=== PATIENT | female | born 1945 | race Caucasian/White ===

== ENCOUNTER → 2016-08-17 | Outpatient (CLI) | payer MEDICARE ==
[2014-05-23 11:30] VITALS: BP 159/70
[~2016-08-17] MED LIST: ASPI-630 PO; ATORVASTATIN CA80 MG PO; GLIP5TAB10 PO; LORA10CA PO; METO100T2 PO; MULT-18 PO; OMEG1CAP38 PO; OMEP40CA5 PO; PIOG30TA3 PO; PLAN450T PO
--- NOTE | 2016-08-17 14:38 | KCIC ---
PROCEDURE Bilateral carotid duplex Doppler ultrasound. HISTORY CAD, history of CABG. TECHNIQUE Duplex sonography of the cervical portion of both carotid arteries was performed including color flow imaging and spectral waveform analysis with flow velocity measurement and burch scale evaluation. COMPARISON Bilateral carotid Doppler ultrasound, July 04, 2013. CTA neck, May 23, 2014. FINDINGS Right side: Peak systolic flow velocity of the distal CCA is 63 cm/sec. Peak systolic flow velocity of the ICA is 132 cm/sec. Thus, the ICA/CCA ratio is 2.1. Peak end diastolic flow velocity of the ICA is 42 cm/sec. The peak systolic velocity of the ECA is 186 cm/sec. Left side: Peak systolic flow velocity of the distal CCA is 56 cm/sec. Peak systolic flow velocity of the ICA is 146 cm/sec. Thus, the ICA/CCA ratio is 2.6. Peak end diastolic flow velocity of the ICA is 38 cm/sec. Peak systolic flow velocity of the ECA is 1 cm/sec. There is echogenic plaque in the left CCA. Left ICA is tortuous. Antegrade vertebral flow is seen bilaterally. The prior ultrasound and CTA demonstrated more severe disease bilaterally. Correlate to any interval interventions such as CEA. IMPRESSION Elevated peak systolic velocities and increased ICA to CCA ratios suggest 50-69 percent stenoses bilaterally. Electronically signed by: Edilberto Barbosa MD (August 17, 2016 14:37:37)
== END | disposition home or self-care (01) ==
LOC: KCIC US 12:07
PROVIDERS: ATTEND Internal Medicine Cardiovascular Disease
DX: I25.10 Atherosclerotic heart disease of native coronary artery without angina pectoris (principal); Z95.1 Presence of aortocoronary bypass graft; I65.22 Occlusion and stenosis of left carotid artery
CPT/HCPCS: 93880

== ENCOUNTER → 2016-09-08 | Outpatient (CLI) | payer MEDICARE ==
[2014-05-23 11:30] VITALS: BP 159/70
[~2016-09-08] MED LIST changes: +IOHEXOL 300 MG/ML 100ML VIAL. IV ONE
== END | disposition home or self-care (01) ==
LOC: KCIC CT 08:59
PROVIDERS: ATTEND Internal Medicine Cardiovascular Disease
DX: I25.10 Atherosclerotic heart disease of native coronary artery without angina pectoris (principal)
CPT/HCPCS: 82565

== ENCOUNTER → 2016-09-11 | Outpatient (CLI) | payer MEDICARE ==
[2014-05-23 11:30] VITALS: BP 159/70
[~2016-09-11] MED LIST changes: -IOHEXOL 300 MG/ML 100ML VIAL. IV ONE
--- NOTE | 2016-09-11 13:20 | KCIC ---
Neck MRA without contrast History: Carotid artery disease Technique: [id number] MR angiography was performed of the neck. No contrast was given due to the patient's renal function. Comparison: Carotid Doppler exam August 17, 2016 and also CTA neck exam 05/23/2014 Findings: Determination of any degree of stenosis is based on NASCET criteria. There is motion degradation. Exam is also limited due to the lack of contrast. Antegrade flow is demonstrated in the bilateral vertebral arteries as well as the bilateral common and internal carotid arteries. As seen on previous CTA, there is more focal significant stenosis at the left proximal internal carotid artery near its origin with estimated luminal diameter reduction on the order of 80%. There is narrowing of the origin of the left external carotid artery estimated at approximately 65%. There is also a long segment of irregularity of the proximal right internal carotid artery corresponding with plaque as seen on previous CTA with estimated luminal diameter reduction on the order of 70%. Origins are not accurately evaluated due to signal loss in this region. Impression: 1. Exam limited as stated. There is significant stenosis of the proximal left internal carotid artery on the order of 80%, also stenosis of the proximal right internal carotid origin with estimated luminal diameter reduction of 70%. Electronically signed by: Sav Valdes MD (09/11/2016 1:16 PM)
== END | disposition home or self-care (01) ==
LOC: KCIC MRI 11:29
PROVIDERS: ATTEND Internal Medicine Cardiovascular Disease
DX: I65.23 Occlusion and stenosis of bilateral carotid arteries (principal)
CPT/HCPCS: 70547

== ENCOUNTER 2018-08-05 12:23 | Inpatient (IN) | payer MEDICARE ==
[~2018-08-05] VITALS: Ht 177.8 cm; Wt 139.8 kg
[~2018-08-05 12:23] MED LIST changes: -METO100T2 PO; +METO100T7 PO; -PIOG30TA3 PO; +PIOG30TA62 PO
[2018-08-05 13:12] LABS: BILIRUBIN,URINE MODERATE (NEG); CLARITY,URINE CLOUDY; COLOR,URINE ORANGE; NITRITE,URINE POSITIVE (NEG); PROTEIN,URINE 100 mg/dL (NEG-TRACE)
[2018-08-05 13:23] LABS: HYALINE CASTS, URINE MODERATE /HPF; SQUAMOUS EPITHELIAL CELL,UR FEW /LPF
[2018-08-05 13:24] LABS: AMORPHOUS SEDIMENT,UR PRESENT /HPF; BACTERIA,URINE MANY /HPF (0-FEW); RBC,URINE OCC /HPF (0-2)
--- NOTE | 2018-08-05 13:36 | EKG ---
[facility] [address] [place] [address] Test Date: 2018-08-05 Test Time: 13:24:33 Pat Name: THO LINARES Department: Room: Gender: F Checkout Operator: : [id number] Requested By: KYLEE MARY Order Number: [id number] Reading MD: Timothy Pierre MD Measurements Intervals [place] Rate: 80 P: -121 WA: 138 QRS: 26 QRSD: 94 T: 36 QT: 392 QTc: 456 Interpretive Statements SINUS RHYTHM NORMAL ECG Electronically Signed On 08-06-2018 14:38:11 CDT by Timothy Pierre MD
[2018-08-05] MEDS ORDERED: SITA50TA PO (13:52)
[2018-08-05] MEDS ORDERED: LISI-338 PO (13:52)
--- NOTE | 2018-08-05 13:53 | RAD ---
CHEST AP ONLY Clinical indications: Generalized weakness. COMPARISON: August 01, 2013. Findings: Bilateral interstitial lung infiltrates or peribronchial thickening is seen. No lung consolidation or pleural effusion or pneumothorax is seen. A sternotomy is evident. The heart size, pulmonary vasculature, mediastinum and both josias are stable. Impression: Increase in bilateral lung infiltrates or peribronchial thickening. This may be secondary to acute interstitial pulmonary edema or acute bronchitis. Electronically signed by: Pascual Bedolla MD (08/05/2018 1:49 PM) [place] [id number]
[2018-08-05 14:23] LABS: BASO % 1 % (0-3); EOS % 1 % (0-3); HEMATOCRIT 34.6 % (36.0-47.0); HEMOGLOBIN 11.5 g/dL (12.0-15.5); LYMPH # 0.4 x10^3/uL (1.0-4.8); LYMPH % 28 % (24-48); MEAN CORPUSCULAR HEMOGLOBIN 32 pg (25-35); MEAN CORPUSCULAR HGB CONC 33 g/dL (31-37); MEAN CORPUSCULAR VOLUME 96 fL (79-100); MONO # 0.2 x10^3/uL (0.0-1.1); MONO % 13 % (0-9); NEUT # 0.8 x10^3uL (1.8-7.7); NEUT % 57 % (31-73); PLATELET COUNT 159 x10^3/uL (140-400); RED BLOOD COUNT 3.62 x10^6/uL (3.50-5.40); RED CELL DISTRIBUTION WIDTH 15.7 % (11.5-14.5)
[2018-08-05 14:27] LABS: WHITE BLOOD COUNT 1.3 x10^3/uL (4.0-11.0)
--- NOTE | 2018-08-05 14:43 | RAD ---
CT HEAD WO CONTRAST Clinical indications: Generalized weakness. COMPARISON: None available. Technique: Noncontrast axial cross sectional scanning of the head was performed. PQRS compliance Statement One or more of the following individualized dose reduction techniques were utilized for this study: 1. Automated exposure control 2. Adjustment of the mA and/or kV according to patient size 3. Use of iterative reconstruction technique Findings: No acute intracranial hemorrhage or midline shift or mass-effect or hydrocephalus or extra-axial fluid collection is seen. There is a moderate-sized hypodensity involving the left centrum semiovale anteriorly in the region of the anterior limb of the internal capsule. Smaller hypodensity is seen involving the perez radiata of the right parietal lobe. There is a small hypodensity involving the periventricular white matter of the anterior right parietal lobe. This is consistent with chronic ischemic disease. No asymmetric sulci effacement is seen. No skull fracture or pneumocephalus is seen. No opacification of the mastoid sinuses or the paranasal sinuses is seen. The maxillary sinuses are not completely seen in this study. Impression: No acute intracranial hemorrhage is seen. Chronic ischemic disease. Electronically signed by: Pascual Bedolla MD (08/05/2018 2:40 PM) [id number]
[2018-08-05 14:53] LABS: ALBUMIN 2.2 g/dL (3.4-5.0); CALCIUM 8.2 mg/dL (8.5-10.1); CREATININE 2.1 mg/dL (0.6-1.0); DIRECT BILIRUBIN 1.1 mg/dL (0.0-0.2); GFR 23.2; POTASSIUM 3.4 mmol/L (3.5-5.1); TOTAL BILIRUBIN 1.5 mg/dL (0.2-1.0)
[2018-08-05] MEDS ORDERED: PIP/TAZO PER PHARMACY MC PRN (15:00)
[2018-08-05] MEDS ORDERED: PIPERACILLIN/TAZOBACTAM 4.5 GM in IV NORMAL SALINE 100ML 100 ML IV ONE (15:00)
[2018-08-05 15:17] LABS: % BANDS 3 % (0-9); % LYMPHS 30 % (24-48); % MONOS 7 % (0-10); % SEGS 60 % (35-66); PLATELET CLUMP PRESENT; PLT ESTIMATE ADEQUATE (ADEQUATE)
[2018-08-05] MEDS ORDERED: VANCOMYCIN 2 GM in IV NORMAL SALINE 500ML BAG 500 ML IV ONE (16:15)
[2018-08-05] MEDS ORDERED: IV NORMAL SALINE 1000ML BAG 1,000 ML IV SCH (16:43)
[2018-08-05] MEDS ORDERED: MORPHINE SULFATE 2 MG/ML VIAL. IV PRN (16:45)
[2018-08-05] MEDS ORDERED: ONDANSETRON PF 4 MG/2 ML VIAL. IV PRN (16:45)
[2018-08-05] MEDS: VANCOMYCIN PER PHARMACY MC PRN (17:09)
--- NOTE | 2018-08-05 17:11 | NUR ---
Pharmacy Vancomycin Dosing Note S:Consulted to monitor and dose vancomycin started 08/05/18. O:THO LINARES is a 72 year old F with Sepsis, pneumonia . Height: 5 feet, 10 inches Weight: 136 kg [place] Body Weight: 68.50 Adjusted Body Weight: 95.50 Dosing Weight: Actual Other Antibiotics: zosyn LABS: Last BUN: 37 Last Creatinine: 2.1 Creatinine Clearance: 37 mL/min Last WBC: 1.3 Last Procalcitonin: Tmax (past 24 hours): 97.4 Microbiology: - Last dose given 08/05/18 at 1617 Vancomycin Dosing: Loading Dose: 2000 mg x1 Dosing Weight: Actual Target Trough: 15-20 A: Based on: weight and renal function P: 1. Begin vancomycin 1500 mg IV q24h 2. Follow up Trough level on 08/07/18 at 1530 3. Pharmacy will continue to monitor, follow and adjust therapy as needed. Gracia Louie RPH, 08/05/18 [id number]
--- NOTE | 2018-08-05 17:26 | PHYS DOC ---
Past Medical History Past Medical History: GERD, High Cholesterol, Hypertension Past Surgical History: Coronary Bypass Surgery Additional Past Surgical Histo: "Band-aid surgery-I had 17 fractures to my pelvic bone." Alcohol Use: None Drug Use: None Adult General Chief Complaint Chief Complaint: gen weakness and cough HPI HPI 72-year-old female presenting the emergency department today with generalized weakness for the past 2-3 days. It is associated with shortness of breath. She denies any pain. She reports having cough and upon arrival was found be in the mid 80s on room air. Location lungs. Duration intermittent. Worse with walking. Review of systems was negative for abdominal pain nausea vomiting headache neck pain neck stiffness. All other review of systems is negative unless otherwise noted in history of present illness. ED course: 72-year-old female presenting the emergency today with generalized weakness to be hypoxic on arrival placed on 4 L nasal cannula. Blood pressure within normal limits. Heart rate within normal limits. Patient has a new leukopenia with neutropenia. Chemistry panel shows mildly low sodium potassium and chloride. BUN and creatinine are elevated. Glucose mildly low. Patient is alert and oriented. LFTs are mildly elevated as well. Patient does not have right upper quadrant abdominal pain. Troponin within normal limits. We will give broad-spectrum antibiotics I spoke with Dr. Duran who is admitting for Dr. Long today. Basic bridge orders placed after IV antibiotics and IV fluids ordered. The patient was then admitted for further treatment and care. Basic bridge orders placed. Review of Systems Review of Systems SEE ABOVE. Current Medications Current Medications Current Medications Medications (Trade) Dose Ordered Sig/[facility] Start Time Stop Time Status Last Admin Dose Admin Piperacillin Sod/ Tazobactam Sod (Zosyn Per Pharmacy) 1 each PRN DAILY PRN 08/05/18 15:00 Piperacillin Sod/ Tazobactam Sod 4.5 gm/Sodium Chloride 100 ml @ 200 mls/hr ONCE ONCE 08/05/18 15:00 08/05/18 15:29 DC 08/05/18 15:00 200 MLS/HR Vancomycin HCl (Vanco Per Pharmacy) 1 each PRN DAILY PRN 08/05/18 16:15 08/05/18 17:09 1 EACH Vancomycin HCl 2 gm/Sodium Chloride 500 ml @ 250 mls/hr 1X ONCE 08/05/18 16:15 08/05/18 18:14 08/05/18 16:17 250 MLS/HR Allergies Allergies Allergies Coded Allergies Type Severity Reaction Last Updated Verified No Known Drug Allergies 07/05/13 No Physical Exam Physical Exam SEE ABOVE Constitutional: Well developed, well nourished, no acute distress, non-toxic appearance. [] HENT: Normocephalic, atraumatic, bilateral external ears normal, oropharynx moist, no oral exudates, nose normal. [] Eyes: PERRLA, EOMI, conjunctiva normal, no discharge. [] Neck: Normal range of motion, no tenderness, supple, no stridor. [] Cardiovascular:Heart rate regular rhythm, no murmur [] Lungs & Thorax: Patient has mild wheezing on left more than the right. Abdomen: Bowel sounds normal, soft, no tenderness, no masses, no pulsatile masses. [] Skin: Warm, dry, no erythema, no rash. [] Back: No tenderness, no CVA tenderness. [] Extremities: No tenderness, no cyanosis, no clubbing, ROM intact, 1+ edema in the legs bilaterally Neurologic: Alert and oriented X 3, normal motor function, normal sensory function, no focal deficits noted. [] Psychologic: Affect normal, judgement normal, mood normal. [] Current Patient Data Vital Signs Vital Signs Date Time Temp Pulse Resp B/P (MAP) Pulse Ox O2 Delivery O2 Flow Rate FiO2 08/05/18 16:36 87 36 104/46 (65) 98 Nasal Cannula 4.0 08/05/18 13:11 97.4 97.4 Lab Values Laboratory Tests Test 08/05/18 13:05 08/05/18 14:07 Urine Collection Type U cath Urine Color [place] Urine Clarity Cloudy Urine pH 5.0 Urine Specific [place] 1.025 Urine Protein 100 mg/dL (NEG-TRACE) Urine Glucose (UA) Negative mg/dL (NEG) Urine Ketones (Stick) Trace mg/dL (NEG) Urine Blood Negative (NEG) Urine Nitrite Positive (NEG) Urine Bilirubin Moderate (NEG) Urine Urobilinogen Dipstick 4.0 mg/dL (0.2 mg/dL) Urine Leukocyte Esterase Small (NEG) Urine RBC Occ /HPF (0-2) Urine WBC 5-10 /HPF (0-4) Urine Squamous Epithelial Cells Few /LPF Urine Renal Epithelial Cells Occ /LPF Urine Amorphous Sediment Present /HPF Urine Bacteria Many /HPF (0-FEW) Urine Hyaline Casts Moderate /HPF Urine Mucus Mod /LPF White Blood Count 1.3 x10^3/uL (4.0-11.0) *L Red Blood Count 3.62 x10^6/uL (3.50-5.40) Hemoglobin 11.5 g/dL (12.0-15.5) L Hematocrit 34.6 % (36.0-47.0) L Mean Corpuscular Volume 96 fL (79-100) Mean Corpuscular Hemoglobin 32 pg (25-35) Mean Corpuscular Hemoglobin Concent 33 g/dL (31-37) Red Cell Distribution Width 15.7 % (11.5-14.5) H Platelet Count 159 x10^3/uL (140-400) Neutrophils (%) (Auto) 57 % (31-73) Lymphocytes (%) (Auto) 28 % (24-48) Monocytes (%) (Auto) 13 % (0-9) H Eosinophils (%) (Auto) 1 % (0-3) Basophils (%) (Auto) 1 % (0-3) Neutrophils # (Auto) 0.8 x10^3uL (1.8-7.7) L Lymphocytes # (Auto) 0.4 x10^3/uL (1.0-4.8) L Monocytes # (Auto) 0.2 x10^3/uL (0.0-1.1) Eosinophils # (Auto) 0.0 x10^3/uL (0.0-0.7) Basophils # (Auto) 0.0 x10^3/uL (0.0-0.2) Segmented Neutrophils % 60 % (35-66) Band Neutrophils % 3 % (0-9) Lymphocytes % 30 % (24-48) Monocytes % 7 % (0-10) Platelet Estimate Adequate (ADEQUATE) Platelet Clumps, EDTA Present Large Platelets Few Sodium Level 134 mmol/L (136-145) L Potassium Level 3.4 mmol/L (3.5-5.1) L Chloride Level 94 mmol/L (98-107) L Carbon Dioxide Level 26 mmol/L (21-32) Anion Gap 14 (6-14) Blood Urea Nitrogen 37 mg/dL (7-20) H Creatinine 2.1 mg/dL (0.6-1.0) H Estimated GFR (Cockcroft-Gault) 23.2 Glucose Level 64 mg/dL (70-99) L Calcium Level 8.2 mg/dL (8.5-10.1) L Total Bilirubin 1.5 mg/dL (0.2-1.0) H Direct Bilirubin 1.1 mg/dL (0.0-0.2) H Aspartate Amino Transferase (AST) 247 U/L (15-37) H Alanine Aminotransferase (ALT) 143 U/L (14-59) H Alkaline Phosphatase 132 U/L (46-116) H Troponin I Quantitative 0.052 ng/mL (0.000-0.055) Total Protein 7.0 g/dL (6.4-8.2) Albumin 2.2 g/dL (3.4-5.0) L Lipase 206 U/L (73-393) Laboratory Tests 08/05/18 14:07 Laboratory Tests 08/05/18 14:07 EKG EKG EKG reviewed by myself shows sinus rhythm with a regular rate. ST segments congruent. Not suggestive of ACS.[] Radiology/Procedures Radiology/Procedures [] Course & Med Decision Making Course & Med Decision Making Pertinent Labs and Imaging studies reviewed. (See chart for details) [] Dragon Disclaimer Dragon Disclaimer This electronic medical record was generated, in whole or in part, using a voice recognition dictation system. Departure Departure Impression: Primary Impression: Pneumonia Additional Impressions: Urinary tract infection Severe sepsis Disposition: ADMITTED INPATIENT Condition: STABLE Referrals: KEVON LONG MD (PCP) Problem Qualifiers KYLEE MARY MD August 05, 2018 17:26
[2018-08-05] MEDS: IV NORMAL SALINE 1000ML BAG 1,000 ML IV SCH ×2 (17:37→19:00)
[2018-08-05 18:06] VITALS: BP 150/61
[2018-08-05] MEDS ORDERED: METO100T7 PO (18:57)
[2018-08-05] MEDS ORDERED: OMEG1CAP38 PO (18:57)
[2018-08-05] MEDS ORDERED: GLIP5TAB10 PO (18:57)
[2018-08-05] MEDS ORDERED: CALC500T31 PO (18:57)
--- NOTE | 2018-08-05 19:25 | NUR ---
Patient arrived to room 248 via bed from ER around 1800. Patient was A&OX4 when she got up to unit but now seems somewhat confused. Bed alarm turned on. Consults to Dr. Chan & Dr. Rodgers called. Dr. Duran called also. Will continue to monitor. Night RN to finish admission.
--- NOTE | 2018-08-05 19:29 | PDOC ---
PULMONARY PROGRESS NOTES Vitals Vital Signs Date Time Temp Pulse Resp B/P (MAP) Pulse Ox O2 Delivery O2 Flow Rate FiO2 08/05/18 18:06 98.6 87 150/61 (90) 93 Nasal Cannula 4.0 98.6 08/05/18 16:36 36 Labs Laboratory Tests Test 08/05/18 13:05 08/05/18 14:07 Urine Collection Type U cath Urine Color [place] Urine Clarity Cloudy Urine pH 5.0 Urine Specific [place] 1.025 Urine Protein 100 mg/dL (NEG-TRACE) Urine Glucose (UA) Negative mg/dL (NEG) Urine Ketones (Stick) Trace mg/dL (NEG) Urine Blood Negative (NEG) Urine Nitrite Positive (NEG) Urine Bilirubin Moderate (NEG) Urine Urobilinogen Dipstick 4.0 mg/dL (0.2 mg/dL) Urine Leukocyte Esterase Small (NEG) Urine RBC Occ /HPF (0-2) Urine WBC 5-10 /HPF (0-4) Urine Squamous Epithelial Cells Few /LPF Urine Renal Epithelial Cells Occ /LPF Urine Amorphous Sediment Present /HPF Urine Bacteria Many /HPF (0-FEW) Urine Hyaline Casts Moderate /HPF Urine Mucus Mod /LPF White Blood Count 1.3 x10^3/uL (4.0-11.0) Red Blood Count 3.62 x10^6/uL (3.50-5.40) Hemoglobin 11.5 g/dL (12.0-15.5) Hematocrit 34.6 % (36.0-47.0) Mean Corpuscular Volume 96 fL (79-100) Mean Corpuscular Hemoglobin 32 pg (25-35) Mean Corpuscular Hemoglobin Concent 33 g/dL (31-37) Red Cell Distribution Width 15.7 % (11.5-14.5) Platelet Count 159 x10^3/uL (140-400) Neutrophils (%) (Auto) 57 % (31-73) Lymphocytes (%) (Auto) 28 % (24-48) Monocytes (%) (Auto) 13 % (0-9) Eosinophils (%) (Auto) 1 % (0-3) Basophils (%) (Auto) 1 % (0-3) Neutrophils # (Auto) 0.8 x10^3uL (1.8-7.7) Lymphocytes # (Auto) 0.4 x10^3/uL (1.0-4.8) Monocytes # (Auto) 0.2 x10^3/uL (0.0-1.1) Eosinophils # (Auto) 0.0 x10^3/uL (0.0-0.7) Basophils # (Auto) 0.0 x10^3/uL (0.0-0.2) Segmented Neutrophils % 60 % (35-66) Band Neutrophils % 3 % (0-9) Lymphocytes % 30 % (24-48) Monocytes % 7 % (0-10) Platelet Estimate Adequate (ADEQUATE) Platelet Clumps, EDTA Present Large Platelets Few Sodium Level 134 mmol/L (136-145) Potassium Level 3.4 mmol/L (3.5-5.1) Chloride Level 94 mmol/L (98-107) Carbon Dioxide Level 26 mmol/L (21-32) Anion Gap 14 (6-14) Blood Urea Nitrogen 37 mg/dL (7-20) Creatinine 2.1 mg/dL (0.6-1.0) Estimated GFR (Cockcroft-Gault) 23.2 Glucose Level 64 mg/dL (70-99) Calcium Level 8.2 mg/dL (8.5-10.1) Total Bilirubin 1.5 mg/dL (0.2-1.0) Direct Bilirubin 1.1 mg/dL (0.0-0.2) Aspartate Amino Transf (AST/SGOT) 247 U/L (15-37) Alanine Aminotransferase (ALT/SGPT) 143 U/L (14-59) Alkaline Phosphatase 132 U/L (46-116) Troponin I Quantitative 0.052 ng/mL (0.000-0.055) Total Protein 7.0 g/dL (6.4-8.2) Albumin 2.2 g/dL (3.4-5.0) Lipase 206 U/L (73-393) Laboratory Tests Test 08/05/18 13:05 08/05/18 14:07 Urine Collection Type U cath Urine Color [place] Urine Clarity Cloudy Urine pH 5.0 Urine Specific [place] 1.025 Urine Protein 100 mg/dL (NEG-TRACE) Urine Glucose (UA) Negative mg/dL (NEG) Urine Ketones (Stick) Trace mg/dL (NEG) Urine Blood Negative (NEG) Urine Nitrite Positive (NEG) Urine Bilirubin Moderate (NEG) Urine Urobilinogen Dipstick 4.0 mg/dL (0.2 mg/dL) Urine Leukocyte Esterase Small (NEG) Urine RBC Occ /HPF (0-2) Urine WBC 5-10 /HPF (0-4) Urine Squamous Epithelial Cells Few /LPF Urine Renal Epithelial Cells Occ /LPF Urine Amorphous Sediment Present /HPF Urine Bacteria Many /HPF (0-FEW) Urine Hyaline Casts Moderate /HPF Urine Mucus Mod /LPF White Blood Count 1.3 x10^3/uL (4.0-11.0) Red Blood Count 3.62 x10^6/uL (3.50-5.40) Hemoglobin 11.5 g/dL (12.0-15.5) Hematocrit 34.6 % (36.0-47.0) Mean Corpuscular Volume 96 fL (79-100) Mean Corpuscular Hemoglobin 32 pg (25-35) Mean Corpuscular Hemoglobin Concent 33 g/dL (31-37) Red Cell Distribution Width 15.7 % (11.5-14.5) Platelet Count 159 x10^3/uL (140-400) Neutrophils (%) (Auto) 57 % (31-73) Lymphocytes (%) (Auto) 28 % (24-48) Monocytes (%) (Auto) 13 % (0-9) Eosinophils (%) (Auto) 1 % (0-3) Basophils (%) (Auto) 1 % (0-3) Neutrophils # (Auto) 0.8 x10^3uL (1.8-7.7) Lymphocytes # (Auto) 0.4 x10^3/uL (1.0-4.8) Monocytes # (Auto) 0.2 x10^3/uL (0.0-1.1) Eosinophils # (Auto) 0.0 x10^3/uL (0.0-0.7) Basophils # (Auto) 0.0 x10^3/uL (0.0-0.2) Segmented Neutrophils % 60 % (35-66) Band Neutrophils % 3 % (0-9) Lymphocytes % 30 % (24-48) Monocytes % 7 % (0-10) Platelet Estimate Adequate (ADEQUATE) Platelet Clumps, EDTA Present Large Platelets Few Sodium Level 134 mmol/L (136-145) Potassium Level 3.4 mmol/L (3.5-5.1) Chloride Level 94 mmol/L (98-107) Carbon Dioxide Level 26 mmol/L (21-32) Anion Gap 14 (6-14) Blood Urea Nitrogen 37 mg/dL (7-20) Creatinine 2.1 mg/dL (0.6-1.0) Estimated GFR (Cockcroft-Gault) 23.2 Glucose Level 64 mg/dL (70-99) Calcium Level 8.2 mg/dL (8.5-10.1) Total Bilirubin 1.5 mg/dL (0.2-1.0) Direct Bilirubin 1.1 mg/dL (0.0-0.2) Aspartate Amino Transf (AST/SGOT) 247 U/L (15-37) Alanine Aminotransferase (ALT/SGPT) 143 U/L (14-59) Alkaline Phosphatase 132 U/L (46-116) Troponin I Quantitative 0.052 ng/mL (0.000-0.055) Total Protein 7.0 g/dL (6.4-8.2) Albumin 2.2 g/dL (3.4-5.0) Lipase 206 U/L (73-393) Medications Active Scripts Medications Dose Route/Sig Max Daily Dose Days Date Category Metoprolol Tartrate 100 Mg Tablet 2 Tab PO DAILY 08/05/18 Reported Glipizide 5 Mg Tablet 2 Tab PO DAILY 08/05/18 Reported [place] 3 Fish Oil Softgel ([place]-3 Fatty Acids/Fish Oil) 1 Each Capsule.dr 2 Each PO DAILY 08/05/18 Reported Calcium Carbonate 500 Mg Tablet 1,000 Mg PO DAILY 08/05/18 Reported Januvia (Sitagliptin Phosphate) 50 Mg Tablet 1 Tab PO DAILY 08/05/18 Reported Lisinopril 5 Mg Tablet 1 Tab PO DAILY 08/05/18 Reported Omeprazole 40 Mg Capsule.dr 40 Mg PO DAILY 07/03/13 Rx Aspirin 81 Mg Tab.chew 81 Mg PO DAILY 07/03/13 Rx Pioglitazone Hcl 30 Mg Tablet 30 Mg PO DAILY 07/03/13 Rx Atorvastatin Calcium 80 Mg Tablet 80 Mg PO HS 07/03/13 Rx Impression . DICTATED PNEUMONIA CHF ?DEMENTIA ENCE SEE ORDERS ADRIANA SALINAS MD August 05, 2018 19:29
[2018-08-05] MEDS ORDERED: HALOPERIDOL LACTATE 5 MG/ML VIAL. IVP PRN (19:30)
[2018-08-05] MEDS ORDERED: ATORVASTATIN CALCIUM 40 MG TABLET. PO SCH (21:00)
[2018-08-05] MEDS: DEXTROSE 50% 25 GM / 50ML DISP.SYRIN. IV PRN ×2 (21:08→21:43)
[2018-08-05 23:15] VITALS: BP 94/54
[2018-08-06] MEDS: PIPERACILLIN/TAZOBACTAM 3.375 GM in IV NORMAL SALINE 50ML 50 ML IV SCH ×5 (00:15→23:58)
[2018-08-06 01:49] LABS: BASO % 1 % (0-3); EOS % 2 % (0-3); HEMATOCRIT 30.2 % (36.0-47.0); HEMOGLOBIN 10.3 g/dL (12.0-15.5); LYMPH # 0.3 x10^3/uL (1.0-4.8); LYMPH % 30 % (24-48); MEAN CORPUSCULAR HEMOGLOBIN 32 pg (25-35); MEAN CORPUSCULAR HGB CONC 34 g/dL (31-37); MEAN CORPUSCULAR VOLUME 95 fL (79-100); MONO # 0.2 x10^3/uL (0.0-1.1); MONO % 17 % (0-9); NEUT # 0.6 x10^3uL (1.8-7.7); NEUT % 51 % (31-73); PLATELET COUNT 140 x10^3/uL (140-400); RED BLOOD COUNT 3.19 x10^6/uL (3.50-5.40); RED CELL DISTRIBUTION WIDTH 15.8 % (11.5-14.5)
[2018-08-06 01:54] LABS: CALCIUM 7.7 mg/dL (8.5-10.1); CREATININE 1.9 mg/dL (0.6-1.0); GFR 26.1; POTASSIUM 3.4 mmol/L (3.5-5.1)
[2018-08-06 03:50] VITALS: BP 134/69
[2018-08-06 04:08] LABS: WHITE BLOOD COUNT 1.2 x10^3/uL (4.0-11.0)
[2018-08-06] MEDS: ACETAMINOPHEN 325 MG TABLET. PO PRN ×3 (05:04→21:18)
[2018-08-06] MEDS: IV NORMAL SALINE 1000ML BAG 1,000 ML IV SCH ×2 (05:42→19:10)
[2018-08-06 07:04] VITALS: BP 84/53
[2018-08-06] MEDS: CALCIUM CARBONATE 500 MG TABLET PO SCH (08:55)
[2018-08-06] MEDS: OMEGA-3 FATTY ACIDS/FISH OIL 1,000 MG CAPSULE. PO SCH (08:55)
[2018-08-06] MEDS: ASPIRIN CHEWABLE 81 MG TABLET. PO SCH (08:56)
[2018-08-06] MEDS: PANTOPRAZOLE 40 MG TABLET.DR. PO SCH (08:56)
--- NOTE | 2018-08-06 08:56 | PDOC2 ---
CONSULT Date of Consult Date of Consult DATE: 08/06/18 TIME: 08:29 Reason for Consult Reason for Consult: neutropenia, anemia Identification/Chief Complaint Chief Complaint weakness Source Source: Patient History of Present Illness Reason for Visit: 72 yo F who was brought into Prov ER by her sisters on Wed08/05/18, after feeling acutely weak on night while using the restroom. No documented fevers at home, just progressively weak to the point of not being able to get herself off the toilet by herself on . She lives at [facility], and up until , had been doing everything independently, although mentions that for the last month or so, she has had a little more difficulty walking. 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 She does live alone. Has never been told she was anemic or had low blood counts. Her mother and grandmother were anemic though. Found to have urosepsis and pneumonia in ER and has been started on IV antibiotics and oxygen. Past Medical History Cardiovascular: HTN, Hyperlipidemia Pulmonary: Bronchitis Renal/: Chronic renal failure Endocrine: Diabetes Past Surgical History Past Surgical History: CABG, Tubal Ligation Family History Family History: Coronary Artery Disease, Diabetes, Hypertension Social History ALCOHOL: none Current Problem List Problem List Problems Medical Problems: (1) Pneumonia Status: Acute (2) Severe sepsis Status: Acute (3) Urinary tract infection Status: Acute Current Medications Current Medications Current Medications Piperacillin Sod/ Tazobactam Sod (Zosyn Per Pharmacy) 1 each PRN DAILY PRN MC SEE COMMENTS; Start 08/05/18 at 15:00 Piperacillin Sod/ Tazobactam Sod 4.5 gm/Sodium Chloride 100 ml @ 200 mls/hr ONCE ONCE IV Last administered on 08/05/18at 15:00; Start 08/05/18 at 15:00; Stop 08/05/18 at 15:29; Status DC Vancomycin HCl (Vanco Per Pharmacy) 1 each PRN DAILY PRN MC SEE COMMENTS Last administered on 08/05/18at 17:09; Start 08/05/18 at 16:15 Vancomycin HCl 2 gm/Sodium Chloride 500 ml @ 250 mls/hr 1X ONCE IV Last administered on 08/05/18at 16:17; Start 08/05/18 at 16:15; Stop 08/05/18 at 18:14; Status DC Ondansetron HCl (Zofran) 4 mg PRN Q8HRS PRN IV NAUSEA/VOMITING; Start 08/05/18 at 16:45; Stop 08/06/18 at 16:44 Morphine Sulfate (Morphine Sulfate) 2 mg PRN Q2HR PRN IV PAIN; Start 08/05/18 at 16:45; Stop 08/06/18 at 16:44 Sodium Chloride 1,000 ml @ 100 mls/hr Q10H IV Last administered on 08/06/18at 00:12; Start 08/05/18 at 16:43; Stop 08/05/18 at 20:42; Status DC Piperacillin Sod/ Tazobactam Sod 3.375 gm/Sodium Chloride 50 ml @ 100 mls/hr Q6HRS IV Last administered on 08/06/18at 05:06; Start 08/06/18 at 00:00 Vancomycin HCl 1.5 gm/Sodium Chloride 500 ml @ 250 mls/hr Q24H IV ; Start 08/06/18 at 16:00 Vancomycin HCl (Vancomycin Trough Level) 1 each 1X ONCE MC ; Start 08/07/18 at 15:30; Stop 08/07/18 at 15:31 Sodium Chloride 1,000 ml @ 166.667 mls/hr Q6H IV Last administered on 08/06/18at 05:42; Start 08/05/18 at 17:24; Stop 08/06/18 at 05:48; Status DC Aspirin (Children'S Aspirin) 81 mg DAILY PO ; Start 08/06/18 at 09:00 Calcium Carbonate/ Glycine (Oscal) 1,000 mg DAILY PO ; Start 08/06/18 at 09:00 Glipizide (Glucotrol) 10 mg DAILY PO ; Start 08/06/18 at 09:00 Atorvastatin Calcium (Lipitor) 80 mg QHS PO Last administered on 08/06/18at 00 :15; Start 08/05/18 at 21:00 Lisinopril (Prinivil) 5 mg DAILY PO ; Start 08/06/18 at 09:00 Metoprolol Succinate (Toprol Xl) 200 mg DAILY PO ; Start 08/06/18 at 09:00 Fish Oil (Fish Oil) 2,000 mg DAILY PO ; Start 08/06/18 at 09:00 Pantoprazole Sodium (Protonix) 40 mg DAILYAC PO ; Start 08/06/18 at 07:30 Pioglitazone HCl (Actos) 30 mg DAILY PO ; Start 08/06/18 at 09:00 Linagliptin (Tradjenta) 5 mg DAILY PO ; Start 08/06/18 at 09:00 Haloperidol Lactate (Haldol Inj) 5 mg PRN Q6HRS PRN IVP AGITATION; Start 07/27 at 19:30 Dextrose (Dextrose 50%-Water Syringe) 12.5 gm PRN Q15MIN PRN IV SEE COMMENTS Last administered on 08/05/18at 21:43; Start 08/05/18 at 19:45 Acetaminophen (Tylenol) 650 mg PRN Q6HRS PRN PO FEVER Last administered on 08/06/18at 05:04; Start 08/06/18 at 04:15 Active Scripts Active Omeprazole 40 Mg Capsule.dr 40 Mg PO DAILY Aspirin 81 Mg Tab.chew 81 Mg PO DAILY Pioglitazone Hcl 30 Mg Tablet 30 Mg PO DAILY Atorvastatin Calcium 80 Mg Tablet 80 Mg PO HS Reported Metoprolol Tartrate 100 Mg Tablet 2 Tab PO DAILY Glipizide 5 Mg Tablet 2 Tab PO DAILY Shandon 3 Fish Oil Softgel (Shandon-3 Fatty Acids/Fish Oil) 1 Each Capsule.dr 2 Each PO DAILY Calcium Carbonate 500 Mg Tablet 1,000 Mg PO DAILY Januvia (Sitagliptin Phosphate) 50 Mg Tablet 1 Tab PO DAILY Lisinopril 5 Mg Tablet 1 Tab PO DAILY Allergies Allergies: Coded Allergies: No Known Drug Allergies (Unverified , 07/05/13) ROS General: YES: Fatigue, Other (weakness) PSYCHOLOGICAL ROS: No: Anxiety, Behavioral Disorder, Concentration difficultie, Decreased libido, Depression, Disorientation, Hallucinations, Hostility, Irrit ablity, Memory difficulties, Mood Swings, Obsessive thoughts, Physical abuse, Sexual abuse, Sleep disturbances, Suicidal ideation, Other Eyes: No Blurry vision, No Decreased vision, No Double vision, No Dry eyes, No Excessive tearing, No Eye Pain, No Itchy Eyes, No Loss of vision, No Photophobia, No Scotomata, No Uses contacts, No Uses glasses, No Other HEENT: No: Heacaches, Visual Changes, Hearing change, Nasal congestion, Nasal discharge, Oral lesions, Sinus pain, Sore Throat, Epistaxis, Sneezing, Snoring, Tinnitus, Vertigo, Vocal changes, Other ALLERGY AND IMMUNOLOGY: No: Hives, Insect Bite Sensitivity, Itchy/Watery Eyes, Nasal Congestion, Post Nasal Drip, Seasonal Allergies, Other Hematological and Lymphatic: No: Bleeding Problems, Blood Clots, Blood Transfusions, Brusing, Night Sweats, Pallor, Swollen Lymph Nodes, Other Respiratory: YES: Shortness of breath Musculoskeletal: Yes Gait Disturbance, Yes Muscle Pain, Yes Muscular Weakness (BLE) Neurological: No Behavorial Changes, No Bowel/Bladder ControlChng, No Confusion, No Dizziness, No Gait Disturbance, No Headaches, No Impaired Coord/balance, No Memory Loss, No Numbness/Tingling, No Seizures, No Speech Problems, No Tremors, No Visual Changes, No Weakness, No Other Skin: No Dry Skin, No Eczema, No Hair Changes, No Lumps, No Mole Changes, No Mottling, No Nail Changes, No Pruritus, No Rash, No Skin Lesion Changes, No Other, No Acne Physical Exam General: Alert, Oriented X3, Cooperative, No acute distress HEENT: Atraumatic, EOMI Lungs: Other (decreased breath sounds, poor air mvmt) Heart: Regular rate, No murmurs Abdomen: Normal bowel sounds, Other (TTP rather diffusely throughout morbidly obese abdomen) Extremities: No clubbing, No cyanosis, Other (tenderness to palpation B calves) Skin: No rashes, No breakdown Neuro: Normal speech, Cranial nerves 3-12 NL Psych/Mental Status: Mental status NL, Mood NL MUSCULOSKELETAL: No deformity Vitals VITALS Vital Signs Date Time Temp Pulse Resp B/P (MAP) Pulse Ox O2 Delivery O2 Flow Rate FiO2 08/06/18 07:04 101.2 97 32 84/53 (63) 91 Nasal Cannula 4.0 101.2 Labs Labs Laboratory Tests Test 08/05/18 13:05 08/05/18 14:07 08/05/18 20:00 08/05/18 20:40 Urine Collection Type U cath Urine Color [place] Urine Clarity Cloudy Urine pH 5.0 Urine Specific [place] 1.025 Urine Protein 100 mg/dL (NEG-TRACE) Urine Glucose (UA) Negative mg/dL (NEG) Urine Ketones (Stick) Trace mg/dL (NEG) Urine Blood Negative (NEG) Urine Nitrite Positive (NEG) Urine Bilirubin Moderate (NEG) Urine Urobilinogen Dipstick 4.0 mg/dL (0.2 mg/dL) Urine Leukocyte Esterase Small (NEG) Urine RBC Occ /HPF (0-2) Urine WBC 5-10 /HPF (0-4) Urine Squamous Epithelial Cells Few /LPF Urine Renal Epithelial Cells Occ /LPF Urine Amorphous Sediment Present /HPF Urine Bacteria Many /HPF (0-FEW) Urine Hyaline Casts Moderate /HPF Urine Mucus Mod /LPF White Blood Count 1.3 x10^3/uL (4.0-11.0) Red Blood Count 3.62 x10^6/uL (3.50-5.40) Hemoglobin 11.5 g/dL (12.0-15.5) Hematocrit 34.6 % (36.0-47.0) Mean Corpuscular Volume 96 fL (79-100) Mean Corpuscular Hemoglobin 32 pg (25-35) Mean Corpuscular Hemoglobin Concent 33 g/dL (31-37) Red Cell Distribution Width 15.7 % (11.5-14.5) Platelet Count 159 x10^3/uL (140-400) Neutrophils (%) (Auto) 57 % (31-73) Lymphocytes (%) (Auto) 28 % (24-48) Monocytes (%) (Auto) 13 % (0-9) Eosinophils (%) (Auto) 1 % (0-3) Basophils (%) (Auto) 1 % (0-3) Neutrophils # (Auto) 0.8 x10^3uL (1.8-7.7) Lymphocytes # (Auto) 0.4 x10^3/uL (1.0-4.8) Monocytes # (Auto) 0.2 x10^3/uL (0.0-1.1) Eosinophils # (Auto) 0.0 x10^3/uL (0.0-0.7) Basophils # (Auto) 0.0 x10^3/uL (0.0-0.2) Segmented Neutrophils % 60 % (35-66) Band Neutrophils % 3 % (0-9) Lymphocytes % 30 % (24-48) Monocytes % 7 % (0-10) Platelet Estimate Adequate (ADEQUATE) Platelet Clumps, EDTA Present Large Platelets Few Sodium Level 134 mmol/L (136-145) Potassium Level 3.4 mmol/L (3.5-5.1) Chloride Level 94 mmol/L (98-107) Carbon Dioxide Level 26 mmol/L (21-32) Anion Gap 14 (6-14) Blood Urea Nitrogen 37 mg/dL (7-20) Creatinine 2.1 mg/dL (0.6-1.0) Estimated GFR (Cockcroft-Gault) 23.2 Glucose Level 64 mg/dL (70-99) Calcium Level 8.2 mg/dL (8.5-10.1) Total Bilirubin 1.5 mg/dL (0.2-1.0) Direct Bilirubin 1.1 mg/dL (0.0-0.2) Aspartate Amino Transf (AST/SGOT) 247 U/L (15-37) Alanine Aminotransferase (ALT/SGPT) 143 U/L (14-59) Alkaline Phosphatase 132 U/L (46-116) Troponin I Quantitative 0.052 ng/mL (0.000-0.055) Total Protein 7.0 g/dL (6.4-8.2) Albumin 2.2 g/dL (3.4-5.0) Lipase 206 U/L (73-393) Lactic Acid Level 0.6 mmol/L (0.4-2.0) Procalcitonin 0.28 ng/mL (0.00-0.10) Glucose (Fingerstick) 30 mg/dL (70-99) Test 08/05/18 21:04 08/05/18 21:33 08/05/18 22:10 08/06/18 01:30 Glucose (Fingerstick) 34 mg/dL (70-99) 59 mg/dL (70-99) 131 mg/dL (70-99) White Blood Count 1.2 x10^3/uL (4.0-11.0) Red Blood Count 3.19 x10^6/uL (3.50-5.40) Hemoglobin 10.3 g/dL (12.0-15.5) Hematocrit 30.2 % (36.0-47.0) Mean Corpuscular Volume 95 fL (79-100) Mean Corpuscular Hemoglobin 32 pg (25-35) Mean Corpuscular Hemoglobin Concent 34 g/dL (31-37) Red Cell Distribution Width 15.8 % (11.5-14.5) Platelet Count 140 x10^3/uL (140-400) Neutrophils (%) (Auto) 51 % (31-73) Lymphocytes (%) (Auto) 30 % (24-48) Monocytes (%) (Auto) 17 % (0-9) Eosinophils (%) (Auto) 2 % (0-3) Basophils (%) (Auto) 1 % (0-3) Neutrophils # (Auto) 0.6 x10^3uL (1.8-7.7) Lymphocytes # (Auto) 0.3 x10^3/uL (1.0-4.8) Monocytes # (Auto) 0.2 x10^3/uL (0.0-1.1) Eosinophils # (Auto) 0.0 x10^3/uL (0.0-0.7) Basophils # (Auto) 0.0 x10^3/uL (0.0-0.2) Sodium Level 135 mmol/L (136-145) Potassium Level 3.4 mmol/L (3.5-5.1) Chloride Level 100 mmol/L (98-107) Carbon Dioxide Level 23 mmol/L (21-32) Anion Gap 12 (6-14) Blood Urea Nitrogen 37 mg/dL (7-20) Creatinine 1.9 mg/dL (0.6-1.0) Estimated GFR (Cockcroft-Gault) 26.1 Glucose Level 160 mg/dL (70-99) Lactic Acid Level 1.4 mmol/L (0.4-2.0) Calcium Level 7.7 mg/dL (8.5-10.1) Procalcitonin 0.27 ng/mL (0.00-0.10) Test 08/06/18 07:14 Glucose (Fingerstick) 102 mg/dL (70-99) Images Images CXR yesterday showed increase in bilateral lung infiltrates or peribronchial thickening, compared to CXR doen in 2013 CT head showed chronic ischemic changes. Assessment/Plan Assessment/Plan 72 yo F admitted 08/05/18 with urosepsis picture, found to have neutropenia, ane ziyad, elevated LFTs in the face of hypoalbuminemia, with chronic med issues including morbid obesity, DM, HTN, CAD. Started on vanc/zosyn. Differential for such is large, but I would like to check the following: -for liver causes, check KAMILLE, AMA, acute hep panel, INR, aPTT, and an US abdomen to eval for liver/spleen size/appearance -for bone marrow work-up, check LDH, hapto, fibrinogen, uric acid, SPEP. Hold on neupogen and/or bone marrow bx/asp until labs delineate further -infectious causes: HIV, hep panel, parvo B19, influenza a/b -inflammatory causes: CK, kamille/ama as above Appreciate the consult. Call with more questions. Gal, cell [phone] CATRINA JURADO MD August 06, 2018 08:56
[2018-08-06] MEDS: LISINOPRIL 5 MG TABLET. PO SCH ×2 (09:00→19:45)
[2018-08-06] MEDS: METOPROLOL SUCC 24HR ER 100 MG TAB.ER.24H. PO SCH ×2 (09:00→19:46)
[2018-08-06] MEDS ORDERED: LINAGLIPTIN 5 MG TABLET PO SCH (09:00)
[2018-08-06] MEDS ORDERED: glipiZIDE 5 MG TABLET PO SCH (09:00)
[2018-08-06] MEDS ORDERED: PIOGLITAZONE 15 MG TABLET. PO SCH (09:00)
[2018-08-06 10:03] LABS: PROTHROMBIN TIME PATIENT 15.7 SEC (11.7-14.0)
[2018-08-06 10:08] LABS: URIC ACID 3.6 mg/dL (2.6-6.0)
--- NOTE | 2018-08-06 10:19 | PDOC1 ---
History and Physical Date of Admission Date of Admission 08/05/18 Identification/Chief Complaint Chief Complaint not feeling well Source Source: Chart review, Patient History of Present Illness History of Present Illness This is a Dr. Long patient who has several chronic medical issues and was in her usual state of health until the past few days when she started having generalized weakness and malaise, she came to the ER and found to be hypoxic/septic and admitted. She lives alone and denies any sick contacts. She has a cough, she denies fever, chills, night sweats, GI symptoms, headache, rash, dysuria. Labs in Feb 2018 remarkable for stage 3 CKD (Cr 1.4) and A1c of 6.0 with normal lipids. She denies chest pain, leg swelling Past Medical History Cardiovascular: CAD, HTN, Hyperlipidemia Pulmonary: Bronchitis GI: No pertinent hx Heme/Onc: Anemia NOS Hepatobiliary: No pertinent hx Psych: No pertinent hx Rheumatologic: No pertinent hx Infectious disease: No pertinent hx ENT: Sincusitis, Allergic Rhinitis Renal/: Chronic renal insuff Endocrine: Diabetes Past Surgical History Past Surgical History: CABG (BELCHER to LAD, SVG to PDA 07/10), Cataract Removal, Tubal Ligation, Other (pelvic fracture) Family History Family History: Coronary Artery Disease, Diabetes, Hypertension Social History Smoke: Quit ALCOHOL: none Drugs: None Current Problem List Problem List Problems Medical Problems: (1) Pneumonia Status: Acute (2) Severe sepsis Status: Acute (3) Urinary tract infection Status: Acute Current Medications Current Medications Current Medications Medications (Trade) Dose Ordered Sig/Brennan Start Time Stop Time Status Last Admin Dose Admin Acetaminophen (Tylenol) 650 mg PRN Q6HRS PRN 08/06/18 04:15 08/06/18 05:04 650 MG Aspirin (Children'S Aspirin) 81 mg DAILY 08/06/18 09:00 08/06/18 08:56 81 MG Atorvastatin Calcium (Lipitor) 80 mg QHS 08/05/18 21:00 08/06/18 00:15 80 MG Calcium Carbonate/ Glycine (Oscal) 1,000 mg DAILY 08/06/18 09:00 08/06/18 08:55 1,000 MG Dextrose (Dextrose 50%-Water Syringe) 12.5 gm PRN Q15MIN PRN 08/05/18 19:45 08/05/18 21:43 12.5 GM Fish Oil (Fish Oil) 2,000 mg DAILY 08/06/18 09:00 08/06/18 08:55 2,000 MG Glipizide (Glucotrol) 10 mg DAILY 08/06/18 09:00 Haloperidol Lactate (Haldol Inj) 5 mg PRN Q6HRS PRN 08/05/18 19:30 Linagliptin (Tradjenta) 5 mg DAILY 08/06/18 09:00 Lisinopril (Prinivil) 5 mg DAILY 08/06/18 09:00 Metoprolol Succinate (Toprol Xl) 200 mg DAILY 08/06/18 09:00 Morphine Sulfate (Morphine Sulfate) 2 mg PRN Q2HR PRN 08/05/18 16:45 08/06/18 16:44 Ondansetron HCl (Zofran) 4 mg PRN Q8HRS PRN 08/05/18 16:45 08/06/18 16:44 Pantoprazole Sodium (Protonix) 40 mg DAILYAC 08/06/18 07:30 08/06/18 08:56 40 MG Pioglitazone HCl (Actos) 30 mg DAILY 08/06/18 09:00 Piperacillin Sod/ Tazobactam Sod (Zosyn Per Pharmacy) 1 each PRN DAILY PRN 08/05/18 15:00 Piperacillin Sod/ Tazobactam Sod 3.375 gm/Sodium Chloride 50 ml @ 100 mls/hr Q6HRS 08/06/18 00:00 08/06/18 05:06 100 MLS/HR Piperacillin Sod/ Tazobactam Sod 4.5 gm/Sodium Chloride 100 ml @ 200 mls/hr ONCE ONCE 08/05/18 15:00 08/05/18 15:29 DC 08/05/18 15:00 200 MLS/HR Sodium Chloride 1,000 ml @ 166.667 mls/hr Q6H 08/05/18 17:24 08/06/18 05:48 DC 08/06/18 05:42 166.667 MLS/HR Vancomycin HCl (Vanco Per Pharmacy) 1 each PRN DAILY PRN 08/05/18 16:15 08/05/18 17:09 1 EACH Vancomycin HCl (Vancomycin Trough Level) 1 each 1X ONCE 08/07/18 15:30 08/07/18 15:31 Vancomycin HCl 1.5 gm/Sodium Chloride 500 ml @ 250 mls/hr Q24H 08/06/18 16:00 Vancomycin HCl 2 gm/Sodium Chloride 500 ml @ 250 mls/hr 1X ONCE 08/05/18 16:15 08/05/18 18:14 DC 08/05/18 16:17 250 MLS/HR Allergies Allergies Allergies Coded Allergies Type Severity Reaction Last Updated Verified No Known Drug Allergies 07/05/13 No ROS Review of System CONSTITUTIONAL: No fever or chills EYES: No recent changes SKIN: No rash or itching CARDIOVASCULAR: No chest pain, syncope, palpitations, or edema RESPIRATORY: + SOB + cough GASTROINTESTINAL: No nausea, vomiting or abdominal pain NEUROLOGICAL: No headaches or weakness ENDOCRINE: No cold or heat intolerance GENITOURINARY: No urgency or frequency of urination MUSCULOSKELETAL: No back pain or joint pain LYMPHATICS: No enlarged lymph nodes PSYCHIATRIC: No anxiety or depression Physical Exam Physical Exam GEN.: No apparent distress. Alert and oriented, talkative. HEENT: Head is normocephalic, atraumatic, conjunctive not particularly jaundiced NECK: Supple. LUNGS: Clear to auscultation, but coughs frequently, wearing NC O2. HEART: RRR, S1, S2 present. Peripheral pulses intact ABDOMEN: Soft, nontender. Obese, no definitive HSM, Positive bowel sounds. EXTREMITIES: Without any cyanosis. NEUROLOGIC: Normal speech, normal tone PSYCHIATRIC: Normal affect, normal mood. SKIN: slight orange tint Vitals Vitals Vital Signs Date Time Temp Pulse Resp B/P (MAP) Pulse Ox O2 Delivery O2 Flow Rate FiO2 08/06/18 07:04 101.2 97 32 84/53 (63) 91 Nasal Cannula 4.0 101.2 Labs Labs Laboratory Tests Test 08/05/18 13:05 08/05/18 14:07 08/05/18 20:00 08/05/18 20:40 Urine Collection Type U cath Urine Color [place] Urine Clarity Cloudy Urine pH 5.0 Urine Specific [place] 1.025 Urine Protein 100 mg/dL (NEG-TRACE) Urine Glucose (UA) Negative mg/dL (NEG) Urine Ketones (Stick) Trace mg/dL (NEG) Urine Blood Negative (NEG) Urine Nitrite Positive (NEG) Urine Bilirubin Moderate (NEG) Urine Urobilinogen Dipstick 4.0 mg/dL (0.2 mg/dL) Urine Leukocyte Esterase Small (NEG) Urine RBC Occ /HPF (0-2) Urine WBC 5-10 /HPF (0-4) Urine Squamous Epithelial Cells Few /LPF Urine Renal Epithelial Cells Occ /LPF Urine Amorphous Sediment Present /HPF Urine Bacteria Many /HPF (0-FEW) Urine Hyaline Casts Moderate /HPF Urine Mucus Mod /LPF White Blood Count 1.3 x10^3/uL (4.0-11.0) Red Blood Count 3.62 x10^6/uL (3.50-5.40) Hemoglobin 11.5 g/dL (12.0-15.5) Hematocrit 34.6 % (36.0-47.0) Mean Corpuscular Volume 96 fL (79-100) Mean Corpuscular Hemoglobin 32 pg (25-35) Mean Corpuscular Hemoglobin Concent 33 g/dL (31-37) Red Cell Distribution Width 15.7 % (11.5-14.5) Platelet Count 159 x10^3/uL (140-400) Neutrophils (%) (Auto) 57 % (31-73) Lymphocytes (%) (Auto) 28 % (24-48) Monocytes (%) (Auto) 13 % (0-9) Eosinophils (%) (Auto) 1 % (0-3) Basophils (%) (Auto) 1 % (0-3) Neutrophils # (Auto) 0.8 x10^3uL (1.8-7.7) Lymphocytes # (Auto) 0.4 x10^3/uL (1.0-4.8) Monocytes # (Auto) 0.2 x10^3/uL (0.0-1.1) Eosinophils # (Auto) 0.0 x10^3/uL (0.0-0.7) Basophils # (Auto) 0.0 x10^3/uL (0.0-0.2) Segmented Neutrophils % 60 % (35-66) Band Neutrophils % 3 % (0-9) Lymphocytes % 30 % (24-48) Monocytes % 7 % (0-10) Platelet Estimate Adequate (ADEQUATE) Platelet Clumps, EDTA Present Large Platelets Few Sodium Level 134 mmol/L (136-145) Potassium Level 3.4 mmol/L (3.5-5.1) Chloride Level 94 mmol/L (98-107) Carbon Dioxide Level 26 mmol/L (21-32) Anion Gap 14 (6-14) Blood Urea Nitrogen 37 mg/dL (7-20) Creatinine 2.1 mg/dL (0.6-1.0) Estimated GFR (Cockcroft-Gault) 23.2 Glucose Level 64 mg/dL (70-99) Calcium Level 8.2 mg/dL (8.5-10.1) Total Bilirubin 1.5 mg/dL (0.2-1.0) Direct Bilirubin 1.1 mg/dL (0.0-0.2) Aspartate Amino Transf (AST/SGOT) 247 U/L (15-37) Alanine Aminotransferase (ALT/SGPT) 143 U/L (14-59) Alkaline Phosphatase 132 U/L (46-116) Troponin I Quantitative 0.052 ng/mL (0.000-0.055) Total Protein 7.0 g/dL (6.4-8.2) Albumin 2.2 g/dL (3.4-5.0) Lipase 206 U/L (73-393) Lactic Acid Level 0.6 mmol/L (0.4-2.0) Procalcitonin 0.28 ng/mL (0.00-0.10) Glucose (Fingerstick) 30 mg/dL (70-99) Test 08/05/18 21:04 08/05/18 21:33 08/05/18 22:10 08/06/18 01:30 Glucose (Fingerstick) 34 mg/dL (70-99) 59 mg/dL (70-99) 131 mg/dL (70-99) White Blood Count 1.2 x10^3/uL (4.0-11.0) Red Blood Count 3.19 x10^6/uL (3.50-5.40) Hemoglobin 10.3 g/dL (12.0-15.5) Hematocrit 30.2 % (36.0-47.0) Mean Corpuscular Volume 95 fL (79-100) Mean Corpuscular Hemoglobin 32 pg (25-35) Mean Corpuscular Hemoglobin Concent 34 g/dL (31-37) Red Cell Distribution Width 15.8 % (11.5-14.5) Platelet Count 140 x10^3/uL (140-400) Neutrophils (%) (Auto) 51 % (31-73) Lymphocytes (%) (Auto) 30 % (24-48) Monocytes (%) (Auto) 17 % (0-9) Eosinophils (%) (Auto) 2 % (0-3) Basophils (%) (Auto) 1 % (0-3) Neutrophils # (Auto) 0.6 x10^3uL (1.8-7.7) Lymphocytes # (Auto) 0.3 x10^3/uL (1.0-4.8) Monocytes # (Auto) 0.2 x10^3/uL (0.0-1.1) Eosinophils # (Auto) 0.0 x10^3/uL (0.0-0.7) Basophils # (Auto) 0.0 x10^3/uL (0.0-0.2) Sodium Level 135 mmol/L (136-145) Potassium Level 3.4 mmol/L (3.5-5.1) Chloride Level 100 mmol/L (98-107) Carbon Dioxide Level 23 mmol/L (21-32) Anion Gap 12 (6-14) Blood Urea Nitrogen 37 mg/dL (7-20) Creatinine 1.9 mg/dL (0.6-1.0) Estimated GFR (Cockcroft-Gault) 26.1 Glucose Level 160 mg/dL (70-99) Lactic Acid Level 1.4 mmol/L (0.4-2.0) Calcium Level 7.7 mg/dL (8.5-10.1) Procalcitonin 0.27 ng/mL (0.00-0.10) Test 08/06/18 07:14 Glucose (Fingerstick) 102 mg/dL (70-99) Laboratory Tests Test 08/05/18 13:05 08/05/18 14:07 08/05/18 20:00 08/05/18 20:40 Urine Collection Type U cath Urine Color [place] Urine Clarity Cloudy Urine pH 5.0 Urine Specific [place] 1.025 Urine Protein 100 mg/dL (NEG-TRACE) Urine Glucose (UA) Negative mg/dL (NEG) Urine Ketones (Stick) Trace mg/dL (NEG) Urine Blood Negative (NEG) Urine Nitrite Positive (NEG) Urine Bilirubin Moderate (NEG) Urine Urobilinogen Dipstick 4.0 mg/dL (0.2 mg/dL) Urine Leukocyte Esterase Small (NEG) Urine RBC Occ /HPF (0-2) Urine WBC 5-10 /HPF (0-4) Urine Squamous Epithelial Cells Few /LPF Urine Renal Epithelial Cells Occ /LPF Urine Amorphous Sediment Present /HPF Urine Bacteria Many /HPF (0-FEW) Urine Hyaline Casts Moderate /HPF Urine Mucus Mod /LPF White Blood Count 1.3 x10^3/uL (4.0-11.0) Red Blood Count 3.62 x10^6/uL (3.50-5.40) Hemoglobin 11.5 g/dL (12.0-15.5) Hematocrit 34.6 % (36.0-47.0) Mean Corpuscular Volume 96 fL (79-100) Mean Corpuscular Hemoglobin 32 pg (25-35) Mean Corpuscular Hemoglobin Concent 33 g/dL (31-37) Red Cell Distribution Width 15.7 % (11.5-14.5) Platelet Count 159 x10^3/uL (140-400) Neutrophils (%) (Auto) 57 % (31-73) Lymphocytes (%) (Auto) 28 % (24-48) Monocytes (%) (Auto) 13 % (0-9) Eosinophils (%) (Auto) 1 % (0-3) Basophils (%) (Auto) 1 % (0-3) Neutrophils # (Auto) 0.8 x10^3uL (1.8-7.7) Lymphocytes # (Auto) 0.4 x10^3/uL (1.0-4.8) Monocytes # (Auto) 0.2 x10^3/uL (0.0-1.1) Eosinophils # (Auto) 0.0 x10^3/uL (0.0-0.7) Basophils # (Auto) 0.0 x10^3/uL (0.0-0.2) Segmented Neutrophils % 60 % (35-66) Band Neutrophils % 3 % (0-9) Lymphocytes % 30 % (24-48) Monocytes % 7 % (0-10) Platelet Estimate Adequate (ADEQUATE) Platelet Clumps, EDTA Present Large Platelets Few Sodium Level 134 mmol/L (136-145) Potassium Level 3.4 mmol/L (3.5-5.1) Chloride Level 94 mmol/L (98-107) Carbon Dioxide Level 26 mmol/L (21-32) Anion Gap 14 (6-14) Blood Urea Nitrogen 37 mg/dL (7-20) Creatinine 2.1 mg/dL (0.6-1.0) Estimated GFR (Cockcroft-Gault) 23.2 Glucose Level 64 mg/dL (70-99) Calcium Level 8.2 mg/dL (8.5-10.1) Total Bilirubin 1.5 mg/dL (0.2-1.0) Direct Bilirubin 1.1 mg/dL (0.0-0.2) Aspartate Amino Transf (AST/SGOT) 247 U/L (15-37) Alanine Aminotransferase (ALT/SGPT) 143 U/L (14-59) Alkaline Phosphatase 132 U/L (46-116) Troponin I Quantitative 0.052 ng/mL (0.000-0.055) Total Protein 7.0 g/dL (6.4-8.2) Albumin 2.2 g/dL (3.4-5.0) Lipase 206 U/L (73-393) Lactic Acid Level 0.6 mmol/L (0.4-2.0) Procalcitonin 0.28 ng/mL (0.00-0.10) Glucose (Fingerstick) 30 mg/dL (70-99) Test 08/05/18 21:04 08/05/18 21:33 08/05/18 22:10 08/06/18 01:30 Glucose (Fingerstick) 34 mg/dL (70-99) 59 mg/dL (70-99) 131 mg/dL (70-99) White Blood Count 1.2 x10^3/uL (4.0-11.0) Red Blood Count 3.19 x10^6/uL (3.50-5.40) Hemoglobin 10.3 g/dL (12.0-15.5) Hematocrit 30.2 % (36.0-47.0) Mean Corpuscular Volume 95 fL (79-100) Mean Corpuscular Hemoglobin 32 pg (25-35) Mean Corpuscular Hemoglobin Concent 34 g/dL (31-37) Red Cell Distribution Width 15.8 % (11.5-14.5) Platelet Count 140 x10^3/uL (140-400) Neutrophils (%) (Auto) 51 % (31-73) Lymphocytes (%) (Auto) 30 % (24-48) Monocytes (%) (Auto) 17 % (0-9) Eosinophils (%) (Auto) 2 % (0-3) Basophils (%) (Auto) 1 % (0-3) Neutrophils # (Auto) 0.6 x10^3uL (1.8-7.7) Lymphocytes # (Auto) 0.3 x10^3/uL (1.0-4.8) Monocytes # (Auto) 0.2 x10^3/uL (0.0-1.1) Eosinophils # (Auto) 0.0 x10^3/uL (0.0-0.7) Basophils # (Auto) 0.0 x10^3/uL (0.0-0.2) Sodium Level 135 mmol/L (136-145) Potassium Level 3.4 mmol/L (3.5-5.1) Chloride Level 100 mmol/L (98-107) Carbon Dioxide Level 23 mmol/L (21-32) Anion Gap 12 (6-14) Blood Urea Nitrogen 37 mg/dL (7-20) Creatinine 1.9 mg/dL (0.6-1.0) Estimated GFR (Cockcroft-Gault) 26.1 Glucose Level 160 mg/dL (70-99) Lactic Acid Level 1.4 mmol/L (0.4-2.0) Calcium Level 7.7 mg/dL (8.5-10.1) Procalcitonin 0.27 ng/mL (0.00-0.10) Test 08/06/18 07:14 Glucose (Fingerstick) 102 mg/dL (70-99) Images Images CHEST AP ONLY Clinical indications: Generalized weakness. COMPARISON: August 01, 2013. Findings: Bilateral interstitial lung infiltrates or peribronchial thickening is seen. No lung consolidation or pleural effusion or pneumothorax is seen. A sternotomy is evident. The heart size, pulmonary vasculature, mediastinum and both josias are stable. Impression: Increase in bilateral lung infiltrates or peribronchial thickening. This may be secondary to acute interstitial pulmonary edema or acute bronchitis. CT HEAD WO CONTRAST Clinical indications: Generalized weakness. COMPARISON: None available. Technique: Noncontrast axial cross sectional scanning of the head was performed. PQRS compliance Statement One or more of the following individualized dose reduction techniques were utilized for this study: 1. Automated exposure control 2. Adjustment of the mA and/or kV according to patient size 3. Use of iterative reconstruction technique Findings: No acute intracranial hemorrhage or midline shift or mass-effect or hydrocephalus or extra-axial fluid collection is seen. There is a moderate-sized hypodensity involving the left centrum semiovale anteriorly in the region of the anterior limb of the internal capsule. Smaller hypodensity is seen involving the perez radiata of the right parietal lobe. There is a small hypodensity involving the periventricular white matter of the anterior right parietal lobe. This is consistent with chronic ischemic disease. No asymmetric sulci effacement is seen. No skull fracture or pneumocephalus is seen. No opacification of the mastoid sinuses or the paranasal sinuses is seen. The maxillary sinuses are not completely seen in this study. Impression: No acute intracranial hemorrhage is seen. Chronic ischemic disease. VTE Prophylaxis Ordered VTE Prophylaxis Devices: Yes VTE Pharmacological Prophylaxi: No Assessment/Plan Assessment/Plan sepsis - source yet to be determined - broad spectrum abx, ID consult acute respiratory failure with hypoxemia - appears to be due to interstitial fluid vs atypical pneumonia, needing O2, pulm following, prn neb tx pancytopenia - likely from overwhelming infection - Hematology consulted, isolation Acute hepatitis - check for auto-immune vs infectious with labs, sono CKD stage 3 - CAD with hx of 2 vessel CABG 5 yrs ago - mild rise in troponin - consult cardiology DM 2 - well controlled as OP, start SSI, continue home meds if eating JAVIER - she was taking OTC meds at home HLP - hold statin til liver improves hx of anemia hx of GERD morbid obesity Kendra GUTIERREZ MD August 06, 2018 10:19
[2018-08-06] MEDS ORDERED: DEXTROSE 50% 25 GM / 50ML DISP.SYRIN. IV PRN (10:30)
[2018-08-06 10:49] LABS: INFLUENZA A PATIENT NEGATIVE (NEGATIVE); INFLUENZA B PATIENT NEGATIVE (NEGATIVE)
[2018-08-06 11:11] VITALS: BP 115/56
[2018-08-06] MEDS: INSULIN LISPRO 300 UNITS/3 ML INSULN.PEN. SQ SCH ×2 (12:00→17:00)
[2018-08-06] MEDS: VANCOMYCIN PER PHARMACY MC PRN (12:28)
[2018-08-06] MEDS: POTASSIUM CHLORIDE 10 MEQ TABLET.ER. PO SCH (13:02)
--- NOTE | 2018-08-06 13:10 | PDOC2 ---
CARDIOLOGY CONSULT NOTE CHEIF COMPLAINT: Mildly elevated troponin but within normal lab range. HPI: 72 y.o woman admitted with weakness, neutropenia, labile Blood sugars with prior CAD presented with possible UTI and sepsis. Cardiology asked to comment on troponin. She denies aHF symptoms but does have dyspnea at baseline and fatigue. No syncope, palpitations. No orthopnea, chest pain. PMHX: CAD s/p CABG HTN Dyslipidemia Obesity Neutropenia SOCHX: No alcohol, tob or illicits. Lives by herself. FAMHX: NC CURRENT MEDS: Current Medications Medications (Trade) Dose Ordered Sig/Brennan Start Time Stop Time Status Last Admin Dose Admin Acetaminophen (Tylenol) 650 mg PRN Q6HRS PRN 08/06/18 04:15 08/06/18 13:02 650 MG Aspirin (Children'S Aspirin) 81 mg DAILY 08/06/18 09:00 08/06/18 08:56 81 MG Atorvastatin Calcium (Lipitor) 80 mg QHS 08/05/18 21:00 08/06/18 10:27 DC 08/06/18 00:15 80 MG Calcium Carbonate/ Glycine (Oscal) 1,000 mg DAILY 08/06/18 09:00 08/06/18 08:55 1,000 MG Dextrose (Dextrose 50%-Water Syringe) 12.5 gm PRN Q15MIN PRN 08/06/18 10:30 UNV Fish Oil (Fish Oil) 2,000 mg DAILY 08/06/18 09:00 08/06/18 08:55 2,000 MG Glipizide (Glucotrol) 10 mg DAILY 08/06/18 09:00 08/06/18 10:27 DC Haloperidol Lactate (Haldol Inj) 5 mg PRN Q6HRS PRN 08/05/18 19:30 Insulin Human Lispro (HumaLOG) 0-5 UNITS TIDWMEALS 08/06/18 12:00 Lactobacillus Rhamnosus (Culturelle) 1 cap BID 08/06/18 21:00 Linagliptin (Tradjenta) 5 mg DAILY 08/06/18 09:00 Lisinopril (Prinivil) 5 mg DAILY 08/06/18 09:00 Metoprolol Succinate (Toprol Xl) 200 mg DAILY 08/06/18 09:00 Morphine Sulfate (Morphine Sulfate) 2 mg PRN Q2HR PRN 08/05/18 16:45 08/06/18 16:44 Ondansetron HCl (Zofran) 4 mg PRN Q8HRS PRN 08/05/18 16:45 08/06/18 16:44 Pantoprazole Sodium (Protonix) 40 mg DAILYAC 08/06/18 07:30 08/06/18 08:56 40 MG Pioglitazone HCl (Actos) 30 mg DAILY 08/06/18 09:00 Piperacillin Sod/ Tazobactam Sod (Zosyn Per Pharmacy) 1 each PRN DAILY PRN 08/05/18 15:00 Piperacillin Sod/ Tazobactam Sod 3.375 gm/Sodium Chloride 50 ml @ 100 mls/hr Q6HRS 08/06/18 00:00 08/06/18 13:03 100 MLS/HR Piperacillin Sod/ Tazobactam Sod 4.5 gm/Sodium Chloride 100 ml @ 200 mls/hr ONCE ONCE 08/05/18 15:00 08/05/18 15:29 DC 08/05/18 15:00 200 MLS/HR Potassium Chloride (Klor-Con) 10 meq [id number] 08/06/18 10:30 08/06/18 13:02 10 MEQ Sodium Chloride 1,000 ml @ 166.667 mls/hr Q6H 08/05/18 17:24 08/06/18 05:48 DC 08/06/18 05:42 166.667 MLS/HR Vancomycin HCl (Vanco Per Pharmacy) 1 each PRN DAILY PRN 08/05/18 16:15 08/06/18 12:28 1 EACH Vancomycin HCl (Vancomycin Trough Level) 1 each 1X ONCE 08/07/18 15:30 08/07/18 15:31 Vancomycin HCl 1.5 gm/Sodium Chloride 500 ml @ 250 mls/hr Q24H 08/06/18 16:00 Vancomycin HCl 2 gm/Sodium Chloride 500 ml @ 250 mls/hr 1X ONCE 08/05/18 16:15 08/05/18 18:14 DC 08/05/18 16:17 250 MLS/HR ALLERGIES: Allergies Coded Allergies Type Severity Reaction Last Updated Verified No Known Drug Allergies 07/05/13 No ROS: negative unless otherwise noted above in HPI PHYSICAL EXAM: Vital Signs: Vital Signs Date Time Temp Pulse Resp B/P (MAP) Pulse Ox O2 Delivery O2 Flow Rate FiO2 08/06/18 11:11 97.3 84 30 115/56 (75) 95 Nasal Cannula 4.0 97.3 I & O Intake and Output 08/06/18 06:59 Intake Total 700 ml Output Total 210 ml Balance 490 ml Intake Oral 700 ml Output Urine Total 210 ml # Voids 4 Physical Exam: GEN.: No apparent distress. Alert and oriented. HEENT: Head is normocephalic, atraumatic NECK: Supple. LUNGS: Clear to auscultation. HEART: RRR, S1, S2 present. Peripheral pulses intact ABDOMEN: Soft, nontender. Positive bowel sounds. EXTREMITIES: Without any cyanosis. NEUROLOGIC: Normal speech, normal tone PSYCHIATRIC: Normal affect, normal mood. SKIN: No ulcerations DIAGNOSTIC TESTING: EKG, echo wnl. Trop negative. No clear cardiac symptoms. Lab Laboratory Tests Test 08/05/18 14:07 08/05/18 20:00 08/05/18 20:40 08/05/18 21:04 White Blood Count 1.3 x10^3/uL (4.0-11.0) *L Red Blood Count 3.62 x10^6/uL (3.50-5.40) Hemoglobin 11.5 g/dL (12.0-15.5) L Hematocrit 34.6 % (36.0-47.0) L Mean Corpuscular Volume 96 fL (79-100) Mean Corpuscular Hemoglobin 32 pg (25-35) Mean Corpuscular Hemoglobin Concent 33 g/dL (31-37) Red Cell Distribution Width 15.7 % (11.5-14.5) H Platelet Count 159 x10^3/uL (140-400) Neutrophils (%) (Auto) 57 % (31-73) Lymphocytes (%) (Auto) 28 % (24-48) Monocytes (%) (Auto) 13 % (0-9) H Eosinophils (%) (Auto) 1 % (0-3) Basophils (%) (Auto) 1 % (0-3) Neutrophils # (Auto) 0.8 x10^3uL (1.8-7.7) L Lymphocytes # (Auto) 0.4 x10^3/uL (1.0-4.8) L Monocytes # (Auto) 0.2 x10^3/uL (0.0-1.1) Eosinophils # (Auto) 0.0 x10^3/uL (0.0-0.7) Basophils # (Auto) 0.0 x10^3/uL (0.0-0.2) Segmented Neutrophils % 60 % (35-66) Band Neutrophils % 3 % (0-9) Lymphocytes % 30 % (24-48) Monocytes % 7 % (0-10) Platelet Estimate Adequate (ADEQUATE) Platelet Clumps, EDTA Present Large Platelets Few Sodium Level 134 mmol/L (136-145) L Potassium Level 3.4 mmol/L (3.5-5.1) L Chloride Level 94 mmol/L (98-107) L Carbon Dioxide Level 26 mmol/L (21-32) Anion Gap 14 (6-14) Blood Urea Nitrogen 37 mg/dL (7-20) H Creatinine 2.1 mg/dL (0.6-1.0) H Estimated GFR (Cockcroft-Gault) 23.2 Glucose Level 64 mg/dL (70-99) L Calcium Level 8.2 mg/dL (8.5-10.1) L Total Bilirubin 1.5 mg/dL (0.2-1.0) H Direct Bilirubin 1.1 mg/dL (0.0-0.2) H Aspartate Amino Transf (AST/SGOT) 247 U/L (15-37) H Alkaline Phosphatase 132 U/L (46-116) H Total Protein 7.0 g/dL (6.4-8.2) Albumin 2.2 g/dL (3.4-5.0) L Lipase 206 U/L (73-393) Lactic Acid Level 0.6 mmol/L (0.4-2.0) Procalcitonin 0.28 ng/mL (0.00-0.10) H Glucose (Fingerstick) 30 mg/dL (70-99) *L 34 mg/dL (70-99) *L Test 08/05/18 21:33 08/05/18 22:10 08/06/18 01:30 08/06/18 07:14 Glucose (Fingerstick) 59 mg/dL (70-99) L 131 mg/dL (70-99) H 102 mg/dL (70-99) H White Blood Count 1.2 x10^3/uL (4.0-11.0) *L Red Blood Count 3.19 x10^6/uL (3.50-5.40) L Hemoglobin 10.3 g/dL (12.0-15.5) L Hematocrit 30.2 % (36.0-47.0) L Mean Corpuscular Volume 95 fL (79-100) Mean Corpuscular Hemoglobin 32 pg (25-35) Mean Corpuscular Hemoglobin Concent 34 g/dL (31-37) Red Cell Distribution Width 15.8 % (11.5-14.5) H Platelet Count 140 x10^3/uL (140-400) Neutrophils (%) (Auto) 51 % (31-73) Lymphocytes (%) (Auto) 30 % (24-48) Monocytes (%) (Auto) 17 % (0-9) H Eosinophils (%) (Auto) 2 % (0-3) Basophils (%) (Auto) 1 % (0-3) Neutrophils # (Auto) 0.6 x10^3uL (1.8-7.7) L Lymphocytes # (Auto) 0.3 x10^3/uL (1.0-4.8) L Monocytes # (Auto) 0.2 x10^3/uL (0.0-1.1) Eosinophils # (Auto) 0.0 x10^3/uL (0.0-0.7) Basophils # (Auto) 0.0 x10^3/uL (0.0-0.2) Sodium Level 135 mmol/L (136-145) L Potassium Level 3.4 mmol/L (3.5-5.1) L Chloride Level 100 mmol/L (98-107) Carbon Dioxide Level 23 mmol/L (21-32) Anion Gap 12 (6-14) Blood Urea Nitrogen 37 mg/dL (7-20) H Creatinine 1.9 mg/dL (0.6-1.0) H Estimated GFR (Cockcroft-Gault) 26.1 Glucose Level 160 mg/dL (70-99) H Lactic Acid Level 1.4 mmol/L (0.4-2.0) Calcium Level 7.7 mg/dL (8.5-10.1) L Procalcitonin 0.27 ng/mL (0.00-0.10) H Test 08/06/18 09:35 08/06/18 09:40 08/06/18 11:07 Influenza Type A Antigen Negative (NEGATIVE) Influenza Type B Antigen Negative (NEGATIVE) Prothrombin Time 15.7 SEC (11.7-14.0) H Prothromb Time International Ratio 1.3 (0.8-1.1) H Activated Partial Thromboplast Time 35 SEC (24-38) Fibrinogen 680 mg/dL (200-440) H Uric Acid 3.6 mg/dL (2.6-6.0) Lactate Dehydrogenase 387 U/L (81-234) H Creatine Kinase 472 U/L (26-192) H Glucose (Fingerstick) 97 mg/dL (70-99) ASSESSMENT: 1. CAD - stable 2. UTI/sepsis 3. Hypoxia - stable. 4. morbid obesity PLAN: 1. No further CV testing needed. Supportive care. 2. Suspect dyspnea related to non-cardiac issues. Can consider outpt stres testing. 3. Continue w/u for neutropenia, fever. Pls call with questions. Thanks MARGARITA HOLBROOK MD August 06, 2018 13:09
--- NOTE | 2018-08-06 13:52 | RAD ---
Ultrasound of the abdomen 08/06/2018 CLINICAL HISTORY: Neutropenia, anemia and elevated liver function tests. TECHNIQUE: A real-time ultrasound examination of the abdomen was performed. Multiple images were obtained. FINDINGS: The gallbladder is well-distended. Echogenic gallstones are seen within the gallbladder. The gallbladder wall is thickened measuring 5 mm in thickness. No pericholecystic fluid is seen. The liver is mildly enlarged measuring 20.2 cm in length. No focal abnormality of the liver is seen. The spleen and pancreas are poorly visualized. The kidneys are within normal limits. The inferior vena cava and abdominal aorta are poorly visualized due to overlying bowel gas. No free fluid is seen. IMPRESSION: 1. Mild hepatomegaly. 2. Cholelithiasis. The gallbladder wall is thickened. This finding can be seen with cholecystitis. Clinical correlation is recommended. Electronically signed by: Christian Aj MD (08/06/2018 1:49 PM) [facility]
--- NOTE | 2018-08-06 14:15 | PDOC ---
PULMONARY PROGRESS NOTES Subjective PT MORE AWAKE LESS CONFUSED SOME SOA Vitals Vital Signs Date Time Temp Pulse Resp B/P (MAP) Pulse Ox O2 Delivery O2 Flow Rate FiO2 08/06/18 11:11 97.3 84 30 115/56 (75) 95 Nasal Cannula 4.0 97.3 ROS: No Nausea, No Chest Pain, No Abdominal Pain, No Increase Cough General: Alert Lungs: Crackles Cardiovascular: S1, S2 Abdomen: Soft Neuro Exam: Alert Extremities: Other (EDEMA) Labs Laboratory Tests Test 08/05/18 13:05 08/05/18 14:07 08/05/18 20:00 08/05/18 20:40 Urine Collection Type U cath Urine Color [place] Urine Clarity Cloudy Urine pH 5.0 Urine Specific [place] 1.025 Urine Protein 100 mg/dL (NEG-TRACE) Urine Glucose (UA) Negative mg/dL (NEG) Urine Ketones (Stick) Trace mg/dL (NEG) Urine Blood Negative (NEG) Urine Nitrite Positive (NEG) Urine Bilirubin Moderate (NEG) Urine Urobilinogen Dipstick 4.0 mg/dL (0.2 mg/dL) Urine Leukocyte Esterase Small (NEG) Urine RBC Occ /HPF (0-2) Urine WBC 5-10 /HPF (0-4) Urine Squamous Epithelial Cells Few /LPF Urine Renal Epithelial Cells Occ /LPF Urine Amorphous Sediment Present /HPF Urine Bacteria Many /HPF (0-FEW) Urine Hyaline Casts Moderate /HPF Urine Mucus Mod /LPF White Blood Count 1.3 x10^3/uL (4.0-11.0) Red Blood Count 3.62 x10^6/uL (3.50-5.40) Hemoglobin 11.5 g/dL (12.0-15.5) Hematocrit 34.6 % (36.0-47.0) Mean Corpuscular Volume 96 fL (79-100) Mean Corpuscular Hemoglobin 32 pg (25-35) Mean Corpuscular Hemoglobin Concent 33 g/dL (31-37) Red Cell Distribution Width 15.7 % (11.5-14.5) Platelet Count 159 x10^3/uL (140-400) Neutrophils (%) (Auto) 57 % (31-73) Lymphocytes (%) (Auto) 28 % (24-48) Monocytes (%) (Auto) 13 % (0-9) Eosinophils (%) (Auto) 1 % (0-3) Basophils (%) (Auto) 1 % (0-3) Neutrophils # (Auto) 0.8 x10^3uL (1.8-7.7) Lymphocytes # (Auto) 0.4 x10^3/uL (1.0-4.8) Monocytes # (Auto) 0.2 x10^3/uL (0.0-1.1) Eosinophils # (Auto) 0.0 x10^3/uL (0.0-0.7) Basophils # (Auto) 0.0 x10^3/uL (0.0-0.2) Segmented Neutrophils % 60 % (35-66) Band Neutrophils % 3 % (0-9) Lymphocytes % 30 % (24-48) Monocytes % 7 % (0-10) Platelet Estimate Adequate (ADEQUATE) Platelet Clumps, EDTA Present Large Platelets Few Sodium Level 134 mmol/L (136-145) Potassium Level 3.4 mmol/L (3.5-5.1) Chloride Level 94 mmol/L (98-107) Carbon Dioxide Level 26 mmol/L (21-32) Anion Gap 14 (6-14) Blood Urea Nitrogen 37 mg/dL (7-20) Creatinine 2.1 mg/dL (0.6-1.0) Estimated GFR (Cockcroft-Gault) 23.2 Glucose Level 64 mg/dL (70-99) Calcium Level 8.2 mg/dL (8.5-10.1) Total Bilirubin 1.5 mg/dL (0.2-1.0) Direct Bilirubin 1.1 mg/dL (0.0-0.2) Aspartate Amino Transf (AST/SGOT) 247 U/L (15-37) Alanine Aminotransferase (ALT/SGPT) 143 U/L (14-59) Alkaline Phosphatase 132 U/L (46-116) Troponin I Quantitative 0.052 ng/mL (0.000-0.055) Total Protein 7.0 g/dL (6.4-8.2) Albumin 2.2 g/dL (3.4-5.0) Lipase 206 U/L (73-393) Lactic Acid Level 0.6 mmol/L (0.4-2.0) Procalcitonin 0.28 ng/mL (0.00-0.10) Glucose (Fingerstick) 30 mg/dL (70-99) Test 08/05/18 21:04 08/05/18 21:33 08/05/18 22:10 08/06/18 01:30 Glucose (Fingerstick) 34 mg/dL (70-99) 59 mg/dL (70-99) 131 mg/dL (70-99) White Blood Count 1.2 x10^3/uL (4.0-11.0) Red Blood Count 3.19 x10^6/uL (3.50-5.40) Hemoglobin 10.3 g/dL (12.0-15.5) Hematocrit 30.2 % (36.0-47.0) Mean Corpuscular Volume 95 fL (79-100) Mean Corpuscular Hemoglobin 32 pg (25-35) Mean Corpuscular Hemoglobin Concent 34 g/dL (31-37) Red Cell Distribution Width 15.8 % (11.5-14.5) Platelet Count 140 x10^3/uL (140-400) Neutrophils (%) (Auto) 51 % (31-73) Lymphocytes (%) (Auto) 30 % (24-48) Monocytes (%) (Auto) 17 % (0-9) Eosinophils (%) (Auto) 2 % (0-3) Basophils (%) (Auto) 1 % (0-3) Neutrophils # (Auto) 0.6 x10^3uL (1.8-7.7) Lymphocytes # (Auto) 0.3 x10^3/uL (1.0-4.8) Monocytes # (Auto) 0.2 x10^3/uL (0.0-1.1) Eosinophils # (Auto) 0.0 x10^3/uL (0.0-0.7) Basophils # (Auto) 0.0 x10^3/uL (0.0-0.2) Sodium Level 135 mmol/L (136-145) Potassium Level 3.4 mmol/L (3.5-5.1) Chloride Level 100 mmol/L (98-107) Carbon Dioxide Level 23 mmol/L (21-32) Anion Gap 12 (6-14) Blood Urea Nitrogen 37 mg/dL (7-20) Creatinine 1.9 mg/dL (0.6-1.0) Estimated GFR (Cockcroft-Gault) 26.1 Glucose Level 160 mg/dL (70-99) Lactic Acid Level 1.4 mmol/L (0.4-2.0) Calcium Level 7.7 mg/dL (8.5-10.1) Procalcitonin 0.27 ng/mL (0.00-0.10) Test 08/06/18 07:14 08/06/18 09:35 08/06/18 09:40 08/06/18 11:07 Glucose (Fingerstick) 102 mg/dL (70-99) 97 mg/dL (70-99) Influenza Type A Antigen Negative (NEGATIVE) Influenza Type B Antigen Negative (NEGATIVE) Prothrombin Time 15.7 SEC (11.7-14.0) Prothromb Time International Ratio 1.3 (0.8-1.1) Activated Partial Thromboplast Time 35 SEC (24-38) Fibrinogen 680 mg/dL (200-440) Uric Acid 3.6 mg/dL (2.6-6.0) Lactate Dehydrogenase 387 U/L (81-234) Creatine Kinase 472 U/L (26-192) Laboratory Tests Test 08/05/18 20:00 08/05/18 20:40 08/05/18 21:04 08/05/18 21:33 Lactic Acid Level 0.6 mmol/L (0.4-2.0) Procalcitonin 0.28 ng/mL (0.00-0.10) Glucose (Fingerstick) 30 mg/dL (70-99) 34 mg/dL (70-99) 59 mg/dL (70-99) Test 08/05/18 22:10 08/06/18 01:30 08/06/18 07:14 08/06/18 09:35 Glucose (Fingerstick) 131 mg/dL (70-99) 102 mg/dL (70-99) White Blood Count 1.2 x10^3/uL (4.0-11.0) Red Blood Count 3.19 x10^6/uL (3.50-5.40) Hemoglobin 10.3 g/dL (12.0-15.5) Hematocrit 30.2 % (36.0-47.0) Mean Corpuscular Volume 95 fL (79-100) Mean Corpuscular Hemoglobin 32 pg (25-35) Mean Corpuscular Hemoglobin Concent 34 g/dL (31-37) Red Cell Distribution Width 15.8 % (11.5-14.5) Platelet Count 140 x10^3/uL (140-400) Neutrophils (%) (Auto) 51 % (31-73) Lymphocytes (%) (Auto) 30 % (24-48) Monocytes (%) (Auto) 17 % (0-9) Eosinophils (%) (Auto) 2 % (0-3) Basophils (%) (Auto) 1 % (0-3) Neutrophils # (Auto) 0.6 x10^3uL (1.8-7.7) Lymphocytes # (Auto) 0.3 x10^3/uL (1.0-4.8) Monocytes # (Auto) 0.2 x10^3/uL (0.0-1.1) Eosinophils # (Auto) 0.0 x10^3/uL (0.0-0.7) Basophils # (Auto) 0.0 x10^3/uL (0.0-0.2) Sodium Level 135 mmol/L (136-145) Potassium Level 3.4 mmol/L (3.5-5.1) Chloride Level 100 mmol/L (98-107) Carbon Dioxide Level 23 mmol/L (21-32) Anion Gap 12 (6-14) Blood Urea Nitrogen 37 mg/dL (7-20) Creatinine 1.9 mg/dL (0.6-1.0) Estimated GFR (Cockcroft-Gault) 26.1 Glucose Level 160 mg/dL (70-99) Lactic Acid Level 1.4 mmol/L (0.4-2.0) Calcium Level 7.7 mg/dL (8.5-10.1) Procalcitonin 0.27 ng/mL (0.00-0.10) Influenza Type A Antigen Negative (NEGATIVE) Influenza Type B Antigen Negative (NEGATIVE) Test 08/06/18 09:40 08/06/18 11:07 Prothrombin Time 15.7 SEC (11.7-14.0) Prothromb Time International Ratio 1.3 (0.8-1.1) Activated Partial Thromboplast Time 35 SEC (24-38) Fibrinogen 680 mg/dL (200-440) Uric Acid 3.6 mg/dL (2.6-6.0) Lactate Dehydrogenase 387 U/L (81-234) Creatine Kinase 472 U/L (26-192) Glucose (Fingerstick) 97 mg/dL (70-99) Medications Active Scripts Medications Dose Route/Sig Max Daily Dose Days Date Category Metoprolol Tartrate 100 Mg Tablet 2 Tab PO DAILY 08/05/18 Reported Glipizide 5 Mg Tablet 2 Tab PO DAILY 08/05/18 Reported [place] 3 Fish Oil Softgel ([place]-3 Fatty Acids/Fish Oil) 1 Each Capsule.dr 2 Each PO DAILY 08/05/18 Reported Calcium Carbonate 500 Mg Tablet 1,000 Mg PO DAILY 08/05/18 Reported Januvia (Sitagliptin Phosphate) 50 Mg Tablet 1 Tab PO DAILY 08/05/18 Reported Lisinopril 5 Mg Tablet 1 Tab PO DAILY 08/05/18 Reported Omeprazole 40 Mg Capsule.dr 40 Mg PO DAILY 07/03/13 Rx Aspirin 81 Mg Tab.chew 81 Mg PO DAILY 07/03/13 Rx Pioglitazone Hcl 30 Mg Tablet 30 Mg PO DAILY 07/03/13 Rx Atorvastatin Calcium 80 Mg Tablet 80 Mg PO HS 07/03/13 Rx Impression . MY NOTE IS PENDING DICTATED YESTERDAY PNEUMONIA CHF ?DEMENTIA ENCE ID NOTE Objective Assessment HCAP Fever ? UTI, POA Neutropenia TYLER on CKD Elevated LFTs Diabetes with hypoglycemia Morbid obesity, BMI 43 CAD Plan Plan of Care vanc and Zosyn Monitor renal function closely Abdominal US pending additional labs pending including Influenza, hep panel f/u cultures Reverse isolation Supportive care DNR Plan . BETTER TODAY ANTI BX PER ID [id number] NEBS UP TO CHAIR ADRIANA SALINAS MD August 06, 2018 14:15
[2018-08-06 15:30] VITALS: BP 145/64
[2018-08-06] MEDS ORDERED: VANCOMYCIN 1.5 GM in IV NORMAL SALINE 500ML BAG 500 ML IV SCH (16:00)
--- NOTE | 2018-08-06 16:23 | CONS ---
DATE OF CONSULTATION: 08/05/2018 ATTENDING PHYSICIAN: Dr. Graeme Duran. CONSULTING PHYSICIAN: Adriana Salinas MD. REASON FOR CONSULTATION: The patient was seen in pulmonary consultation at the request of Dr. Duran for abnormal chest x-ray, hypoxemia. HISTORY OF PRESENT ILLNESS: The patient is a 72-year-old female who is a very poor historian, presented to the Emergency Room with generalized weakness for the past 2-3 days, shortness of air. She denied any pain. She reports a cough, mostly nonproductive. She had O2 saturations on room air of 80%. She underwent evaluation. Chest x-ray revealed bilateral pulmonary infiltrates compatible with CHF. She was admitted. I was asked to see her in consultation. The patient is currently on telemetry unit. She appears to be confused. She states that she does not wear oxygen at home. She has never smoked. PAST MEDICAL HISTORY: Obtained by reviewing the current documentation, gastroesophageal reflux, hyperlipidemia, hypertension, coronary artery disease with previous coronary artery bypass grafting. She also had some previous pelvic bone fractures. PAST SURGICAL HISTORY: As above. ALLERGIES: No known drug allergies. MEDICATIONS: List from home was reviewed. From a pulmonary standpoint of view, the patient was not receiving any bronchodilators. REVIEW OF SYSTEMS: Unable to obtain. The patient was moaning and just making noise and not following direction. FAMILY HISTORY: Unknown. SOCIAL HISTORY: The patient denies any alcohol or tobacco use. PHYSICAL EXAMINATION: VITAL SIGNS: Stable. O2 saturation was greater than 92%,, currently on 2 liters. HEENT: Eyes, the sclerae were nonicteric. NECK: Jugular venous distention was not elevated. Could not be assessed secondary to body habitus. CHEST: Bilateral rhonchi. No wheezes. CARDIOVASCULAR: Regular rate and rhythm with S1, S2, no S3. ABDOMEN: Obese. EXTREMITIES: 1+ edema. NEUROLOGIC: The patient was awake. A detailed neuro exam was not performed. LABORATORY DATA: Reviewed. White count was 1.3, hemoglobin was 11, hematocrit of 35, platelet count was 159. Electrolytes were deranged. BUN was elevated, creatinine was elevated. Total bilirubin was elevated. AST and ALT were elevated. Alkaline phosphatase was elevated. Albumin was low. Chest x-ray was reviewed. Increased vascular markings compatible with pulmonary edema. IMPRESSION: 1. Acute hypoxemic respiratory failure. 2. Abnormal x-ray compatible with pulmonary edema, possible pneumonia. 3. Metabolic toxic encephalopathy, present upon admission. 4. Morbid obesity. 5. Coronary artery disease with previous coronary artery bypass grafting. 6. Hypertension. PLAN: 1. Concur with empiric use of antibiotics. 2. Diurese. 3. Follow clinical course. 4. P.r.n. BiPAP. 5. Continue home meds. Dr. Duran, I do appreciate the privilege in sharing in the patient's care. ADRIANA SALINAS MD DR: HUMBERTO/pauline JOB#: [id number] / [id number]
[2018-08-06 19:07] VITALS: BP 175/96
[2018-08-06] MEDS: LACTOBACILLUS RHAMNOSUS GG 1 CAPSULE. PO SCH (19:46)
[2018-08-06] MEDS: NYSTATIN TOPICAL POWDER 15GM BOTTLE. TP SCH (21:18)
--- NOTE | 2018-08-06 22:12 | NUR ---
Pure Wick urinary suction applied at 10pm after 3 trips to the [facility] since 7pm has left this patient exhausted.
[2018-08-06 23:09] VITALS: BP 144/77
[2018-08-07 03:03] VITALS: BP 137/70
[2018-08-07] MEDS: IV NORMAL SALINE 1000ML BAG 1,000 ML IV SCH ×2 (05:04→11:46)
[2018-08-07] MEDS: PIPERACILLIN/TAZOBACTAM 3.375 GM in IV NORMAL SALINE 50ML 50 ML IV SCH ×3 (05:04→21:25)
[2018-08-07 05:36] LABS: BASO % 1 % (0-3); EOS % 1 % (0-3); HEMATOCRIT 29.8 % (36.0-47.0); HEMOGLOBIN 10.2 g/dL (12.0-15.5); LYMPH # 0.4 x10^3/uL (1.0-4.8); LYMPH % 40 % (24-48); MEAN CORPUSCULAR HEMOGLOBIN 33 pg (25-35); MEAN CORPUSCULAR HGB CONC 34 g/dL (31-37); MEAN CORPUSCULAR VOLUME 96 fL (79-100); MONO # 0.1 x10^3/uL (0.0-1.1); MONO % 12 % (0-9); NEUT # 0.4 x10^3uL (1.8-7.7); NEUT % 46 % (31-73); PLATELET COUNT 80 x10^3/uL (140-400); RED BLOOD COUNT 3.12 x10^6/uL (3.50-5.40); RED CELL DISTRIBUTION WIDTH 15.9 % (11.5-14.5)
[2018-08-07 05:40] LABS: ALBUMIN 1.6 g/dL (3.4-5.0); ALBUMIN/GLOBULIN RATIO 0.3 (1.0-1.7); CALCIUM 7.8 mg/dL (8.5-10.1); CREATININE 1.5 mg/dL (0.6-1.0); GFR 34.2; POTASSIUM 3.5 mmol/L (3.5-5.1); TOTAL BILIRUBIN 0.7 mg/dL (0.2-1.0); TOTAL PROTEIN 6.2 g/dL (6.4-8.2)
[2018-08-07 06:08] LABS: WHITE BLOOD COUNT 0.9 x10^3/uL (4.0-11.0)
[2018-08-07 07:49] VITALS: BP 177/86
[2018-08-07] MEDS: POTASSIUM CHLORIDE 10 MEQ TABLET.ER. PO SCH (07:51)
[2018-08-07] MEDS: LACTOBACILLUS RHAMNOSUS GG 1 CAPSULE. PO SCH ×2 (07:52→21:26)
[2018-08-07] MEDS: CALCIUM CARBONATE 500 MG TABLET PO SCH (07:52)
[2018-08-07] MEDS: OMEGA-3 FATTY ACIDS/FISH OIL 1,000 MG CAPSULE. PO SCH (07:52)
[2018-08-07] MEDS: ASPIRIN CHEWABLE 81 MG TABLET. PO SCH (07:52)
[2018-08-07] MEDS: PANTOPRAZOLE 40 MG TABLET.DR. PO SCH (07:52)
[2018-08-07] MEDS: METOPROLOL SUCC 24HR ER 100 MG TAB.ER.24H. PO SCH (07:53)
[2018-08-07] MEDS: LISINOPRIL 5 MG TABLET. PO SCH (07:53)
[2018-08-07] MEDS: INSULIN LISPRO 300 UNITS/3 ML INSULN.PEN. SQ SCH ×3 (07:53→17:07)
[2018-08-07] MEDS: NYSTATIN TOPICAL POWDER 15GM BOTTLE. TP SCH ×2 (07:54→21:26)
--- NOTE | 2018-08-07 08:41 | PDOC2 ---
CONSULT Date of Consult Date of Consult DATE: 08/07/18 TIME: 08:39 History of Present Illness Reason for Visit: Still running fevers. Now plts are down to 80K, and WBC is even less. US abdomen shows gall stones and thickened GB wall Past Medical History Cardiovascular: CAD, HTN, Hyperlipidemia Pulmonary: Bronchitis GI: No pertinent hx Heme/Onc: Anemia NOS Hepatobiliary: No pertinent hx Psych: No pertinent hx Rheumatologic: No pertinent hx Infectious disease: No pertinent hx ENT: Sincusitis, Allergic Rhinitis Renal/: Chronic renal insuff Endocrine: Diabetes Past Surgical History Past Surgical History: CABG (BELCHER to LAD, SVG to PDA 07/10), Cataract Removal, Tubal Ligation, Other (pelvic fracture) Family History Family History: Coronary Artery Disease, Diabetes, Hypertension Social History Quit ALCOHOL: none Drugs: None Current Problem List Problem List Problems Medical Problems: (1) Pneumonia Status: Acute (2) Severe sepsis Status: Acute (3) Urinary tract infection Status: Acute Current Medications Current Medications Current Medications Piperacillin Sod/ Tazobactam Sod (Zosyn Per Pharmacy) 1 each PRN DAILY PRN MC SEE COMMENTS; Start 08/05/18 at 15:00 Piperacillin Sod/ Tazobactam Sod 4.5 gm/Sodium Chloride 100 ml @ 200 mls/hr ONCE ONCE IV Last administered on 08/05/18at 15:00; Start 08/05/18 at 15:00; Stop 08/05/18 at 15:29; Status DC Vancomycin HCl (Vanco Per Pharmacy) 1 each PRN DAILY PRN MC SEE COMMENTS Last administered on 08/06/18at 12:28; Start 08/05/18 at 16:15 Vancomycin HCl 2 gm/Sodium Chloride 500 ml @ 250 mls/hr 1X ONCE IV Last administered on 08/05/18at 16:17; Start 08/05/18 at 16:15; Stop 08/05/18 at 18:14; Status DC Ondansetron HCl (Zofran) 4 mg PRN Q8HRS PRN IV NAUSEA/VOMITING; Start 08/05/18 at 16:45; Stop 08/06/18 at 16:44; Status DC Morphine Sulfate (Morphine Sulfate) 2 mg PRN Q2HR PRN IV PAIN; Start 08/05/18 at 16:45; Stop 08/06/18 at 16:44; Status DC Sodium Chloride 1,000 ml @ 100 mls/hr Q10H IV Last administered on 08/06/18at 00:12; Start 08/05/18 at 16:43; Stop 08/05/18 at 20:42; Status DC Piperacillin Sod/ Tazobactam Sod 3.375 gm/Sodium Chloride 50 ml @ 100 mls/hr Q6HRS IV Last administered on 08/07/18at 05:04; Start 08/06/18 at 00:00 Vancomycin HCl 1.5 gm/Sodium Chloride 500 ml @ 250 mls/hr Q24H IV Last administered on 08/06/18at 16:41; Start 08/06/18 at 16:00 Vancomycin HCl (Vancomycin Trough Level) 1 each 1X ONCE MC ; Start 08/07/18 at 15:30; Stop 08/07/18 at 15:31 Sodium Chloride 1,000 ml @ 166.667 mls/hr Q6H IV Last administered on 08/06/18at 05:42; Start 08/05/18 at 17:24; Stop 08/06/18 at 05:48; Status DC Aspirin (Children'S Aspirin) 81 mg DAILY PO Last administered on 08/07/18at 07:52; Start 08/06/18 at 09:00 Calcium Carbonate/ Glycine (Oscal) 1,000 mg DAILY PO Last administered on 08/07/18at 07:52; Start 08/06/18 at 09:00 Glipizide (Glucotrol) 10 mg DAILY PO ; Start 08/06/18 at 09:00; Stop 08/06/18 at 10:27; Status DC Atorvastatin Calcium (Lipitor) 80 mg QHS PO Last administered on 08/06/18at 0 0:15; Start 08/05/18 at 21:00; Stop 08/06/18 at 10:27; Status DC Lisinopril (Prinivil) 5 mg DAILY PO Last administered on 08/07/18at 07:53; Start 08/06/18 at 09:00 Metoprolol Succinate (Toprol Xl) 200 mg DAILY PO Last administered on 08/07/18at 07:53; Start 08/06/18 at 09:00 Fish Oil (Fish Oil) 2,000 mg DAILY PO Last administered on 08/07/18at 07:52; Start 08/06/18 at 09:00 Pantoprazole Sodium (Protonix) 40 mg DAILYAC PO Last administered on 08/07/18 07:52; Start 08/06/18 at 07:30 Pioglitazone HCl (Actos) 30 mg DAILY PO ; Start 08/06/18 at 09:00; Stop 08/06/18 at 18:11; Status DC Linagliptin (Tradjenta) 5 mg DAILY PO ; Start 08/06/18 at 09:00; Stop 08/06/18 at 18:11; Status DC Haloperidol Lactate (Haldol Inj) 5 mg PRN Q6HRS PRN IVP AGITATION; Start 01/14 at 19:30 Dextrose (Dextrose 50%-Water Syringe) 12.5 gm PRN Q15MIN PRN IV SEE COMMENTS Last administered on 08/05/18at 21:43; Start 08/05/18 at 19:45 Acetaminophen (Tylenol) 650 mg PRN Q6HRS PRN PO FEVER Last administered on 08/06/18at 21:18; Start 08/06/18 at 04:15 Potassium Chloride (Klor-Con) 10 meq DAILYWBKFT PO Last administered on 08/07/18 07:51; Start 08/06/18 at 10:30 Insulin Human Lispro (HumaLOG) 0-5 UNITS TIDWMEALS SQ ; Start 08/06/18 at 12:00 Dextrose (Dextrose 50%-Water Syringe) 12.5 gm PRN Q15MIN PRN IV SEE COMMENTS; Start 08/06/18 at 10:30; Status UNV Lactobacillus Rhamnosus (Culturelle) 1 cap BID PO Last administered on 08/07/18at 07:52; Start 08/06/18 at 21:00 Sodium Chloride 1,000 ml @ 100 mls/hr Q10H IV Last administered on 08/07/18at 05:04; Start 08/06/18 at 18:15 Nystatin (Nystop) 1 dayne BID TP Last administered on 08/07/18 07:54; Start 08/06/18 at 21:00 Allergies Allergies: Coded Allergies: No Known Drug Allergies (Unverified , 07/05/13) Physical Exam General: Alert, Oriented X3, Cooperative, Other (using 4L via NC) HEENT: Atraumatic Lungs: Other (poor air mvmt) Abdomen: Other (morbidly obese) Extremities: No clubbing, No cyanosis, No edema Skin: No rashes, No breakdown Neuro: Sensation intact Psych/Mental Status: Mental status NL Vitals VITALS Vital Signs Date Time Temp Pulse Resp B/P (MAP) Pulse Ox O2 Delivery O2 Flow Rate FiO2 08/07/18 07:54 Nasal Cannula 4.0 08/07/18 07:53 83 177/86 08/07/18 07:49 100.7 20 95 100.7 Labs Labs Urine and blood cultures neg from admit Laboratory Tests Test 08/06/18 09:35 08/06/18 09:40 08/06/18 11:07 08/06/18 17:03 Influenza Type A Antigen Negative (NEGATIVE) Influenza Type B Antigen Negative (NEGATIVE) Haptoglobin 511 mg/dL (34-200) Prothrombin Time 15.7 SEC (11.7-14.0) Prothromb Time International Ratio 1.3 (0.8-1.1) Activated Partial Thromboplast Time 35 SEC (24-38) Fibrinogen 680 mg/dL (200-440) Uric Acid 3.6 mg/dL (2.6-6.0) Lactate Dehydrogenase 387 U/L (81-234) Creatine Kinase 472 U/L (26-192) Glucose (Fingerstick) 97 mg/dL (70-99) 143 mg/dL (70-99) Test 08/06/18 22:32 08/07/18 04:40 08/07/18 07:49 08/07/18 07:50 Glucose (Fingerstick) 172 mg/dL (70-99) 152 mg/dL (70-99) 148 mg/dL (70-99) White Blood Count 0.9 x10^3/uL (4.0-11.0) Red Blood Count 3.12 x10^6/uL (3.50-5.40) Hemoglobin 10.2 g/dL (12.0-15.5) Hematocrit 29.8 % (36.0-47.0) Mean Corpuscular Volume 96 fL (79-100) Mean Corpuscular Hemoglobin 33 pg (25-35) Mean Corpuscular Hemoglobin Concent 34 g/dL (31-37) Red Cell Distribution Width 15.9 % (11.5-14.5) Platelet Count 80 x10^3/uL (140-400) Neutrophils (%) (Auto) 46 % (31-73) Lymphocytes (%) (Auto) 40 % (24-48) Monocytes (%) (Auto) 12 % (0-9) Eosinophils (%) (Auto) 1 % (0-3) Basophils (%) (Auto) 1 % (0-3) Neutrophils # (Auto) 0.4 x10^3uL (1.8-7.7) Lymphocytes # (Auto) 0.4 x10^3/uL (1.0-4.8) Monocytes # (Auto) 0.1 x10^3/uL (0.0-1.1) Eosinophils # (Auto) 0.0 x10^3/uL (0.0-0.7) Basophils # (Auto) 0.0 x10^3/uL (0.0-0.2) Sodium Level 138 mmol/L (136-145) Potassium Level 3.5 mmol/L (3.5-5.1) Chloride Level 103 mmol/L (98-107) Carbon Dioxide Level 26 mmol/L (21-32) Anion Gap 9 (6-14) Blood Urea Nitrogen 23 mg/dL (7-20) Creatinine 1.5 mg/dL (0.6-1.0) Estimated GFR (Cockcroft-Gault) 34.2 BUN/Creatinine Ratio 15 (6-20) Glucose Level 152 mg/dL (70-99) Calcium Level 7.8 mg/dL (8.5-10.1) Total Bilirubin 0.7 mg/dL (0.2-1.0) Aspartate Amino Transf (AST/SGOT) 137 U/L (15-37) Alanine Aminotransferase (ALT/SGPT) 90 U/L (14-59) Alkaline Phosphatase 94 U/L (46-116) Total Protein 6.2 g/dL (6.4-8.2) Albumin 1.6 g/dL (3.4-5.0) Albumin/Globulin Ratio 0.3 (1.0-1.7) Images Images US abdomen: 1. Mild hepatomegaly. 2. Cholelithiasis. The gallbladder wall is thickened. Assessment/Plan Assessment/Plan 72 yo F admitted 08/05/18 with acute weakness, found to have neutropenia/anemia (now pancytopenic), elevated LFTs in the face of significant hypoalbuminemia, with chronic med issues including morbid obesity, DM, HTN, CAD. Started on vanc/zosyn, but blood and urine cultures neg from admit. US abdomen 08/06/18 showed gall stones with wall thickening, but LFTs/bili have improved with fluids and antibiotics. Uric acid normal. Influenza A/B negative. LDH, CK, fibrinogen and hapto elevated - not c/w DIC Differential for such is large, waiting on the following: -for liver causes, SRINIVASAN, AMA, acute hep panel -for bone marrow, SPEP and will order bone marrow bx/asp tomorrow. Again, hold on neupogen until we know results of bone marrow results. -infectious causes: HIV, hep panel, parvo B19 Appreciate the consult. Call with more questions. Gal, cell [phone] CATRINA JURADO MD August 07, 2018 08:41
--- NOTE | 2018-08-07 10:20 | PDOC ---
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 Objective tmax 100.9 General: coughing Heart: RRR Lungs: non productive cough, no wheezes or consolidation Abd: obese, soft Ext: no C/C/E, bruising of right upper arm WBC: 0.9 Hgb: 10.2 Albumin: 1.6 urine cx - blood cx - Influenza A & B - Vital Signs Vital Signs Date Time Temp Pulse Resp B/P (MAP) Pulse Ox O2 Delivery O2 Flow Rate FiO2 08/07/18 07:54 Nasal Cannula 4.0 08/07/18 07:53 83 177/86 08/07/18 07:49 100.7 20 95 100.7 I & O Intake and Output 08/07/18 07:00 Intake Total 2410 ml Output Total 1125 ml Balance 1285 ml Intake Oral 860 ml IV Total 1550 ml Output Urine Total 625 ml Urine/Stool Mix 500 ml # Voids 3 # Bowel Movements 2 Assessment and Plan sepsis - source yet to be determined but more likely its from leukemia - broad spectrum abx, ID consult acute respiratory failure with hypoxemia - appears to be due to interstitial fluid vs atypical pneumonia, needing O2, pulm following, prn neb tx 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
--- NOTE | 2018-08-07 10:28 | CONS ---
DATE OF CONSULTATION: 08/06/2018 DICTATED BY: This is Christian Choudhury, nurse practitioner, dictated for Dr. Porfirio Osuna, Infectious Disease. REFERRING PHYSICIAN: Dr. Tolentino. REASON FOR CONSULTATION: Pneumonia. HISTORY OF PRESENT ILLNESS: This patient is a 72-year-old female with a past medical history of diabetes, chronic kidney disease, obesity and coronary artery disease. She lives independently in a senior assisted living community. She says about a week ago, she developed a cough for which she attributed to allergies. She took some loratadine [id number] without improvement. She says she felt fine otherwise until last night when she went to the bathroom, she felt suddenly weak that she had to call for help. On arrival to the ER, she was hypoxic, requiring 4 liters of supplemental oxygen. She was found to have a WBC count of 1300, segs 60%, bands 3%. Her LFTs were elevated and she had a glucose level of 64. Urinalysis showed wbc's 5-10, nitrite positive and small leukocyte esterase with occasional squamous epithelial cells and many bacteria. Urine and blood cultures have been ordered. A chest x-ray showed increased bilateral lung infiltrates or peribronchial thickening. She has since been admitted and is currently on vancomycin and Zosyn. The patient says that she is not feeling too bad. She continues to have a persistent dry cough. Denies shortness of air, chest discomfort or palpitations. Denies headaches, nasal/sinus congestion or sore throat. Denies difficulty swallowing. Denies nausea, vomiting or diarrhea. Denies abdominal pain or cramps. Denies dysuria, frequency or urgency. She was ambulating without problem prior to becoming suddenly weak. She denies fevers, chills, sweats or body aches. PAST MEDICAL HISTORY: Diabetes, chronic kidney disease stage 3, obesity, hypertension, hyperlipidemia, coronary artery disease, bronchitis, iron deficiency anemia, GERD and seasonal allergic rhinitis due to pollen. PAST SURGICAL HISTORY: Tubal ligation, CABG x 2. FAMILY HISTORY: Heart disease. SOCIAL HISTORY: The patient is a x 13 years. She lives independently in a senior assisted living community. She is a former smoker. ALLERGIES: No known drug allergies. MEDICATIONS: Vancomycin and Zosyn. Other medications are available and have been reviewed on the MAY. REVIEW OF SYSTEMS: Per HPI, otherwise all other review of systems are negative. PHYSICAL EXAMINATION: VITAL SIGNS: Temperature 101.2, blood pressure 84/53, heart rate 97, respiratory rate 32, pulse oximetry 91% on 4 liters oxygen. GENERAL: The patient is propped up in bed, alert and smiling, in no apparent distress. HEENT: Pupils equally round, reactive. Normal conjunctivae. Oropharynx pink and moist, in dentures. NECK: Supple. LUNGS: Diminished aeration. HEART: S1 and S2. ABDOMEN: Obese, soft, nontender with bowel sounds present. No rebound or guarding. EXTREMITIES: No gross edema or cyanosis. SKIN: Warm without generalized rash. NEUROLOGIC: Alert and oriented x 3. LABORATORY DATA: Today's WBC 1.2 from 1.3 on admission, hemoglobin 10.3, platelets 140,000. Creatinine 1.9 from 2.1 on admission. BUN 37, sodium 135, potassium 3.4. Glucose 160. Lactic acid 1.4 from 0.6. Procalcitonin 0.28. Total bilirubin 1.5, AST 247, ALT 143. Troponin 0.052. Urinalysis per HPI. Urine and blood cultures pending. Chest x-ray per HPI. Head CT shows no acute intracranial hemorrhage; and chronic ischemic disease. Acute hepatitis profile, SRINIVASAN, creatinine kinase, HIV antibody screen, influenza screen, LDH, Parvovirus B19 antibodies, serum protein electrophoresis, uric acid and mitochondrial antibody pending. ASSESSMENT: 1. Healthcare-acquired pneumonia. 2. Questionable urinary tract infection present on admission. 3. Neutropenia. 4. Acute kidney injury on chronic kidney disease. 5. Elevated liver function tests. 6. Diabetes with hypoglycemia. 7. Morbid obesity. 8. Coronary artery disease. PLAN: Continue the vancomycin and Zosyn. Monitor renal function closely. Abdominal ultrasound is pending as well as additional labs including influenza and hepatitis panel. We will follow up on culture results. She is in reverse isolation. Hematology is following. Thank you, Dr. Tolentino, for asking us to participate in this patient's care. Should you have further questions or concerns, please call. PORFIRIO OSUNA MD DR: JUAN/pauline JOB#: [id number] / [id number]
--- NOTE | 2018-08-07 10:35 | CARD ---
MR#: [id number] Date of Study: 08/06/2018 Ordering Physician: Killian GUTIERREZ, Referring Physician: Killian GUTIERREZ Tech: Michelle Nina RDCS APPROVED REPORT EXAM: Two-dimensional and M-mode echocardiogram with Doppler and color Doppler. Other Information Quality : Good Technically limited study due to body habitus. INDICATION Cardiac Disease: CAD Sepsis Surgery/Intervention CABD DIMENSIONS RVDd3.2 (2.9-3.5cm)Left Atrium(2D)3.4 (1.6-4.0cm) IVSd0.9 (0.7-1.1cm)Aortic Root(2D)3.3 (2.0-3.7cm) LVDd4.9 (3.9-5.9cm)LVOT Diameter2.0 (1.8-2.4cm) PWd0.9 (0.7-1.1cm)LVDs3.4 (2.5-4.0cm) FS (%) 31.7 %SV67.7 ml LVEF(%)59.6 (>50%) Aortic Valve AoV Peak Stanley.147.3cm/sAoV VTI23.7cm AO Peak GR.8.7mmHgLVOT VTI 22.21cm AO Mean GR.4mmHgAVA (VTI)3.09cm2 Mitral Valve MV E Nkwakimw951.0cm/sMV DECEL [id number] MV A Ziwfkgnb36.1cm/sE/A Ratio1.9 TDI Lateral E' P. V4.89cm/sMedial E' P. V5.73cm/s E/Lateral E'28.2E/Medial E'24.1 Tricuspid Valve TR P. Nhoydtud057wd/sRAP PARFISYQ2nqVm TR Peak Gr.77nbAoDFMY86kdIe Pulmonary Vein S1 Hvprctpr40.9cm/sS2 Qaphuumu69.10cm/s D2 Kirmmnsl25.1cm/s LEFT VENTRICLE The left ventricle is normal size. There is normal left ventricular wall thickness. The left ventricu lar systolic function is normal and the ejection fraction is within normal range. The Ejection Fracti on is 55-60%. Septal motion suggestive of prior CABG. Otherwise, there is normal LV segmental wall mo tion. Transmitral Doppler flow pattern is Grade II-pseudonormal filling dynamics. RIGHT VENTRICLE The right ventricle is mildly dilated. The right ventricular systolic function is normal. ATRIA The left atrium size is normal. The right atrium size is normal. The interatrial septum is intact wit h no evidence for an atrial septal defect or patent foramen ovale as noted on 2-D or Doppler imaging. AORTIC VALVE The aortic valve is mildly thickened but opens well. Doppler and Color Flow revealed no significant a ortic regurgitation. There is no significant aortic valvular stenosis. MITRAL VALVE The mitral valve is thickened but opens well. Posterior mitral annular calcification is mild to moder ate. There is no evidence of mitral valve prolapse. There is no mitral valve stenosis. Doppler and Co shay-flow revealed trace mitral regurgitation. TRICUSPID VALVE The tricuspid valve is normal in structure and function. Doppler and Color Flow revealed trace tricus pid regurgitation. The PA pressure was estimated at 32 mmHg. There is no tricuspid valve stenosis. PULMONIC VALVE The pulmonic valve is not well visualized. Doppler and Color Flow revealed trace to mild pulmonic jackie vular regurgitation. There is no pulmonic valvular stenosis. GREAT VESSELS The aortic root is normal in size. The ascending aorta is normal in size. The IVC is normal in size a nd collapses >50% with inspiration. PERICARDIAL EFFUSION There is no evidence of significant pericardial effusion. Critical Notification Critical Value: No <Conclusion> The left ventricular systolic function is normal and the ejection fraction is within normal range. Th e Ejection Fraction is 55-60%. Septal motion suggestive of prior CABG. Otherwise, there is normal LV segmental wall motion. The right ventricle is mildly dilated. Doppler and Color Flow revealed trace tricuspid regurgitation. The PA pressure was estimated at 32 mm Hg. Signed by : Timothy Pierre, Electronically Approved : 08/07/2018 10:34:35
--- NOTE | 2018-08-07 11:10 | PDOC ---
Infectious Disease Note Subjective Subjective Feeling a little bit better this morning O2 2 LNC + cough Running fevers Tmax 101.2 Denies chills/aches/sweats ROS ROS per HPI Vital Sign Vital Signs Vital Signs Date Time Temp Pulse Resp B/P (MAP) Pulse Ox O2 Delivery O2 Flow Rate FiO2 08/07/18 07:54 Nasal Cannula 4.0 08/07/18 07:53 83 177/86 08/07/18 07:49 100.7 20 95 100.7 Physical Exam PHYSICAL EXAM GENERAL: Sitting i the chair, alert, NAD HEENT: Pupils equally round, reactive. Normal conjunctivae. Oropharynx pink and moist, in dentures. NECK: Supple. LUNGS: Diminished aeration. HEART: S1 and S2. ABDOMEN: Obese, soft, nontender with bowel sounds present. No rebound or guar ding. EXTREMITIES: No gross edema or cyanosis. SKIN: Warm without generalized rash. NEUROLOGIC: Alert and oriented x 3. Labs Lab Laboratory Tests Test 08/06/18 11:07 08/06/18 17:03 08/06/18 22:32 08/07/18 04:40 Glucose (Fingerstick) 97 mg/dL (70-99) 143 mg/dL (70-99) 172 mg/dL (70-99) White Blood Count 0.9 x10^3/uL (4.0-11.0) Red Blood Count 3.12 x10^6/uL (3.50-5.40) Hemoglobin 10.2 g/dL (12.0-15.5) Hematocrit 29.8 % (36.0-47.0) Mean Corpuscular Volume 96 fL (79-100) Mean Corpuscular Hemoglobin 33 pg (25-35) Mean Corpuscular Hemoglobin Concent 34 g/dL (31-37) Red Cell Distribution Width 15.9 % (11.5-14.5) Platelet Count 80 x10^3/uL (140-400) Neutrophils (%) (Auto) 46 % (31-73) Lymphocytes (%) (Auto) 40 % (24-48) Monocytes (%) (Auto) 12 % (0-9) Eosinophils (%) (Auto) 1 % (0-3) Basophils (%) (Auto) 1 % (0-3) Neutrophils # (Auto) 0.4 x10^3uL (1.8-7.7) Lymphocytes # (Auto) 0.4 x10^3/uL (1.0-4.8) Monocytes # (Auto) 0.1 x10^3/uL (0.0-1.1) Eosinophils # (Auto) 0.0 x10^3/uL (0.0-0.7) Basophils # (Auto) 0.0 x10^3/uL (0.0-0.2) Sodium Level 138 mmol/L (136-145) Potassium Level 3.5 mmol/L (3.5-5.1) Chloride Level 103 mmol/L (98-107) Carbon Dioxide Level 26 mmol/L (21-32) Anion Gap 9 (6-14) Blood Urea Nitrogen 23 mg/dL (7-20) Creatinine 1.5 mg/dL (0.6-1.0) Estimated GFR (Cockcroft-Gault) 34.2 BUN/Creatinine Ratio 15 (6-20) Glucose Level 152 mg/dL (70-99) Calcium Level 7.8 mg/dL (8.5-10.1) Total Bilirubin 0.7 mg/dL (0.2-1.0) Aspartate Amino Transf (AST/SGOT) 137 U/L (15-37) Alanine Aminotransferase (ALT/SGPT) 90 U/L (14-59) Alkaline Phosphatase 94 U/L (46-116) Total Protein 6.2 g/dL (6.4-8.2) Albumin 1.6 g/dL (3.4-5.0) Albumin/Globulin Ratio 0.3 (1.0-1.7) Test 08/07/18 07:49 08/07/18 07:50 Glucose (Fingerstick) 152 mg/dL (70-99) 148 mg/dL (70-99) IMPRESSION: 1. Mild hepatomegaly. 2. Cholelithiasis. The gallbladder wall is thickened. This finding can be seen with cholecystitis. Clinical correlation is recommended. Micro 08/05/18 Blood Culture - Preliminary, Resulted NO GROWTH AFTER 1 DAY 08/05/18 URINE CULTURE RES 1 Final No growth Objective Assessment HCAP Fever Neutropenia/pancytopenia ? UTI, POA UC neg TYLER on CKD, improving Elevated LFTs/cholecystitis on US Diabetes with hypoglycemia Morbid obesity, BMI 43 CAD Plan Plan of Care Continue vanc and Zosyn add micafungin empirically Probiotics Monitor renal function closely additional labs pending Cultures NGTD Reverse isolation Awaiting bone marrow bx Supportive care DNR Patient seen and examined. Chart reviewed in detail. Case discussed with [employer]. Agree with above plan. KAREN AKERS APRN August 07, 2018 11:10 PORFIRIO OSUNA MD August 07, 2018 18:48
[2018-08-07 11:14] VITALS: BP 156/70
[2018-08-07] MEDS: BENZONATATE 100 MG CAPSULE. PO SCH ×2 (11:45→21:26)
[2018-08-07] MEDS: MICAFUNGIN 100 MG in IV DEXTROSE 5% 100ML 100 ML IV SCH (13:12)
[2018-08-07 14:26] VITALS: BP 164/86
--- NOTE | 2018-08-07 16:02 | PDOC ---
PULMONARY PROGRESS NOTES Subjective PT ALERT NO COMPLAINTS Vitals Vital Signs Date Time Temp Pulse Resp B/P (MAP) Pulse Ox O2 Delivery O2 Flow Rate FiO2 08/07/18 14:26 100.3 90 20 164/86 (112) 93 Nasal Cannula 3.0 100.3 ROS: No Nausea, No Chest Pain, No Abdominal Pain, No Increase Cough General: Alert Lungs: Crackles Cardiovascular: S1, S2 Abdomen: Soft Neuro Exam: Alert Extremities: Other (EDEMA) Labs Laboratory Tests Test 08/05/18 20:00 08/05/18 20:40 08/05/18 21:04 08/05/18 21:33 Lactic Acid Level 0.6 mmol/L (0.4-2.0) Procalcitonin 0.28 ng/mL (0.00-0.10) Glucose (Fingerstick) 30 mg/dL (70-99) 34 mg/dL (70-99) 59 mg/dL (70-99) Test 08/05/18 22:10 08/06/18 01:30 08/06/18 07:14 08/06/18 09:35 Glucose (Fingerstick) 131 mg/dL (70-99) 102 mg/dL (70-99) White Blood Count 1.2 x10^3/uL (4.0-11.0) Red Blood Count 3.19 x10^6/uL (3.50-5.40) Hemoglobin 10.3 g/dL (12.0-15.5) Hematocrit 30.2 % (36.0-47.0) Mean Corpuscular Volume 95 fL (79-100) Mean Corpuscular Hemoglobin 32 pg (25-35) Mean Corpuscular Hemoglobin Concent 34 g/dL (31-37) Red Cell Distribution Width 15.8 % (11.5-14.5) Platelet Count 140 x10^3/uL (140-400) Neutrophils (%) (Auto) 51 % (31-73) Lymphocytes (%) (Auto) 30 % (24-48) Monocytes (%) (Auto) 17 % (0-9) Eosinophils (%) (Auto) 2 % (0-3) Basophils (%) (Auto) 1 % (0-3) Neutrophils # (Auto) 0.6 x10^3uL (1.8-7.7) Lymphocytes # (Auto) 0.3 x10^3/uL (1.0-4.8) Monocytes # (Auto) 0.2 x10^3/uL (0.0-1.1) Eosinophils # (Auto) 0.0 x10^3/uL (0.0-0.7) Basophils # (Auto) 0.0 x10^3/uL (0.0-0.2) Sodium Level 135 mmol/L (136-145) Potassium Level 3.4 mmol/L (3.5-5.1) Chloride Level 100 mmol/L (98-107) Carbon Dioxide Level 23 mmol/L (21-32) Anion Gap 12 (6-14) Blood Urea Nitrogen 37 mg/dL (7-20) Creatinine 1.9 mg/dL (0.6-1.0) Estimated GFR (Cockcroft-Gault) 26.1 Glucose Level 160 mg/dL (70-99) Lactic Acid Level 1.4 mmol/L (0.4-2.0) Calcium Level 7.7 mg/dL (8.5-10.1) Procalcitonin 0.27 ng/mL (0.00-0.10) Influenza Type A Antigen Negative (NEGATIVE) Influenza Type B Antigen Negative (NEGATIVE) Test 08/06/18 09:40 08/06/18 11:07 08/06/18 17:03 08/06/18 22:32 Haptoglobin 511 mg/dL (34-200) Prothrombin Time 15.7 SEC (11.7-14.0) Prothromb Time International Ratio 1.3 (0.8-1.1) Activated Partial Thromboplast Time 35 SEC (24-38) Fibrinogen 680 mg/dL (200-440) Uric Acid 3.6 mg/dL (2.6-6.0) Lactate Dehydrogenase 387 U/L (81-234) Creatine Kinase 472 U/L (26-192) Glucose (Fingerstick) 97 mg/dL (70-99) 143 mg/dL (70-99) 172 mg/dL (70-99) Test 08/07/18 04:40 08/07/18 07:49 08/07/18 07:50 White Blood Count 0.9 x10^3/uL (4.0-11.0) Red Blood Count 3.12 x10^6/uL (3.50-5.40) Hemoglobin 10.2 g/dL (12.0-15.5) Hematocrit 29.8 % (36.0-47.0) Mean Corpuscular Volume 96 fL (79-100) Mean Corpuscular Hemoglobin 33 pg (25-35) Mean Corpuscular Hemoglobin Concent 34 g/dL (31-37) Red Cell Distribution Width 15.9 % (11.5-14.5) Platelet Count 80 x10^3/uL (140-400) Neutrophils (%) (Auto) 46 % (31-73) Lymphocytes (%) (Auto) 40 % (24-48) Monocytes (%) (Auto) 12 % (0-9) Eosinophils (%) (Auto) 1 % (0-3) Basophils (%) (Auto) 1 % (0-3) Neutrophils # (Auto) 0.4 x10^3uL (1.8-7.7) Lymphocytes # (Auto) 0.4 x10^3/uL (1.0-4.8) Monocytes # (Auto) 0.1 x10^3/uL (0.0-1.1) Eosinophils # (Auto) 0.0 x10^3/uL (0.0-0.7) Basophils # (Auto) 0.0 x10^3/uL (0.0-0.2) Sodium Level 138 mmol/L (136-145) Potassium Level 3.5 mmol/L (3.5-5.1) Chloride Level 103 mmol/L (98-107) Carbon Dioxide Level 26 mmol/L (21-32) Anion Gap 9 (6-14) Blood Urea Nitrogen 23 mg/dL (7-20) Creatinine 1.5 mg/dL (0.6-1.0) Estimated GFR (Cockcroft-Gault) 34.2 BUN/Creatinine Ratio 15 (6-20) Glucose Level 152 mg/dL (70-99) Calcium Level 7.8 mg/dL (8.5-10.1) Total Bilirubin 0.7 mg/dL (0.2-1.0) Aspartate Amino Transf (AST/SGOT) 137 U/L (15-37) Alanine Aminotransferase (ALT/SGPT) 90 U/L (14-59) Alkaline Phosphatase 94 U/L (46-116) Total Protein 6.2 g/dL (6.4-8.2) Albumin 1.6 g/dL (3.4-5.0) Albumin/Globulin Ratio 0.3 (1.0-1.7) Glucose (Fingerstick) 152 mg/dL (70-99) 148 mg/dL (70-99) Laboratory Tests Test 08/06/18 17:03 08/06/18 22:32 08/07/18 04:40 08/07/18 07:49 Glucose (Fingerstick) 143 mg/dL (70-99) 172 mg/dL (70-99) 152 mg/dL (70-99) White Blood Count 0.9 x10^3/uL (4.0-11.0) Red Blood Count 3.12 x10^6/uL (3.50-5.40) Hemoglobin 10.2 g/dL (12.0-15.5) Hematocrit 29.8 % (36.0-47.0) Mean Corpuscular Volume 96 fL (79-100) Mean Corpuscular Hemoglobin 33 pg (25-35) Mean Corpuscular Hemoglobin Concent 34 g/dL (31-37) Red Cell Distribution Width 15.9 % (11.5-14.5) Platelet Count 80 x10^3/uL (140-400) Neutrophils (%) (Auto) 46 % (31-73) Lymphocytes (%) (Auto) 40 % (24-48) Monocytes (%) (Auto) 12 % (0-9) Eosinophils (%) (Auto) 1 % (0-3) Basophils (%) (Auto) 1 % (0-3) Neutrophils # (Auto) 0.4 x10^3uL (1.8-7.7) Lymphocytes # (Auto) 0.4 x10^3/uL (1.0-4.8) Monocytes # (Auto) 0.1 x10^3/uL (0.0-1.1) Eosinophils # (Auto) 0.0 x10^3/uL (0.0-0.7) Basophils # (Auto) 0.0 x10^3/uL (0.0-0.2) Sodium Level 138 mmol/L (136-145) Potassium Level 3.5 mmol/L (3.5-5.1) Chloride Level 103 mmol/L (98-107) Carbon Dioxide Level 26 mmol/L (21-32) Anion Gap 9 (6-14) Blood Urea Nitrogen 23 mg/dL (7-20) Creatinine 1.5 mg/dL (0.6-1.0) Estimated GFR (Cockcroft-Gault) 34.2 BUN/Creatinine Ratio 15 (6-20) Glucose Level 152 mg/dL (70-99) Calcium Level 7.8 mg/dL (8.5-10.1) Total Bilirubin 0.7 mg/dL (0.2-1.0) Aspartate Amino Transf (AST/SGOT) 137 U/L (15-37) Alanine Aminotransferase (ALT/SGPT) 90 U/L (14-59) Alkaline Phosphatase 94 U/L (46-116) Total Protein 6.2 g/dL (6.4-8.2) Albumin 1.6 g/dL (3.4-5.0) Albumin/Globulin Ratio 0.3 (1.0-1.7) Test 08/07/18 07:50 Glucose (Fingerstick) 148 mg/dL (70-99) Medications Active Scripts Medications Dose Route/Sig Max Daily Dose Days Date Category Metoprolol Tartrate 100 Mg Tablet 2 Tab PO DAILY 08/05/18 Reported Glipizide 5 Mg Tablet 2 Tab PO DAILY 08/05/18 Reported Pequea 3 Fish Oil Softgel (Pequea-3 Fatty Acids/Fish Oil) 1 Each Capsule.dr 2 Each PO DAILY 08/05/18 Reported Calcium Carbonate 500 Mg Tablet 1,000 Mg PO DAILY 08/05/18 Reported Januvia (Sitagliptin Phosphate) 50 Mg Tablet 1 Tab PO DAILY 08/05/18 Reported Lisinopril 5 Mg Tablet 1 Tab PO DAILY 08/05/18 Reported Omeprazole 40 Mg Capsule.dr 40 Mg PO DAILY 07/03/13 Rx Aspirin 81 Mg Tab.chew 81 Mg PO DAILY 07/03/13 Rx Pioglitazone Hcl 30 Mg Tablet 30 Mg PO DAILY 07/03/13 Rx Atorvastatin Calcium 80 Mg Tablet 80 Mg PO HS 07/03/13 Rx Impression . 1. Acute hypoxemic respiratory failure. 2. Abnormal x-ray compatible with pulmonary edema, possible pneumonia. 3. Metabolic toxic encephalopathy, present upon admission. 4. Morbid obesity. 5. Coronary artery disease with previous coronary artery bypass grafting. 6. Hypertension. 7. Acute Leukopenia 8. Sepsis Plan . ID CONSULTED PRN BIPAP BONE MARROW PENDING D/W DR GUTIERREZ AND SON AT BEDSIDE ADRIANA SALINAS MD August 07, 2018 16:02
[2018-08-07 16:05] LABS: VANC TR 13.1 mcg/mL (10.0-20.0)
[2018-08-07] MEDS: VANCOMYCIN PER PHARMACY MC PRN (16:33)
--- NOTE | 2018-08-07 16:34 | NUR ---
Pharmacy Vancomycin Dosing Note S:Consulted to monitor and dose vancomycin started 08/05/18. O:THO LINARES is a 72 year old F with Sepsis Pneumonia . Height: 5 feet, 10 inches Weight: 135.408972 kg [place] Body Weight: 68.50 Adjusted Body Weight: 95.50 Dosing Weight: Actual Other Antibiotics: zosyn LABS: Last BUN: 37 Last Creatinine: 1.5 Creatinine Clearance: 51 mL/min Last WBC: 0.9 Last Procalcitonin: 0.27 Tmax (past 24 hours): 101.2 Microbiology: - I/O: Drug Levels:13.1 Last Trough level: on 08/07/18 at 1600 Last dose given 08/05/18 at 1617 Vancomycin Dosing: Loading Dose: 2000 mg x1 Dosing Weight: Actual Target Trough: 15-20 A: Based on: LEVEL P: 1. Change Vancomycin 2000 mg IV q24h 2. Follow up Trough level on 08/09/18 at 1600 3. Pharmacy will continue to monitor, follow and adjust therapy as needed. JIM SANDOVAL [facility], 08/07/18 [id number]
[2018-08-07] MEDS: VANCOMYCIN 2 GM in IV NORMAL SALINE 500ML BAG 500 ML IV SCH (16:57)
[2018-08-07 19:00] VITALS: BP 167/79
[2018-08-07] MEDS: ACETAMINOPHEN 325 MG TABLET. PO PRN (21:26)
--- NOTE | 2018-08-07 22:30 | NUR ---
PT RESPIRATIONS ARE 44. SATS ON 3 LITERS WAS 84%. WHEEZES THROUGH OUT. PT STATES SHE FEELS OK BUT SHE DOESNT LOOK WELL. CALLED DR HOLBROOK SERVICE, AND DR SALINAS PAGER. DR HOLBROOK CALLED AND ORDERS GIVEN. LCRN
[2018-08-07 22:47] VITALS: BP 147/70
[2018-08-07] MEDS ORDERED: FUROSEMIDE 40 MG/4 ML VIAL. IVP ONE (23:00)
[2018-08-07 23:09] LABS: BASE EXCESS ABG -5 mmol/L (-3-3); FIO2 ABG 32; HCO3 ABG 21 mmol/L (21-28); PCO2 ABG 43 mmHg (35-46); PO2 ABG 85 mmHg (65-108); SAT O2 ABG 95 % (92-99)
--- NOTE | 2018-08-07 23:10 | RAD ---
CHEST AP ONLY Clinical Indication: Oxygen desaturating. Increased respirations. Comparison: AP chest, 2 days ago. Findings: Patient is rotated. Stable median sternotomy wires. Atherosclerotic thoracic aorta. Cardiac size is stable. There are diffuse bilateral interstitial and alveolar opacities. No pleural effusion or pneumothorax. No acute bone abnormality. IMPRESSION: Diffuse bilateral interstitial and alveolar opacities. No significant change from prior study. Electronically signed by: Edilberto Barbosa MD (08/07/2018 11:07 PM) [facility]
--- NOTE | 2018-08-07 23:20 | NUR ---
CLEANSED ZO AREA EXTREMLY WELL, TO PREPARE FOR MATHEW INSERTION, DUE TO IV LASIX, BUTTUCK WOUND PT INCONTINENT. EXPLAINED TO PT PROCEDURE. UPON INSERTION FIRST URINE WAS THICK, CLOUDY AND YELLOWISH BROWN. PT TOLERATED WITH MODERATE DISCOMFORT. LCRN AT 0500 OUTPUT WAS ONLY 450 CC. LCRN
[2018-08-08] MEDS: PIPERACILLIN/TAZOBACTAM 3.375 GM in IV NORMAL SALINE 50ML 50 ML IV SCH ×5 (01:26→23:43)
[2018-08-08 02:54] VITALS: BP 158/67
[2018-08-08 04:56] LABS: HEMATOCRIT 30.8 % (36.0-47.0); HEMOGLOBIN 10.2 g/dL (12.0-15.5); RED BLOOD COUNT 3.2 x10^6/uL (3.50-5.40); RED CELL DISTRIBUTION WIDTH 16.6 % (11.5-14.5)
[2018-08-08 05:31] LABS: CREATININE 1.4 mg/dL (0.6-1.0); GFR 37.1
--- NOTE | 2018-08-08 06:00 | NUR ---
DR SALINAS CALLED AND WENT OVER EVENT FROM LAST NIGHT. SEE ORDERS. LCRN
[2018-08-08 07:24] VITALS: BP 175/79
[2018-08-08] MEDS: ALBUTEROL SULFATE 2.5 MG/3 ML NEBU. IH SCH ×3 (07:34→20:27)
[2018-08-08] MEDS: INSULIN LISPRO 300 UNITS/3 ML INSULN.PEN. SQ SCH ×3 (08:00→16:46)
--- NOTE | 2018-08-08 08:38 | PDOC ---
PULMONARY PROGRESS NOTES Subjective PT ALERT CONFUSED TODAY Vitals Vital Signs Date Time Temp Pulse Resp B/P (MAP) Pulse Ox O2 Delivery O2 Flow Rate FiO2 08/08/18 07:37 96 Nasal Cannula 3.0 08/08/18 07:24 97.9 71 28 175/79 (111) 97.9 ROS: No Nausea, No Chest Pain, No Abdominal Pain, No Increase Cough General: Alert Lungs: Crackles Cardiovascular: S1, S2 Abdomen: Soft Neuro Exam: Alert Extremities: Other (EDEMA) Labs Laboratory Tests Test 08/06/18 09:35 08/06/18 09:40 08/06/18 11:07 08/06/18 17:03 Influenza Type A Antigen Negative (NEGATIVE) Influenza Type B Antigen Negative (NEGATIVE) Haptoglobin 511 mg/dL (34-200) Prothrombin Time 15.7 SEC (11.7-14.0) Prothromb Time International Ratio 1.3 (0.8-1.1) Activated Partial Thromboplast Time 35 SEC (24-38) Fibrinogen 680 mg/dL (200-440) Uric Acid 3.6 mg/dL (2.6-6.0) Lactate Dehydrogenase 387 U/L (81-234) Creatine Kinase 472 U/L (26-192) Glucose (Fingerstick) 97 mg/dL (70-99) 143 mg/dL (70-99) Test 08/06/18 22:32 08/07/18 04:40 08/07/18 07:49 08/07/18 07:50 Glucose (Fingerstick) 172 mg/dL (70-99) 152 mg/dL (70-99) 148 mg/dL (70-99) White Blood Count 0.9 x10^3/uL (4.0-11.0) Red Blood Count 3.12 x10^6/uL (3.50-5.40) Hemoglobin 10.2 g/dL (12.0-15.5) Hematocrit 29.8 % (36.0-47.0) Mean Corpuscular Volume 96 fL (79-100) Mean Corpuscular Hemoglobin 33 pg (25-35) Mean Corpuscular Hemoglobin Concent 34 g/dL (31-37) Red Cell Distribution Width 15.9 % (11.5-14.5) Platelet Count 80 x10^3/uL (140-400) Neutrophils (%) (Auto) 46 % (31-73) Lymphocytes (%) (Auto) 40 % (24-48) Monocytes (%) (Auto) 12 % (0-9) Eosinophils (%) (Auto) 1 % (0-3) Basophils (%) (Auto) 1 % (0-3) Neutrophils # (Auto) 0.4 x10^3uL (1.8-7.7) Lymphocytes # (Auto) 0.4 x10^3/uL (1.0-4.8) Monocytes # (Auto) 0.1 x10^3/uL (0.0-1.1) Eosinophils # (Auto) 0.0 x10^3/uL (0.0-0.7) Basophils # (Auto) 0.0 x10^3/uL (0.0-0.2) Sodium Level 138 mmol/L (136-145) Potassium Level 3.5 mmol/L (3.5-5.1) Chloride Level 103 mmol/L (98-107) Carbon Dioxide Level 26 mmol/L (21-32) Anion Gap 9 (6-14) Blood Urea Nitrogen 23 mg/dL (7-20) Creatinine 1.5 mg/dL (0.6-1.0) Estimated GFR (Cockcroft-Gault) 34.2 BUN/Creatinine Ratio 15 (6-20) Glucose Level 152 mg/dL (70-99) Calcium Level 7.8 mg/dL (8.5-10.1) Total Bilirubin 0.7 mg/dL (0.2-1.0) Aspartate Amino Transf (AST/SGOT) 137 U/L (15-37) Alanine Aminotransferase (ALT/SGPT) 90 U/L (14-59) Alkaline Phosphatase 94 U/L (46-116) Total Protein 6.2 g/dL (6.4-8.2) Albumin 1.6 g/dL (3.4-5.0) Albumin/Globulin Ratio 0.3 (1.0-1.7) Test 08/07/18 11:53 08/07/18 15:40 08/07/18 17:04 08/07/18 22:38 Glucose (Fingerstick) 287 mg/dL (70-99) 206 mg/dL (70-99) Vancomycin Level Trough 13.1 mcg/mL (10.0-20.0) Vancomycin Last Dose Date 08/06/18 Vancomycin Last Dose Time 1600 O2 Saturation 95 % (92-99) Arterial Blood pH 7.31 (7.35-7.45) Arterial Blood pCO2 at Patient Temp 43 mmHg (35-46) Arterial Blood pO2 at Patient Temp 85 mmHg (65-108) Arterial Blood HCO3 21 mmol/L (21-28) Arterial Blood Base Excess -5 mmol/L (-3-3) FiO2 32 Test 08/07/18 22:40 08/08/18 03:30 08/08/18 06:59 Glucose (Fingerstick) 214 mg/dL (70-99) 226 mg/dL (70-99) White Blood Count 1.0 x10^3/uL (4.0-11.0) Red Blood Count 3.20 x10^6/uL (3.50-5.40) Hemoglobin 10.2 g/dL (12.0-15.5) Hematocrit 30.8 % (36.0-47.0) Mean Corpuscular Volume 96 fL (79-100) Mean Corpuscular Hemoglobin 32 pg (25-35) Mean Corpuscular Hemoglobin Concent 33 g/dL (31-37) Red Cell Distribution Width 16.6 % (11.5-14.5) Platelet Count 62 x10^3/uL (140-400) Creatinine 1.4 mg/dL (0.6-1.0) Estimated GFR (Cockcroft-Gault) 37.1 UG-Adx-U-Type Natriuretic Peptide 23442 pg/mL (0-124) Laboratory Tests Test 08/07/18 11:53 08/07/18 15:40 08/07/18 17:04 08/07/18 22:38 Glucose (Fingerstick) 287 mg/dL (70-99) 206 mg/dL (70-99) Vancomycin Level Trough 13.1 mcg/mL (10.0-20.0) Vancomycin Last Dose Date 08/06/18 Vancomycin Last Dose Time 1600 O2 Saturation 95 % (92-99) Arterial Blood pH 7.31 (7.35-7.45) Arterial Blood pCO2 at Patient Temp 43 mmHg (35-46) Arterial Blood pO2 at Patient Temp 85 mmHg (65-108) Arterial Blood HCO3 21 mmol/L (21-28) Arterial Blood Base Excess -5 mmol/L (-3-3) FiO2 32 Test 08/07/18 22:40 08/08/18 03:30 08/08/18 06:59 Glucose (Fingerstick) 214 mg/dL (70-99) 226 mg/dL (70-99) White Blood Count 1.0 x10^3/uL (4.0-11.0) Red Blood Count 3.20 x10^6/uL (3.50-5.40) Hemoglobin 10.2 g/dL (12.0-15.5) Hematocrit 30.8 % (36.0-47.0) Mean Corpuscular Volume 96 fL (79-100) Mean Corpuscular Hemoglobin 32 pg (25-35) Mean Corpuscular Hemoglobin Concent 33 g/dL (31-37) Red Cell Distribution Width 16.6 % (11.5-14.5) Platelet Count 62 x10^3/uL (140-400) Creatinine 1.4 mg/dL (0.6-1.0) Estimated GFR (Cockcroft-Gault) 37.1 UT-Blt-X-Type Natriuretic Peptide 34695 pg/mL (0-124) Medications Active Scripts Medications Dose Route/Sig Max Daily Dose Days Date Category Metoprolol Tartrate 100 Mg Tablet 2 Tab PO DAILY 08/05/18 Reported Glipizide 5 Mg Tablet 2 Tab PO DAILY 08/05/18 Reported [place] 3 Fish Oil Softgel ([place]-3 Fatty Acids/Fish Oil) 1 Each Capsule.dr 2 Each PO DAILY 08/05/18 Reported Calcium Carbonate 500 Mg Tablet 1,000 Mg PO DAILY 08/05/18 Reported Januvia (Sitagliptin Phosphate) 50 Mg Tablet 1 Tab PO DAILY 08/05/18 Reported Lisinopril 5 Mg Tablet 1 Tab PO DAILY 08/05/18 Reported Omeprazole 40 Mg Capsule.dr 40 Mg PO DAILY 07/03/13 Rx Aspirin 81 Mg Tab.chew 81 Mg PO DAILY 07/03/13 Rx Pioglitazone Hcl 30 Mg Tablet 30 Mg PO DAILY 07/03/13 Rx Atorvastatin Calcium 80 Mg Tablet 80 Mg PO HS 07/03/13 Rx Impression . 1. Acute hypoxemic respiratory failure. 2. Abnormal x-ray compatible with pulmonary edema, possible pneumonia. 3. Metabolic toxic encephalopathy, present upon admission. 4. Morbid obesity. 5. Coronary artery disease with previous coronary artery bypass grafting. 6. Hypertension. 7. Acute Leukopenia 8. Sepsis Plan . LAST NIGHT REQUIRED BIPAP AGAN CXR NO CHANGE GIVEN IV LASIX D/W ID COULD NOT LAY DOWN FOR BONE MARROW POSSIBLE TOMORROW WITH ASSISTANCE FROM ADRIANA PUCKETT MD August 08, 2018 08:37
[2018-08-08] MEDS ORDERED: LIDOCAINE WITH 8.4% SOD BICARB 3 ML DISP.SYRIN. ONE ×3 (08:42→08:47)
[2018-08-08] MEDS ORDERED: fentaNYL PF VIAL 100 MCG/2 ML VIAL ONE (08:49)
[2018-08-08] MEDS ORDERED: MIDAZOLAM HCL/PF 2 MG/2 ML VIAL. ONE (08:49)
--- NOTE | 2018-08-08 09:03 | PDOC ---
SUBJECTIVE Subjective S: "i feel fine" but seemingly winded at rest O: Gen: elderly obese female in NAD, resting in bed Resp: on O2, slight inc WOB Ext: sl edema BLE Abd: sl TTP over RUQ, no guarding or rebound Labs: wbc 1.0, Hb 10.2, plt 62 ANC 400 blood and UA cx neg T bili 0.7, AST 137, ALT 90 Cr 1.4 SRINIVASAN, ASMA, SPEP all pending procalc 0.27 lipase 206 Rad: poss pneumonia, Gallstones, GB wall thickening A/P: 72 yo F admitted 08/05/18 with weakness, pancytopenia, mild transaminits, hypoalbuminemia, with chronic med issues including morbid obesity, DM, HTN, CAD. On Abx for HCAP and poss cholecystitis, initial UA concerning though cx neg. US abdomen 08/06/18 showed gall stones with wall thickening. infection: Abx, ID involved other comorbidities: per primary, others pancytopenia: BMBx pending as well as SPEP, SRINIVASAN, ASMA, avoiding neupogen until we know results of bone marrow results, suspect this may all be related to infection and comorbid conditions... Thank you kindly and please don't hesitate to call with more questions. OBJECTIVE Vital Signs Vital Signs Date Time Temp Pulse Resp B/P (MAP) Pulse Ox O2 Delivery O2 Flow Rate FiO2 08/08/18 07:37 96 Nasal Cannula 3.0 08/08/18 07:24 97.9 71 28 175/79 (111) 97 Nasal Cannula 3.0 97.9 08/08/18 02:54 98.8 71 28 158/67 (97) 97 Nasal Cannula 3.0 98.8 08/07/18 22:47 98.9 76 36 147/70 (95) 92 Nasal Cannula 3.0 98.9 08/07/18 20:00 Nasal Cannula 3.0 08/07/18 19:00 99.3 84 20 167/79 (108) 98 Nasal Cannula 3.0 99.3 08/07/18 14:26 100.3 90 20 164/86 (112) 93 Nasal Cannula 3.0 100.3 08/07/18 11:14 98.3 82 20 156/70 (98) 94 Nasal Cannula 3.0 98.3 I & O Intake and Output 08/08/18 07:00 Intake Total 2120 ml Output Total 450 ml Balance 1670 ml Intake Oral 2120 ml Output Urine Total 0 ml Stool Total 450 ml # Voids 2 # Bowel Movements 6 COMMENT Lab Laboratory Tests Test 08/07/18 11:53 08/07/18 15:40 08/07/18 17:04 08/07/18 22:38 Glucose (Fingerstick) 287 mg/dL (70-99) 206 mg/dL (70-99) Vancomycin Level Trough 13.1 mcg/mL (10.0-20.0) Vancomycin Last Dose Date 08/06/18 Vancomycin Last Dose Time 1600 O2 Saturation 95 % (92-99) Arterial Blood pH 7.31 (7.35-7.45) Arterial Blood pCO2 at Patient Temp 43 mmHg (35-46) Arterial Blood pO2 at Patient Temp 85 mmHg (65-108) Arterial Blood HCO3 21 mmol/L (21-28) Arterial Blood Base Excess -5 mmol/L (-3-3) FiO2 32 Test 08/07/18 22:40 08/08/18 03:30 08/08/18 06:59 Glucose (Fingerstick) 214 mg/dL (70-99) 226 mg/dL (70-99) White Blood Count 1.0 x10^3/uL (4.0-11.0) Red Blood Count 3.20 x10^6/uL (3.50-5.40) Hemoglobin 10.2 g/dL (12.0-15.5) Hematocrit 30.8 % (36.0-47.0) Mean Corpuscular Volume 96 fL (79-100) Mean Corpuscular Hemoglobin 32 pg (25-35) Mean Corpuscular Hemoglobin Concent 33 g/dL (31-37) Red Cell Distribution Width 16.6 % (11.5-14.5) Platelet Count 62 x10^3/uL (140-400) Creatinine 1.4 mg/dL (0.6-1.0) Estimated GFR (Cockcroft-Gault) 37.1 XU-Mro-T-Type Natriuretic Peptide 69185 pg/mL (0-124) CINTHYA ALBRECHT MD August 08, 2018 09:03
--- NOTE | 2018-08-08 09:06 | PDOC ---
PROGRESS NOTES Subjective Subjective Patient reports some cough, some R UQ pain at times. Objective Objective Vital Signs Date Time Temp Pulse Resp B/P (MAP) Pulse Ox O2 Delivery O2 Flow Rate FiO2 08/08/18 07:37 96 Nasal Cannula 3.0 08/08/18 07:24 97.9 71 28 175/79 (111) 97.9 Intake and Output 08/08/18 07:00 Intake Total 2120 ml Output Total 450 ml Balance 1670 ml Intake Oral 2120 ml Output Urine Total 0 ml Stool Total 450 ml # Voids 2 # Bowel Movements 6 Physical Exam Abdomen: Normal bowel sounds, Soft, Other (mild R UQ TTP without guarding or rebound) Heart: Regular rate Extremities: No edema General: Alert, Oriented X3, No acute distress Lungs: Other (BS mildly decreased throughout, scant expiratory wheezes) Assessment Assessment Problems Medical Problems: (1) Pneumonia Status: Acute (2) Severe sepsis Status: Acute (3) Urinary tract infection Status: Acute Plan Plan of Care 1. Sepsis - Tm 100.7. Cultures negative to date, continue broad-spectrum tx per ID. 2. acute hypoxic respiratory failure - diffuse infiltrates on CXR. Continue present tx. 3. Pancytopenia - WBC's low but stable, platelets decreasing. To have bone marrow bx today if able to tolerate. Hematology following. 4. cholelithiasis with possible cholecystitis - patient appears only mildly symptomatic at the worst. LFT's quite elevated at admission but improving. Continue to follow. 5. DM2 - po meds on hold, continue SS insulin. 6. HTN - stable, continue home medications. 7. CKD III - stable on lab. Comment Review of Relevant I have reviewed the following items ld (where applicable) has been applied. Labs Laboratory Tests Test 08/06/18 09:35 08/06/18 09:40 08/06/18 11:07 08/06/18 17:03 Influenza Type A Antigen Negative (NEGATIVE) Influenza Type B Antigen Negative (NEGATIVE) Haptoglobin 511 mg/dL (34-200) Prothrombin Time 15.7 SEC (11.7-14.0) Prothromb Time International Ratio 1.3 (0.8-1.1) Activated Partial Thromboplast Time 35 SEC (24-38) Fibrinogen 680 mg/dL (200-440) Uric Acid 3.6 mg/dL (2.6-6.0) Lactate Dehydrogenase 387 U/L (81-234) Creatine Kinase 472 U/L (26-192) Glucose (Fingerstick) 97 mg/dL (70-99) 143 mg/dL (70-99) Test 08/06/18 22:32 08/07/18 04:40 08/07/18 07:49 08/07/18 07:50 Glucose (Fingerstick) 172 mg/dL (70-99) 152 mg/dL (70-99) 148 mg/dL (70-99) White Blood Count 0.9 x10^3/uL (4.0-11.0) Red Blood Count 3.12 x10^6/uL (3.50-5.40) Hemoglobin 10.2 g/dL (12.0-15.5) Hematocrit 29.8 % (36.0-47.0) Mean Corpuscular Volume 96 fL (79-100) Mean Corpuscular Hemoglobin 33 pg (25-35) Mean Corpuscular Hemoglobin Concent 34 g/dL (31-37) Red Cell Distribution Width 15.9 % (11.5-14.5) Platelet Count 80 x10^3/uL (140-400) Neutrophils (%) (Auto) 46 % (31-73) Lymphocytes (%) (Auto) 40 % (24-48) Monocytes (%) (Auto) 12 % (0-9) Eosinophils (%) (Auto) 1 % (0-3) Basophils (%) (Auto) 1 % (0-3) Neutrophils # (Auto) 0.4 x10^3uL (1.8-7.7) Lymphocytes # (Auto) 0.4 x10^3/uL (1.0-4.8) Monocytes # (Auto) 0.1 x10^3/uL (0.0-1.1) Eosinophils # (Auto) 0.0 x10^3/uL (0.0-0.7) Basophils # (Auto) 0.0 x10^3/uL (0.0-0.2) Sodium Level 138 mmol/L (136-145) Potassium Level 3.5 mmol/L (3.5-5.1) Chloride Level 103 mmol/L (98-107) Carbon Dioxide Level 26 mmol/L (21-32) Anion Gap 9 (6-14) Blood Urea Nitrogen 23 mg/dL (7-20) Creatinine 1.5 mg/dL (0.6-1.0) Estimated GFR (Cockcroft-Gault) 34.2 BUN/Creatinine Ratio 15 (6-20) Glucose Level 152 mg/dL (70-99) Calcium Level 7.8 mg/dL (8.5-10.1) Total Bilirubin 0.7 mg/dL (0.2-1.0) Aspartate Amino Transf (AST/SGOT) 137 U/L (15-37) Alanine Aminotransferase (ALT/SGPT) 90 U/L (14-59) Alkaline Phosphatase 94 U/L (46-116) Total Protein 6.2 g/dL (6.4-8.2) Albumin 1.6 g/dL (3.4-5.0) Albumin/Globulin Ratio 0.3 (1.0-1.7) Test 08/07/18 11:53 08/07/18 15:40 08/07/18 17:04 08/07/18 22:38 Glucose (Fingerstick) 287 mg/dL (70-99) 206 mg/dL (70-99) Vancomycin Level Trough 13.1 mcg/mL (10.0-20.0) Vancomycin Last Dose Date 08/06/18 Vancomycin Last Dose Time 1600 O2 Saturation 95 % (92-99) Arterial Blood pH 7.31 (7.35-7.45) Arterial Blood pCO2 at Patient Temp 43 mmHg (35-46) Arterial Blood pO2 at Patient Temp 85 mmHg (65-108) Arterial Blood HCO3 21 mmol/L (21-28) Arterial Blood Base Excess -5 mmol/L (-3-3) FiO2 32 Test 08/07/18 22:40 08/08/18 03:30 08/08/18 06:59 Glucose (Fingerstick) 214 mg/dL (70-99) 226 mg/dL (70-99) White Blood Count 1.0 x10^3/uL (4.0-11.0) Red Blood Count 3.20 x10^6/uL (3.50-5.40) Hemoglobin 10.2 g/dL (12.0-15.5) Hematocrit 30.8 % (36.0-47.0) Mean Corpuscular Volume 96 fL (79-100) Mean Corpuscular Hemoglobin 32 pg (25-35) Mean Corpuscular Hemoglobin Concent 33 g/dL (31-37) Red Cell Distribution Width 16.6 % (11.5-14.5) Platelet Count 62 x10^3/uL (140-400) Creatinine 1.4 mg/dL (0.6-1.0) Estimated GFR (Cockcroft-Gault) 37.1 ZN-Urj-F-Type Natriuretic Peptide 12597 pg/mL (0-124) Laboratory Tests Test 08/07/18 11:53 08/07/18 15:40 08/07/18 17:04 08/07/18 22:38 Glucose (Fingerstick) 287 mg/dL (70-99) 206 mg/dL (70-99) Vancomycin Level Trough 13.1 mcg/mL (10.0-20.0) Vancomycin Last Dose Date 08/06/18 Vancomycin Last Dose Time 1600 O2 Saturation 95 % (92-99) Arterial Blood pH 7.31 (7.35-7.45) Arterial Blood pCO2 at Patient Temp 43 mmHg (35-46) Arterial Blood pO2 at Patient Temp 85 mmHg (65-108) Arterial Blood HCO3 21 mmol/L (21-28) Arterial Blood Base Excess -5 mmol/L (-3-3) FiO2 32 Test 08/07/18 22:40 08/08/18 03:30 08/08/18 06:59 Glucose (Fingerstick) 214 mg/dL (70-99) 226 mg/dL (70-99) White Blood Count 1.0 x10^3/uL (4.0-11.0) Red Blood Count 3.20 x10^6/uL (3.50-5.40) Hemoglobin 10.2 g/dL (12.0-15.5) Hematocrit 30.8 % (36.0-47.0) Mean Corpuscular Volume 96 fL (79-100) Mean Corpuscular Hemoglobin 32 pg (25-35) Mean Corpuscular Hemoglobin Concent 33 g/dL (31-37) Red Cell Distribution Width 16.6 % (11.5-14.5) Platelet Count 62 x10^3/uL (140-400) Creatinine 1.4 mg/dL (0.6-1.0) Estimated GFR (Cockcroft-Gault) 37.1 VV-Dyd-X-Type Natriuretic Peptide 09963 pg/mL (0-124) Microbiology 08/05/18 Blood Culture - Preliminary, Resulted NO GROWTH AFTER 2 DAYS 08/05/18 Urine Culture - Final, Complete 08/05/18 Urine Culture Result 1 (TINO) - Final, Complete Medications Current Medications Piperacillin Sod/ Tazobactam Sod (Zosyn Per Pharmacy) 1 each PRN DAILY PRN MC SEE COMMENTS; Start 08/05/18 at 15:00 Piperacillin Sod/ Tazobactam Sod 4.5 gm/Sodium Chloride 100 ml @ 200 mls/hr ONCE ONCE IV Last administered on 08/05/18at 15:00; Start 08/05/18 at 15:00; Stop 08/05/18 at 15:29; Status DC Vancomycin HCl (Vanco Per Pharmacy) 1 each PRN DAILY PRN MC SEE COMMENTS Last administered on 08/07/18at 16:33; Start 08/05/18 at 16:15 Vancomycin HCl 2 gm/Sodium Chloride 500 ml @ 250 mls/hr 1X ONCE IV Last administered on 08/05/18at 16:17; Start 08/05/18 at 16:15; Stop 08/05/18 at 18:14; Status DC Ondansetron HCl (Zofran) 4 mg PRN Q8HRS PRN IV NAUSEA/VOMITING; Start 08/05/18 at 16:45; Stop 08/06/18 at 16:44; Status DC Morphine Sulfate (Morphine Sulfate) 2 mg PRN Q2HR PRN IV PAIN; Start 08/05/18 at 16:45; Stop 08/06/18 at 16:44; Status DC Sodium Chloride 1,000 ml @ 100 mls/hr Q10H IV Last administered on 08/06/18at 00:12; Start 08/05/18 at 16:43; Stop 08/05/18 at 20:42; Status DC Piperacillin Sod/ Tazobactam Sod 3.375 gm/Sodium Chloride 50 ml @ 100 mls/hr Q6HRS IV Last administered on 08/08/18at 06:41; Start 08/06/18 at 00:00 Vancomycin HCl 1.5 gm/Sodium Chloride 500 ml @ 250 mls/hr Q24H IV Last administered on 08/06/18at 16:41; Start 08/06/18 at 16:00; Stop 08/07/18 at 16:18; Status DC Vancomycin HCl (Vancomycin Trough Level) 1 each 1X ONCE MC Last administered on 08/07/18at 15:30; Start 08/07/18 at 15:30; Stop 08/07/18 at 15:31; Status DC Sodium Chloride 1,000 ml @ 166.667 mls/hr Q6H IV Last administered on 08/06/18at 05:42; Start 08/05/18 at 17:24; Stop 08/06/18 at 05:48; Status DC Aspirin (Children'S Aspirin) 81 mg DAILY PO Last administered on 08/07/18at 07:52; Start 08/06/18 at 09:00 Calcium Carbonate/ Glycine (Oscal) 1,000 mg DAILY PO Last administered on 08/07/18at 07:52; Start 08/06/18 at 09:00 Glipizide (Glucotrol) 10 mg DAILY PO ; Start 08/06/18 at 09:00; Stop 08/06/18 at 10:27; Status DC Atorvastatin Calcium (Lipitor) 80 mg QHS PO Last administered on 08/06/18at 00:15; Start 08/05/18 at 21:00; Stop 08/06/18 at 10:27; Status DC Lisinopril (Prinivil) 5 mg DAILY PO Last administered on 08/07/18at 07:53; Start 08/06/18 at 09:00 Metoprolol Succinate (Toprol Xl) 200 mg DAILY PO Last administered on 08/07/18at 07:53; Start 08/06/18 at 09:00 Fish Oil (Fish Oil) 2,000 mg DAILY PO Last administered on 08/07/18at 07:52; Start 08/06/18 at 09:00 Pantoprazole Sodium (Protonix) 40 mg DAILYAC PO Last administered on 08/07/18at 07:52; Start 08/06/18 at 07:30 Pioglitazone HCl (Actos) 30 mg DAILY PO ; Start 08/06/18 at 09:00; Stop 08/06/18 at 18:11; Status DC Linagliptin (Tradjenta) 5 mg DAILY PO ; Start 08/06/18 at 09:00; Stop 08/06/18 at 18:11; Status DC Haloperidol Lactate (Haldol Inj) 5 mg PRN Q6HRS PRN IVP AGITATION; Start 08/05/18 at 19:30 Dextrose (Dextrose 50%-Water Syringe) 12.5 gm PRN Q15MIN PRN IV SEE COMMENTS Last administered on 08/05/18at 21:43; Start 08/05/18 at 19:45 Acetaminophen (Tylenol) 650 mg PRN Q6HRS PRN PO FEVER Last administered on 08/07/18 21:26; Start 08/06/18 at 04:15 Potassium Chloride (Klor-Con) 10 meq [id number] PO Last administered on 08/07/18 07:51; Start 08/06/18 at 10:30 Insulin Human Lispro (HumaLOG) 0-5 UNITS TIDWMEALS SQ Last administered on 08/07 17:07; Start 08/06/18 at 12:00 Dextrose (Dextrose 50%-Water Syringe) 12.5 gm PRN Q15MIN PRN IV SEE COMMENTS; Start 08/06/18 at 10:30; Status UNV Lactobacillus Rhamnosus (Culturelle) 1 cap BID PO Last administered on 08/07/18 21:26; Start 08/06/18 at 21:00 Sodium Chloride 1,000 ml @ 100 mls/hr Q10H IV Last administered on 08/07/18 11:46; Start 08/06/18 at 18:15; Stop 08/07/18 at 22:35; Status DC Nystatin (Nystop) 1 dayne BID TP Last administered on 08/07/18 21:26; Start 08/06/18 at 21:00 Benzonatate (Tessalon Perle) 100 mg [id number] PO Last administered on 08/07/18 21:26; Start 08/07/18 at 12:00 Guaifenesin (Robitussin Dm) 10 ml PRN Q6HRS PRN PO COUGH; Start 08/07/18 at 10:30 Micafungin Sodium 100 mg/Dextrose 100 ml @ 100 mls/hr Q24H IV Last a dministered on 08/07/18at 13:12; Start 08/07/18 at 12:00 Vancomycin HCl 2 gm/Sodium Chloride 500 ml @ 250 mls/hr Q24H IV Last a dministered on 08/07/18at 16:57; Start 08/07/18 at 16:30 Vancomycin HCl (Vancomycin Trough Level) 1 each 1X ONCE MC ; Start 08/09/18 at 16:00; Stop 08/09/18 at 16:01 Furosemide (Lasix) 40 mg 1X ONCE IVP Last administered on 08/07/18at 23:00; Start 08/07/18 at 23:00; Stop 08/07/18 at 23:01; Status DC Hydralazine HCl (Apresoline Inj) 10 mg PRN Q4HRS PRN IVP ELEVATED BP, SEE COMMENTS; Start 08/07/18 at 22:45 Albuterol Sulfate (Ventolin Neb Soln) 2.5 mg TID IH Last administered on 08/08/18at 07:34; Start 08/08/18 at 09:00 Albuterol Sulfate (Ventolin Neb Soln) 2.5 mg PRN Q3HRS PRN IH WHEEZING; Start 08/08/18 at 05:15 Lidocaine/Sodium Bicarbonate (Buffered Lidocaine 1%) 3 ml STK-MED ONCE .ROUTE ; Start 08/08/18 at 08:42; Stop 08/08/18 at 08:43; Status DC Active Scripts Active Omeprazole 40 Mg Capsule.dr 40 Mg PO DAILY Aspirin 81 Mg Tab.chew 81 Mg PO DAILY Pioglitazone Hcl 30 Mg Tablet 30 Mg PO DAILY Atorvastatin Calcium 80 Mg Tablet 80 Mg PO HS Reported Metoprolol Tartrate 100 Mg Tablet 2 Tab PO DAILY Glipizide 5 Mg Tablet 2 Tab PO DAILY [place] 3 Fish Oil Softgel ([place]-3 Fatty Acids/Fish Oil) 1 Each Capsule.dr 2 Each PO DAILY Calcium Carbonate 500 Mg Tablet 1,000 Mg PO DAILY Januvia (Sitagliptin Phosphate) 50 Mg Tablet 1 Tab PO DAILY Lisinopril 5 Mg Tablet 1 Tab PO DAILY Vitals/I & O Vital Sign - Last 24 Hours 08/07/18 08/07/18 08/07/18 08/07/18 11:14 14:26 19:00 20:00 Temp 98.3 100.3 99.3 98.3 100.3 99.3 Pulse 82 90 84 Resp 20 20 20 B/P (MAP) 156/70 (98) 164/86 (112) 167/79 (108) Pulse Ox 94 93 98 O2 Delivery Nasal Cannula Nasal Cannula Nasal Cannula Nasal Cannula O2 Flow Rate 3.0 3.0 3.0 3.0 08/07/18 08/08/18 08/08/18 08/08/18 22:47 02:54 07:24 07:37 Temp 98.9 98.8 97.9 98.9 98.8 97.9 Pulse 76 71 71 Resp 36 28 28 B/P (MAP) 147/70 (95) 158/67 (97) 175/79 (111) Pulse Ox 92 97 97 96 O2 Delivery Nasal Cannula Nasal Cannula Nasal Cannula Nasal Cannula O2 Flow Rate 3.0 3.0 3.0 3.0 Intake and Output 08/07/18 08/07/18 08/08/18 15:00 23:00 07:00 Intake Total 2120 ml Output Total 0 ml 450 ml Balance 2120 ml 0 ml -450 ml KEVON FUENTES MD August 08, 2018 09:06
--- NOTE | 2018-08-08 10:14 | PDOC ---
Infectious Disease Note Subjective Subjective Some SOA and cough still O2 up to 3L now O2 2 LNC Less fevers over last 24 overs, T max 100.3 + diarrhea Eating Denies N/V/cramps/bloating Denies chills/aches/sweats ROS ROS per HPI otherwise neg Vital Sign Vital Signs Vital Signs Date Time Temp Pulse Resp B/P (MAP) Pulse Ox O2 Delivery O2 Flow Rate FiO2 08/08/18 07:37 96 Nasal Cannula 3.0 08/08/18 07:24 97.9 71 28 175/79 (111) 97.9 Physical Exam PHYSICAL EXAM GENERAL: Propped up in bed, alert, visiting with her sister, laughing HEENT: Pupils equally round, reactive. Normal conjunctivae. Oropharynx pink and moist, edentulous NECK: Supple. LUNGS: Diminished aeration. HEART: S1 and S2. ABDOMEN: Obese, soft, nontender with bowel sounds present. No rebound or guarding. : Lam EXTREMITIES: No gross edema or cyanosis. SKIN: Warm without generalized rash. NEUROLOGIC: Alert and oriented x 3. PIV Labs Lab Laboratory Tests Test 08/07/18 11:53 08/07/18 15:40 08/07/18 17:04 08/07/18 22:38 Glucose (Fingerstick) 287 mg/dL (70-99) 206 mg/dL (70-99) Vancomycin Level Trough 13.1 mcg/mL (10.0-20.0) Vancomycin Last Dose Date 08/06/18 Vancomycin Last Dose Time 1600 O2 Saturation 95 % (92-99) Arterial Blood pH 7.31 (7.35-7.45) Arterial Blood pCO2 at Patient Temp 43 mmHg (35-46) Arterial Blood pO2 at Patient Temp 85 mmHg (65-108) Arterial Blood HCO3 21 mmol/L (21-28) Arterial Blood Base Excess -5 mmol/L (-3-3) FiO2 32 Test 08/07/18 22:40 08/08/18 03:30 08/08/18 06:59 Glucose (Fingerstick) 214 mg/dL (70-99) 226 mg/dL (70-99) White Blood Count 1.0 x10^3/uL (4.0-11.0) Red Blood Count 3.20 x10^6/uL (3.50-5.40) Hemoglobin 10.2 g/dL (12.0-15.5) Hematocrit 30.8 % (36.0-47.0) Mean Corpuscular Volume 96 fL (79-100) Mean Corpuscular Hemoglobin 32 pg (25-35) Mean Corpuscular Hemoglobin Concent 33 g/dL (31-37) Red Cell Distribution Width 16.6 % (11.5-14.5) Platelet Count 62 x10^3/uL (140-400) Creatinine 1.4 mg/dL (0.6-1.0) Estimated GFR (Cockcroft-Gault) 37.1 Iron Level 27 ug/dL (50-170) Total Iron Binding Capacity 94 ug/dL (250-450) Iron Saturation 29 % (15-34) HD-Avh-K-Type Natriuretic Peptide 02638 pg/mL (0-124) Micro 08/05/18 Blood Culture - Preliminary, Resulted NO GROWTH AFTER 2 DAY 08/05/18 URINE CULTURE RES 1 Final No growth Objective Assessment HCAP Fever Neutropenia/pancytopenia ? UTI, POA UC neg TYLER on CKD, improving Elevated LFTs/cholecystitis on US Diabetes with hypoglycemia Morbid obesity, BMI 43 CAD Diarrhea Plan Plan of Care Continue empiric vanc, (08/06) Zosyn (08/06) and micafungin (08/07) Trough 13.1 Probiotics Monitor renal function closely additional labs pending Cultures NGTD Reverse isolation Awaiting bone marrow bx Supportive care DNR D/w sister D/w Dr. Long D/w Dr. Rodgers - await Bone marrow and may taper abx soon Attending Co-Sign Attending Co-Sign The patient was seen and interviewed as well as examined at the bedside. The chart was reviewed. The case was discussed. Agree with the plan of care. KAREN AKERS APRN August 08, 2018 10:14 YING CHURCH MD August 08, 2018 15:44
[2018-08-08 10:43] VITALS: BP 136/85
[2018-08-08] MEDS: VANCOMYCIN PER PHARMACY MC PRN (10:48)
[2018-08-08] MEDS: MICAFUNGIN 100 MG in IV DEXTROSE 5% 100ML 100 ML IV SCH (12:40)
[2018-08-08] MEDS: CALCIUM CARBONATE 500 MG TABLET PO SCH (12:49)
[2018-08-08] MEDS: PANTOPRAZOLE 40 MG TABLET.DR. PO SCH (12:49)
[2018-08-08] MEDS: POTASSIUM CHLORIDE 10 MEQ TABLET.ER. PO SCH (12:49)
[2018-08-08] MEDS: LISINOPRIL 5 MG TABLET. PO SCH (12:50)
[2018-08-08] MEDS: BENZONATATE 100 MG CAPSULE. PO SCH ×3 (12:50→21:07)
[2018-08-08] MEDS: METOPROLOL SUCC 24HR ER 100 MG TAB.ER.24H. PO SCH (12:50)
[2018-08-08] MEDS: ASPIRIN CHEWABLE 81 MG TABLET. PO SCH (12:50)
[2018-08-08] MEDS: OMEGA-3 FATTY ACIDS/FISH OIL 1,000 MG CAPSULE. PO SCH (12:50)
--- NOTE | 2018-08-08 13:01 | NUR ---
SS following for discharge planning. SS reviewed pt chart. Pt is from home and is currently requiring oxygen. No discharge needs noted at this time. SS will continue to follow for discharge planning.
[2018-08-08] MEDS: NYSTATIN TOPICAL POWDER 15GM BOTTLE. TP SCH ×2 (13:57→21:12)
[2018-08-08 14:41] VITALS: BP 108/72
--- NOTE | 2018-08-08 16:03 | NUR ---
Wound Care: Consult to eval and treat for wounds to bilateral buttocks present on admission. Buttocks red and unblanchable in some areas, although intact. Pt has difficulty with breathing while in bed and prefers to sleep sitting in recliner, and is wearing a BiPap. Requested to be put on NC, and on 3L. Able to stand briefly for assessment. No other open areas noted on head to toe assessment. Yumi Morales RN ordered WC cushion from [facility] for added skin protection. A&D applied to bilateral buttocks, orange sheet left in room. Plan to follow up 08/15
[2018-08-08] MEDS: ALBUTEROL SULFATE 2.5 MG/3 ML NEBU. IH PRN (16:17)
[2018-08-08] MEDS ORDERED: FUROSEMIDE 40 MG/4 ML VIAL. IVP ONE (16:30)
[2018-08-08] MEDS: ASCORBIC ACID 500 MG TABLET PO SCH (16:34)
[2018-08-08] MEDS: MULTIVITAMIN I-VITE TABLET. PO SCH (16:34)
[2018-08-08] MEDS: VANCOMYCIN 2 GM in IV NORMAL SALINE 500ML BAG 500 ML IV SCH (16:35)
[2018-08-08 17:14] LABS: ALBUM 1.9 g/dL (2.9-4.4); ALPHA 1 0.4 g/dL (0.0-0.4); ALPHA 2 1.3 g/dL (0.4-1.0); BETA 0.7 g/dL (0.7-1.3); PROTEIN TOTAL 5.4 g/dL (6.0-8.5); SPEP AG RATIO 0.5 (0.7-1.7)
[2018-08-08 19:33] VITALS: BP 168/57
[2018-08-08 22:33] VITALS: BP 129/63
[2018-08-09] VITALS (19 sets, daily range): BP systolic 130–228; BP diastolic 66–107
[2018-08-09 04:37] LABS: HEMATOCRIT 28.6 % (36.0-47.0); HEMOGLOBIN 9.8 g/dL (12.0-15.5); RED BLOOD COUNT 3.06 x10^6/uL (3.50-5.40); RED CELL DISTRIBUTION WIDTH 15.9 % (11.5-14.5)
[2018-08-09 04:44] LABS: WHITE BLOOD COUNT 0.8 x10^3/uL (4.0-11.0)
[2018-08-09] MEDS: PIPERACILLIN/TAZOBACTAM 3.375 GM in IV NORMAL SALINE 50ML 50 ML IV SCH ×4 (05:01→23:12)
[2018-08-09 05:10] LABS: ALBUMIN 1.4 g/dL (3.4-5.0); ALBUMIN/GLOBULIN RATIO 0.3 (1.0-1.7); CALCIUM 8.6 mg/dL (8.5-10.1); CREATININE 1.6 mg/dL (0.6-1.0); GFR 31.8; POTASSIUM 3.4 mmol/L (3.5-5.1); TOTAL BILIRUBIN 0.8 mg/dL (0.2-1.0)
[2018-08-09] MEDS ORDERED: fentaNYL PF VIAL 100 MCG/2 ML VIAL IV PRN ×2 (07:00)
[2018-08-09] MEDS ORDERED: HYDROmorphone 2 MG/ML VIAL IV PRN (07:00)
[2018-08-09] MEDS ORDERED: IV RINGERS,LACTATED 1000ML 1,000 ML IV SCH (07:00)
[2018-08-09] MEDS ORDERED: PROCHLORPERAZINE 10 MG/2 ML VIAL. IV PRN (07:00)
[2018-08-09] MEDS ORDERED: LIDOCAINE 1% PF 2 ML VIAL. ID PRN (07:00)
[2018-08-09] MEDS ORDERED: MORPHINE SULFATE 2 MG/ML VIAL. IV PRN (07:00)
[2018-08-09] MEDS: ALBUTEROL SULFATE 2.5 MG/3 ML NEBU. IH SCH ×3 (07:26→20:42)
[2018-08-09] MEDS: PANTOPRAZOLE 40 MG TABLET.DR. PO SCH (07:30)
[2018-08-09] MEDS: INSULIN LISPRO 300 UNITS/3 ML INSULN.PEN. SQ SCH ×3 (08:00→17:22)
--- NOTE | 2018-08-09 08:03 | PDOC ---
Infectious Disease Note Subjective Subjective Some SOA and cough still at times Denies N/V/cramps/bloating Denies chills/aches/sweats ROS ROS o/w neg Vital Sign Vital Signs Vital Signs Date Time Temp Pulse Resp B/P (MAP) Pulse Ox O2 Delivery O2 Flow Rate FiO2 08/09/18 07:27 97 Nasal Cannula 3.0 08/09/18 03:07 99.4 80 27 130/66 (87) 99.4 Physical Exam PHYSICAL EXAM GENERAL: Propped up in bed, alert, get RT HEENT: Pupils equally round, reactive. Normal conjunctivae. Oropharynx pink and moist, edentulous NECK: Supple. LUNGS: Diminished aeration. HEART: S1 and S2. ABDOMEN: Obese, soft, nontender with bowel sounds present. No rebound or guarding. : Lam EXTREMITIES: No gross edema or cyanosis. SKIN: Warm without generalized rash. NEUROLOGIC: Alert and oriented x 3. PIV Labs Lab Laboratory Tests Test 08/08/18 11:29 08/08/18 13:40 08/08/18 16:21 08/08/18 21:06 Glucose (Fingerstick) 223 mg/dL (70-99) 241 mg/dL (70-99) 275 mg/dL (70-99) Clostridium difficile Toxin B Gene Negative (Negative) Test 08/09/18 03:20 08/09/18 07:38 White Blood Count 0.8 x10^3/uL (4.0-11.0) Red Blood Count 3.06 x10^6/uL (3.50-5.40) Hemoglobin 9.8 g/dL (12.0-15.5) Hematocrit 28.6 % (36.0-47.0) Mean Corpuscular Volume 94 fL (79-100) Mean Corpuscular Hemoglobin 32 pg (25-35) Mean Corpuscular Hemoglobin Concent 34 g/dL (31-37) Red Cell Distribution Width 15.9 % (11.5-14.5) Platelet Count 89 x10^3/uL (140-400) Sodium Level 136 mmol/L (136-145) Potassium Level 3.4 mmol/L (3.5-5.1) Chloride Level 100 mmol/L (98-107) Carbon Dioxide Level 24 mmol/L (21-32) Anion Gap 12 (6-14) Blood Urea Nitrogen 23 mg/dL (7-20) Creatinine 1.6 mg/dL (0.6-1.0) Estimated GFR (Cockcroft-Gault) 31.8 BUN/Creatinine Ratio 14 (6-20) Glucose Level 249 mg/dL (70-99) Calcium Level 8.6 mg/dL (8.5-10.1) Total Bilirubin 0.8 mg/dL (0.2-1.0) Aspartate Amino Transf (AST/SGOT) 78 U/L (15-37) Alanine Aminotransferase (ALT/SGPT) 76 U/L (14-59) Alkaline Phosphatase 90 U/L (46-116) Total Protein 6.0 g/dL (6.4-8.2) Albumin 1.4 g/dL (3.4-5.0) Albumin/Globulin Ratio 0.3 (1.0-1.7) Glucose (Fingerstick) 242 mg/dL (70-99) Micro Microbiology 08/05/18 Blood Culture - Preliminary, Resulted NO GROWTH AFTER 3 DAYS 08/05/18 Urine Culture - Final, Complete 08/05/18 Urine Culture Result 1 (TINO) - Final, Complete Objective Assessment HCAP - Influenza neg Fever - Neutropenia/pancytopenia -denies tick exposure/outdoor or pet exposure. Hep/HIV - neg. Parvo pending ? UTI, POA UC neg TYLER on CKD, improving Elevated LFTs/ possible cholecystitis on US -asymptomatic. Lfts better today Diabetes with hypoglycemia Morbid obesity, BMI 43 CAD Diarrhea Plan Plan of Care Discontinue empiric vanc as Cr increasing cults neg. add doxy Cont Zosyn (08/06) and micafungin (08/07) D/c Probiotics with immunosuppression Monitor renal function closely - labs in am additional labs pending Cultures NGTD Reverse isolation Awaiting bone marrow bx Supportive care DNR YING CHURCH MD August 09, 2018 08:03
--- NOTE | 2018-08-09 08:27 | PDOC ---
PROGRESS NOTES Subjective Subjective Patient denies SOA or abdominal pain. Objective Objective Vital Signs Date Time Temp Pulse Resp B/P (MAP) Pulse Ox O2 Delivery O2 Flow Rate FiO2 08/09/18 07:27 97 Nasal Cannula 3.0 08/09/18 07:00 97.7 89 20 145/74 (97) 97.7 Intake and Output 08/09/18 06:59 Intake Total 0 ml Output Total 1800 ml Balance -1800 ml Intake Oral 0 ml Output Urine Total 1500 ml Stool Total 300 ml # Bowel Movements 5 Physical Exam Abdomen: Normal bowel sounds, Soft, No tenderness Heart: Other (irregularly irregular) Extremities: No edema General: Alert, Oriented X3, No acute distress Lungs: Other (BS mildly decreased throughout, no wheezes heard) Assessment Assessment Problems Medical Problems: (1) Pneumonia Status: Acute (2) Severe sepsis Status: Acute (3) Urinary tract infection Status: Acute Plan Plan of Care 1. Sepsis - Tm decreased to 99.6. Cultures negative to date, continue broad- spectrum tx per ID. 2. acute hypoxic respiratory failure with pneumonia - sats stable but still re quiring O2 per NC and Bipap intermittently at night. Continue tx per Pulmonary. 3. pancytopenia - stable. Did not get bone marrow bx yesterday, apparently due to concerns about her respiratory status. On schedule for today. Hematology following. 4. afib - appears to be new arrhythmia on tele today. Rate controlled. RN will notify Cardiology of this change in her condition, they did see her earlier in this hospitalization and did an Echo, which was basically WNL. 5. DM2 - glucose elevated without home meds, will resume Januvia today (when no longer NPO) and continue SS insulin. 6. hypokalemia - mild, increase her po replacement. 7. CKD III - stable on lab. 8. cholelithiasis with possible cholecystitis - LFT's improved on lab and patient now denies abdominal pain. Comment Review of Relevant I have reviewed the following items ld (where applicable) has been applied. Labs Laboratory Tests Test 08/07/18 11:53 08/07/18 15:40 08/07/18 17:04 08/07/18 22:38 Glucose (Fingerstick) 287 mg/dL (70-99) 206 mg/dL (70-99) Vancomycin Level Trough 13.1 mcg/mL (10.0-20.0) Vancomycin Last Dose Date 08/06/18 Vancomycin Last Dose Time 1600 O2 Saturation 95 % (92-99) Arterial Blood pH 7.31 (7.35-7.45) Arterial Blood pCO2 at Patient Temp 43 mmHg (35-46) Arterial Blood pO2 at Patient Temp 85 mmHg (65-108) Arterial Blood HCO3 21 mmol/L (21-28) Arterial Blood Base Excess -5 mmol/L (-3-3) FiO2 32 Test 08/07/18 22:40 08/08/18 03:30 08/08/18 06:59 08/08/18 11:29 Glucose (Fingerstick) 214 mg/dL (70-99) 226 mg/dL (70-99) 223 mg/dL (70-99) White Blood Count 1.0 x10^3/uL (4.0-11.0) Red Blood Count 3.20 x10^6/uL (3.50-5.40) Hemoglobin 10.2 g/dL (12.0-15.5) Hematocrit 30.8 % (36.0-47.0) Mean Corpuscular Volume 96 fL (79-100) Mean Corpuscular Hemoglobin 32 pg (25-35) Mean Corpuscular Hemoglobin Concent 33 g/dL (31-37) Red Cell Distribution Width 16.6 % (11.5-14.5) Platelet Count 62 x10^3/uL (140-400) Creatinine 1.4 mg/dL (0.6-1.0) Estimated GFR (Cockcroft-Gault) 37.1 Iron Level 27 ug/dL (50-170) Total Iron Binding Capacity 94 ug/dL (250-450) Iron Saturation 29 % (15-34) Ferritin 2287 ng/mL (8-252) PD-Fhq-I-Type Natriuretic Peptide 27357 pg/mL (0-124) Test 08/08/18 13:40 08/08/18 16:21 08/08/18 21:06 08/09/18 03:20 Clostridium difficile Toxin B Gene Negative (Negative) Glucose (Fingerstick) 241 mg/dL (70-99) 275 mg/dL (70-99) White Blood Count 0.8 x10^3/uL (4.0-11.0) Red Blood Count 3.06 x10^6/uL (3.50-5.40) Hemoglobin 9.8 g/dL (12.0-15.5) Hematocrit 28.6 % (36.0-47.0) Mean Corpuscular Volume 94 fL (79-100) Mean Corpuscular Hemoglobin 32 pg (25-35) Mean Corpuscular Hemoglobin Concent 34 g/dL (31-37) Red Cell Distribution Width 15.9 % (11.5-14.5) Platelet Count 89 x10^3/uL (140-400) Sodium Level 136 mmol/L (136-145) Potassium Level 3.4 mmol/L (3.5-5.1) Chloride Level 100 mmol/L (98-107) Carbon Dioxide Level 24 mmol/L (21-32) Anion Gap 12 (6-14) Blood Urea Nitrogen 23 mg/dL (7-20) Creatinine 1.6 mg/dL (0.6-1.0) Estimated GFR (Cockcroft-Gault) 31.8 BUN/Creatinine Ratio 14 (6-20) Glucose Level 249 mg/dL (70-99) Calcium Level 8.6 mg/dL (8.5-10.1) Total Bilirubin 0.8 mg/dL (0.2-1.0) Aspartate Amino Transf (AST/SGOT) 78 U/L (15-37) Alanine Aminotransferase (ALT/SGPT) 76 U/L (14-59) Alkaline Phosphatase 90 U/L (46-116) Total Protein 6.0 g/dL (6.4-8.2) Albumin 1.4 g/dL (3.4-5.0) Albumin/Globulin Ratio 0.3 (1.0-1.7) Test 08/09/18 07:38 Glucose (Fingerstick) 242 mg/dL (70-99) Laboratory Tests Test 08/08/18 11:29 08/08/18 13:40 08/08/18 16:21 08/08/18 21:06 Glucose (Fingerstick) 223 mg/dL (70-99) 241 mg/dL (70-99) 275 mg/dL (70-99) Clostridium difficile Toxin B Gene Negative (Negative) Test 08/09/18 03:20 08/09/18 07:38 White Blood Count 0.8 x10^3/uL (4.0-11.0) Red Blood Count 3.06 x10^6/uL (3.50-5.40) Hemoglobin 9.8 g/dL (12.0-15.5) Hematocrit 28.6 % (36.0-47.0) Mean Corpuscular Volume 94 fL (79-100) Mean Corpuscular Hemoglobin 32 pg (25-35) Mean Corpuscular Hemoglobin Concent 34 g/dL (31-37) Red Cell Distribution Width 15.9 % (11.5-14.5) Platelet Count 89 x10^3/uL (140-400) Sodium Level 136 mmol/L (136-145) Potassium Level 3.4 mmol/L (3.5-5.1) Chloride Level 100 mmol/L (98-107) Carbon Dioxide Level 24 mmol/L (21-32) Anion Gap 12 (6-14) Blood Urea Nitrogen 23 mg/dL (7-20) Creatinine 1.6 mg/dL (0.6-1.0) Estimated GFR (Cockcroft-Gault) 31.8 BUN/Creatinine Ratio 14 (6-20) Glucose Level 249 mg/dL (70-99) Calcium Level 8.6 mg/dL (8.5-10.1) Total Bilirubin 0.8 mg/dL (0.2-1.0) Aspartate Amino Transf (AST/SGOT) 78 U/L (15-37) Alanine Aminotransferase (ALT/SGPT) 76 U/L (14-59) Alkaline Phosphatase 90 U/L (46-116) Total Protein 6.0 g/dL (6.4-8.2) Albumin 1.4 g/dL (3.4-5.0) Albumin/Globulin Ratio 0.3 (1.0-1.7) Glucose (Fingerstick) 242 mg/dL (70-99) Microbiology 08/05/18 Blood Culture - Preliminary, Resulted NO GROWTH AFTER 3 DAYS 08/05/18 Urine Culture - Final, Complete 08/05/18 Urine Culture Result 1 (TINO) - Final, Complete Medications Current Medications Piperacillin Sod/ Tazobactam Sod (Zosyn Per Pharmacy) 1 each PRN DAILY PRN MC SEE COMMENTS; Start 08/05/18 at 15:00 Piperacillin Sod/ Tazobactam Sod 4.5 gm/Sodium Chloride 100 ml @ 200 mls/hr ONCE ONCE IV Last administered on 08/05/18at 15:00; Start 08/05/18 at 15:00; Stop 08/05/18 at 15:29; Status DC Vancomycin HCl (Vanco Per Pharmacy) 1 each PRN DAILY PRN MC SEE COMMENTS Last administered on 08/08/18at 10:48; Start 08/05/18 at 16:15; Stop 08/09/18 at 07:57; Status DC Vancomycin HCl 2 gm/Sodium Chloride 500 ml @ 250 mls/hr 1X ONCE IV Last administered on 08/05/18at 16:17; Start 08/05/18 at 16:15; Stop 08/05/18 at 18:14; Status DC Ondansetron HCl (Zofran) 4 mg PRN Q8HRS PRN IV NAUSEA/VOMITING; Start 08/05/18 at 16:45; Stop 08/06/18 at 16:44; Status DC Morphine Sulfate (Morphine Sulfate) 2 mg PRN Q2HR PRN IV PAIN; Start 08/05/18 at 16:45; Stop 08/06/18 at 16:44; Status DC Sodium Chloride 1,000 ml @ 100 mls/hr Q10H IV Last administered on 08/06/18at 00:12; Start 08/05/18 at 16:43; Stop 08/05/18 at 20:42; Status DC Piperacillin Sod/ Tazobactam Sod 3.375 gm/Sodium Chloride 50 ml @ 100 mls/hr Q6HRS IV Last administered on 08/09/18at 05:01; Start 08/06/18 at 00:00 Vancomycin HCl 1.5 gm/Sodium Chloride 500 ml @ 250 mls/hr Q24H IV Last administered on 08/06/18at 16:41; Start 08/06/18 at 16:00; Stop 08/07/18 at 16:18; Status DC Vancomycin HCl (Vancomycin Trough Level) 1 each 1X ONCE MC Last administered on 08/07/18at 15:30; Start 08/07/18 at 15:30; Stop 08/07/18 at 15:31; Status DC Sodium Chloride 1,000 ml @ 166.667 mls/hr Q6H IV Last administered on 08/06/18at 05:42; Start 08/05/18 at 17:24; Stop 08/06/18 at 05:48; Status DC Aspirin (Children'S Aspirin) 81 mg DAILY PO Last administered on 08/08/18 12:50; Start 08/06/18 at 09:00 Calcium Carbonate/ Glycine (Oscal) 1,000 mg DAILY PO Last administered on 08/08/18 12:49; Start 08/06/18 at 09:00 Glipizide (Glucotrol) 10 mg DAILY PO ; Start 08/06/18 at 09:00; Stop 08/06/18 at 10:27; Status DC Atorvastatin Calcium (Lipitor) 80 mg QHS PO Last administered on 08/06/18 00:15; Start 08/05/18 at 21:00; Stop 08/06/18 at 10:27; Status DC Lisinopril (Prinivil) 5 mg DAILY PO Last administered on 08/08/18 12:50; Start 08/06/18 at 09:00 Metoprolol Succinate (Toprol Xl) 200 mg DAILY PO Last administered on 08/08/18 12:50; Start 08/06/18 at 09:00 Fish Oil (Fish Oil) 2,000 mg DAILY PO Last administered on 08/08/18 12:50; Start 08/06/18 at 09:00 Pantoprazole Sodium (Protonix) 40 mg DAILYAC PO Last administered on 08/08/18 12:49; Start 08/06/18 at 07:30 Pioglitazone HCl (Actos) 30 mg DAILY PO ; Start 08/06/18 at 09:00; Stop 08/06/18 at 18:11; Status DC Linagliptin (Tradjenta) 5 mg DAILY PO ; Start 08/06/18 at 09:00; Stop 08/06/18 at 18:11; Status DC Haloperidol Lactate (Haldol Inj) 5 mg PRN Q6HRS PRN IVP AGITATION; Start 08/05/18 at 19:30 Dextrose (Dextrose 50%-Water Syringe) 12.5 gm PRN Q15MIN PRN IV SEE COMMENTS Last administered on 08/05/18at 21:43; Start 08/05/18 at 19:45 Acetaminophen (Tylenol) 650 mg PRN Q6HRS PRN PO FEVER Last administered on 08/07/18at 21:26; Start 08/06/18 at 04:15 Potassium Chloride (Klor-Con) 10 meq [id number] PO Last administered on 08/08/18 12:49; Start 08/06/18 at 10:30 Insulin Human Lispro (HumaLOG) 0-5 UNITS TIDWMEALS SQ Last administered on 08/08/18 16:46; Start 08/06/18 at 12:00 Dextrose (Dextrose 50%-Water Syringe) 12.5 gm PRN Q15MIN PRN IV SEE COMMENTS; Start 08/06/18 at 10:30; Status UNV Lactobacillus Rhamnosus (Culturelle) 1 cap BID PO Last administered on 08/07/18 21:26; Start 08/06/18 at 21:00; Stop 08/08/18 at 10:39; Status DC Sodium Chloride 1,000 ml @ 100 mls/hr Q10H IV Last administered on 08/07/18 11:46; Start 08/06/18 at 18:15; Stop 08/07/18 at 22:35; Status DC Nystatin (Nystop) 1 dayne BID TP Last administered on 08/08/18 21:12; Start 08/06/18 at 21:00 Benzonatate (Tessalon Perle) 100 mg [id number] PO Last administered on 08/08/18 21:07; Start 08/07/18 at 12:00 Guaifenesin (Robitussin Dm) 10 ml PRN Q6HRS PRN PO COUGH; Start 08/07/18 at 10:30 Micafungin Sodium 100 mg/Dextrose 100 ml @ 100 mls/hr Q24H IV Last adminis tered on 08/08/18at 12:40; Start 08/07/18 at 12:00 Vancomycin HCl 2 gm/Sodium Chloride 500 ml @ 250 mls/hr Q24H IV Last adminis tered on 08/08/18 16:35; Start 08/07/18 at 16:30; Stop 08/09/18 at 07:57; Status DC Vancomycin HCl (Vancomycin Trough Level) 1 each 1X ONCE MC ; Start 08/09/18 at 16:00; Stop 08/09/18 at 16:00; Status DC Furosemide (Lasix) 40 mg 1X ONCE IVP Last administered on 08/07/18at 23:00; Start 08/07/18 at 23:00; Stop 08/07/18 at 23:01; Status DC Hydralazine HCl (Apresoline Inj) 10 mg PRN Q4HRS PRN IVP ELEVATED BP, SEE COMMENTS; Start 08/07/18 at 22:45 Albuterol Sulfate (Ventolin Neb Soln) 2.5 mg TID IH Last administered on 08/09/18at 07:26; Start 08/08/18 at 09:00 Albuterol Sulfate (Ventolin Neb Soln) 2.5 mg PRN Q3HRS PRN IH WHEEZING Last administered on 08/08/18at 16:17; Start 08/08/18 at 05:15 Lidocaine/Sodium Bicarbonate (Buffered Lidocaine 1%) 3 ml STK-MED ONCE .ROUTE ; Start 08/08/18 at 08:42; Stop 08/08/18 at 08:43; Status DC Lidocaine/Sodium Bicarbonate (Buffered Lidocaine 1%) 3 ml STK-MED ONCE .ROUTE ; Start 08/08/18 at 08:47; Stop 08/08/18 at 08:48; Status DC Lidocaine/Sodium Bicarbonate (Buffered Lidocaine 1%) 3 ml STK-MED ONCE .ROUTE ; Start 08/08/18 at 08:47; Stop 08/08/18 at 08:48; Status DC Midazolam HCl (Versed) 2 mg STK-MED ONCE .ROUTE ; Start 08/08/18 at 08:49; Stop 08/08/18 at 08:50; Status DC Fentanyl Citrate (Fentanyl 2ml Vial) 100 mcg STK-MED ONCE .ROUTE ; Start 08/08/18 at 08:49; Stop 08/08/18 at 08:50; Status DC Fentanyl Citrate (Fentanyl 2ml Vial) 25 mcg PRN Q5MIN PRN IV MILD PAIN; Start 08/09/18 at 07:00; Stop 08/10/18 at 06:59 Fentanyl Citrate (Fentanyl 2ml Vial) 50 mcg PRN Q5MIN PRN IV MODERATE TO SEVERE PAIN; Start 08/09/18 at 07:00; Stop 08/10/18 at 06:59 Morphine Sulfate (Morphine Sulfate) 1 mg PRN Q10MIN PRN IV SEVERE PAIN; Start 08/09/18 at 07:00; Stop 08/10/18 at 06:59 Ringer's Solution 1,000 ml @ 30 mls/hr Q24H IV ; Start 08/09/18 at 07:00; Stop 08/09/18 at 18:59 Lidocaine HCl (Xylocaine-Mpf 1% 2ml Vial) 2 ml PRN 1X PRN ID PRIOR TO IV START; Start 08/09/18 at 07:00; Stop 08/10/18 at 06:59 Hydromorphone HCl (Dilaudid) 0.5 mg PRN Q10MIN PRN IV SEV PAIN, Second choice; Start 08/09/18 at 07:00; Stop 08/10/18 at 06:59 Prochlorperazine Edisylate (Compazine) 5 mg PACU PRN PRN IV NAUSEA, MRX1; Start 08/09/18 at 07:00; Stop 08/10/18 at 06:59 Multivitamins/ Minerals (I-Burak) 1 tab DAILY PO Last administered on 08/08/18at 16:34; Start 08/08/18 at 15:00 Ascorbic Acid (Vitamin C) 500 mg DAILY PO Last administered on 08/08/18at 16:34; Start 08/08/18 at 15:00 Furosemide (Lasix) 40 mg 1X ONCE IVP Last administered on 08/08/18at 16:34; Start 08/08/18 at 16:30; Stop 08/08/18 at 16:31; Status DC Doxycycline Hyclate (Vibra-Tab) 100 mg BID PO ; Start 08/09/18 at 09:00 Active Scripts Active Omeprazole 40 Mg Capsule.dr 40 Mg PO DAILY Aspirin 81 Mg Tab.chew 81 Mg PO DAILY Pioglitazone Hcl 30 Mg Tablet 30 Mg PO DAILY Atorvastatin Calcium 80 Mg Tablet 80 Mg PO HS Reported Metoprolol Tartrate 100 Mg Tablet 2 Tab PO DAILY Glipizide 5 Mg Tablet 2 Tab PO DAILY Ferguson 3 Fish Oil Softgel (Ferguson-3 Fatty Acids/Fish Oil) 1 Each Capsule.dr 2 Each PO DAILY Calcium Carbonate 500 Mg Tablet 1,000 Mg PO DAILY Januvia (Sitagliptin Phosphate) 50 Mg Tablet 1 Tab PO DAILY Lisinopril 5 Mg Tablet 1 Tab PO DAILY Vitals/I & O Vital Sign - Last 24 Hours 08/08/18 08/08/18 08/08/18 08/08/18 10:43 11:26 12:00 12:50 Temp 98.2 98.2 Pulse 85 85 Resp B/P (MAP) 136/85 (102) 136/85 Pulse Ox 95 96 96 O2 Delivery Nasal Cannula Nasal Cannula BiPAP/CPAP O2 Flow Rate 3.0 3.0 08/08/18 08/08/18 08/08/18 08/08/18 12:50 14:41 16:17 19:05 Temp 97.8 97.8 Pulse 85 90 Resp B/P (MAP) 136/85 108/72 (84) Pulse Ox 92 97 O2 Delivery Nasal Cannula Nasal Cannula Bi-pap O2 Flow Rate 3.0 3.0 3.0 08/08/18 08/08/18 08/08/18 08/08/18 19:33 20:27 22:33 23:27 Temp 99.5 99.6 99.5 99.6 Pulse 77 75 Resp 24 27 B/P (MAP) 168/57 (94) 129/63 (85) Pulse Ox 97 100 98 99 O2 Delivery BiPAP/CPAP BiPAP/CPAP BiPAP/CPAP BiPAP/CPAP O2 Flow Rate 35.0 35.0 08/09/18 08/09/18 08/09/18 08/09/18 03:07 03:20 07:00 07:27 Temp 99.4 97.7 99.4 97.7 Pulse 80 89 Resp 27 20 B/P (MAP) 130/66 (87) 145/74 (97) Pulse Ox 97 99 93 97 O2 Delivery BiPAP/CPAP BiPAP/CPAP Nasal Cannula Nasal Cannula O2 Flow Rate 35.0 3.0 3.0 Intake and Output 08/08/18 08/08/18 08/09/18 14:59 22:59 06:59 Intake Total 0 ml Output Total 300 ml 1500 ml Balance -300 ml -1500 ml KEVON FUENTES MD August 09, 2018 08:27
--- NOTE | 2018-08-09 08:31 | PDOC ---
SUBJECTIVE Subjective S: Some confusion, hi blood sugars, breathing is better today, bone marrow today pending O: Gen: elderly obese female in NAD, resting in bed Resp: on O2, improved breathing Ext: sl edema BLE Labs: wbc 0.8, Hb 9.8, plt 89 ANC 400 last diff parvo, SRINIVASAN, ASMA pending procalc 0.27 lipase 206 neg HIV, Hep panel, c diff and flu SPEP neg for M spike ferr 2287 sat 29% AST 78, ALT 76 Rad: poss pneumonia, Gallstones, GB wall thickening A/P: 72 yo F admitted 08/05/18 with HCAP, weakness, pancytopenia, improving poss cholecystitis, hypoalbuminemia, comorbid including morbid obesity, DM, HTN, CAD. On Abx for HCAP and poss cholecystitis, initial UA concerning though cx neg. US abdomen 08/06/18 showed gall stones with wall thickening. infection: Abx, ID involved other comorbidities: per primary, others pancytopenia: BMBx pending today as well as parvo, SRINIVASAN, ASMA, avoiding neupogen until results of bone marrow avail, suspect this may all be related to infection and comorbid conditions... Thank you kindly and please don't hesitate to call with more questions. OBJECTIVE Vital Signs Vital Signs Date Time Temp Pulse Resp B/P (MAP) Pulse Ox O2 Delivery O2 Flow Rate FiO2 08/09/18 07:27 97 Nasal Cannula 3.0 08/09/18 07:00 97.7 89 20 145/74 (97) 93 Nasal Cannula 3.0 97.7 08/09/18 03:20 99 BiPAP/CPAP 08/09/18 03:07 99.4 80 27 130/66 (87) 97 BiPAP/CPAP 35.0 99.4 08/08/18 23:27 99 BiPAP/CPAP 08/08/18 22:33 99.6 75 27 129/63 (85) 98 BiPAP/CPAP 35.0 99.6 08/08/18 20:27 100 BiPAP/CPAP 08/08/18 19:33 99.5 77 24 168/57 (94) 97 BiPAP/CPAP 35.0 99.5 08/08/18 19:05 Bi-pap 3.0 08/08/18 16:17 97 Nasal Cannula 3.0 08/08/18 14:41 97.8 90 28 108/72 (84) 92 Nasal Cannula 3.0 97.8 08/08/18 12:50 85 136/85 08/08/18 12:50 85 136/85 08/08/18 12:00 96 BiPAP/CPAP 08/08/18 11:26 96 Nasal Cannula 3.0 08/08/18 10:43 98.2 85 28 136/85 (102) 95 Nasal Cannula 3.0 98.2 I & O Intake and Output 08/09/18 06:59 Intake Total 0 ml Output Total 1800 ml Balance -1800 ml Intake Oral 0 ml Output Urine Total 1500 ml Stool Total 300 ml # Bowel Movements 5 COMMENT Lab Laboratory Tests Test 08/08/18 11:29 08/08/18 13:40 08/08/18 16:21 08/08/18 21:06 Glucose (Fingerstick) 223 mg/dL (70-99) 241 mg/dL (70-99) 275 mg/dL (70-99) Clostridium difficile Toxin B Gene Negative (Negative) Test 08/09/18 03:20 08/09/18 07:38 White Blood Count 0.8 x10^3/uL (4.0-11.0) Red Blood Count 3.06 x10^6/uL (3.50-5.40) Hemoglobin 9.8 g/dL (12.0-15.5) Hematocrit 28.6 % (36.0-47.0) Mean Corpuscular Volume 94 fL (79-100) Mean Corpuscular Hemoglobin 32 pg (25-35) Mean Corpuscular Hemoglobin Concent 34 g/dL (31-37) Red Cell Distribution Width 15.9 % (11.5-14.5) Platelet Count 89 x10^3/uL (140-400) Sodium Level 136 mmol/L (136-145) Potassium Level 3.4 mmol/L (3.5-5.1) Chloride Level 100 mmol/L (98-107) Carbon Dioxide Level 24 mmol/L (21-32) Anion Gap 12 (6-14) Blood Urea Nitrogen 23 mg/dL (7-20) Creatinine 1.6 mg/dL (0.6-1.0) Estimated GFR (Cockcroft-Gault) 31.8 BUN/Creatinine Ratio 14 (6-20) Glucose Level 249 mg/dL (70-99) Calcium Level 8.6 mg/dL (8.5-10.1) Total Bilirubin 0.8 mg/dL (0.2-1.0) Aspartate Amino Transf (AST/SGOT) 78 U/L (15-37) Alanine Aminotransferase (ALT/SGPT) 76 U/L (14-59) Alkaline Phosphatase 90 U/L (46-116) Total Protein 6.0 g/dL (6.4-8.2) Albumin 1.4 g/dL (3.4-5.0) Albumin/Globulin Ratio 0.3 (1.0-1.7) Glucose (Fingerstick) 242 mg/dL (70-99) CINTHYA ALBRECHT MD August 09, 2018 08:31
--- NOTE | 2018-08-09 09:04 | PDOC ---
GAURAV RODRIGUEZ OFFICE ASSOCIATE 08/09/18 0904: CARDIO Progress Notes Date and Time Date of Service 08/09/2018 Time of Evaluation 0850 Subjective Subjective: No Chest Pain, No shortness of breath, No Palpitations Vitals Vitals Vital Signs Date Time Temp Pulse Resp B/P (MAP) Pulse Ox O2 Delivery O2 Flow Rate FiO2 08/09/18 07:27 97 Nasal Cannula 3.0 08/09/18 07:00 97.7 89 20 145/74 (97) 97.7 Weight Weight [ ] Input and Output Intake and Output Intake and Output 08/09/18 06:59 Intake Total 0 ml Output Total 1800 ml Balance -1800 ml Intake Oral 0 ml Output Urine Total 1500 ml Stool Total 300 ml # Bowel Movements 5 Laboratory Labs Laboratory Tests Test 08/08/18 11:29 08/08/18 13:40 08/08/18 16:21 08/08/18 21:06 Glucose (Fingerstick) 223 mg/dL (70-99) 241 mg/dL (70-99) 275 mg/dL (70-99) Clostridium difficile Toxin B Gene Negative (Negative) Test 08/09/18 03:20 08/09/18 07:38 White Blood Count 0.8 x10^3/uL (4.0-11.0) Red Blood Count 3.06 x10^6/uL (3.50-5.40) Hemoglobin 9.8 g/dL (12.0-15.5) Hematocrit 28.6 % (36.0-47.0) Mean Corpuscular Volume 94 fL (79-100) Mean Corpuscular Hemoglobin 32 pg (25-35) Mean Corpuscular Hemoglobin Concent 34 g/dL (31-37) Red Cell Distribution Width 15.9 % (11.5-14.5) Platelet Count 89 x10^3/uL (140-400) Sodium Level 136 mmol/L (136-145) Potassium Level 3.4 mmol/L (3.5-5.1) Chloride Level 100 mmol/L (98-107) Carbon Dioxide Level 24 mmol/L (21-32) Anion Gap 12 (6-14) Blood Urea Nitrogen 23 mg/dL (7-20) Creatinine 1.6 mg/dL (0.6-1.0) Estimated GFR (Cockcroft-Gault) 31.8 BUN/Creatinine Ratio 14 (6-20) Glucose Level 249 mg/dL (70-99) Calcium Level 8.6 mg/dL (8.5-10.1) Total Bilirubin 0.8 mg/dL (0.2-1.0) Aspartate Amino Transf (AST/SGOT) 78 U/L (15-37) Alanine Aminotransferase (ALT/SGPT) 76 U/L (14-59) Alkaline Phosphatase 90 U/L (46-116) Total Protein 6.0 g/dL (6.4-8.2) Albumin 1.4 g/dL (3.4-5.0) Albumin/Globulin Ratio 0.3 (1.0-1.7) Glucose (Fingerstick) 242 mg/dL (70-99) Microbiology Micro Microbiology 08/05/18 Blood Culture - Preliminary, Resulted NO GROWTH AFTER 3 DAYS 08/05/18 Urine Culture - Final, Complete 08/05/18 Urine Culture Result 1 (TINO) - Final, Complete Physical Exam HEENT: Neck Supple W Full Motion Chest: Symmetric LUNGS: Other (faint upper wheeze) Heart: RRR Abdomen: Soft N/T, Other (obese) Extremities: No Calf Tenderness Neurology: alert, oriented, follow commands Assessment Assessment 1. CAD - stable 2. UTI/sepsis 3. Hypoxia - stable. 4. morbid obesity 5. Arrhythmia: No definitive PAFIB. Sinus arrhythmia so far with occasional PACs with multiple extracardiac comorbid conditions. Recommendations 1. No further CV testing needed. I reviewed tele strips and if there is any further concern for afib then will benefit from MCOT but would not be possible till she goes home as she is process for SNU currently. 2. Continue with PO metoprolol and ASA. Suspect dyspnea related to non-cardiac issues. Can consider outpt stres testing. 3. Continue w/u for neutropenia, fever. BM Bx today. Will follow along periph erally. MARGARITA HOLBROKO MD 08/09/18 1810: CARDIO Progress Notes Plan Plan Pt. seen and examined. Agree with above [employer] SURVEYOR note. No afib per my review of telemetry. Thanks. GAURAV RODRIGUEZ APRN August 09, 2018 09:04 MARGARITA HOLBROOK MD August 09, 2018 18:10
[2018-08-09] MEDS: METOPROLOL SUCC 24HR ER 100 MG TAB.ER.24H. PO SCH (09:29)
[2018-08-09] MEDS: LISINOPRIL 5 MG TABLET. PO SCH (09:29)
[2018-08-09] MEDS: BENZONATATE 100 MG CAPSULE. PO SCH ×3 (09:29→20:27)
[2018-08-09] MEDS: NYSTATIN TOPICAL POWDER 15GM BOTTLE. TP SCH ×2 (09:31→20:27)
[2018-08-09] MEDS ORDERED: PROPOFOL 40 ML IV ONE (12:09)
[2018-08-09] MEDS ORDERED: LIDOCAINE WITH 8.4% SOD BICARB 3 ML DISP.SYRIN. ONE (12:25)
--- NOTE | 2018-08-09 12:27 | PDOC ---
Provider Note Provider Note NOT SEEN WENT FOR BM BX GEE WELSH MD August 09, 2018 12:27
[2018-08-09] MEDS ORDERED: LIDOCAINE WITH 8.4% SOD BICARB 3 ML DISP.SYRIN. INJ ONE (12:45)
--- NOTE | 2018-08-09 13:07 | RAD ---
CT-guided bone marrow biopsy. 08/09/2018 1:04 PM Indication: pancytopenia, fevers Discussion: The risks and benefits of the procedure, including but not limited to, bleeding and infection were discussed patient. Informed consent was obtained. The patient was brought to the CT scanner and placed in the prone position. A timeout procedure was performed. Operations Support Specialist CT imaging of the pelvis demonstrated left ilium amenable to bone marrow biopsy. The overlying soft tissues were prepped and draped using maximum sterile barrier technique. 1% lidocaine without epinephrine was administered for local anesthesia. Under intermittent CT guidance, an OncControl needle was advanced into the bone marrow of the left iliac crest. 2 Aspirates and 1 core biopsy samples were obtained. Samples were delivered to pathology was present at the time of procedure. The needle was removed and manual pressure held to achieve hemostasis. No immediate complications were identified. The procedure was performed under conscious sedation including continuous cardiopulmonary monitoring via dedicated sedation nurse. Sedation time: 20 minutes Impression: Successful CT-guided bone marrow biopsy of the left iliac crest . PQRS Compliance Statement: One or more of the following individualized dose reduction techniques were utilized for this examination: 1. Automated exposure control 2. Adjustment of the mA and/or kV according to patient size 3. Use of iterative reconstruction technique
[2018-08-09] MEDS: MICAFUNGIN 100 MG in IV DEXTROSE 5% 100ML 100 ML IV SCH (14:04)
[2018-08-09] MEDS: OMEGA-3 FATTY ACIDS/FISH OIL 1,000 MG CAPSULE. PO SCH (14:25)
[2018-08-09] MEDS: CALCIUM CARBONATE 500 MG TABLET PO SCH (14:25)
[2018-08-09] MEDS: ASCORBIC ACID 500 MG TABLET PO SCH (14:25)
[2018-08-09] MEDS: MULTIVITAMIN I-VITE TABLET. PO SCH (14:26)
[2018-08-09] MEDS: ASPIRIN CHEWABLE 81 MG TABLET. PO SCH (14:26)
[2018-08-09] MEDS: POTASSIUM CHLORIDE 10 MEQ TABLET.ER. PO SCH ×2 (14:26→20:27)
[2018-08-09] MEDS: LINAGLIPTIN 5 MG TABLET PO SCH (14:29)
[2018-08-09] MEDS: DOXYCYCLINE HYCLATE 100 MG TABLET PO SCH ×2 (14:29→20:27)
[2018-08-09 17:10] LABS: PARVO IGG 5.6 index (0.0-0.8); PARVO IGM 0.5 index (0.0-0.8)
[2018-08-09] MEDS: hydrALAZINE 20 MG/ML VIAL. IVP PRN (17:20)
[2018-08-09 18:08] LABS: ANA INTERP Positive (.)
[2018-08-10] VITALS (7 sets, daily range): BP systolic 113–205; BP diastolic 53–83
[2018-08-10] MEDS ORDERED: ALBUTEROL SULFATE 2.5 MG/3 ML NEBU. IH ONE (03:00)
[2018-08-10 03:54] LABS: BASO % 2 % (0-3); EOS % 2 % (0-3); HEMATOCRIT 27.6 % (36.0-47.0); HEMOGLOBIN 9.4 g/dL (12.0-15.5); LYMPH # 0.2 x10^3/uL (1.0-4.8); LYMPH % 31 % (24-48); MEAN CORPUSCULAR HEMOGLOBIN 32 pg (25-35); MEAN CORPUSCULAR HGB CONC 34 g/dL (31-37); MEAN CORPUSCULAR VOLUME 94 fL (79-100); MONO # 0.1 x10^3/uL (0.0-1.1); MONO % 11 % (0-9); NEUT # 0.4 x10^3uL (1.8-7.7); NEUT % 55 % (31-73); PLATELET COUNT 93 x10^3/uL (140-400); RED BLOOD COUNT 2.94 x10^6/uL (3.50-5.40)
[2018-08-10 04:02] LABS: WHITE BLOOD COUNT 0.8 x10^3/uL (4.0-11.0)
[2018-08-10 04:15] LABS: ALBUMIN 1.2 g/dL (3.4-5.0); ALBUMIN/GLOBULIN RATIO 0.3 (1.0-1.7); CALCIUM 8.6 mg/dL (8.5-10.1); CREATININE 1.4 mg/dL (0.6-1.0); GFR 37.1; POTASSIUM 3.1 mmol/L (3.5-5.1); TOTAL BILIRUBIN 0.9 mg/dL (0.2-1.0); TOTAL PROTEIN 5.7 g/dL (6.4-8.2)
[2018-08-10] MEDS: PIPERACILLIN/TAZOBACTAM 3.375 GM in IV NORMAL SALINE 50ML 50 ML IV SCH ×4 (05:56→23:46)
[2018-08-10] MEDS: ALBUTEROL SULFATE 2.5 MG/3 ML NEBU. IH SCH ×3 (07:53→20:15)
[2018-08-10] MEDS: PANTOPRAZOLE 40 MG TABLET.DR. PO SCH (07:57)
[2018-08-10] MEDS: ASPIRIN CHEWABLE 81 MG TABLET. PO SCH (07:58)
[2018-08-10] MEDS: OMEGA-3 FATTY ACIDS/FISH OIL 1,000 MG CAPSULE. PO SCH (07:58)
[2018-08-10] MEDS: MULTIVITAMIN I-VITE TABLET. PO SCH (07:59)
[2018-08-10] MEDS: POTASSIUM CHLORIDE 10 MEQ TABLET.ER. PO SCH (07:59)
[2018-08-10] MEDS: CALCIUM CARBONATE 500 MG TABLET PO SCH (07:59)
[2018-08-10] MEDS: METOPROLOL SUCC 24HR ER 100 MG TAB.ER.24H. PO SCH (08:00)
[2018-08-10] MEDS: ASCORBIC ACID 500 MG TABLET PO SCH (08:01)
[2018-08-10] MEDS: DOXYCYCLINE HYCLATE 100 MG TABLET PO SCH (08:01)
[2018-08-10] MEDS: LINAGLIPTIN 5 MG TABLET PO SCH (08:01)
[2018-08-10] MEDS: LISINOPRIL 5 MG TABLET. PO SCH (08:02)
[2018-08-10] MEDS: NYSTATIN TOPICAL POWDER 15GM BOTTLE. TP SCH ×2 (08:02→22:15)
[2018-08-10] MEDS: BENZONATATE 100 MG CAPSULE. PO SCH ×3 (08:02→22:15)
[2018-08-10] MEDS: INSULIN LISPRO 300 UNITS/3 ML INSULN.PEN. SQ SCH ×3 (08:12→17:20)
--- NOTE | 2018-08-10 08:47 | PDOC ---
Infectious Disease Note Subjective Subjective Some SOA and cough still at times Denies N/V/cramps/bloating Denies chills/aches/sweats ROS ROS o/w neg Vital Sign Vital Signs Vital Signs Date Time Temp Pulse Resp B/P (MAP) Pulse Ox O2 Delivery O2 Flow Rate FiO2 08/10/18 08:04 86 160/68 (98) 3.0 08/10/18 07:53 95 Nasal Cannula 08/10/18 07:48 97.7 26 97.7 Physical Exam PHYSICAL EXAM GENERAL: Propped up in bed, alert, get RT HEENT: Pupils equally round, reactive. Normal conjunctivae. Oropharynx pink and moist, edentulous NECK: Supple. LUNGS: Diminished aeration. HEART: S1 and S2. ABDOMEN: Obese, soft, nontender with bowel sounds present. No rebound or guarding. Loose stool : Lam EXTREMITIES: No gross edema or cyanosis. SKIN: Warm without generalized rash. NEUROLOGIC: Alert and oriented x 3. PIV Labs Lab Laboratory Tests Test 08/09/18 11:22 08/09/18 16:37 08/09/18 20:29 08/10/18 03:20 Glucose (Fingerstick) 235 mg/dL (70-99) 312 mg/dL (70-99) 295 mg/dL (70-99) White Blood Count 0.8 x10^3/uL (4.0-11.0) Red Blood Count 2.94 x10^6/uL (3.50-5.40) Hemoglobin 9.4 g/dL (12.0-15.5) Hematocrit 27.6 % (36.0-47.0) Mean Corpuscular Volume 94 fL (79-100) Mean Corpuscular Hemoglobin 32 pg (25-35) Mean Corpuscular Hemoglobin Concent 34 g/dL (31-37) Red Cell Distribution Width 16.0 % (11.5-14.5) Platelet Count 93 x10^3/uL (140-400) Neutrophils (%) (Auto) 55 % (31-73) Lymphocytes (%) (Auto) 31 % (24-48) Monocytes (%) (Auto) 11 % (0-9) Eosinophils (%) (Auto) 2 % (0-3) Basophils (%) (Auto) 2 % (0-3) Neutrophils # (Auto) 0.4 x10^3uL (1.8-7.7) Lymphocytes # (Auto) 0.2 x10^3/uL (1.0-4.8) Monocytes # (Auto) 0.1 x10^3/uL (0.0-1.1) Eosinophils # (Auto) 0.0 x10^3/uL (0.0-0.7) Basophils # (Auto) 0.0 x10^3/uL (0.0-0.2) Sodium Level 136 mmol/L (136-145) Potassium Level 3.1 mmol/L (3.5-5.1) Chloride Level 101 mmol/L (98-107) Carbon Dioxide Level 25 mmol/L (21-32) Anion Gap 10 (6-14) Blood Urea Nitrogen 24 mg/dL (7-20) Creatinine 1.4 mg/dL (0.6-1.0) Estimated GFR (Cockcroft-Gault) 37.1 BUN/Creatinine Ratio 17 (6-20) Glucose Level 259 mg/dL (70-99) Calcium Level 8.6 mg/dL (8.5-10.1) Total Bilirubin 0.9 mg/dL (0.2-1.0) Aspartate Amino Transf (AST/SGOT) 55 U/L (15-37) Alanine Aminotransferase (ALT/SGPT) 63 U/L (14-59) Alkaline Phosphatase 84 U/L (46-116) Total Protein 5.7 g/dL (6.4-8.2) Albumin 1.2 g/dL (3.4-5.0) Albumin/Globulin Ratio 0.3 (1.0-1.7) Test 08/10/18 08:00 Glucose (Fingerstick) 237 mg/dL (70-99) Micro Microbiology 08/05/18 Blood Culture - Preliminary, Resulted NO GROWTH AFTER 3 DAYS 08/05/18 Urine Culture - Final, Complete 08/05/18 Urine Culture Result 1 (TINO) - Final, Complete Objective Assessment HCAP - Influenza neg Fever - better Neutropenia/pancytopenia - s/p bone marrow biospy 08/09-denies tick exposure/outdoor or pet exposure. Hep/HIV/Parvo - neg. SRINIVASAN 1:80 ? UTI, POA UC neg TYLER on CKD, improving Elevated LFTs/ possible cholecystitis on US -asymptomatic. Lfts better today Diabetes with hypoglycemia Morbid obesity, BMI 43 CAD Diarrhea Plan Plan of Care Discontinued empiric vanc 08/09 as Cr increasing cults neg. added doxy 08/09 but pills are being excreted in stools so will d/c Doxy Cont Zosyn (08/06) and micafungin (08/07) for now Monitor renal function closely additional labs pending Cultures NGTD Reverse isolation Awaiting bone marrow bx - results Supportive care DNR d/w YING Palacio MD August 10, 2018 08:47
--- NOTE | 2018-08-10 09:01 | PDOC ---
PROGRESS NOTES Subjective Subjective Patient without complaint, denies pain. Objective Objective Vital Signs Date Time Temp Pulse Resp B/P (MAP) Pulse Ox O2 Delivery O2 Flow Rate FiO2 08/10/18 08:04 86 160/68 (98) 3.0 08/10/18 07:53 95 Nasal Cannula 08/10/18 07:48 97.7 26 97.7 Intake and Output 08/10/18 06:59 Intake Total 540 ml Output Total 850 ml Balance -310 ml Intake Oral 340 ml IV Total 200 ml Output Urine Total 850 ml # Bowel Movements 2 Physical Exam Abdomen: Normal bowel sounds, Soft, No tenderness Heart: Regular rate Extremities: Other General: Alert, Oriented X3, No acute distress Lungs: Other (BS mildly decreased throughout) Assessment Assessment Problems Medical Problems: (1) Pneumonia Status: Acute (2) Severe sepsis Status: Acute (3) Urinary tract infection Status: Acute Plan Plan of Care 1. Sepsis - fevers resolving, cultures negative to date. Continue tx per ID. 2. acute hypoxic respiratory failure with pneumonia - stable, still needing O2. Continue nebs. 3. pancytopenia - basically stable. Await bone marrow bx results. 4. diarrhea - C diff negative. Try Imodium prn. 5. HTN - BP elevated now, increase Lisinopril. 6. DM2 - blood sugars elevated, resume Glipizide as she is eating meals with good appetite. 7. hypokalemia - worsening, nursing reports she is passing the tabs in her stool. Dose increased, nurses will dissolve the K+ in liquid to increase absorption. 8. arrhythmia - sinus with frequent PAC's per Cardiology. Continue to monitor on Telemetry. 9. L UE edema - check venous doppler. Elevate. Comment Review of Relevant I have reviewed the following items ld (where applicable) has been applied. Labs Laboratory Tests Test 08/08/18 11:29 08/08/18 13:40 08/08/18 16:21 08/08/18 21:06 Glucose (Fingerstick) 223 mg/dL (70-99) 241 mg/dL (70-99) 275 mg/dL (70-99) Clostridium difficile Toxin B Gene Negative (Negative) Test 08/09/18 03:20 08/09/18 07:38 08/09/18 11:22 08/09/18 16:37 White Blood Count 0.8 x10^3/uL (4.0-11.0) Red Blood Count 3.06 x10^6/uL (3.50-5.40) Hemoglobin 9.8 g/dL (12.0-15.5) Hematocrit 28.6 % (36.0-47.0) Mean Corpuscular Volume 94 fL (79-100) Mean Corpuscular Hemoglobin 32 pg (25-35) Mean Corpuscular Hemoglobin Concent 34 g/dL (31-37) Red Cell Distribution Width 15.9 % (11.5-14.5) Platelet Count 89 x10^3/uL (140-400) Sodium Level 136 mmol/L (136-145) Potassium Level 3.4 mmol/L (3.5-5.1) Chloride Level 100 mmol/L (98-107) Carbon Dioxide Level 24 mmol/L (21-32) Anion Gap 12 (6-14) Blood Urea Nitrogen 23 mg/dL (7-20) Creatinine 1.6 mg/dL (0.6-1.0) Estimated GFR (Cockcroft-Gault) 31.8 BUN/Creatinine Ratio 14 (6-20) Glucose Level 249 mg/dL (70-99) Calcium Level 8.6 mg/dL (8.5-10.1) Total Bilirubin 0.8 mg/dL (0.2-1.0) Aspartate Amino Transf (AST/SGOT) 78 U/L (15-37) Alanine Aminotransferase (ALT/SGPT) 76 U/L (14-59) Alkaline Phosphatase 90 U/L (46-116) Total Protein 6.0 g/dL (6.4-8.2) Albumin 1.4 g/dL (3.4-5.0) Albumin/Globulin Ratio 0.3 (1.0-1.7) Glucose (Fingerstick) 242 mg/dL (70-99) 235 mg/dL (70-99) 312 mg/dL (70-99) Test 08/09/18 20:29 08/10/18 03:20 08/10/18 08:00 Glucose (Fingerstick) 295 mg/dL (70-99) 237 mg/dL (70-99) White Blood Count 0.8 x10^3/uL (4.0-11.0) Red Blood Count 2.94 x10^6/uL (3.50-5.40) Hemoglobin 9.4 g/dL (12.0-15.5) Hematocrit 27.6 % (36.0-47.0) Mean Corpuscular Volume 94 fL (79-100) Mean Corpuscular Hemoglobin 32 pg (25-35) Mean Corpuscular Hemoglobin Concent 34 g/dL (31-37) Red Cell Distribution Width 16.0 % (11.5-14.5) Platelet Count 93 x10^3/uL (140-400) Neutrophils (%) (Auto) 55 % (31-73) Lymphocytes (%) (Auto) 31 % (24-48) Monocytes (%) (Auto) 11 % (0-9) Eosinophils (%) (Auto) 2 % (0-3) Basophils (%) (Auto) 2 % (0-3) Neutrophils # (Auto) 0.4 x10^3uL (1.8-7.7) Lymphocytes # (Auto) 0.2 x10^3/uL (1.0-4.8) Monocytes # (Auto) 0.1 x10^3/uL (0.0-1.1) Eosinophils # (Auto) 0.0 x10^3/uL (0.0-0.7) Basophils # (Auto) 0.0 x10^3/uL (0.0-0.2) Sodium Level 136 mmol/L (136-145) Potassium Level 3.1 mmol/L (3.5-5.1) Chloride Level 101 mmol/L (98-107) Carbon Dioxide Level 25 mmol/L (21-32) Anion Gap 10 (6-14) Blood Urea Nitrogen 24 mg/dL (7-20) Creatinine 1.4 mg/dL (0.6-1.0) Estimated GFR (Cockcroft-Gault) 37.1 BUN/Creatinine Ratio 17 (6-20) Glucose Level 259 mg/dL (70-99) Calcium Level 8.6 mg/dL (8.5-10.1) Total Bilirubin 0.9 mg/dL (0.2-1.0) Aspartate Amino Transf (AST/SGOT) 55 U/L (15-37) Alanine Aminotransferase (ALT/SGPT) 63 U/L (14-59) Alkaline Phosphatase 84 U/L (46-116) Total Protein 5.7 g/dL (6.4-8.2) Albumin 1.2 g/dL (3.4-5.0) Albumin/Globulin Ratio 0.3 (1.0-1.7) Laboratory Tests Test 08/09/18 11:22 08/09/18 16:37 08/09/18 20:29 08/10/18 03:20 Glucose (Fingerstick) 235 mg/dL (70-99) 312 mg/dL (70-99) 295 mg/dL (70-99) White Blood Count 0.8 x10^3/uL (4.0-11.0) Red Blood Count 2.94 x10^6/uL (3.50-5.40) Hemoglobin 9.4 g/dL (12.0-15.5) Hematocrit 27.6 % (36.0-47.0) Mean Corpuscular Volume 94 fL (79-100) Mean Corpuscular Hemoglobin 32 pg (25-35) Mean Corpuscular Hemoglobin Concent 34 g/dL (31-37) Red Cell Distribution Width 16.0 % (11.5-14.5) Platelet Count 93 x10^3/uL (140-400) Neutrophils (%) (Auto) 55 % (31-73) Lymphocytes (%) (Auto) 31 % (24-48) Monocytes (%) (Auto) 11 % (0-9) Eosinophils (%) (Auto) 2 % (0-3) Basophils (%) (Auto) 2 % (0-3) Neutrophils # (Auto) 0.4 x10^3uL (1.8-7.7) Lymphocytes # (Auto) 0.2 x10^3/uL (1.0-4.8) Monocytes # (Auto) 0.1 x10^3/uL (0.0-1.1) Eosinophils # (Auto) 0.0 x10^3/uL (0.0-0.7) Basophils # (Auto) 0.0 x10^3/uL (0.0-0.2) Sodium Level 136 mmol/L (136-145) Potassium Level 3.1 mmol/L (3.5-5.1) Chloride Level 101 mmol/L (98-107) Carbon Dioxide Level 25 mmol/L (21-32) Anion Gap 10 (6-14) Blood Urea Nitrogen 24 mg/dL (7-20) Creatinine 1.4 mg/dL (0.6-1.0) Estimated GFR (Cockcroft-Gault) 37.1 BUN/Creatinine Ratio 17 (6-20) Glucose Level 259 mg/dL (70-99) Calcium Level 8.6 mg/dL (8.5-10.1) Total Bilirubin 0.9 mg/dL (0.2-1.0) Aspartate Amino Transf (AST/SGOT) 55 U/L (15-37) Alanine Aminotransferase (ALT/SGPT) 63 U/L (14-59) Alkaline Phosphatase 84 U/L (46-116) Total Protein 5.7 g/dL (6.4-8.2) Albumin 1.2 g/dL (3.4-5.0) Albumin/Globulin Ratio 0.3 (1.0-1.7) Test 08/10/18 08:00 Glucose (Fingerstick) 237 mg/dL (70-99) Microbiology 08/05/18 Blood Culture - Preliminary, Resulted NO GROWTH AFTER 4 DAYS 08/05/18 Urine Culture - Final, Complete 08/05/18 Urine Culture Result 1 (TINO) - Final, Complete Medications Current Medications Piperacillin Sod/ Tazobactam Sod (Zosyn Per Pharmacy) 1 each PRN DAILY PRN MC SEE COMMENTS; Start 08/05/18 at 15:00 Piperacillin Sod/ Tazobactam Sod 4.5 gm/Sodium Chloride 100 ml @ 200 mls/hr ONCE ONCE IV Last administered on 08/05/18at 15:00; Start 08/05/18 at 15:00; Stop 08/05/18 at 15:29; Status DC Vancomycin HCl (Vanco Per Pharmacy) 1 each PRN DAILY PRN MC SEE COMMENTS Last administered on 08/08/18at 10:48; Start 08/05/18 at 16:15; Stop 08/09/18 at 07:57; Status DC Vancomycin HCl 2 gm/Sodium Chloride 500 ml @ 250 mls/hr 1X ONCE IV Last administered on 08/05/18at 16:17; Start 08/05/18 at 16:15; Stop 08/05/18 at 18:14; Status DC Ondansetron HCl (Zofran) 4 mg PRN Q8HRS PRN IV NAUSEA/VOMITING; Start 08/05/18 at 16:45; Stop 08/06/18 at 16:44; Status DC Morphine Sulfate (Morphine Sulfate) 2 mg PRN Q2HR PRN IV PAIN; Start 08/05/18 at 16:45; Stop 08/06/18 at 16:44; Status DC Sodium Chloride 1,000 ml @ 100 mls/hr Q10H IV Last administered on 08/06/18at 00:12; Start 08/05/18 at 16:43; Stop 08/05/18 at 20:42; Status DC Piperacillin Sod/ Tazobactam Sod 3.375 gm/Sodium Chloride 50 ml @ 100 mls/hr Q6HRS IV Last administered on 08/10/18at 05:56; Start 08/06/18 at 00:00 Vancomycin HCl 1.5 gm/Sodium Chloride 500 ml @ 250 mls/hr Q24H IV Last administered on 08/06/18at 16:41; Start 08/06/18 at 16:00; Stop 08/07/18 at 16:18; Status DC Vancomycin HCl (Vancomycin Trough Level) 1 each 1X ONCE MC Last administered on 08/07/18at 15:30; Start 08/07/18 at 15:30; Stop 08/07/18 at 15:31; Status DC Sodium Chloride 1,000 ml @ 166.667 mls/hr Q6H IV Last administered on 08/06/18at 05:42; Start 08/05/18 at 17:24; Stop 08/06/18 at 05:48; Status DC Aspirin (Children'S Aspirin) 81 mg DAILY PO Last administered on 08/10/18at 07:58; Start 08/06/18 at 09:00 Calcium Carbonate/ Glycine (Oscal) 1,000 mg DAILY PO Last administered on 08/10/18at 07:59; Start 08/06/18 at 09:00 Glipizide (Glucotrol) 10 mg DAILY PO ; Start 08/06/18 at 09:00; Stop 08/06/18 at 10:27; Status DC Atorvastatin Calcium (Lipitor) 80 mg QHS PO Last administered on 08/06/18at 00:15; Start 08/05/18 at 21:00; Stop 08/06/18 at 10:27; Status DC Lisinopril (Prinivil) 5 mg DAILY PO Last administered on 08/10/18 08:02; Start 08/06/18 at 09:00 Metoprolol Succinate (Toprol Xl) 200 mg DAILY PO Last administered on 08/10/18at 08:00; Start 08/06/18 at 09:00 Fish Oil (Fish Oil) 2,000 mg DAILY PO Last administered on 08/10/18 07:58; Start 08/06/18 at 09:00 Pantoprazole Sodium (Protonix) 40 mg DAILYAC PO Last administered on 08/10/18 07:57; Start 08/06/18 at 07:30 Pioglitazone HCl (Actos) 30 mg DAILY PO ; Start 08/06/18 at 09:00; Stop 08/06/18 at 18:11; Status DC Linagliptin (Tradjenta) 5 mg DAILY PO ; Start 08/06/18 at 09:00; Stop 08/06/18 at 18:11; Status DC Haloperidol Lactate (Haldol Inj) 5 mg PRN Q6HRS PRN IVP AGITATION; Start 08/05/18 at 19:30 Dextrose (Dextrose 50%-Water Syringe) 12.5 gm PRN Q15MIN PRN IV SEE COMMENTS Last administered on 08/05/18 21:43; Start 08/05/18 at 19:45 Acetaminophen (Tylenol) 650 mg PRN Q6HRS PRN PO FEVER Last administered on 08/07/18 21:26; Start 08/06/18 at 04:15 Potassium Chloride (Klor-Con) 10 meq [id number] PO Last administered on 08/08/18at 12:49; Start 08/06/18 at 10:30; Stop 08/09/18 at 08:20; Status DC Insulin Human Lispro (HumaLOG) 0-5 UNITS TIDWMEALS SQ Last administered on 08/10/18 08:12; Start 08/06/18 at 12:00 Dextrose (Dextrose 50%-Water Syringe) 12.5 gm PRN Q15MIN PRN IV SEE COMMENTS; Start 08/06/18 at 10:30; Status UNV Lactobacillus Rhamnosus (Culturelle) 1 cap BID PO Last administered on 08/07/18 21:26; Start 08/06/18 at 21:00; Stop 08/08/18 at 10:39; Status DC Sodium Chloride 1,000 ml @ 100 mls/hr Q10H IV Last administered on 08/07/18at 11:46; Start 08/06/18 at 18:15; Stop 08/07/18 at 22:35; Status DC Nystatin (Nystop) 1 dayne BID TP Last administered on 08/10/18at 08:02; Start 08/06/18 at 21:00 Benzonatate (Tessalon Perle) 100 mg [id number] PO Last administered on 08/10/18at 08:02; Start 08/07/18 at 12:00 Guaifenesin (Robitussin Dm) 10 ml PRN Q6HRS PRN PO COUGH; Start 08/07/18 at 10:30 Micafungin Sodium 100 mg/Dextrose 100 ml @ 100 mls/hr Q24H IV Last administered on 08/09/18at 14:04; Start 08/07/18 at 12:00 Vancomycin HCl 2 gm/Sodium Chloride 500 ml @ 250 mls/hr Q24H IV Last administered on 08/08/18at 16:35; Start 08/07/18 at 16:30; Stop 08/09/18 at 07:57; Status DC Vancomycin HCl (Vancomycin Trough Level) 1 each 1X ONCE MC ; Start 08/09/18 at 16:00; Stop 08/09/18 at 16:00; Status DC Furosemide (Lasix) 40 mg 1X ONCE IVP Last administered on 08/07/18at 23:00; Start 08/07/18 at 23:00; Stop 08/07/18 at 23:01; Status DC Hydralazine HCl (Apresoline Inj) 10 mg PRN Q4HRS PRN IVP ELEVATED BP, SEE COMME NTS Last administered on 08/09/18at 17:20; Start 08/07/18 at 22:45 Albuterol Sulfate (Ventolin Neb Soln) 2.5 mg TID IH Last administered on 08/10/18at 07:53; Start 08/08/18 at 09:00 Albuterol Sulfate (Ventolin Neb Soln) 2.5 mg PRN Q3HRS PRN IH WHEEZING Last administered on 08/08/18at 16:17; Start 08/08/18 at 05:15 Lidocaine/Sodium Bicarbonate (Buffered Lidocaine 1%) 3 ml STK-MED ONCE .ROUTE ; Start 08/08/18 at 08:42; Stop 08/08/18 at 08:43; Status DC Lidocaine/Sodium Bicarbonate (Buffered Lidocaine 1%) 3 ml STK-MED ONCE .ROUTE ; Start 08/08/18 at 08:47; Stop 08/08/18 at 08:48; Status DC Lidocaine/Sodium Bicarbonate (Buffered Lidocaine 1%) 3 ml STK-MED ONCE .ROUTE ; Start 08/08/18 at 08:47; Stop 08/08/18 at 08:48; Status DC Midazolam HCl (Versed) 2 mg STK-MED ONCE .ROUTE ; Start 08/08/18 at 08:49; Stop 08/08/18 at 08:50; Status DC Fentanyl Citrate (Fentanyl 2ml Vial) 100 mcg STK-MED ONCE .ROUTE ; Start 08/08/18 at 08:49; Stop 08/08/18 at 08:50; Status DC Fentanyl Citrate (Fentanyl 2ml Vial) 25 mcg PRN Q5MIN PRN IV MILD PAIN; Start 08/09/18 at 07:00; Stop 08/10/18 at 07:00; Status DC Fentanyl Citrate (Fentanyl 2ml Vial) 50 mcg PRN Q5MIN PRN IV MODERATE TO SEVERE PAIN; Start 08/09/18 at 07:00; Stop 08/10/18 at 07:00; Status DC Morphine Sulfate (Morphine Sulfate) 1 mg PRN Q10MIN PRN IV SEVERE PAIN; Start 08/09/18 at 07:00; Stop 08/10/18 at 07:00; Status DC Ringer's Solution 1,000 ml @ 30 mls/hr Q24H IV ; Start 08/09/18 at 07:00; Stop 08/09/18 at 18:59; Status DC Lidocaine HCl (Xylocaine-Mpf 1% 2ml Vial) 2 ml PRN 1X PRN ID PRIOR TO IV START; Start 08/09/18 at 07:00; Stop 08/10/18 at 07:00; Status DC Hydromorphone HCl (Dilaudid) 0.5 mg PRN Q10MIN PRN IV SEV PAIN, Second choice; Start 08/09/18 at 07:00; Stop 08/10/18 at 07:00; Status DC Prochlorperazine Edisylate (Compazine) 5 mg PACU PRN PRN IV NAUSEA, MRX1; Start 08/09/18 at 07:00; Stop 08/10/18 at 07:00; Status DC Multivitamins/ Minerals (I-Burak) 1 tab DAILY PO Last administered on 08/10/18at 07:59; Start 08/08/18 at 15:00 Ascorbic Acid (Vitamin C) 500 mg DAILY PO Last administered on 08/10/18at 08:01; Start 08/08/18 at 15:00 Furosemide (Lasix) 40 mg 1X ONCE IVP Last administered on 08/08/18at 16:34; Start 08/08/18 at 16:30; Stop 08/08/18 at 16:31; Status DC Doxycycline Hyclate (Vibra-Tab) 100 mg BID PO Last administered on 08/10/18at 08:01; Start 08/09/18 at 09:00 Linagliptin (Tradjenta) 5 mg DAILY PO Last administered on 08/10/18at 08:01; Start 08/09/18 at 09:00 Potassium Chloride (Klor-Con) 10 meq BID PO Last administered on 08/10/18at 07:59; Start 08/09/18 at 09:00 Propofol 40 ml @ As Directed STK-MED ONCE IV ; Start 08/09/18 at 12:09; Stop 08/09/18 at 12:10; Status DC Lidocaine/Sodium Bicarbonate (Buffered Lidocaine 1%) 3 ml STK-MED ONCE .ROUTE ; Start 08/09/18 at 12:25; Stop 08/09/18 at 12:26; Status DC Lidocaine/Sodium Bicarbonate (Buffered Lidocaine 1%) 12 ml 1X ONCE INJ Last administered on 08/09/18at 12:43; Start 08/09/18 at 12:45; Stop 08/09/18 at 12:46; Status DC Albuterol Sulfate (Ventolin Neb Soln) 2.5 mg 1X ONCE IH Last administered on 08/10/18at 02:32; Start 08/10/18 at 03:00; Stop 08/10/18 at 03:01; Status DC Active Scripts Active Omeprazole 40 Mg Capsule.dr 40 Mg PO DAILY Aspirin 81 Mg Tab.chew 81 Mg PO DAILY Pioglitazone Hcl 30 Mg Tablet 30 Mg PO DAILY Atorvastatin Calcium 80 Mg Tablet 80 Mg PO HS Reported Metoprolol Tartrate 100 Mg Tablet 2 Tab PO DAILY Glipizide 5 Mg Tablet 2 Tab PO DAILY Mcbee 3 Fish Oil Softgel (Mcbee-3 Fatty Acids/Fish Oil) 1 Each Capsule.dr 2 Each PO DAILY Calcium Carbonate 500 Mg Tablet 1,000 Mg PO DAILY Januvia (Sitagliptin Phosphate) 50 Mg Tablet 1 Tab PO DAILY Lisinopril 5 Mg Tablet 1 Tab PO DAILY Vitals/I & O Vital Sign - Last 24 Hours 08/09/18 08/09/18 08/09/18 08/09/18 09:29 09:29 11:00 13:00 Temp 97.8 98.8 97.8 98.8 Pulse 89 89 86 74 Resp 22 20 B/P (MAP) 145/74 145/74 139/78 (98) 126/57 Pulse Ox 92 94 O2 Delivery Nasal Cannula Simple Mask O2 Flow Rate 2.5 10 08/09/18 08/09/18 08/09/18 08/09/18 13:06 13:13 13:32 13:55 Temp 98.0 98.1 98.0 98.1 Pulse 82 71 77 Resp 20 16 20 B/P (MAP) 164/65 144/64 140/75 (96) Pulse Ox 98 94 94 O2 Delivery Nasal Cannula Simple Mask Nasal Cannula Nasal Cannula O2 Flow Rate 10 10 3 2.0 08/09/18 08/09/18 08/09/18 08/09/18 14:00 14:09 14:15 14:30 B/P (MAP) 143/80 (101) 150/83 (105) 147/69 (95) O2 Delivery Nasal Cannula O2 Flow Rate 3.0 08/09/18 08/09/18 08/09/18 08/09/18 14:45 15:00 15:15 15:28 Temp 98.2 98.2 Pulse 78 Resp 22 B/P (MAP) 158/90 (112) 164/86 (112) 168/76 (106) 147/69 (95) Pulse Ox 95 O2 Delivery Nasal Cannula O2 Flow Rate 2.0 08/09/18 08/09/18 08/09/18 08/09/18 15:30 15:45 16:00 16:45 B/P (MAP) 168/70 (102) 164/72 (102) 162/77 (105) 228/107 (147) 08/09/18 08/09/18 08/09/18 08/09/18 17:00 17:20 19:45 20:00 Temp 98.4 98.4 Pulse 83 95 Resp 26 B/P (MAP) 151/82 (105) 191/93 140/83 (102) Pulse Ox 93 O2 Delivery Nasal Cannula Bi-pap O2 Flow Rate 3.0 3.0 08/09/18 08/09/18 08/09/18 08/10/18 20:31 20:42 23:29 02:32 Temp 98.6 98.6 Resp 24 B/P (MAP) 165/73 (103) 153/85 (107) Pulse Ox 96 94 96 O2 Delivery Nasal Cannula Nasal Cannula Nasal Cannula O2 Flow Rate 3.0 3.0 3.0 08/10/18 08/10/18 08/10/18 08/10/18 02:32 03:10 07:48 07:53 Temp 98.4 97.7 98.4 97.7 Pulse 78 80 Resp 23 26 B/P (MAP) 130/71 (90) 205/81 (122) Pulse Ox 99 95 96 95 O2 Delivery BiPAP/CPAP BiPAP/CPAP BiPAP/CPAP Nasal Cannula O2 Flow Rate 3.0 08/10/18 08/10/18 08/10/18 08:00 08:02 08:04 Pulse 80 80 86 B/P (MAP) 205/81 205/81 160/68 (98) O2 Flow Rate 3.0 Intake and Output 08/09/18 08/09/18 08/10/18 14:59 22:59 06:59 Intake Total 440 ml 100 ml Output Total 350 ml 300 ml 200 ml Balance -350 ml 140 ml -100 ml KEVON FUENTES MD August 10, 2018 09:01
[2018-08-10] MEDS: LISINOPRIL 20 MG TABLET PO SCH (09:30)
[2018-08-10] MEDS ORDERED: VITS A & D/LANOLIN TOPICAL OINTMENT 56GM TUBE. TP PRN (09:45)
--- NOTE | 2018-08-10 09:53 | PDOC ---
SUBJECTIVE Subjective S: Getting bathed this morning, had bone marrow biopsy 08/09 O: Gen: elderly obese female in NAD, resting in bed, NAD Psych: Pleasant mood and affect Labs: Parvo IgG positive but IgM negative, SRINIVASAN low-level +1-80 prior labs showed wbc 0.8, Hb 9.8, plt 89 ANC 400 last diff ASMA pending procalc 0.27 lipase 206 neg HIV, Hep panel, c diff and flu SPEP neg for M spike ferr 2287 sat 29% AST 78, ALT 76 Rad: poss pneumonia, Gallstones, GB wall thickening A/P: 72 yo F admitted 08/05/18 with HCAP, weakness, pancytopenia, improving poss cholecystitis, hypoalbuminemia, comorbid including morbid obesity, DM, HTN, CAD. On Abx for HCAP and poss cholecystitis, initial UA concerning though cx neg. US abdomen 08/06/18 showed gall stones with wall thickening. infection: Abx, ID involved other comorbidities: per primary, others pancytopenia: BMBx done 08/09, results pending, pending ASMA, low level + SRINIVASAN, avoiding neupogen until results of bone marrow avail, suspect this may all be related to infection and comorbid conditions... Disposition: After continued clinical improvement, we'll be happy to follow up results of bone marrow as outpatient if she is discharged prior to those results being available, I will return on Wednesday but am available for questions in the interim Thank you kindly and please don't hesitate to call with questions. OBJECTIVE Vital Signs Vital Signs Date Time Temp Pulse Resp B/P (MAP) Pulse Ox O2 Delivery O2 Flow Rate FiO2 08/10/18 08:04 86 160/68 (98) 3.0 08/10/18 08:02 80 205/81 08/10/18 08:00 80 205/81 08/10/18 07:53 95 Nasal Cannula 3.0 08/10/18 07:48 97.7 80 26 205/81 (122) 96 BiPAP/CPAP 97.7 08/10/18 03:10 98.4 78 23 130/71 (90) 95 BiPAP/CPAP 98.4 08/10/18 02:32 99 BiPAP/CPAP 08/10/18 02:32 96 Nasal Cannula 3.0 08/09/18 23:29 98.6 24 153/85 (107) 94 Nasal Cannula 3.0 98.6 08/09/18 20:42 96 Nasal Cannula 3.0 08/09/18 20:31 165/73 (103) 08/09/18 20:00 Bi-pap 3.0 08/09/18 19:45 98.4 95 26 140/83 (102) 93 Nasal Cannula 3.0 98.4 08/09/18 17:20 83 191/93 08/09/18 17:00 151/82 (105) 08/09/18 16:45 228/107 (147) 08/09/18 16:00 162/77 (105) 08/09/18 15:45 164/72 (102) 08/09/18 15:30 168/70 (102) 08/09/18 15:28 98.2 78 22 147/69 (95) 95 Nasal Cannula 2.0 98.2 08/09/18 15:15 168/76 (106) 08/09/18 15:00 164/86 (112) 08/09/18 14:45 158/90 (112) 08/09/18 14:30 147/69 (95) 08/09/18 14:15 150/83 (105) 08/09/18 14:09 Nasal Cannula 3.0 08/09/18 14:00 143/80 (101) 08/09/18 13:55 98.1 77 20 140/75 (96) 94 Nasal Cannula 2.0 98.1 08/09/18 13:32 98.0 71 16 144/64 94 Nasal Cannula 3 98.0 08/09/18 13:13 82 20 164/65 98 Simple Mask 10 08/09/18 13:06 Nasal Cannula 10 08/09/18 13:00 98.8 74 20 126/57 94 Simple Mask 10 98.8 08/09/18 11:00 97.8 86 22 139/78 (98) 92 Nasal Cannula 2.5 97.8 I & O Intake and Output 08/10/18 07:00 Intake Total 540 ml Output Total 850 ml Balance -310 ml Intake Oral 340 ml IV Total 200 ml Output Urine Total 850 ml # Bowel Movements 2 COMMENT Lab Laboratory Tests Test 08/09/18 11:22 08/09/18 16:37 08/09/18 20:29 08/10/18 03:20 Glucose (Fingerstick) 235 mg/dL (70-99) 312 mg/dL (70-99) 295 mg/dL (70-99) White Blood Count 0.8 x10^3/uL (4.0-11.0) Red Blood Count 2.94 x10^6/uL (3.50-5.40) Hemoglobin 9.4 g/dL (12.0-15.5) Hematocrit 27.6 % (36.0-47.0) Mean Corpuscular Volume 94 fL (79-100) Mean Corpuscular Hemoglobin 32 pg (25-35) Mean Corpuscular Hemoglobin Concent 34 g/dL (31-37) Red Cell Distribution Width 16.0 % (11.5-14.5) Platelet Count 93 x10^3/uL (140-400) Neutrophils (%) (Auto) 55 % (31-73) Lymphocytes (%) (Auto) 31 % (24-48) Monocytes (%) (Auto) 11 % (0-9) Eosinophils (%) (Auto) 2 % (0-3) Basophils (%) (Auto) 2 % (0-3) Neutrophils # (Auto) 0.4 x10^3uL (1.8-7.7) Lymphocytes # (Auto) 0.2 x10^3/uL (1.0-4.8) Monocytes # (Auto) 0.1 x10^3/uL (0.0-1.1) Eosinophils # (Auto) 0.0 x10^3/uL (0.0-0.7) Basophils # (Auto) 0.0 x10^3/uL (0.0-0.2) Sodium Level 136 mmol/L (136-145) Potassium Level 3.1 mmol/L (3.5-5.1) Chloride Level 101 mmol/L (98-107) Carbon Dioxide Level 25 mmol/L (21-32) Anion Gap 10 (6-14) Blood Urea Nitrogen 24 mg/dL (7-20) Creatinine 1.4 mg/dL (0.6-1.0) Estimated GFR (Cockcroft-Gault) 37.1 BUN/Creatinine Ratio 17 (6-20) Glucose Level 259 mg/dL (70-99) Calcium Level 8.6 mg/dL (8.5-10.1) Total Bilirubin 0.9 mg/dL (0.2-1.0) Aspartate Amino Transf (AST/SGOT) 55 U/L (15-37) Alanine Aminotransferase (ALT/SGPT) 63 U/L (14-59) Alkaline Phosphatase 84 U/L (46-116) Total Protein 5.7 g/dL (6.4-8.2) Albumin 1.2 g/dL (3.4-5.0) Albumin/Globulin Ratio 0.3 (1.0-1.7) Test 08/10/18 08:00 Glucose (Fingerstick) 237 mg/dL (70-99) CINTHYA ALBRECHT MD August 10, 2018 09:53
[2018-08-10] MEDS: glipiZIDE 5 MG TABLET PO SCH ×2 (10:12→17:05)
[2018-08-10] MEDS: LOPERAMIDE 2 MG CAPSULE PO PRN ×2 (10:12→23:46)
--- NOTE | 2018-08-10 10:56 | NUR ---
SS following up with discharge planning. Pt continuing to require oxygen. PT/OT ordered. SS will await PT/OT evaluations and recommendations and will proceed accordingly with discharge planning.
[2018-08-10] MEDS ORDERED: FUROSEMIDE 40 MG/4 ML VIAL. IVP ONE (11:30)
--- NOTE | 2018-08-10 11:31 | PDOC ---
PULMONARY PROGRESS NOTES Subjective no soa s/p BM bx Vitals Vital Signs Date Time Temp Pulse Resp B/P (MAP) Pulse Ox O2 Delivery O2 Flow Rate FiO2 08/10/18 10:15 97.9 81 24 113/53 (73) 96 Nasal Cannula 3.0 97.9 ROS: No Nausea, No Chest Pain, No Abdominal Pain, No Increase Cough General: Alert Lungs: Clear Cardiovascular: S1, S2 Abdomen: Soft Neuro Exam: Alert Extremities: Other (EDEMA) Labs Laboratory Tests Test 08/08/18 11:29 08/08/18 13:40 08/08/18 16:21 08/08/18 21:06 Glucose (Fingerstick) 223 mg/dL (70-99) 241 mg/dL (70-99) 275 mg/dL (70-99) Clostridium difficile Toxin B Gene Negative (Negative) Test 08/09/18 03:20 08/09/18 07:38 08/09/18 11:22 08/09/18 16:37 White Blood Count 0.8 x10^3/uL (4.0-11.0) Red Blood Count 3.06 x10^6/uL (3.50-5.40) Hemoglobin 9.8 g/dL (12.0-15.5) Hematocrit 28.6 % (36.0-47.0) Mean Corpuscular Volume 94 fL (79-100) Mean Corpuscular Hemoglobin 32 pg (25-35) Mean Corpuscular Hemoglobin Concent 34 g/dL (31-37) Red Cell Distribution Width 15.9 % (11.5-14.5) Platelet Count 89 x10^3/uL (140-400) Sodium Level 136 mmol/L (136-145) Potassium Level 3.4 mmol/L (3.5-5.1) Chloride Level 100 mmol/L (98-107) Carbon Dioxide Level 24 mmol/L (21-32) Anion Gap 12 (6-14) Blood Urea Nitrogen 23 mg/dL (7-20) Creatinine 1.6 mg/dL (0.6-1.0) Estimated GFR (Cockcroft-Gault) 31.8 BUN/Creatinine Ratio 14 (6-20) Glucose Level 249 mg/dL (70-99) Calcium Level 8.6 mg/dL (8.5-10.1) Total Bilirubin 0.8 mg/dL (0.2-1.0) Aspartate Amino Transf (AST/SGOT) 78 U/L (15-37) Alanine Aminotransferase (ALT/SGPT) 76 U/L (14-59) Alkaline Phosphatase 90 U/L (46-116) Total Protein 6.0 g/dL (6.4-8.2) Albumin 1.4 g/dL (3.4-5.0) Albumin/Globulin Ratio 0.3 (1.0-1.7) Glucose (Fingerstick) 242 mg/dL (70-99) 235 mg/dL (70-99) 312 mg/dL (70-99) Test 08/09/18 20:29 08/10/18 03:20 08/10/18 08:00 Glucose (Fingerstick) 295 mg/dL (70-99) 237 mg/dL (70-99) White Blood Count 0.8 x10^3/uL (4.0-11.0) Red Blood Count 2.94 x10^6/uL (3.50-5.40) Hemoglobin 9.4 g/dL (12.0-15.5) Hematocrit 27.6 % (36.0-47.0) Mean Corpuscular Volume 94 fL (79-100) Mean Corpuscular Hemoglobin 32 pg (25-35) Mean Corpuscular Hemoglobin Concent 34 g/dL (31-37) Red Cell Distribution Width 16.0 % (11.5-14.5) Platelet Count 93 x10^3/uL (140-400) Neutrophils (%) (Auto) 55 % (31-73) Lymphocytes (%) (Auto) 31 % (24-48) Monocytes (%) (Auto) 11 % (0-9) Eosinophils (%) (Auto) 2 % (0-3) Basophils (%) (Auto) 2 % (0-3) Neutrophils # (Auto) 0.4 x10^3uL (1.8-7.7) Lymphocytes # (Auto) 0.2 x10^3/uL (1.0-4.8) Monocytes # (Auto) 0.1 x10^3/uL (0.0-1.1) Eosinophils # (Auto) 0.0 x10^3/uL (0.0-0.7) Basophils # (Auto) 0.0 x10^3/uL (0.0-0.2) Sodium Level 136 mmol/L (136-145) Potassium Level 3.1 mmol/L (3.5-5.1) Chloride Level 101 mmol/L (98-107) Carbon Dioxide Level 25 mmol/L (21-32) Anion Gap 10 (6-14) Blood Urea Nitrogen 24 mg/dL (7-20) Creatinine 1.4 mg/dL (0.6-1.0) Estimated GFR (Cockcroft-Gault) 37.1 BUN/Creatinine Ratio 17 (6-20) Glucose Level 259 mg/dL (70-99) Calcium Level 8.6 mg/dL (8.5-10.1) Total Bilirubin 0.9 mg/dL (0.2-1.0) Aspartate Amino Transf (AST/SGOT) 55 U/L (15-37) Alanine Aminotransferase (ALT/SGPT) 63 U/L (14-59) Alkaline Phosphatase 84 U/L (46-116) Total Protein 5.7 g/dL (6.4-8.2) Albumin 1.2 g/dL (3.4-5.0) Albumin/Globulin Ratio 0.3 (1.0-1.7) Laboratory Tests Test 08/09/18 16:37 08/09/18 20:29 08/10/18 03:20 08/10/18 08:00 Glucose (Fingerstick) 312 mg/dL (70-99) 295 mg/dL (70-99) 237 mg/dL (70-99) White Blood Count 0.8 x10^3/uL (4.0-11.0) Red Blood Count 2.94 x10^6/uL (3.50-5.40) Hemoglobin 9.4 g/dL (12.0-15.5) Hematocrit 27.6 % (36.0-47.0) Mean Corpuscular Volume 94 fL (79-100) Mean Corpuscular Hemoglobin 32 pg (25-35) Mean Corpuscular Hemoglobin Concent 34 g/dL (31-37) Red Cell Distribution Width 16.0 % (11.5-14.5) Platelet Count 93 x10^3/uL (140-400) Neutrophils (%) (Auto) 55 % (31-73) Lymphocytes (%) (Auto) 31 % (24-48) Monocytes (%) (Auto) 11 % (0-9) Eosinophils (%) (Auto) 2 % (0-3) Basophils (%) (Auto) 2 % (0-3) Neutrophils # (Auto) 0.4 x10^3uL (1.8-7.7) Lymphocytes # (Auto) 0.2 x10^3/uL (1.0-4.8) Monocytes # (Auto) 0.1 x10^3/uL (0.0-1.1) Eosinophils # (Auto) 0.0 x10^3/uL (0.0-0.7) Basophils # (Auto) 0.0 x10^3/uL (0.0-0.2) Sodium Level 136 mmol/L (136-145) Potassium Level 3.1 mmol/L (3.5-5.1) Chloride Level 101 mmol/L (98-107) Carbon Dioxide Level 25 mmol/L (21-32) Anion Gap 10 (6-14) Blood Urea Nitrogen 24 mg/dL (7-20) Creatinine 1.4 mg/dL (0.6-1.0) Estimated GFR (Cockcroft-Gault) 37.1 BUN/Creatinine Ratio 17 (6-20) Glucose Level 259 mg/dL (70-99) Calcium Level 8.6 mg/dL (8.5-10.1) Total Bilirubin 0.9 mg/dL (0.2-1.0) Aspartate Amino Transf (AST/SGOT) 55 U/L (15-37) Alanine Aminotransferase (ALT/SGPT) 63 U/L (14-59) Alkaline Phosphatase 84 U/L (46-116) Total Protein 5.7 g/dL (6.4-8.2) Albumin 1.2 g/dL (3.4-5.0) Albumin/Globulin Ratio 0.3 (1.0-1.7) Medications Active Scripts Medications Dose Route/Sig Max Daily Dose Days Date Category Metoprolol Tartrate 100 Mg Tablet 2 Tab PO DAILY 08/05/18 Reported Glipizide 5 Mg Tablet 2 Tab PO DAILY 08/05/18 Reported [place] 3 Fish Oil Softgel ([place]-3 Fatty Acids/Fish Oil) 1 Each Capsule.dr 2 Each PO DAILY 08/05/18 Reported Calcium Carbonate 500 Mg Tablet 1,000 Mg PO DAILY 08/05/18 Reported Januvia (Sitagliptin Phosphate) 50 Mg Tablet 1 Tab PO DAILY 08/05/18 Reported Lisinopril 5 Mg Tablet 1 Tab PO DAILY 08/05/18 Reported Omeprazole 40 Mg Capsule.dr 40 Mg PO DAILY 07/03/13 Rx Aspirin 81 Mg Tab.chew 81 Mg PO DAILY 07/03/13 Rx Pioglitazone Hcl 30 Mg Tablet 30 Mg PO DAILY 07/03/13 Rx Atorvastatin Calcium 80 Mg Tablet 80 Mg PO HS 07/03/13 Rx Impression . 1. Acute hypoxemic respiratory failure. 2. Abnormal x-ray compatible with pulmonary edema, Diastolic HF vs right heart failure ? pneumonia. 3. Metabolic toxic encephalopathy, present upon admission.resolved 4. Morbid obesity./likely cor-pulmonale 5. Coronary artery disease with previous coronary artery bypass grafting. 6. Hypertension. 7. Acute pancytopenia, s/p BM BX 8. Sepsis Plan . BIPAP PRN CXR NO CHANGE IV LASIX today repeat cxr in am D/W FOLLOW RESULTS OF BM bx GEE WELSH MD August 10, 2018 11:31
[2018-08-10] MEDS: POTASSIUM CHLORIDE 20 MEQ TABLET.ER. PO SCH ×2 (13:24→17:06)
[2018-08-10] MEDS: MICAFUNGIN 100 MG in IV DEXTROSE 5% 100ML 100 ML IV SCH (13:26)
--- NOTE | 2018-08-10 15:04 | RAD ---
Left upper extremity venous ultrasound, 08/10/2018: HISTORY: Left arm edema Duplex evaluation of the major veins in the left upper extremity was performed including grayscale, color-flow and spectral Doppler analysis. The left internal jugular, subclavian, axillary and brachial veins are patent. Patent cephalic and basilic veins are evident. IMPRESSION: There is no duplex evidence of deep vein thrombosis in the left upper extremity. Electronically signed by: Matheus Heller MD (08/10/2018 3:01 PM) [facility]
[2018-08-10] MEDS: hydrALAZINE 20 MG/ML VIAL. IVP PRN (23:47)
[2018-08-11] VITALS (7 sets, daily range): BP systolic 108–188; BP diastolic 48–79
--- NOTE | 2018-08-11 02:46 | NUR ---
Pt on bipap at 0100 and off bipap at 0230 d/t unable to tolerate. 4LNC placed on patient.
[2018-08-11 05:15] LABS: HEMATOCRIT 28.1 % (36.0-47.0); HEMOGLOBIN 9.6 g/dL (12.0-15.5); RED BLOOD COUNT 3.02 x10^6/uL (3.50-5.40); RED CELL DISTRIBUTION WIDTH 16.2 % (11.5-14.5)
[2018-08-11 05:25] LABS: WHITE BLOOD COUNT 0.9 x10^3/uL (4.0-11.0)
[2018-08-11 05:30] LABS: CALCIUM 9.1 mg/dL (8.5-10.1); CREATININE 1.3 mg/dL (0.6-1.0); GFR 40.4
[2018-08-11] MEDS: PIPERACILLIN/TAZOBACTAM 3.375 GM in IV NORMAL SALINE 50ML 50 ML IV SCH ×3 (05:45→17:37)
[2018-08-11] MEDS: ALBUTEROL SULFATE 2.5 MG/3 ML NEBU. IH SCH ×3 (06:13→20:59)
[2018-08-11] MEDS: POTASSIUM CHLORIDE 20 MEQ TABLET.ER. PO SCH ×3 (08:00→16:12)
--- NOTE | 2018-08-11 08:47 | PDOC ---
PROGRESS NOTES Subjective Subjective Patient denies SOA or pain. Objective Objective Vital Signs Date Time Temp Pulse Resp B/P (MAP) Pulse Ox O2 Delivery O2 Flow Rate FiO2 08/11/18 07:00 97.5 81 30 139/72 (94) 94 Nasal Cannula 4.0 97.5 Intake and Output 08/11/18 06:59 Intake Total 940 ml Output Total 850 ml Balance 90 ml Intake Oral 940 ml Output Urine Total 850 ml # Bowel Movements 2 Physical Exam Abdomen: Normal bowel sounds, Soft, No tenderness Heart: Regular rate (frequent prematurities) Extremities: Other (1+ edema L UE, mild edema bilateral LE's) General: Alert, Oriented X3, No acute distress Lungs: Other (BS mildly decreased throughout,few wheezes) Assessment Assessment Problems Medical Problems: (1) Pneumonia Status: Acute (2) Severe sepsis Status: Acute (3) Urinary tract infection Status: Acute Plan Plan of Care 1. Sepsis - afebrile, cultures negative to date. Decreasing abx per ID. 2. acute hypoxic respiratory failure with pneumonia - stable, still requiring O2 and occasional Bipap. Continue tx per Pulmonary, adding Pulmicort nebs. 3. pancytopenia - stable but not improving. Await bone marrow bx report. 4. CKD III - stable on lab. 5. hypokalemia - K+ remains low, continue po replacement and give 40 meq IV today. 6. HTN - BP labile, question accuracy of measurements. Continue present meds and follow. 7. DM2 - glucose remains elevated despite several po meds, will add low dose of Lantus tonight. Continue SS. 8. L UE edema - persists but not worsening. Venous dopplers negative yesterday. 9. debility - continue therapies, anticipate transfer to alf when ready for discharge. Discussed with patient. 10. diarrhea - improving, negative for C diff, continue Imodium prn and probiotics. Comment Review of Relevant I have reviewed the following items ld (where applicable) has been applied. Labs Laboratory Tests Test 08/09/18 11:22 08/09/18 16:37 08/09/18 20:29 08/10/18 03:20 Glucose (Fingerstick) 235 mg/dL (70-99) 312 mg/dL (70-99) 295 mg/dL (70-99) White Blood Count 0.8 x10^3/uL (4.0-11.0) Red Blood Count 2.94 x10^6/uL (3.50-5.40) Hemoglobin 9.4 g/dL (12.0-15.5) Hematocrit 27.6 % (36.0-47.0) Mean Corpuscular Volume 94 fL (79-100) Mean Corpuscular Hemoglobin 32 pg (25-35) Mean Corpuscular Hemoglobin Concent 34 g/dL (31-37) Red Cell Distribution Width 16.0 % (11.5-14.5) Platelet Count 93 x10^3/uL (140-400) Neutrophils (%) (Auto) 55 % (31-73) Lymphocytes (%) (Auto) 31 % (24-48) Monocytes (%) (Auto) 11 % (0-9) Eosinophils (%) (Auto) 2 % (0-3) Basophils (%) (Auto) 2 % (0-3) Neutrophils # (Auto) 0.4 x10^3uL (1.8-7.7) Lymphocytes # (Auto) 0.2 x10^3/uL (1.0-4.8) Monocytes # (Auto) 0.1 x10^3/uL (0.0-1.1) Eosinophils # (Auto) 0.0 x10^3/uL (0.0-0.7) Basophils # (Auto) 0.0 x10^3/uL (0.0-0.2) Sodium Level 136 mmol/L (136-145) Potassium Level 3.1 mmol/L (3.5-5.1) Chloride Level 101 mmol/L (98-107) Carbon Dioxide Level 25 mmol/L (21-32) Anion Gap 10 (6-14) Blood Urea Nitrogen 24 mg/dL (7-20) Creatinine 1.4 mg/dL (0.6-1.0) Estimated GFR (Cockcroft-Gault) 37.1 BUN/Creatinine Ratio 17 (6-20) Glucose Level 259 mg/dL (70-99) Calcium Level 8.6 mg/dL (8.5-10.1) Total Bilirubin 0.9 mg/dL (0.2-1.0) Aspartate Amino Transf (AST/SGOT) 55 U/L (15-37) Alanine Aminotransferase (ALT/SGPT) 63 U/L (14-59) Alkaline Phosphatase 84 U/L (46-116) Total Protein 5.7 g/dL (6.4-8.2) Albumin 1.2 g/dL (3.4-5.0) Albumin/Globulin Ratio 0.3 (1.0-1.7) Test 08/10/18 08:00 08/10/18 11:31 08/10/18 17:01 08/10/18 21:20 Glucose (Fingerstick) 237 mg/dL (70-99) 245 mg/dL (70-99) 277 mg/dL (70-99) 262 mg/dL (70-99) Test 08/11/18 04:30 08/11/18 07:17 White Blood Count 0.9 x10^3/uL (4.0-11.0) Red Blood Count 3.02 x10^6/uL (3.50-5.40) Hemoglobin 9.6 g/dL (12.0-15.5) Hematocrit 28.1 % (36.0-47.0) Mean Corpuscular Volume 93 fL (79-100) Mean Corpuscular Hemoglobin 32 pg (25-35) Mean Corpuscular Hemoglobin Concent 34 g/dL (31-37) Red Cell Distribution Width 16.2 % (11.5-14.5) Platelet Count 87 x10^3/uL (140-400) Sodium Level 136 mmol/L (136-145) Potassium Level 3.0 mmol/L (3.5-5.1) Chloride Level 101 mmol/L (98-107) Carbon Dioxide Level 26 mmol/L (21-32) Anion Gap 9 (6-14) Blood Urea Nitrogen 27 mg/dL (7-20) Creatinine 1.3 mg/dL (0.6-1.0) Estimated GFR (Cockcroft-Gault) 40.4 Glucose Level 275 mg/dL (70-99) Calcium Level 9.1 mg/dL (8.5-10.1) Glucose (Fingerstick) 267 mg/dL (70-99) Laboratory Tests Test 08/10/18 11:31 08/10/18 17:01 08/10/18 21:20 08/11/18 04:30 Glucose (Fingerstick) 245 mg/dL (70-99) 277 mg/dL (70-99) 262 mg/dL (70-99) White Blood Count 0.9 x10^3/uL (4.0-11.0) Red Blood Count 3.02 x10^6/uL (3.50-5.40) Hemoglobin 9.6 g/dL (12.0-15.5) Hematocrit 28.1 % (36.0-47.0) Mean Corpuscular Volume 93 fL (79-100) Mean Corpuscular Hemoglobin 32 pg (25-35) Mean Corpuscular Hemoglobin Concent 34 g/dL (31-37) Red Cell Distribution Width 16.2 % (11.5-14.5) Platelet Count 87 x10^3/uL (140-400) Sodium Level 136 mmol/L (136-145) Potassium Level 3.0 mmol/L (3.5-5.1) Chloride Level 101 mmol/L (98-107) Carbon Dioxide Level 26 mmol/L (21-32) Anion Gap 9 (6-14) Blood Urea Nitrogen 27 mg/dL (7-20) Creatinine 1.3 mg/dL (0.6-1.0) Estimated GFR (Cockcroft-Gault) 40.4 Glucose Level 275 mg/dL (70-99) Calcium Level 9.1 mg/dL (8.5-10.1) Test 08/11/18 07:17 Glucose (Fingerstick) 267 mg/dL (70-99) Microbiology 08/05/18 Blood Culture - Final, Complete NO GROWTH AFTER 5 DAYS 08/05/18 Urine Culture - Final, Complete 08/05/18 Urine Culture Result 1 (TINO) - Final, Complete Medications Current Medications Piperacillin Sod/ Tazobactam Sod (Zosyn Per Pharmacy) 1 each PRN DAILY PRN MC SEE COMMENTS; Start 08/05/18 at 15:00 Piperacillin Sod/ Tazobactam Sod 4.5 gm/Sodium Chloride 100 ml @ 200 mls/hr ONCE ONCE IV Last administered on 08/05/18at 15:00; Start 08/05/18 at 15:00; Stop 08/05/18 at 15:29; Status DC Vancomycin HCl (Vanco Per Pharmacy) 1 each PRN DAILY PRN MC SEE COMMENTS Last administered on 08/08/18at 10:48; Start 08/05/18 at 16:15; Stop 08/09/18 at 07:57; Status DC Vancomycin HCl 2 gm/Sodium Chloride 500 ml @ 250 mls/hr 1X ONCE IV Last admin istered on 08/05/18at 16:17; Start 08/05/18 at 16:15; Stop 08/05/18 at 18:14; Status DC Ondansetron HCl (Zofran) 4 mg PRN Q8HRS PRN IV NAUSEA/VOMITING; Start 08/05/18 at 16:45; Stop 08/06/18 at 16:44; Status DC Morphine Sulfate (Morphine Sulfate) 2 mg PRN Q2HR PRN IV PAIN; Start 08/05/18 at 16:45; Stop 08/06/18 at 16:44; Status DC Sodium Chloride 1,000 ml @ 100 mls/hr Q10H IV Last administered on 08/06/18at 00:12; Start 08/05/18 at 16:43; Stop 08/05/18 at 20:42; Status DC Piperacillin Sod/ Tazobactam Sod 3.375 gm/Sodium Chloride 50 ml @ 100 mls/hr Q6HRS IV Last administered on 08/11/18at 05:45; Start 08/06/18 at 00:00 Vancomycin HCl 1.5 gm/Sodium Chloride 500 ml @ 250 mls/hr Q24H IV Last administered on 08/06/18at 16:41; Start 08/06/18 at 16:00; Stop 08/07/18 at 16:18; Status DC Vancomycin HCl (Vancomycin Trough Level) 1 each 1X ONCE MC Last administered on 08/07/18at 15:30; Start 08/07/18 at 15:30; Stop 08/07/18 at 15:31; Status DC Sodium Chloride 1,000 ml @ 166.667 mls/hr Q6H IV Last administered on 08/06/18at 05:42; Start 08/05/18 at 17:24; Stop 08/06/18 at 05:48; Status DC Aspirin (Children'S Aspirin) 81 mg DAILY PO Last administered on 08/10/18at 07:58; Start 08/06/18 at 09:00 Calcium Carbonate/ Glycine (Oscal) 1,000 mg DAILY PO Last administered on 08/10/18at 07:59; Start 08/06/18 at 09:00 Glipizide (Glucotrol) 10 mg DAILY PO ; Start 08/06/18 at 09:00; Stop 08/06/18 at 10:27; Status DC Atorvastatin Calcium (Lipitor) 80 mg QHS PO Last administered on 08/06/18at 00:15; Start 08/05/18 at 21:00; Stop 08/06/18 at 10:27; Status DC Lisinopril (Prinivil) 5 mg DAILY PO Last administered on 08/10/18at 08:02; Start 08/06/18 at 09:00; Stop 08/10/18 at 08:47; Status DC Metoprolol Succinate (Toprol Xl) 200 mg DAILY PO Last administered on 08/10/18at 08:00; Start 08/06/18 at 09:00 Fish Oil (Fish Oil) 2,000 mg DAILY PO Last administered on 08/10/18at 07:58; Start 08/06/18 at 09:00 Pantoprazole Sodium (Protonix) 40 mg DAILYAC PO Last administered on 08/10/18at 07:57; Start 08/06/18 at 07:30 Pioglitazone HCl (Actos) 30 mg DAILY PO ; Start 08/06/18 at 09:00; Stop 08/06/18 at 18:11; Status DC Linagliptin (Tradjenta) 5 mg DAILY PO ; Start 08/06/18 at 09:00; Stop 08/06/18 at 18:11; Status DC Haloperidol Lactate (Haldol Inj) 5 mg PRN Q6HRS PRN IVP AGITATION; Start 08/05/18 at 19:30 Dextrose (Dextrose 50%-Water Syringe) 12.5 gm PRN Q15MIN PRN IV SEE COMMENTS Last administered on 08/05/18at 21:43; Start 08/05/18 at 19:45 Acetaminophen (Tylenol) 650 mg PRN Q6HRS PRN PO FEVER Last administered on 08/07/18at 21:26; Start 08/06/18 at 04:15 Potassium Chloride (Klor-Con) 10 meq [id number] PO Last administered on 08/08/18at 12:49; Start 08/06/18 at 10:30; Stop 08/09/18 at 08:20; Status DC Insulin Human Lispro (HumaLOG) 0-5 UNITS TIDWMEALS SQ Last administered on 08/10/18at 17:20; Start 08/06/18 at 12:00 Dextrose (Dextrose 50%-Water Syringe) 12.5 gm PRN Q15MIN PRN IV SEE COMMENTS; Start 08/06/18 at 10:30; Status UNV Lactobacillus Rhamnosus (Culturelle) 1 cap BID PO Last administered on 08/07/18at 21:26; Start 08/06/18 at 21:00; Stop 08/08/18 at 10:39; Status DC Sodium Chloride 1,000 ml @ 100 mls/hr Q10H IV Last administered on 08/07/18at 11:46; Start 08/06/18 at 18:15; Stop 08/07/18 at 22:35; Status DC Nystatin (Nystop) 1 dayne BID TP Last administered on 08/10/18at 22:15; Start 08/06/18 at 21:00 Benzonatate (Tessalon Perle) 100 mg [id number] PO Last administered on 08/10/18at 22:15; Start 08/07/18 at 12:00 Guaifenesin (Robitussin Dm) 10 ml PRN Q6HRS PRN PO COUGH; Start 08/07/18 at 10:30 Micafungin Sodium 100 mg/Dextrose 100 ml @ 100 mls/hr Q24H IV Last administered on 08/10/18at 13:26; Start 08/07/18 at 12:00 Vancomycin HCl 2 gm/Sodium Chloride 500 ml @ 250 mls/hr Q24H IV Last administered on 08/08/18at 16:35; Start 08/07/18 at 16:30; Stop 08/09/18 at 07:57; Status DC Vancomycin HCl (Vancomycin Trough Level) 1 each 1X ONCE MC ; Start 08/09/18 at 16:00; Stop 08/09/18 at 16:00; Status DC Furosemide (Lasix) 40 mg 1X ONCE IVP Last administered on 08/07/18at 23:00; Start 08/07/18 at 23:00; Stop 08/07/18 at 23:01; Status DC Hydralazine HCl (Apresoline Inj) 10 mg PRN Q4HRS PRN IVP ELEVATED BP, SEE COMMENTS Last administered on 08/10/18at 23:47; Start 08/07/18 at 22:45 Albuterol Sulfate (Ventolin Neb Soln) 2.5 mg TID IH Last administered on 08/11/18at 06:13; Start 08/08/18 at 09:00 Albuterol Sulfate (Ventolin Neb Soln) 2.5 mg PRN Q3HRS PRN IH WHEEZING Last administered on 08/08/18at 16:17; Start 08/08/18 at 05:15 Lidocaine/Sodium Bicarbonate (Buffered Lidocaine 1%) 3 ml STK-MED ONCE .ROUTE ; Start 08/08/18 at 08:42; Stop 08/08/18 at 08:43; Status DC Lidocaine/Sodium Bicarbonate (Buffered Lidocaine 1%) 3 ml STK-MED ONCE .ROUTE ; Start 08/08/18 at 08:47; Stop 08/08/18 at 08:48; Status DC Lidocaine/Sodium Bicarbonate (Buffered Lidocaine 1%) 3 ml STK-MED ONCE .ROUTE ; Start 08/08/18 at 08:47; Stop 08/08/18 at 08:48; Status DC Midazolam HCl (Versed) 2 mg STK-MED ONCE .ROUTE ; Start 08/08/18 at 08:49; Stop 08/08/18 at 08:50; Status DC Fentanyl Citrate (Fentanyl 2ml Vial) 100 mcg STK-MED ONCE .ROUTE ; Start 08/08/18 at 08:49; Stop 08/08/18 at 08:50; Status DC Fentanyl Citrate (Fentanyl 2ml Vial) 25 mcg PRN Q5MIN PRN IV MILD PAIN; Start 08/09/18 at 07:00; Stop 08/10/18 at 07:00; Status DC Fentanyl Citrate (Fentanyl 2ml Vial) 50 mcg PRN Q5MIN PRN IV MODERATE TO SEVERE PAIN; Start 08/09/18 at 07:00; Stop 08/10/18 at 07:00; Status DC Morphine Sulfate (Morphine Sulfate) 1 mg PRN Q10MIN PRN IV SEVERE PAIN; Start 08/09/18 at 07:00; Stop 08/10/18 at 07:00; Status DC Ringer's Solution 1,000 ml @ 30 mls/hr Q24H IV ; Start 08/09/18 at 07:00; Stop 08/09/18 at 18:59; Status DC Lidocaine HCl (Xylocaine-Mpf 1% 2ml Vial) 2 ml PRN 1X PRN ID PRIOR TO IV START; Start 08/09/18 at 07:00; Stop 08/10/18 at 07:00; Status DC Hydromorphone HCl (Dilaudid) 0.5 mg PRN Q10MIN PRN IV SEV PAIN, Second choice; Start 08/09/18 at 07:00; Stop 08/10/18 at 07:00; Status DC Prochlorperazine Edisylate (Compazine) 5 mg PACU PRN PRN IV NAUSEA, MRX1; Start 08/09/18 at 07:00; Stop 08/10/18 at 07:00; Status DC Multivitamins/ Minerals (I-Burak) 1 tab DAILY PO Last administered on 08/10/18at 07:59; Start 08/08/18 at 15:00 Ascorbic Acid (Vitamin C) 500 mg DAILY PO Last administered on 08/10/18at 08:01; Start 08/08/18 at 15:00 Furosemide (Lasix) 40 mg 1X ONCE IVP Last administered on 08/08/18at 16:34; Start 08/08/18 at 16:30; Stop 08/08/18 at 16:31; Status DC Doxycycline Hyclate (Vibra-Tab) 100 mg BID PO Last administered on 08/10/18at 08:01; Start 08/09/18 at 09:00; Stop 08/10/18 at 09:22; Status DC Linagliptin (Tradjenta) 5 mg DAILY PO Last administered on 08/10/18at 08:01; Start 08/09/18 at 09:00 Potassium Chloride (Klor-Con) 10 meq BID PO Last administered on 08/10/18at 07:59; Start 08/09/18 at 09:00; Stop 08/10/18 at 08:47; Status DC Propofol 40 ml @ As Directed STK-MED ONCE IV ; Start 08/09/18 at 12:09; Stop 08/09/18 at 12:10; Status DC Lidocaine/Sodium Bicarbonate (Buffered Lidocaine 1%) 3 ml STK-MED ONCE .ROUTE ; Start 08/09/18 at 12:25; Stop 08/09/18 at 12:26; Status DC Lidocaine/Sodium Bicarbonate (Buffered Lidocaine 1%) 12 ml 1X ONCE INJ Last administered on 08/09/18at 12:43; Start 08/09/18 at 12:45; Stop 08/09/18 at 12:46; Status DC Albuterol Sulfate (Ventolin Neb Soln) 2.5 mg 1X ONCE IH Last administered on 08/10/18at 02:32; Start 08/10/18 at 03:00; Stop 08/10/18 at 03:01; Status DC Lisinopril (Prinivil) 20 mg DAILY PO ; Start 08/10/18 at 09:30 Potassium Chloride (Klor-Con) 20 meq TIDWMEALS PO Last administered on 08/10/18at 17:06; Start 08/10/18 at 12:00 Glipizide (Glucotrol) 5 mg BIDBFRMEAL PO Last administered on 08/10/18at 17:05; Start 08/10/18 at 09:30 Loperamide HCl (Imodium) 2 mg PRN Q15MIN PRN PO DIARRHEA Last administered on 08/10/18at 23:46; Start 08/10/18 at 09:15 Vitamin A/Vitamin D (Vitamin A & D Ointment) 1 dayne PRN Q1HR PRN TP SKIN PROTECTION; Start 08/10/18 at 09:45 Furosemide (Lasix) 40 mg 1X ONCE IVP Last administered on 08/10/18at 13:25; Start 08/10/18 at 11:30; Stop 08/10/18 at 11:38; Status DC Active Scripts Active Omeprazole 40 Mg Capsule. 40 Mg PO DAILY Aspirin 81 Mg Tab.chew 81 Mg PO DAILY Pioglitazone Hcl 30 Mg Tablet 30 Mg PO DAILY Atorvastatin Calcium 80 Mg Tablet 80 Mg PO HS Reported Metoprolol Tartrate 100 Mg Tablet 2 Tab PO DAILY Glipizide 5 Mg Tablet 2 Tab PO DAILY [place] 3 Fish Oil Softgel ([place]-3 Fatty Acids/Fish Oil) 1 Each Capsule. 2 Each PO DAILY Calcium Carbonate 500 Mg Tablet 1,000 Mg PO DAILY Januvia (Sitagliptin Phosphate) 50 Mg Tablet 1 Tab PO DAILY Lisinopril 5 Mg Tablet 1 Tab PO DAILY Vitals/I & O Vital Sign - Last 24 Hours 08/10/18 08/10/18 08/10/18 08/10/18 09:30 10:15 10:15 15:00 Temp 97.9 97.7 97.9 97.7 Pulse 74 74 81 86 Resp 24 24 B/P (MAP) 113/53 113/53 (73) 113/53 (73) 186/77 (113) Pulse Ox 96 98 O2 Delivery Nasal Cannula Nasal Cannula O2 Flow Rate 3.0 3.0 08/10/18 08/10/18 08/10/18 08/10/18 15:30 19:10 20:00 20:14 Temp 98.1 98.1 Pulse 89 Resp 24 B/P (MAP) 169/71 (103) Pulse Ox 95 93 95 O2 Delivery Nasal Cannula Nasal Cannula Nasal Cannula Nasal Cannula O2 Flow Rate 3.0 3.0 3.0 3.0 08/10/18 08/10/18 08/11/18 08/11/18 23:41 23:47 00:11 01:36 Temp 98.4 98.4 Pulse 90 90 90 Resp 23 20 B/P (MAP) 202/83 (122) 202/83 108/48 (68) Pulse Ox 96 O2 Delivery Nasal Cannula Nasal Cannula BiPAP/CPAP O2 Flow Rate 2.0 08/11/18 08/11/18 08/11/18 03:10 06:12 07:00 Temp 98.6 97.5 98.6 97.5 Pulse 88 81 Resp 30 30 B/P (MAP) 188/79 (115) 139/72 (94) Pulse Ox 94 94 O2 Delivery Nasal Cannula Nasal Cannula Nasal Cannula O2 Flow Rate 4.0 3.0 4.0 Intake and Output 08/10/18 08/10/18 08/11/18 14:59 22:59 06:59 Intake Total 240 ml 400 ml 300 ml Output Total 150 ml 700 ml Balance 240 ml 250 ml -400 ml KEVON FUENTES MD August 11, 2018 08:47
[2018-08-11] MEDS: glipiZIDE 5 MG TABLET PO SCH ×2 (08:52→16:12)
[2018-08-11] MEDS: PANTOPRAZOLE 40 MG TABLET.DR. PO SCH (08:52)
[2018-08-11] MEDS: MULTIVITAMIN I-VITE TABLET. PO SCH (08:53)
[2018-08-11] MEDS: POTASSIUM CHLORIDE 10MEQ 100 ML IV SCH ×4 (08:53→12:45)
[2018-08-11] MEDS: LINAGLIPTIN 5 MG TABLET PO SCH (08:54)
[2018-08-11] MEDS: BENZONATATE 100 MG CAPSULE. PO SCH ×2 (08:54→16:12)
[2018-08-11] MEDS: CALCIUM CARBONATE 500 MG TABLET PO SCH (08:54)
[2018-08-11] MEDS: OMEGA-3 FATTY ACIDS/FISH OIL 1,000 MG CAPSULE. PO SCH (08:54)
[2018-08-11] MEDS: ASPIRIN CHEWABLE 81 MG TABLET. PO SCH (08:55)
[2018-08-11] MEDS: ASCORBIC ACID 500 MG TABLET PO SCH (08:55)
[2018-08-11] MEDS: LISINOPRIL 20 MG TABLET PO SCH (08:56)
[2018-08-11] MEDS: METOPROLOL SUCC 24HR ER 100 MG TAB.ER.24H. PO SCH (08:56)
[2018-08-11] MEDS: NYSTATIN TOPICAL POWDER 15GM BOTTLE. TP SCH ×2 (08:57→21:00)
[2018-08-11] MEDS: BUDESONIDE 0.5 MG/2 ML NEBU. NEB SCH ×2 (09:00→21:01)
[2018-08-11] MEDS: INSULIN LISPRO 300 UNITS/3 ML INSULN.PEN. SQ SCH ×3 (09:02→17:41)
--- NOTE | 2018-08-11 09:03 | RAD ---
EXAM: CHEST 1 VIEW History: Congestive heart failure COMPARISON: 08/07/2018 TECHNIQUE: Single portable radiograph of the chest FINDINGS: The cardiac silhouette is unremarkable. Diffuse prominent appearing bilateral interstitial lung markings likely interstitial infiltrates similar to prior exam. IMPRESSION: Diffuse prominent bilateral interstitial lung markings likely interstitial infiltrates similar to prior exam. Electronically signed by: Rufino Baldwin MD (08/11/2018 9:00 AM) [id number]
--- NOTE | 2018-08-11 09:13 | PDOC ---
Infectious Disease Note Subjective Subjective About the same Denies N/V/cramps/bloating - stools have decreased Denies chills/aches/sweats ROS ROS o/w neg Vital Sign Vital Signs Vital Signs Date Time Temp Pulse Resp B/P (MAP) Pulse Ox O2 Delivery O2 Flow Rate FiO2 08/11/18 08:56 81 139/72 08/11/18 07:00 97.5 30 94 Nasal Cannula 4.0 97.5 Physical Exam PHYSICAL EXAM GENERAL: Propped up in bed, alert, coop HEENT: Pupils equally round, reactive. Normal conjunctivae. Oropharynx pink and moist, edentulous NECK: Supple. LUNGS: Diminished aeration. HEART: S1 and S2. ABDOMEN: Obese, soft, nontender with bowel sounds present. No rebound or guarding. Loose stool : Lam EXTREMITIES: No gross edema or cyanosis. SKIN: Warm without generalized rash. NEUROLOGIC: Alert and oriented x 3. PIV Labs Lab Laboratory Tests Test 08/10/18 11:31 08/10/18 17:01 08/10/18 21:20 08/11/18 04:30 Glucose (Fingerstick) 245 mg/dL (70-99) 277 mg/dL (70-99) 262 mg/dL (70-99) White Blood Count 0.9 x10^3/uL (4.0-11.0) Red Blood Count 3.02 x10^6/uL (3.50-5.40) Hemoglobin 9.6 g/dL (12.0-15.5) Hematocrit 28.1 % (36.0-47.0) Mean Corpuscular Volume 93 fL (79-100) Mean Corpuscular Hemoglobin 32 pg (25-35) Mean Corpuscular Hemoglobin Concent 34 g/dL (31-37) Red Cell Distribution Width 16.2 % (11.5-14.5) Platelet Count 87 x10^3/uL (140-400) Sodium Level 136 mmol/L (136-145) Potassium Level 3.0 mmol/L (3.5-5.1) Chloride Level 101 mmol/L (98-107) Carbon Dioxide Level 26 mmol/L (21-32) Anion Gap 9 (6-14) Blood Urea Nitrogen 27 mg/dL (7-20) Creatinine 1.3 mg/dL (0.6-1.0) Estimated GFR (Cockcroft-Gault) 40.4 Glucose Level 275 mg/dL (70-99) Calcium Level 9.1 mg/dL (8.5-10.1) Test 08/11/18 07:17 Glucose (Fingerstick) 267 mg/dL (70-99) Micro Microbiology 08/05/18 Blood Culture - Preliminary, Resulted NO GROWTH AFTER 3 DAYS 08/05/18 Urine Culture - Final, Complete 08/05/18 Urine Culture Result 1 (TINO) - Final, Complete Objective Assessment HCAP - Influenza neg Fever - better Neutropenia/pancytopenia - s/p bone marrow biospy 08/09-denies tick exposure/outdoor or pet exposure. Hep/HIV/Parvo - neg IgM. SRINIVASAN 1:80 ? UTI, POA UC neg TYLER on CKD, improving Elevated LFTs/ possible cholecystitis on US -asymptomatic. Lfts better today Diabetes with hypoglycemia Morbid obesity, BMI 43 CAD Diarrhea LUE - neg for DVT Plan Plan of Care Discontinued empiric vanc 08/09 as Cr increasing cults neg. added doxy 08/09 but pills were being excreted in stools so d/c'd Doxy 08/10 Cont Zosyn (08/06) and micafungin (08/07) for now Monitor renal function closely Cultures NGTD Reverse isolation Awaiting bone marrow bx - results may need further eval if no answers on BM but currently AF and stable Supportive care DNR d/w Nursing YING CHURCH MD August 11, 2018 09:13
--- NOTE | 2018-08-11 10:49 | NUR ---
SS following up with discharge planning. SS discussed with Dr. Long this morning. Dr. Long reported that pt will need half-way unit. SS met with pt to discuss half-way unit and discharge planning. Pt reported that she has been to [facility] in the past and would like to return to [facility]. SS phoned and faxed referral to [facility], ; fax [phone]. SS will await acceptance decision and insurance determination and will proceed accordingly.
--- NOTE | 2018-08-11 11:22 | PDOC ---
PULMONARY PROGRESS NOTES Subjective no soa s/p BM bx Vitals Vital Signs Date Time Temp Pulse Resp B/P (MAP) Pulse Ox O2 Delivery O2 Flow Rate FiO2 08/11/18 10:51 97.8 84 30 129/66 (87) 94 Nasal Cannula 4.0 97.8 ROS: No Nausea, No Chest Pain, No Abdominal Pain, No Increase Cough General: Alert Lungs: Clear Cardiovascular: S1, S2 Abdomen: Soft Neuro Exam: Alert Extremities: Other (EDEMA) Labs Laboratory Tests Test 08/09/18 11:22 08/09/18 16:37 08/09/18 20:29 08/10/18 03:20 Glucose (Fingerstick) 235 mg/dL (70-99) 312 mg/dL (70-99) 295 mg/dL (70-99) White Blood Count 0.8 x10^3/uL (4.0-11.0) Red Blood Count 2.94 x10^6/uL (3.50-5.40) Hemoglobin 9.4 g/dL (12.0-15.5) Hematocrit 27.6 % (36.0-47.0) Mean Corpuscular Volume 94 fL (79-100) Mean Corpuscular Hemoglobin 32 pg (25-35) Mean Corpuscular Hemoglobin Concent 34 g/dL (31-37) Red Cell Distribution Width 16.0 % (11.5-14.5) Platelet Count 93 x10^3/uL (140-400) Neutrophils (%) (Auto) 55 % (31-73) Lymphocytes (%) (Auto) 31 % (24-48) Monocytes (%) (Auto) 11 % (0-9) Eosinophils (%) (Auto) 2 % (0-3) Basophils (%) (Auto) 2 % (0-3) Neutrophils # (Auto) 0.4 x10^3uL (1.8-7.7) Lymphocytes # (Auto) 0.2 x10^3/uL (1.0-4.8) Monocytes # (Auto) 0.1 x10^3/uL (0.0-1.1) Eosinophils # (Auto) 0.0 x10^3/uL (0.0-0.7) Basophils # (Auto) 0.0 x10^3/uL (0.0-0.2) Sodium Level 136 mmol/L (136-145) Potassium Level 3.1 mmol/L (3.5-5.1) Chloride Level 101 mmol/L (98-107) Carbon Dioxide Level 25 mmol/L (21-32) Anion Gap 10 (6-14) Blood Urea Nitrogen 24 mg/dL (7-20) Creatinine 1.4 mg/dL (0.6-1.0) Estimated GFR (Cockcroft-Gault) 37.1 BUN/Creatinine Ratio 17 (6-20) Glucose Level 259 mg/dL (70-99) Calcium Level 8.6 mg/dL (8.5-10.1) Total Bilirubin 0.9 mg/dL (0.2-1.0) Aspartate Amino Transf (AST/SGOT) 55 U/L (15-37) Alanine Aminotransferase (ALT/SGPT) 63 U/L (14-59) Alkaline Phosphatase 84 U/L (46-116) Total Protein 5.7 g/dL (6.4-8.2) Albumin 1.2 g/dL (3.4-5.0) Albumin/Globulin Ratio 0.3 (1.0-1.7) Test 08/10/18 08:00 08/10/18 11:31 08/10/18 17:01 08/10/18 21:20 Glucose (Fingerstick) 237 mg/dL (70-99) 245 mg/dL (70-99) 277 mg/dL (70-99) 262 mg/dL (70-99) Test 08/11/18 04:30 08/11/18 07:17 White Blood Count 0.9 x10^3/uL (4.0-11.0) Red Blood Count 3.02 x10^6/uL (3.50-5.40) Hemoglobin 9.6 g/dL (12.0-15.5) Hematocrit 28.1 % (36.0-47.0) Mean Corpuscular Volume 93 fL (79-100) Mean Corpuscular Hemoglobin 32 pg (25-35) Mean Corpuscular Hemoglobin Concent 34 g/dL (31-37) Red Cell Distribution Width 16.2 % (11.5-14.5) Platelet Count 87 x10^3/uL (140-400) Sodium Level 136 mmol/L (136-145) Potassium Level 3.0 mmol/L (3.5-5.1) Chloride Level 101 mmol/L (98-107) Carbon Dioxide Level 26 mmol/L (21-32) Anion Gap 9 (6-14) Blood Urea Nitrogen 27 mg/dL (7-20) Creatinine 1.3 mg/dL (0.6-1.0) Estimated GFR (Cockcroft-Gault) 40.4 Glucose Level 275 mg/dL (70-99) Calcium Level 9.1 mg/dL (8.5-10.1) Glucose (Fingerstick) 267 mg/dL (70-99) Laboratory Tests Test 08/10/18 11:31 08/10/18 17:01 08/10/18 21:20 08/11/18 04:30 Glucose (Fingerstick) 245 mg/dL (70-99) 277 mg/dL (70-99) 262 mg/dL (70-99) White Blood Count 0.9 x10^3/uL (4.0-11.0) Red Blood Count 3.02 x10^6/uL (3.50-5.40) Hemoglobin 9.6 g/dL (12.0-15.5) Hematocrit 28.1 % (36.0-47.0) Mean Corpuscular Volume 93 fL (79-100) Mean Corpuscular Hemoglobin 32 pg (25-35) Mean Corpuscular Hemoglobin Concent 34 g/dL (31-37) Red Cell Distribution Width 16.2 % (11.5-14.5) Platelet Count 87 x10^3/uL (140-400) Sodium Level 136 mmol/L (136-145) Potassium Level 3.0 mmol/L (3.5-5.1) Chloride Level 101 mmol/L (98-107) Carbon Dioxide Level 26 mmol/L (21-32) Anion Gap 9 (6-14) Blood Urea Nitrogen 27 mg/dL (7-20) Creatinine 1.3 mg/dL (0.6-1.0) Estimated GFR (Cockcroft-Gault) 40.4 Glucose Level 275 mg/dL (70-99) Calcium Level 9.1 mg/dL (8.5-10.1) Test 08/11/18 07:17 Glucose (Fingerstick) 267 mg/dL (70-99) Medications Active Scripts Medications Dose Route/Sig Max Daily Dose Days Date Category Metoprolol Tartrate 100 Mg Tablet 2 Tab PO DAILY 08/05/18 Reported Glipizide 5 Mg Tablet 2 Tab PO DAILY 08/05/18 Reported [place] 3 Fish Oil Softgel ([place]-3 Fatty Acids/Fish Oil) 1 Each Capsule.dr 2 Each PO DAILY 08/05/18 Reported Calcium Carbonate 500 Mg Tablet 1,000 Mg PO DAILY 08/05/18 Reported Januvia (Sitagliptin Phosphate) 50 Mg Tablet 1 Tab PO DAILY 08/05/18 Reported Lisinopril 5 Mg Tablet 1 Tab PO DAILY 08/05/18 Reported Omeprazole 40 Mg Capsule.dr 40 Mg PO DAILY 07/03/13 Rx Aspirin 81 Mg Tab.chew 81 Mg PO DAILY 07/03/13 Rx Pioglitazone Hcl 30 Mg Tablet 30 Mg PO DAILY 07/03/13 Rx Atorvastatin Calcium 80 Mg Tablet 80 Mg PO HS 07/03/13 Rx Impression . 1. Acute hypoxemic respiratory failure. 2. Abnormal x-ray compatible with pulmonary edema, Diastolic HF vs right heart failure ? pneumonia. 3. Metabolic toxic encephalopathy, present upon admission.resolved 4. Morbid obesity./likely cor-pulmonale 5. Coronary artery disease with previous coronary artery bypass grafting. 6. Hypertension. 7. Acute pancytopenia, s/p BM BX 8. Sepsis Plan . BIPAP PRN CXR NO CHANGE 08/11, clinically better IV LASIX PRN D/W DAUGHTER FOLLOW RESULTS OF BM bx GEE WELSH MD August 11, 2018 11:22
--- NOTE | 2018-08-11 11:29 | NUR ---
Patient receiving IV K+ this shift po not given.
[2018-08-11 14:18] LABS: MITOCHONDRIAL ABDY <20.0 Units (0.0-20.0)
[2018-08-11] MEDS: MICAFUNGIN 100 MG in IV DEXTROSE 5% 100ML 100 ML IV SCH (16:08)
--- NOTE | 2018-08-11 17:12 | NUR ---
PT ENCOURAGED THROUGHOUT THIS SHIFT TO WEAR BIPAP TO HELP HER BREATHE A LITTLE EASIER
[2018-08-11] MEDS ORDERED: INSULIN GLARGINE 300 UNITS/3 ML INSULN.PEN. SQ SCH (21:00)
[2018-08-12] MEDS: BENZONATATE 100 MG CAPSULE. PO SCH ×4 (00:08→21:23)
[2018-08-12] MEDS: PIPERACILLIN/TAZOBACTAM 3.375 GM in IV NORMAL SALINE 50ML 50 ML IV SCH ×4 (00:09→17:44)
[2018-08-12 03:10] VITALS: BP 136/59
[2018-08-12 05:44] LABS: HEMATOCRIT 26.9 % (36.0-47.0); HEMOGLOBIN 9.5 g/dL (12.0-15.5); RED BLOOD COUNT 2.89 x10^6/uL (3.50-5.40); RED CELL DISTRIBUTION WIDTH 16.5 % (11.5-14.5)
[2018-08-12 05:57] LABS: CREATININE 1.2 mg/dL (0.6-1.0); GFR 44.3; POTASSIUM 3.4 mmol/L (3.5-5.1)
--- NOTE | 2018-08-12 05:57 | NUR ---
Pt refused bipap this shift. Pt has ambulated with significant assistance to bsc twice this shift.
[2018-08-12 07:00] VITALS: BP 138/54
[2018-08-12] MEDS: ALBUTEROL SULFATE 2.5 MG/3 ML NEBU. IH SCH ×3 (07:19→20:44)
[2018-08-12] MEDS: BUDESONIDE 0.5 MG/2 ML NEBU. NEB SCH ×2 (07:20→20:44)
--- NOTE | 2018-08-12 07:42 | PDOC ---
Infectious Disease Note Subjective Subjective About the same. denies SOA/F/VILLANUEVA/pain/itch Awaiting bone marrow results Denies N/V/cramps/bloating - stools have decreased Denies chills/aches/sweats Vital Sign Vital Signs Vital Signs Date Time Temp Pulse Resp B/P (MAP) Pulse Ox O2 Delivery O2 Flow Rate FiO2 08/12/18 07:23 92 Nasal Cannula 3.0 08/12/18 03:10 97.6 86 20 136/59 (84) 97.6 Physical Exam PHYSICAL EXAM GENERAL: Propped up in chair, alert, coop - looks weak HEENT: Pupils equally round, reactive. Normal conjunctivae. Oropharynx pink and moist, edentulous NECK: Supple. LUNGS: Diminished aeration. HEART: S1 and S2. ABDOMEN: Obese, soft, nontender with bowel sounds present. No rebound or guarding. Loose stool : Lam EXTREMITIES: No gross edema or cyanosis. SKIN: Warm without generalized rash. NEUROLOGIC: Alert and oriented x 3. PIV Labs Lab Laboratory Tests Test 08/11/18 11:13 08/11/18 16:37 08/11/18 21:42 08/12/18 05:00 Glucose (Fingerstick) 325 mg/dL (70-99) 285 mg/dL (70-99) 231 mg/dL (70-99) White Blood Count 1.0 x10^3/uL (4.0-11.0) Red Blood Count 2.89 x10^6/uL (3.50-5.40) Hemoglobin 9.5 g/dL (12.0-15.5) Hematocrit 26.9 % (36.0-47.0) Mean Corpuscular Volume 93 fL (79-100) Mean Corpuscular Hemoglobin 33 pg (25-35) Mean Corpuscular Hemoglobin Concent 35 g/dL (31-37) Red Cell Distribution Width 16.5 % (11.5-14.5) Platelet Count 87 x10^3/uL (140-400) Sodium Level 139 mmol/L (136-145) Potassium Level 3.4 mmol/L (3.5-5.1) Chloride Level 102 mmol/L (98-107) Carbon Dioxide Level 28 mmol/L (21-32) Anion Gap 9 (6-14) Blood Urea Nitrogen 26 mg/dL (7-20) Creatinine 1.2 mg/dL (0.6-1.0) Estimated GFR (Cockcroft-Gault) 44.3 Glucose Level 243 mg/dL (70-99) Calcium Level 9.0 mg/dL (8.5-10.1) Micro Microbiology 08/05/18 Blood Culture - Preliminary, Resulted NO GROWTH AFTER 3 DAYS 08/05/18 Urine Culture - Final, Complete 08/05/18 Urine Culture Result 1 (TINO) - Final, Complete Objective Assessment HCAP - Influenza neg Fever - better Neutropenia/pancytopenia - s/p bone marrow biospy 08/09-denies tick exposure/outdoor or pet exposure. Hep/HIV/Parvo - neg IgM. SRINIVASAN 1:80 ? UTI, POA UC neg TYLER on CKD, improving Elevated LFTs/ possible cholecystitis on US -asymptomatic. Lfts better today Diabetes with hypoglycemia Morbid obesity, BMI 43 CAD Diarrhea LUE - neg for DVT Plan Plan of Care Discontinued empiric vanc 08/09 as Cr increasing cults neg. added doxy 08/09 but pills were being excreted in stools so d/c'd Doxy 08/10 loose stools better Cont Zosyn (08/06) and micafungin (08/07) for now Monitor renal function closely Cultures NGTD Reverse isolation Awaiting bone marrow bx - results may need further eval if no answers on BM but currently AF and stable Supportive care DNR d/w Nursing YING CHURCH MD August 12, 2018 07:42
--- NOTE | 2018-08-12 08:48 | PDOC ---
SUBJECTIVE Subjective S: on bipap, sleepy today O: Gen: elderly obese female in NAD, resting in chair, on bipap Psych: Pleasant mood and affect Labs: Parvo IgG positive but IgM negative, SRINIVASAN low-level +1-80 wbc 1.0, Hb 9.5, plt 87 ANC 400 last diff ASMA pending procalc 0.27 lipase 206 neg HIV, Hep panel, c diff and flu SPEP neg for M spike ferr 2287 sat 29% AST 78, ALT 76 Rad: poss pneumonia, Gallstones, GB wall thickening A/P: 72 yo F admitted 08/05/18 with HCAP, weakness, pancytopenia, improving poss cholecystitis, hypoalbuminemia, comorbid including morbid obesity, DM, HTN, CAD. On Abx for HCAP and poss cholecystitis, initial UA concerning though cx neg. US abdomen 08/06/18 showed gall stones with wall thickening. Pulm infiltrates persist. infection: Abx, ID involved other comorbidities: per primary, others pancytopenia: BMBx done 08/09, results pending, pending ASMA, low level + SRINIVASAN, avoiding neupogen until results of bone marrow avail, suspect this may all be related to infection and comorbid conditions... Disposition: After continued clinical improvement, we'll be happy to follow up results of bone marrow as outpatient if she is discharged prior to those results being available Thank you kindly and please don't hesitate to call with any questions. OBJECTIVE Vital Signs Vital Signs Date Time Temp Pulse Resp B/P (MAP) Pulse Ox O2 Delivery O2 Flow Rate FiO2 08/12/18 07:23 92 Nasal Cannula 3.0 08/12/18 07:22 92 Nasal Cannula 3.0 08/12/18 07:00 97.2 82 30 138/54 (82) 91 Nasal Cannula 3.0 97.2 08/12/18 03:10 97.6 86 20 136/59 (84) 92 Nasal Cannula 3.0 97.6 08/11/18 23:42 97.8 72 26 144/74 (97) 94 Nasal Cannula 4.0 97.8 08/11/18 21:02 Nasal Cannula 3.0 08/11/18 20:00 Nasal Cannula 4.0 08/11/18 19:55 98.0 77 26 131/65 (87) 95 Nasal Cannula 4.0 98.0 08/11/18 14:50 97.5 77 30 126/63 (84) 93 Nasal Cannula 4.0 97.5 08/11/18 12:08 Nasal Cannula 3.0 08/11/18 10:51 97.8 84 30 129/66 (87) 94 Nasal Cannula 4.0 97.8 08/11/18 08:56 81 139/72 08/11/18 08:56 81 139/72 I & O Intake and Output 08/12/18 06:59 Intake Total 1100 ml Output Total 1750 ml Balance -650 ml Intake Oral 700 ml IV Total 400 ml Output Urine Total 1750 ml # Bowel Movements 2 COMMENT Lab Laboratory Tests Test 08/11/18 11:13 08/11/18 16:37 08/11/18 21:42 08/12/18 05:00 Glucose (Fingerstick) 325 mg/dL (70-99) 285 mg/dL (70-99) 231 mg/dL (70-99) White Blood Count 1.0 x10^3/uL (4.0-11.0) Red Blood Count 2.89 x10^6/uL (3.50-5.40) Hemoglobin 9.5 g/dL (12.0-15.5) Hematocrit 26.9 % (36.0-47.0) Mean Corpuscular Volume 93 fL (79-100) Mean Corpuscular Hemoglobin 33 pg (25-35) Mean Corpuscular Hemoglobin Concent 35 g/dL (31-37) Red Cell Distribution Width 16.5 % (11.5-14.5) Platelet Count 87 x10^3/uL (140-400) Sodium Level 139 mmol/L (136-145) Potassium Level 3.4 mmol/L (3.5-5.1) Chloride Level 102 mmol/L (98-107) Carbon Dioxide Level 28 mmol/L (21-32) Anion Gap 9 (6-14) Blood Urea Nitrogen 26 mg/dL (7-20) Creatinine 1.2 mg/dL (0.6-1.0) Estimated GFR (Cockcroft-Gault) 44.3 Glucose Level 243 mg/dL (70-99) Calcium Level 9.0 mg/dL (8.5-10.1) Test 08/12/18 07:40 Glucose (Fingerstick) 228 mg/dL (70-99) CINTHYA ALBRECHT MD August 12, 2018 08:48
[2018-08-12] MEDS: ASPIRIN CHEWABLE 81 MG TABLET. PO SCH (08:52)
[2018-08-12] MEDS: ASCORBIC ACID 500 MG TABLET PO SCH (08:52)
[2018-08-12] MEDS: POTASSIUM CHLORIDE 20 MEQ TABLET.ER. PO SCH ×3 (08:52→17:43)
[2018-08-12] MEDS: CALCIUM CARBONATE 500 MG TABLET PO SCH (08:52)
[2018-08-12] MEDS: PANTOPRAZOLE 40 MG TABLET.DR. PO SCH (08:52)
[2018-08-12] MEDS: LISINOPRIL 20 MG TABLET PO SCH (08:53)
[2018-08-12] MEDS: LINAGLIPTIN 5 MG TABLET PO SCH (08:53)
[2018-08-12] MEDS: OMEGA-3 FATTY ACIDS/FISH OIL 1,000 MG CAPSULE. PO SCH (08:53)
[2018-08-12] MEDS: METOPROLOL SUCC 24HR ER 100 MG TAB.ER.24H. PO SCH (08:53)
[2018-08-12] MEDS: glipiZIDE 5 MG TABLET PO SCH ×2 (08:53→17:43)
[2018-08-12] MEDS: MULTIVITAMIN I-VITE TABLET. PO SCH (08:53)
[2018-08-12] MEDS: INSULIN LISPRO 300 UNITS/3 ML INSULN.PEN. SQ SCH ×3 (08:58→17:58)
[2018-08-12] MEDS: NYSTATIN TOPICAL POWDER 15GM BOTTLE. TP SCH ×2 (09:00→21:23)
--- NOTE | 2018-08-12 09:07 | PATHOLOGY ---
[facility] Accession Number: [id number] . 01 Material submitted: . PART A: bone - BONE MARROW BIOPSY PART B: bone - BONE MARROW CLOT PART C: bone - BONE MARROW ASP SMEARS PART D: body - PERIPHERAL SMEAR PART E: bone - BONE MARROW FLOW . 01 Clinical history: . Pancytopenia . 02 Diagnosis: Peripheral smear: - Marked leukopenia and absolute neutropenia with a few circulating blasts. - Normocytic normochromic anemia, moderate. - Thrombocytopenia, moderate. . 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 SEE COMMENT. - Increased reticuloendothelial iron stores. S/08/12/2018 . 02 Comment: The peripheral smear shows a marked leukopenia and absolute neutropenia with a few circulating blasts, moderate normocytic normochromic anemia, and moderate thrombocytopenia. The bone marrow is mildly to focally moderately hypercellular and shows trilineage hematopoiesis, mild dyspoiesis, decreased erythropoiesis, and a left shift of granulopoiesis with a increase of blasts. Flow cytometric analysis shows 32% blasts. Bone marrow morphologic analysis reveals 39% blasts. 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 The case is also examined by Dr. Strickland, who concurs with the diagnosis. (JPM/db; 08/11/2018) . Special stains performed: Retic stain on A1 and iron staines on B1, B2, B3 and C1. . 02 Electronically signed: . Christofer Turner MD, Pathologist NPI- [id number] . 01 Gross description: . A. Received in formalin labeled "Mary Liang BM BX," is a single needle core of chua bone measuring 1.8 cm in length and 0.2 cm in diameter. The specimen is submitted entirely in cassette A1, following decalcification. . B. Received in formalin labeled "Mary Liang BM Asp clot," is an aggregate of dark chua blood clot measuring 4.6 x 2.1 x 0.5 cm. The specimen is filtered and entirely submitted in cassette B1 through B3. (TSD; 08/09/2018) TOB/TOB . 02 Microscopic: . Laboratory Data: The CBC results are dated 08/09/2018. The WBC count is 0.8 K/CMM. The RBC count is 3.06 M/CMM, hemoglobin 9.8 G/DL, hematocrit 28.6%, MCV 94 FL, MCH 32 PG, MCHC 34 G/DL, and the RDW is 15.9%. The platelet count is 89 K/CMM. The total protein is 6.0 G/DL, albumin 1.4 G/DL, and the globulin is 4.6 G/DL. The serum iron is 27 UG/DL, TIBC 94 UG/DL, saturation 29%, and ferritin is 2,287 NG/ML. The LDH is 387 U/L. The serum protein electrophoresis shows no monoclonal spike. . Peripheral Smear: The peripheral smear is reviewed. The WBC count is markedly decreased. There is a marked leukopenia and absolute neutropenia. The WBC differential reveals a predominance of segmented neutrophils, with a smaller population of lymphocytes and several monocytes noted. There are a few circulating immature granulocytes (myelocytes). There are also a few circulating blasts. The blasts are devoid of Lelo rods. The lymphocyte population consists predominantly of small lymphocytes. There are a few reactive plasmacytoid lymphocytes noted. Red blood cells predominantly appear normochromic and normocytic. Red blood cells show mild anisocytosis and no significant poikilocytosis. Platelets are moderately decreased with an occasional large platelet noted. . Aspirate Smears: Two Beard's-stained and one iron-stained aspirate smears are examined. The smears contain multiple cellular marrow particles. Erythropoiesis appears decreased. There is mild dyserythropoiesis comprised of a few erythroid precursors which show megaloblastoid changes, binucleation, and irregular nuclear shapes. There is a left shift of granulopoiesis with an increase of blasts. Maturing granulocytes are decreased and show no obvious dysplastic changes. The blasts have a high N/C ratio with small amounts of agranular cytoplasm devoid of Lelo rods. The blasts possess rounded to ovoid nuclei having a delicate chromatin and one or more nucleoli. Megakaryocytes are present, are of variable ploidy, and are both normal and abnormal in morphology. There are admixed plasma cells which are normal in morphology and are focally mildly increased. There are also admixed small lymphocytes. There are no cells foreign to the marrow. A bone marrow differential reveals the followin% blasts, 22% more differentiated myeloid precursors, 11% erythroid precursors, 22% lymphocytes, and 6% plasma cells. . An iron stain shows increased iron stores. There are no obvious ringed sideroblasts. . Bone Marrow Biopsy and Clot Sections: Sections of the bone marrow biopsy reveal a segment of bone marrow. With the exception of a short segment of fatty marrow, the biopsy ranges between 30% and 60% cellular. The clot sections contain numerous marrow particles, the majority of which range between 20% and 70% cellular. Erythropoiesis is decreased. There is a notable increase of medium-sized immature mononuclear cells, compatible with a left shift of granulopoiesis and presence of blasts. Maturing granulocytes are decreased. Megakaryocytes focally appear adequate, are of variable ploidy, and both normal and abnormal in morphology. There are scattered admixed plasma cells which focally appear mildly increased. There are also admixed small lymphocytes with a single lymphoid aggregate present within a clot section composed of small lymphocytes having rounded to slightly irregular nuclei. There are no abnormal lymphoid aggregates, granulomas, or cells foreign to the marrow. A reticulin stain obtained on the biopsy shows focal mildly increased reticulin fibers. Iron stains obtained on the clot sections show increased iron stores. No obvious ringed sideroblasts are identified. (JPM/db; 08/11/2018) . Special Studies: Bone marrow submitted for flow cytometric analysis has a viability of 98.4%. Granulocytes comprise 37.4% of total cells and show phenotypic evidence of left-shifted maturation and slight dysmaturation. Monocytes comprise 2.3% of total cells. Lymphocytes comprise 16.9% of total cells. T-cells comprise 67% of lymphoid cells and show a CD4/CD8 ratio of 2.5. NK-cells comprise 10% of lymphoid cells. Mature B-cells comprise 18% of lymphoid cells and are polyclonal with a kappa:lambda ratio of 1.1. Plasma cells comprise 2.9% of total cells and are polytypic. CD45 dim, CD34 positive cells (blasts) comprise 31.9% of total cells and are CD13, CD33, CD34 (moderate), CD117, HLA-DR, and CD38 positive. The blasts show some dim expression of TdT. The blasts show no significant expression of cytoplasmic MPO, cytoplasmic CD3, cytoplasmic CD79a, and cytoplasmic CD22. . (JPM:dionicio; 08/11/2018) . 02 Pathologist provided ICD-10: C95.90, D72.819, D69.6, D64.9 . 02 CPT . 792123, [id number], 101201, 090763, [id number], 296490, 774147, 979343, 711398, 438639, 382435, 041870 Specimen Comment: A courtesy copy of this report has been sent to Specimen Comment: [phone], , , . Specimen Comment: Report sent to ,DR GUTIERREZ,DR FUENTES / DR MUNOZ Performed at: 01 [facility] [address], [place] [id number] MD Rashid Delvalle MD Phone: [phone] Performed at: [facility] [address] [place], [place] [id number] MD Christofer Turner MD Phone: [phone]
--- NOTE | 2018-08-12 09:13 | PDOC ---
PROGRESS NOTES Subjective Subjective Patient without complaint. Feels weak when trying to walk with PT. Objective Objective Vital Signs Date Time Temp Pulse Resp B/P (MAP) Pulse Ox O2 Delivery O2 Flow Rate FiO2 08/12/18 07:23 92 Nasal Cannula 3.0 08/12/18 07:00 97.2 82 30 138/54 (82) 97.2 Intake and Output 08/12/18 07:00 Intake Total 1100 ml Output Total 1750 ml Balance -650 ml Intake Oral 700 ml IV Total 400 ml Output Urine Total 1750 ml # Bowel Movements 2 Physical Exam Abdomen: Normal bowel sounds, Soft, No tenderness Heart: Regular rate Extremities: Other (mild edema diffusely) General: Alert, Oriented X3, No acute distress Lungs: Other (BS decreased, no wheezes heard anteriorly) Assessment Assessment Problems Medical Problems: (1) Pneumonia Status: Acute (2) Severe sepsis Status: Acute (3) Urinary tract infection Status: Acute Plan Plan of Care 1. Sepsis - continues stable, cultures negative, abx per ID. 2. acute hypoxic respiratory failure with pneumonia - stable, continue O2, nebs, etc. 3. pancytopenia - stable but not improving. Bone marrow results pending. 4. CKD III - stable on lab. 5. HTN - fairly well controlled, continue present medication. 6. DM2 - glucose continues elevated, continue po meds and increase Lantus tonight. 7. hypokalemia - improved after IV replacement, continue po today. 8. debility - continue therapies, hope to transfer to [facility] part of next week if she remains stable. Patient agreeable to this. Comment Review of Relevant I have reviewed the following items ld (where applicable) has been applied. Labs Laboratory Tests Test 08/10/18 11:31 08/10/18 17:01 08/10/18 21:20 08/11/18 04:30 Glucose (Fingerstick) 245 mg/dL (70-99) 277 mg/dL (70-99) 262 mg/dL (70-99) White Blood Count 0.9 x10^3/uL (4.0-11.0) Red Blood Count 3.02 x10^6/uL (3.50-5.40) Hemoglobin 9.6 g/dL (12.0-15.5) Hematocrit 28.1 % (36.0-47.0) Mean Corpuscular Volume 93 fL (79-100) Mean Corpuscular Hemoglobin 32 pg (25-35) Mean Corpuscular Hemoglobin Concent 34 g/dL (31-37) Red Cell Distribution Width 16.2 % (11.5-14.5) Platelet Count 87 x10^3/uL (140-400) Sodium Level 136 mmol/L (136-145) Potassium Level 3.0 mmol/L (3.5-5.1) Chloride Level 101 mmol/L (98-107) Carbon Dioxide Level 26 mmol/L (21-32) Anion Gap 9 (6-14) Blood Urea Nitrogen 27 mg/dL (7-20) Creatinine 1.3 mg/dL (0.6-1.0) Estimated GFR (Cockcroft-Gault) 40.4 Glucose Level 275 mg/dL (70-99) Calcium Level 9.1 mg/dL (8.5-10.1) Test 08/11/18 07:17 08/11/18 11:13 08/11/18 16:37 08/11/18 21:42 Glucose (Fingerstick) 267 mg/dL (70-99) 325 mg/dL (70-99) 285 mg/dL (70-99) 231 mg/dL (70-99) Test 08/12/18 05:00 08/12/18 07:40 White Blood Count 1.0 x10^3/uL (4.0-11.0) Red Blood Count 2.89 x10^6/uL (3.50-5.40) Hemoglobin 9.5 g/dL (12.0-15.5) Hematocrit 26.9 % (36.0-47.0) Mean Corpuscular Volume 93 fL (79-100) Mean Corpuscular Hemoglobin 33 pg (25-35) Mean Corpuscular Hemoglobin Concent 35 g/dL (31-37) Red Cell Distribution Width 16.5 % (11.5-14.5) Platelet Count 87 x10^3/uL (140-400) Sodium Level 139 mmol/L (136-145) Potassium Level 3.4 mmol/L (3.5-5.1) Chloride Level 102 mmol/L (98-107) Carbon Dioxide Level 28 mmol/L (21-32) Anion Gap 9 (6-14) Blood Urea Nitrogen 26 mg/dL (7-20) Creatinine 1.2 mg/dL (0.6-1.0) Estimated GFR (Cockcroft-Gault) 44.3 Glucose Level 243 mg/dL (70-99) Calcium Level 9.0 mg/dL (8.5-10.1) Glucose (Fingerstick) 228 mg/dL (70-99) Laboratory Tests Test 08/11/18 11:13 08/11/18 16:37 08/11/18 21:42 08/12/18 05:00 Glucose (Fingerstick) 325 mg/dL (70-99) 285 mg/dL (70-99) 231 mg/dL (70-99) White Blood Count 1.0 x10^3/uL (4.0-11.0) Red Blood Count 2.89 x10^6/uL (3.50-5.40) Hemoglobin 9.5 g/dL (12.0-15.5) Hematocrit 26.9 % (36.0-47.0) Mean Corpuscular Volume 93 fL (79-100) Mean Corpuscular Hemoglobin 33 pg (25-35) Mean Corpuscular Hemoglobin Concent 35 g/dL (31-37) Red Cell Distribution Width 16.5 % (11.5-14.5) Platelet Count 87 x10^3/uL (140-400) Sodium Level 139 mmol/L (136-145) Potassium Level 3.4 mmol/L (3.5-5.1) Chloride Level 102 mmol/L (98-107) Carbon Dioxide Level 28 mmol/L (21-32) Anion Gap 9 (6-14) Blood Urea Nitrogen 26 mg/dL (7-20) Creatinine 1.2 mg/dL (0.6-1.0) Estimated GFR (Cockcroft-Gault) 44.3 Glucose Level 243 mg/dL (70-99) Calcium Level 9.0 mg/dL (8.5-10.1) Test 08/12/18 07:40 Glucose (Fingerstick) 228 mg/dL (70-99) Microbiology 08/05/18 Blood Culture - Final, Complete NO GROWTH AFTER 5 DAYS 08/05/18 Urine Culture - Final, Complete 08/05/18 Urine Culture Result 1 (TINO) - Final, Complete Medications Current Medications Piperacillin Sod/ Tazobactam Sod (Zosyn Per Pharmacy) 1 each PRN DAILY PRN MC SEE COMMENTS; Start 08/05/18 at 15:00 Piperacillin Sod/ Tazobactam Sod 4.5 gm/Sodium Chloride 100 ml @ 200 mls/hr ONCE ONCE IV Last administered on 08/05/18at 15:00; Start 08/05/18 at 15:00; Stop 08/05/18 at 15:29; Status DC Vancomycin HCl (Vanco Per Pharmacy) 1 each PRN DAILY PRN MC SEE COMMENTS Last administered on 08/08/18at 10:48; Start 08/05/18 at 16:15; Stop 08/09/18 at 07:57; Status DC Vancomycin HCl 2 gm/Sodium Chloride 500 ml @ 250 mls/hr 1X ONCE IV Last administered on 08/05/18at 16:17; Start 08/05/18 at 16:15; Stop 08/05/18 at 18:14; Status DC Ondansetron HCl (Zofran) 4 mg PRN Q8HRS PRN IV NAUSEA/VOMITING; Start 08/05/18 at 16:45; Stop 08/06/18 at 16:44; Status DC Morphine Sulfate (Morphine Sulfate) 2 mg PRN Q2HR PRN IV PAIN; Start 08/05/18 at 16:45; Stop 08/06/18 at 16:44; Status DC Sodium Chloride 1,000 ml @ 100 mls/hr Q10H IV Last administered on 08/06/18at 00:12; Start 08/05/18 at 16:43; Stop 08/05/18 at 20:42; Status DC Piperacillin Sod/ Tazobactam Sod 3.375 gm/Sodium Chloride 50 ml @ 100 mls/hr Q6HRS IV Last administered on 08/12/18at 05:59; Start 08/06/18 at 00:00 Vancomycin HCl 1.5 gm/Sodium Chloride 500 ml @ 250 mls/hr Q24H IV Last administered on 08/06/18at 16:41; Start 08/06/18 at 16:00; Stop 08/07/18 at 16:18; Status DC Vancomycin HCl (Vancomycin Trough Level) 1 each 1X ONCE MC Last administered on 08/07/18at 15:30; Start 08/07/18 at 15:30; Stop 08/07/18 at 15:31; Status DC Sodium Chloride 1,000 ml @ 166.667 mls/hr Q6H IV Last administered on 08/06/18at 05:42; Start 08/05/18 at 17:24; Stop 08/06/18 at 05:48; Status DC Aspirin (Children'S Aspirin) 81 mg DAILY PO Last administered on 08/11/18at 08:55; Start 08/06/18 at 09:00 Calcium Carbonate/ Glycine (Oscal) 1,000 mg DAILY PO Last administered on 08/11/18at 08:54; Start 08/06/18 at 09:00 Glipizide (Glucotrol) 10 mg DAILY PO ; Start 08/06/18 at 09:00; Stop 08/06/18 at 10:27; Status DC Atorvastatin Calcium (Lipitor) 80 mg QHS PO Last administered on 08/06/18at 00:15; Start 08/05/18 at 21:00; Stop 08/06/18 at 10:27; Status DC Lisinopril (Prinivil) 5 mg DAILY PO Last administered on 08/10/18at 08:02; Start 08/06/18 at 09:00; Stop 08/10/18 at 08:47; Status DC Metoprolol Succinate (Toprol Xl) 200 mg DAILY PO Last administered on 08/11/18at 08:56; Start 08/06/18 at 09:00 Fish Oil (Fish Oil) 2,000 mg DAILY PO Last administered on 08/11/18at 08:54; Start 08/06/18 at 09:00 Pantoprazole Sodium (Protonix) 40 mg DAILYAC PO Last administered on 08/11/18at 08:52; Start 08/06/18 at 07:30 Pioglitazone HCl (Actos) 30 mg DAILY PO ; Start 08/06/18 at 09:00; Stop 08/06/18 at 18:11; Status DC Linagliptin (Tradjenta) 5 mg DAILY PO ; Start 08/06/18 at 09:00; Stop 08/06/18 at 18:11; Status DC Haloperidol Lactate (Haldol Inj) 5 mg PRN Q6HRS PRN IVP AGITATION; Start 08/05/18 at 19:30 Dextrose (Dextrose 50%-Water Syringe) 12.5 gm PRN Q15MIN PRN IV SEE COMMENTS Last administered on 08/05/18at 21:43; Start 08/05/18 at 19:45 Acetaminophen (Tylenol) 650 mg PRN Q6HRS PRN PO FEVER Last administered on 08/07/18 21:26; Start 08/06/18 at 04:15 Potassium Chloride (Klor-Con) 10 meq [id number] PO Last administered on 08/08/18at 12:49; Start 08/06/18 at 10:30; Stop 08/09/18 at 08:20; Status DC Insulin Human Lispro (HumaLOG) 0-5 UNITS TIDWMEALS SQ Last administered on 08/11/18at 17:41; Start 08/06/18 at 12:00 Dextrose (Dextrose 50%-Water Syringe) 12.5 gm PRN Q15MIN PRN IV SEE COMMENTS; Start 08/06/18 at 10:30; Status UNV Lactobacillus Rhamnosus (Culturelle) 1 cap BID PO Last administered on 08/07/18 21:26; Start 08/06/18 at 21:00; Stop 08/08/18 at 10:39; Status DC Sodium Chloride 1,000 ml @ 100 mls/hr Q10H IV Last administered on 08/07/18at 11:46; Start 08/06/18 at 18:15; Stop 08/07/18 at 22:35; Status DC Nystatin (Nystop) 1 dayne BID TP Last administered on 08/11/18at 21:00; Start 08/06/18 at 21:00 Benzonatate (Tessalon Perle) 100 mg [id number] PO Last administered on 08/12/18at 00:08; Start 08/07/18 at 12:00 Guaifenesin (Robitussin Dm) 10 ml PRN Q6HRS PRN PO COUGH; Start 08/07/18 at 10:30 Micafungin Sodium 100 mg/Dextrose 100 ml @ 100 mls/hr Q24H IV Last administered on 08/11/18at 16:08; Start 08/07/18 at 12:00 Vancomycin HCl 2 gm/Sodium Chloride 500 ml @ 250 mls/hr Q24H IV Last administered on 08/08/18at 16:35; Start 08/07/18 at 16:30; Stop 08/09/18 at 07:57; Status DC Vancomycin HCl (Vancomycin Trough Level) 1 each 1X ONCE MC ; Start 08/09/18 at 16:00; Stop 08/09/18 at 16:00; Status DC Furosemide (Lasix) 40 mg 1X ONCE IVP Last administered on 08/07/18at 23:00; Start 08/07/18 at 23:00; Stop 08/07/18 at 23:01; Status DC Hydralazine HCl (Apresoline Inj) 10 mg PRN Q4HRS PRN IVP ELEVATED BP, SEE COMMENTS Last administered on 08/10/18at 23:47; Start 08/07/18 at 22:45 Albuterol Sulfate (Ventolin Neb Soln) 2.5 mg TID IH Last administered on 08/12/18at 07:19; Start 08/08/18 at 09:00 Albuterol Sulfate (Ventolin Neb Soln) 2.5 mg PRN Q3HRS PRN IH WHEEZING Last administered on 08/08/18at 16:17; Start 08/08/18 at 05:15 Lidocaine/Sodium Bicarbonate (Buffered Lidocaine 1%) 3 ml STK-MED ONCE .ROUTE ; Start 08/08/18 at 08:42; Stop 08/08/18 at 08:43; Status DC Lidocaine/Sodium Bicarbonate (Buffered Lidocaine 1%) 3 ml STK-MED ONCE .ROUTE ; Start 08/08/18 at 08:47; Stop 08/08/18 at 08:48; Status DC Lidocaine/Sodium Bicarbonate (Buffered Lidocaine 1%) 3 ml STK-MED ONCE .ROUTE ; Start 08/08/18 at 08:47; Stop 08/08/18 at 08:48; Status DC Midazolam HCl (Versed) 2 mg STK-MED ONCE .ROUTE ; Start 08/08/18 at 08:49; Stop 08/08/18 at 08:50; Status DC Fentanyl Citrate (Fentanyl 2ml Vial) 100 mcg STK-MED ONCE .ROUTE ; Start 08/08/18 at 08:49; Stop 08/08/18 at 08:50; Status DC Fentanyl Citrate (Fentanyl 2ml Vial) 25 mcg PRN Q5MIN PRN IV MILD PAIN; Start 08/09/18 at 07:00; Stop 08/10/18 at 07:00; Status DC Fentanyl Citrate (Fentanyl 2ml Vial) 50 mcg PRN Q5MIN PRN IV MODERATE TO SEVERE PAIN; Start 08/09/18 at 07:00; Stop 08/10/18 at 07:00; Status DC Morphine Sulfate (Morphine Sulfate) 1 mg PRN Q10MIN PRN IV SEVERE PAIN; Start 08/09/18 at 07:00; Stop 08/10/18 at 07:00; Status DC Ringer's Solution 1,000 ml @ 30 mls/hr Q24H IV ; Start 08/09/18 at 07:00; Stop 08/09/18 at 18:59; Status DC Lidocaine HCl (Xylocaine-Mpf 1% 2ml Vial) 2 ml PRN 1X PRN ID PRIOR TO IV START; Start 08/09/18 at 07:00; Stop 08/10/18 at 07:00; Status DC Hydromorphone HCl (Dilaudid) 0.5 mg PRN Q10MIN PRN IV SEV PAIN, Second choice; Start 08/09/18 at 07:00; Stop 08/10/18 at 07:00; Status DC Prochlorperazine Edisylate (Compazine) 5 mg PACU PRN PRN IV NAUSEA, MRX1; Start 08/09/18 at 07:00; Stop 08/10/18 at 07:00; Status DC Multivitamins/ Minerals (I-Burak) 1 tab DAILY PO Last administered on 08/11/18at 08:53; Start 08/08/18 at 15:00 Ascorbic Acid (Vitamin C) 500 mg DAILY PO Last administered on 08/11/18at 08:55; Start 08/08/18 at 15:00 Furosemide (Lasix) 40 mg 1X ONCE IVP Last administered on 08/08/18at 16:34; Start 08/08/18 at 16:30; Stop 08/08/18 at 16:31; Status DC Doxycycline Hyclate (Vibra-Tab) 100 mg BID PO Last administered on 08/10/18at 08:01; Start 08/09/18 at 09:00; Stop 08/10/18 at 09:22; Status DC Linagliptin (Tradjenta) 5 mg DAILY PO Last administered on 08/11/18at 08:54; Start 08/09/18 at 09:00 Potassium Chloride (Klor-Con) 10 meq BID PO Last administered on 08/10/18 07:59; Start 08/09/18 at 09:00; Stop 08/10/18 at 08:47; Status DC Propofol 40 ml @ As Directed STK-MED ONCE IV ; Start 08/09/18 at 12:09; Stop 08/09/18 at 12:10; Status DC Lidocaine/Sodium Bicarbonate (Buffered Lidocaine 1%) 3 ml STK-MED ONCE .ROUTE ; Start 08/09/18 at 12:25; Stop 08/09/18 at 12:26; Status DC Lidocaine/Sodium Bicarbonate (Buffered Lidocaine 1%) 12 ml 1X ONCE INJ Last administered on 08/09/18at 12:43; Start 08/09/18 at 12:45; Stop 08/09/18 at 12:46; Status DC Albuterol Sulfate (Ventolin Neb Soln) 2.5 mg 1X ONCE IH Last administered on 08/10/18 02:32; Start 08/10/18 at 03:00; Stop 08/10/18 at 03:01; Status DC Lisinopril (Prinivil) 20 mg DAILY PO Last administered on 08/11/18 08:56; Start 08/10/18 at 09:30 Potassium Chloride (Klor-Con) 20 meq TIDWMEALS PO Last administered on 08/10/18 17:06; Start 08/10/18 at 12:00 Glipizide (Glucotrol) 5 mg BIDBFRMEAL PO Last administered on 08/11/18 16:12; Start 08/10/18 at 09:30 Loperamide HCl (Imodium) 2 mg PRN Q15MIN PRN PO DIARRHEA Last administered on 08/10/18 23:46; Start 08/10/18 at 09:15 Vitamin A/Vitamin D (Vitamin A & D Ointment) 1 dayne PRN Q1HR PRN TP SKIN PROTECTION Last administered on 08/11/18 08:58; Start 08/10/18 at 09:45 Furosemide (Lasix) 40 mg 1X ONCE IVP Last administered on 08/10/18 13:25; Start 08/10/18 at 11:30; Stop 08/10/18 at 11:38; Status DC Potassium Chloride/Water 100 ml @ 100 mls/hr Q1H IV Last administered on 5/16/19at 12:45; Start 08/11/18 at 09:00; Stop 08/11/18 at 12:59; Status DC Insulin Glargine (Lantus) 5 units QHS SQ Last administered on 08/12/18at 00:07; Start 08/11/18 at 21:00 Budesonide (Pulmicort) 0.5 mg RTBID NEB Last administered on 08/12/18at 07:20; Start 08/11/18 at 09:00 Active Scripts Active Omeprazole 40 Mg Capsule.dr 40 Mg PO DAILY Aspirin 81 Mg Tab.chew 81 Mg PO DAILY Pioglitazone Hcl 30 Mg Tablet 30 Mg PO DAILY Atorvastatin Calcium 80 Mg Tablet 80 Mg PO HS Reported Metoprolol Tartrate 100 Mg Tablet 2 Tab PO DAILY Glipizide 5 Mg Tablet 2 Tab PO DAILY Provencal 3 Fish Oil Softgel (Provencal-3 Fatty Acids/Fish Oil) 1 Each Capsule.dr 2 Each PO DAILY Calcium Carbonate 500 Mg Tablet 1,000 Mg PO DAILY Januvia (Sitagliptin Phosphate) 50 Mg Tablet 1 Tab PO DAILY Lisinopril 5 Mg Tablet 1 Tab PO DAILY Vitals/I & O Vital Sign - Last 24 Hours 08/11/18 08/11/18 08/11/18 08/11/18 10:51 12:08 14:50 19:55 Temp 97.8 97.5 98.0 97.8 97.5 98.0 Pulse 84 77 77 Resp 30 30 26 B/P (MAP) 129/66 (87) 126/63 (84) 131/65 (87) Pulse Ox 94 93 95 O2 Delivery Nasal Cannula Nasal Cannula Nasal Cannula Nasal Cannula O2 Flow Rate 4.0 3.0 4.0 4.0 08/11/18 08/11/18 08/11/18 08/12/18 20:00 21:02 23:42 03:10 Temp 97.8 97.6 97.8 97.6 Pulse 72 86 Resp 26 20 B/P (MAP) 144/74 (97) 136/59 (84) Pulse Ox 94 92 O2 Delivery Nasal Cannula Nasal Cannula Nasal Cannula Nasal Cannula O2 Flow Rate 4.0 3.0 4.0 3.0 08/12/18 08/12/18 08/12/18 07:00 07:22 07:23 Temp 97.2 97.2 Pulse 82 Resp 30 B/P (MAP) 138/54 (82) Pulse Ox 91 92 92 O2 Delivery Nasal Cannula Nasal Cannula Nasal Cannula O2 Flow Rate 3.0 3.0 3.0 Intake and Output 08/11/18 08/11/18 08/12/18 15:00 23:00 07:00 Intake Total 880 ml 120 ml 100 ml Output Total 650 ml 1100 ml Balance 880 ml -530 ml -1000 ml KEVON FUENTES MD August 12, 2018 09:13
[2018-08-12 11:00] VITALS: BP 93/66
--- NOTE | 2018-08-12 11:00 | PDOC ---
PULMONARY PROGRESS NOTES Subjective no soa s/p BM bx Vitals Vital Signs Date Time Temp Pulse Resp B/P (MAP) Pulse Ox O2 Delivery O2 Flow Rate FiO2 08/12/18 08:53 82 138/54 08/12/18 08:00 Nasal Cannula 3.0 08/12/18 07:23 92 08/12/18 07:00 97.2 30 97.2 ROS: No Nausea, No Chest Pain, No Abdominal Pain, No Increase Cough General: Alert Lungs: Clear Cardiovascular: S1, S2 Abdomen: Soft Neuro Exam: Alert Extremities: Other (EDEMA) Labs Laboratory Tests Test 08/10/18 11:31 08/10/18 17:01 08/10/18 21:20 08/11/18 04:30 Glucose (Fingerstick) 245 mg/dL (70-99) 277 mg/dL (70-99) 262 mg/dL (70-99) White Blood Count 0.9 x10^3/uL (4.0-11.0) Red Blood Count 3.02 x10^6/uL (3.50-5.40) Hemoglobin 9.6 g/dL (12.0-15.5) Hematocrit 28.1 % (36.0-47.0) Mean Corpuscular Volume 93 fL (79-100) Mean Corpuscular Hemoglobin 32 pg (25-35) Mean Corpuscular Hemoglobin Concent 34 g/dL (31-37) Red Cell Distribution Width 16.2 % (11.5-14.5) Platelet Count 87 x10^3/uL (140-400) Sodium Level 136 mmol/L (136-145) Potassium Level 3.0 mmol/L (3.5-5.1) Chloride Level 101 mmol/L (98-107) Carbon Dioxide Level 26 mmol/L (21-32) Anion Gap 9 (6-14) Blood Urea Nitrogen 27 mg/dL (7-20) Creatinine 1.3 mg/dL (0.6-1.0) Estimated GFR (Cockcroft-Gault) 40.4 Glucose Level 275 mg/dL (70-99) Calcium Level 9.1 mg/dL (8.5-10.1) Test 08/11/18 07:17 08/11/18 11:13 08/11/18 16:37 08/11/18 21:42 Glucose (Fingerstick) 267 mg/dL (70-99) 325 mg/dL (70-99) 285 mg/dL (70-99) 231 mg/dL (70-99) Test 08/12/18 05:00 08/12/18 07:40 White Blood Count 1.0 x10^3/uL (4.0-11.0) Red Blood Count 2.89 x10^6/uL (3.50-5.40) Hemoglobin 9.5 g/dL (12.0-15.5) Hematocrit 26.9 % (36.0-47.0) Mean Corpuscular Volume 93 fL (79-100) Mean Corpuscular Hemoglobin 33 pg (25-35) Mean Corpuscular Hemoglobin Concent 35 g/dL (31-37) Red Cell Distribution Width 16.5 % (11.5-14.5) Platelet Count 87 x10^3/uL (140-400) Sodium Level 139 mmol/L (136-145) Potassium Level 3.4 mmol/L (3.5-5.1) Chloride Level 102 mmol/L (98-107) Carbon Dioxide Level 28 mmol/L (21-32) Anion Gap 9 (6-14) Blood Urea Nitrogen 26 mg/dL (7-20) Creatinine 1.2 mg/dL (0.6-1.0) Estimated GFR (Cockcroft-Gault) 44.3 Glucose Level 243 mg/dL (70-99) Calcium Level 9.0 mg/dL (8.5-10.1) Glucose (Fingerstick) 228 mg/dL (70-99) Laboratory Tests Test 08/11/18 11:13 08/11/18 16:37 08/11/18 21:42 08/12/18 05:00 Glucose (Fingerstick) 325 mg/dL (70-99) 285 mg/dL (70-99) 231 mg/dL (70-99) White Blood Count 1.0 x10^3/uL (4.0-11.0) Red Blood Count 2.89 x10^6/uL (3.50-5.40) Hemoglobin 9.5 g/dL (12.0-15.5) Hematocrit 26.9 % (36.0-47.0) Mean Corpuscular Volume 93 fL (79-100) Mean Corpuscular Hemoglobin 33 pg (25-35) Mean Corpuscular Hemoglobin Concent 35 g/dL (31-37) Red Cell Distribution Width 16.5 % (11.5-14.5) Platelet Count 87 x10^3/uL (140-400) Sodium Level 139 mmol/L (136-145) Potassium Level 3.4 mmol/L (3.5-5.1) Chloride Level 102 mmol/L (98-107) Carbon Dioxide Level 28 mmol/L (21-32) Anion Gap 9 (6-14) Blood Urea Nitrogen 26 mg/dL (7-20) Creatinine 1.2 mg/dL (0.6-1.0) Estimated GFR (Cockcroft-Gault) 44.3 Glucose Level 243 mg/dL (70-99) Calcium Level 9.0 mg/dL (8.5-10.1) Test 08/12/18 07:40 Glucose (Fingerstick) 228 mg/dL (70-99) Medications Active Scripts Medications Dose Route/Sig Max Daily Dose Days Date Category Metoprolol Tartrate 100 Mg Tablet 2 Tab PO DAILY 08/05/18 Reported Glipizide 5 Mg Tablet 2 Tab PO DAILY 08/05/18 Reported [place] 3 Fish Oil Softgel ([place]-3 Fatty Acids/Fish Oil) 1 Each Capsule.dr 2 Each PO DAILY 08/05/18 Reported Calcium Carbonate 500 Mg Tablet 1,000 Mg PO DAILY 08/05/18 Reported Januvia (Sitagliptin Phosphate) 50 Mg Tablet 1 Tab PO DAILY 08/05/18 Reported Lisinopril 5 Mg Tablet 1 Tab PO DAILY 08/05/18 Reported Omeprazole 40 Mg Capsule.dr 40 Mg PO DAILY 07/03/13 Rx Aspirin 81 Mg Tab.chew 81 Mg PO DAILY 07/03/13 Rx Pioglitazone Hcl 30 Mg Tablet 30 Mg PO DAILY 07/03/13 Rx Atorvastatin Calcium 80 Mg Tablet 80 Mg PO HS 07/03/13 Rx Comments Diagnosis: Peripheral smear: - Marked leukopenia and absolute neutropenia with a few circulating blasts. - Normocytic normochromic anemia, moderate. - Thrombocytopenia, moderate. . 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 SEE COMMENT. - Increased reticuloendothelial iron stores. QMS/08/12/2018 Impression . 1. Acute hypoxemic respiratory failure. 2. Abnormal x-ray compatible with pulmonary edema, Diastolic HF vs right heart failure ? pneumonia. 3. Metabolic toxic encephalopathy, present upon admission.resolved 4. Morbid obesity./likely cor-pulmonale 5. Coronary artery disease with previous coronary artery bypass grafting. 6. Hypertension. 7. Acute pancytopenia, s/p BM BX 8. Sepsis Plan . BIPAP PRN CXR NO CHANGE 08/11, clinically better IV LASIX PRN D/W DAUGHTER RESULTS OF BM bx reviewed. follow hematology rec GEE WELSH MD August 12, 2018 11:00
[2018-08-12] MEDS: MICAFUNGIN 100 MG in IV DEXTROSE 5% 100ML 100 ML IV SCH (12:42)
--- NOTE | 2018-08-12 12:57 | NUR ---
SW following up with pt dc plan. Pt has been accepted at [facility] and will have a bed available upon dc. Pt's RN has been notified.
[2018-08-12 14:52] VITALS: BP 145/81
--- NOTE | 2018-08-12 16:35 | PDOC2 ---
PALLIATIVE CARE Palliative Care Note Palliative Care Consult requested by Dr. Tanner to address goals of care, new leukemia dx. Medical Assessment per medical records. BMBx shows 39% blasts, undiff AML, but w/ fatigue, resp decline and lack of marrow recovery despite treating infection. Patient sitting up in chair. States she has been told she has leukemia. Would like to have discussion with son Jimmie. Sister-Adrianne here during discussion with Dr. Tanner. Attempted to reach Adrianne--message to return call. Attempted to reach Jimmie at [phone]. message to return call. Code Status; DNR/DNI Will arrange family meeting when family available. LORRI SOTO August 12, 2018 16:35
[2018-08-12 19:10] VITALS: BP 131/64
[2018-08-12] MEDS ORDERED: INSULIN GLARGINE 300 UNITS/3 ML INSULN.PEN. SQ SCH (21:00)
[2018-08-12 23:00] VITALS: BP 127/68
[2018-08-12] MEDS: ACETAMINOPHEN 325 MG TABLET. PO PRN (23:37)
[2018-08-13] MEDS ORDERED: HYDROcodone/APAP 5/325MG 1 TAB TABLET PO PRN (01:00)
[2018-08-13] MEDS: PIPERACILLIN/TAZOBACTAM 3.375 GM in IV NORMAL SALINE 50ML 50 ML IV SCH ×4 (01:03→18:15)
--- NOTE | 2018-08-13 02:42 | NUR ---
COUGHING SPELL, SITTING IN CHAIR. CALLED FOR A BREATHING TREATMENT. LCRN
[2018-08-13] MEDS: guaiFENesin DM 200MG/20MG 10 ML SYRUP PO PRN ×2 (02:48→22:06)
[2018-08-13] MEDS: ALBUTEROL SULFATE 2.5 MG/3 ML NEBU. IH PRN (03:02)
[2018-08-13 03:45] VITALS: BP 101/55
--- NOTE | 2018-08-13 03:53 | NUR ---
after coughing episode pt was having difficult time breathing, c. stoking. and received a breathing treatment. settings are 16/8 rate 10 at 40%. pt calm, in chair, had lortab 5 and robitussin earlier with coughing fit. pt states she feels better. sats are 98% lcrn
--- NOTE | 2018-08-13 05:09 | NUR ---
pt wanted off bipap.. asked when is breakfast. lcrn
[2018-08-13 07:00] VITALS: BP 107/60
--- NOTE | 2018-08-13 07:35 | PDOC ---
PULMONARY PROGRESS NOTES Subjective on 02, sob better, has occ cough, used bipap last night, no pain s/p BM bx Vitals Vital Signs Date Time Temp Pulse Resp B/P (MAP) Pulse Ox O2 Delivery O2 Flow Rate FiO2 08/13/18 03:45 97.7 76 34 101/55 (70) 98 BiPAP/CPAP 97.7 08/12/18 23:00 3.0 ROS: No Nausea, No Chest Pain, No Abdominal Pain, No Increase Cough General: Alert HEENT: Other (nc at perrl) Lungs: Crackles Cardiovascular: S1, S2 Abdomen: Soft Neuro Exam: Alert Extremities: Other (EDEMA) Skin: Warm Labs Laboratory Tests Test 08/11/18 11:13 08/11/18 16:37 08/11/18 21:42 08/12/18 05:00 Glucose (Fingerstick) 325 mg/dL (70-99) 285 mg/dL (70-99) 231 mg/dL (70-99) White Blood Count 1.0 x10^3/uL (4.0-11.0) Red Blood Count 2.89 x10^6/uL (3.50-5.40) Hemoglobin 9.5 g/dL (12.0-15.5) Hematocrit 26.9 % (36.0-47.0) Mean Corpuscular Volume 93 fL (79-100) Mean Corpuscular Hemoglobin 33 pg (25-35) Mean Corpuscular Hemoglobin Concent 35 g/dL (31-37) Red Cell Distribution Width 16.5 % (11.5-14.5) Platelet Count 87 x10^3/uL (140-400) Sodium Level 139 mmol/L (136-145) Potassium Level 3.4 mmol/L (3.5-5.1) Chloride Level 102 mmol/L (98-107) Carbon Dioxide Level 28 mmol/L (21-32) Anion Gap 9 (6-14) Blood Urea Nitrogen 26 mg/dL (7-20) Creatinine 1.2 mg/dL (0.6-1.0) Estimated GFR (Cockcroft-Gault) 44.3 Glucose Level 243 mg/dL (70-99) Calcium Level 9.0 mg/dL (8.5-10.1) Test 08/12/18 07:40 08/12/18 11:35 08/12/18 16:24 08/12/18 20:43 Glucose (Fingerstick) 228 mg/dL (70-99) 259 mg/dL (70-99) 248 mg/dL (70-99) 228 mg/dL (70-99) Laboratory Tests Test 08/12/18 07:40 08/12/18 11:35 08/12/18 16:24 08/12/18 20:43 Glucose (Fingerstick) 228 mg/dL (70-99) 259 mg/dL (70-99) 248 mg/dL (70-99) 228 mg/dL (70-99) Medications Active Scripts Medications Dose Route/Sig Max Daily Dose Days Date Category Metoprolol Tartrate 100 Mg Tablet 2 Tab PO DAILY 08/05/18 Reported Glipizide 5 Mg Tablet 2 Tab PO DAILY 08/05/18 Reported [place] 3 Fish Oil Softgel ([place]-3 Fatty Acids/Fish Oil) 1 Each Capsule.dr 2 Each PO DAILY 08/05/18 Reported Calcium Carbonate 500 Mg Tablet 1,000 Mg PO DAILY 08/05/18 Reported Januvia (Sitagliptin Phosphate) 50 Mg Tablet 1 Tab PO DAILY 08/05/18 Reported Lisinopril 5 Mg Tablet 1 Tab PO DAILY 08/05/18 Reported Omeprazole 40 Mg Capsule.dr 40 Mg PO DAILY 07/03/13 Rx Aspirin 81 Mg Tab.chew 81 Mg PO DAILY 07/03/13 Rx Pioglitazone Hcl 30 Mg Tablet 30 Mg PO DAILY 07/03/13 Rx Atorvastatin Calcium 80 Mg Tablet 80 Mg PO HS 07/03/13 Rx Comments Diagnosis: Peripheral smear: - Marked leukopenia and absolute neutropenia with a few circulating blasts. - Normocytic normochromic anemia, moderate. - Thrombocytopenia, moderate. . 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 SEE COMMENT. - Increased reticuloendothelial iron stores. QMS/08/12/2018 Impression . 1. Acute hypoxemic respiratory failure. 2. Abnormal x-ray compatible with pulmonary edema, Diastolic HF vs right heart failure ? pneumonia. 3. Metabolic toxic encephalopathy, present upon admission.resolved 4. Morbid obesity./likely cor-pulmonale 5. Coronary artery disease with previous coronary artery bypass grafting. 6. Hypertension. 7. Acute pancytopenia, s/p BM BX 8. Sepsis Plan . BIPAP PRN during day, cont at night, setting reviewed CXR NO CHANGE 08/11, clinically better IV LASIX PRN, monitor k, cr RESULTS OF BM bx reviewed. follow hematology rec abx per id discussed w pt , rn LAUREN ARTHUR MD August 13, 2018 07:35
[2018-08-13] MEDS: ALBUTEROL SULFATE 2.5 MG/3 ML NEBU. IH SCH ×2 (07:54→19:43)
[2018-08-13] MEDS: BUDESONIDE 0.5 MG/2 ML NEBU. NEB SCH ×2 (07:54→19:43)
[2018-08-13] MEDS: ASCORBIC ACID 500 MG TABLET PO SCH (08:18)
[2018-08-13] MEDS: PANTOPRAZOLE 40 MG TABLET.DR. PO SCH (08:18)
[2018-08-13] MEDS: POTASSIUM CHLORIDE 20 MEQ TABLET.ER. PO SCH (08:19)
[2018-08-13] MEDS: OMEGA-3 FATTY ACIDS/FISH OIL 1,000 MG CAPSULE. PO SCH (08:19)
[2018-08-13] MEDS: glipiZIDE 5 MG TABLET PO SCH ×2 (08:19→18:19)
[2018-08-13] MEDS: ASPIRIN CHEWABLE 81 MG TABLET. PO SCH (08:20)
[2018-08-13] MEDS: BENZONATATE 100 MG CAPSULE. PO SCH ×3 (08:20→22:05)
[2018-08-13] MEDS: LINAGLIPTIN 5 MG TABLET PO SCH (08:20)
[2018-08-13] MEDS: CALCIUM CARBONATE 500 MG TABLET PO SCH (08:20)
[2018-08-13] MEDS: MULTIVITAMIN I-VITE TABLET. PO SCH (08:20)
[2018-08-13] MEDS: METOPROLOL SUCC 24HR ER 100 MG TAB.ER.24H. PO SCH (08:21)
[2018-08-13] MEDS: NYSTATIN TOPICAL POWDER 15GM BOTTLE. TP SCH ×2 (08:27→22:06)
[2018-08-13] MEDS: INSULIN LISPRO 300 UNITS/3 ML INSULN.PEN. SQ SCH ×3 (08:33→18:23)
[2018-08-13 11:00] VITALS: BP 119/61
[2018-08-13] MEDS: LISINOPRIL 20 MG TABLET PO SCH (11:39)
--- NOTE | 2018-08-13 12:17 | PDOC ---
PROGRESS NOTES Subjective Subjective Patient without complaint, feels comfortable in recliner. Objective Objective Vital Signs Date Time Temp Pulse Resp B/P (MAP) Pulse Ox O2 Delivery O2 Flow Rate FiO2 08/13/18 11:39 71 119/61 08/13/18 11:00 98.3 30 95 98.3 08/13/18 07:57 Nasal Cannula 3.0 Intake and Output 08/13/18 07:00 Intake Total 1820 ml Output Total 201 ml Balance 1619 ml Intake Oral 1820 ml Output Urine Total 200 ml Stool Total 1 ml # Bowel Movements 1 Physical Exam Abdomen: Normal bowel sounds, Soft, No tenderness Heart: Regular rate Extremities: Other (mild diffuse edema) General: Alert, Oriented X3, No acute distress Lungs: Other (BS decreased throughout otherwise CTA) Assessment Assessment Problems Medical Problems: (1) Pneumonia Status: Acute (2) Severe sepsis Status: Acute (3) Urinary tract infection Status: Acute Plan Plan of Care 1. Sepsis - appears resolved. Afebrile, all cultures negative. Decrease abx per ID. 2. acute respiratory failure with pneumonia - stable but pulmonary status not really improving. Continue O2 and nebs, including Pulmicort. 3. AML with pancytopenia - bone marrow results reviewed with patient and questions answered. Palliative Care trying to arrange family meeting to help patient with decision-making. Probably too debilitated to start chemotx at this time. 4. arrhythmias - frequent PAC's appear to have resolved but frequent bradycardia now on telemetry and BP low at times. Will decrease her Toprol XL from 200 to 100mg daily and follow. 5. DM2 - glucose remains elevated, increase Lantus, continue po meds and SS insulin. 6. CKD III with hypokalemia - has been stable, check lab in AM. 7. debility - continue therapies, hope to discharge to [facility] first part of next week. Comment Review of Relevant I have reviewed the following items ld (where applicable) has been applied. Labs Laboratory Tests Test 08/11/18 16:37 08/11/18 21:42 08/12/18 05:00 08/12/18 07:40 Glucose (Fingerstick) 285 mg/dL (70-99) 231 mg/dL (70-99) 228 mg/dL (70-99) White Blood Count 1.0 x10^3/uL (4.0-11.0) Red Blood Count 2.89 x10^6/uL (3.50-5.40) Hemoglobin 9.5 g/dL (12.0-15.5) Hematocrit 26.9 % (36.0-47.0) Mean Corpuscular Volume 93 fL (79-100) Mean Corpuscular Hemoglobin 33 pg (25-35) Mean Corpuscular Hemoglobin Concent 35 g/dL (31-37) Red Cell Distribution Width 16.5 % (11.5-14.5) Platelet Count 87 x10^3/uL (140-400) Sodium Level 139 mmol/L (136-145) Potassium Level 3.4 mmol/L (3.5-5.1) Chloride Level 102 mmol/L (98-107) Carbon Dioxide Level 28 mmol/L (21-32) Anion Gap 9 (6-14) Blood Urea Nitrogen 26 mg/dL (7-20) Creatinine 1.2 mg/dL (0.6-1.0) Estimated GFR (Cockcroft-Gault) 44.3 Glucose Level 243 mg/dL (70-99) Calcium Level 9.0 mg/dL (8.5-10.1) Test 08/12/18 11:35 08/12/18 16:24 08/12/18 20:43 08/13/18 07:45 Glucose (Fingerstick) 259 mg/dL (70-99) 248 mg/dL (70-99) 228 mg/dL (70-99) 235 mg/dL (70-99) Test 08/13/18 11:59 Glucose (Fingerstick) 272 mg/dL (70-99) Laboratory Tests Test 08/12/18 16:24 08/12/18 20:43 08/13/18 07:45 08/13/18 11:59 Glucose (Fingerstick) 248 mg/dL (70-99) 228 mg/dL (70-99) 235 mg/dL (70-99) 272 mg/dL (70-99) Microbiology 08/05/18 Blood Culture - Final, Complete NO GROWTH AFTER 5 DAYS 08/05/18 Urine Culture - Final, Complete 08/05/18 Urine Culture Result 1 (TINO) - Final, Complete Medications Current Medications Piperacillin Sod/ Tazobactam Sod (Zosyn Per Pharmacy) 1 each PRN DAILY PRN MC SEE COMMENTS; Start 08/05/18 at 15:00 Piperacillin Sod/ Tazobactam Sod 4.5 gm/Sodium Chloride 100 ml @ 200 mls/hr ONCE ONCE IV Last administered on 08/05/18at 15:00; Start 08/05/18 at 15:00; Stop 08/05/18 at 15:29; Status DC Vancomycin HCl (Vanco Per Pharmacy) 1 each PRN DAILY PRN MC SEE COMMENTS Last administered on 08/08/18at 10:48; Start 08/05/18 at 16:15; Stop 08/09/18 at 07:57; Status DC Vancomycin HCl 2 gm/Sodium Chloride 500 ml @ 250 mls/hr 1X ONCE IV Last administered on 08/05/18at 16:17; Start 08/05/18 at 16:15; Stop 08/05/18 at 18:14; Status DC Ondansetron HCl (Zofran) 4 mg PRN Q8HRS PRN IV NAUSEA/VOMITING; Start 08/05/18 at 16:45; Stop 08/06/18 at 16:44; Status DC Morphine Sulfate (Morphine Sulfate) 2 mg PRN Q2HR PRN IV PAIN; Start 08/05/18 a t 16:45; Stop 08/06/18 at 16:44; Status DC Sodium Chloride 1,000 ml @ 100 mls/hr Q10H IV Last administered on 08/06/18at 00:12; Start 08/05/18 at 16:43; Stop 08/05/18 at 20:42; Status DC Piperacillin Sod/ Tazobactam Sod 3.375 gm/Sodium Chloride 50 ml @ 100 mls/hr Q6HRS IV Last administered on 08/13/18at 11:40; Start 08/06/18 at 00:00 Vancomycin HCl 1.5 gm/Sodium Chloride 500 ml @ 250 mls/hr Q24H IV Last administered on 08/06/18at 16:41; Start 08/06/18 at 16:00; Stop 08/07/18 at 16:18; Status DC Vancomycin HCl (Vancomycin Trough Level) 1 each 1X ONCE MC Last administered on 08/07/18at 15:30; Start 08/07/18 at 15:30; Stop 08/07/18 at 15:31; Status DC Sodium Chloride 1,000 ml @ 166.667 mls/hr Q6H IV Last administered on 08/06/18at 05:42; Start 08/05/18 at 17:24; Stop 08/06/18 at 05:48; Status DC Aspirin (Children'S Aspirin) 81 mg DAILY PO Last administered on 08/13/18at 08:20; Start 08/06/18 at 09:00 Calcium Carbonate/ Glycine (Oscal) 1,000 mg DAILY PO Last administered on 08/13/18at 08:20; Start 08/06/18 at 09:00 Glipizide (Glucotrol) 10 mg DAILY PO ; Start 08/06/18 at 09:00; Stop 08/06/18 at 10:27; Status DC Atorvastatin Calcium (Lipitor) 80 mg QHS PO Last administered on 08/06/18at 00:15; Start 08/05/18 at 21:00; Stop 08/06/18 at 10:27; Status DC Lisinopril (Prinivil) 5 mg DAILY PO Last administered on 08/10/18at 08:02; Start 08/06/18 at 09:00; Stop 08/10/18 at 08:47; Status DC Metoprolol Succinate (Toprol Xl) 200 mg DAILY PO Last administered on 08/13/18at 08:21; Start 08/06/18 at 09:00 Fish Oil (Fish Oil) 2,000 mg DAILY PO Last administered on 08/13/18at 08:19; Start 08/06/18 at 09:00 Pantoprazole Sodium (Protonix) 40 mg DAILYAC PO Last administered on 08/13/18at 08:18; Start 08/06/18 at 07:30 Pioglitazone HCl (Actos) 30 mg DAILY PO ; Start 08/06/18 at 09:00; Stop 08/06/18 at 18:11; Status DC Linagliptin (Tradjenta) 5 mg DAILY PO ; Start 08/06/18 at 09:00; Stop 08/06/18 a t 18:11; Status DC Haloperidol Lactate (Haldol Inj) 5 mg PRN Q6HRS PRN IVP AGITATION; Start 08/05/18 at 19:30 Dextrose (Dextrose 50%-Water Syringe) 12.5 gm PRN Q15MIN PRN IV SEE COMMENTS Last administered on 08/05/18at 21:43; Start 08/05/18 at 19:45 Acetaminophen (Tylenol) 650 mg PRN Q6HRS PRN PO FEVER Last administered on 08/12/18at 23:37; Start 08/06/18 at 04:15 Potassium Chloride (Klor-Con) 10 meq [id number] PO Last administered on 08/08/18at 12:49; Start 08/06/18 at 10:30; Stop 08/09/18 at 08:20; Status DC Insulin Human Lispro (HumaLOG) 0-5 UNITS TIDWMEALS SQ Last administered on 08/13/18 08:33; Start 08/06/18 at 12:00 Dextrose (Dextrose 50%-Water Syringe) 12.5 gm PRN Q15MIN PRN IV SEE COMMENTS; Start 08/06/18 at 10:30; Status UNV Lactobacillus Rhamnosus (Culturelle) 1 cap BID PO Last administered on 08/07/18 21:26; Start 08/06/18 at 21:00; Stop 08/08/18 at 10:39; Status DC Sodium Chloride 1,000 ml @ 100 mls/hr Q10H IV Last administered on 08/07/18at 11:46; Start 08/06/18 at 18:15; Stop 08/07/18 at 22:35; Status DC Nystatin (Nystop) 1 dayne BID TP Last administered on 08/13/18at 08:27; Start 08/06/18 at 21:00 Benzonatate (Tessalon Perle) 100 mg [id number] PO Last administered on 08/13/18 08:20; Start 08/07/18 at 12:00 Guaifenesin (Robitussin Dm) 10 ml PRN Q6HRS PRN PO COUGH Last administered on 08/13/18at 02:48; Start 08/07/18 at 10:30 Micafungin Sodium 100 mg/Dextrose 100 ml @ 100 mls/hr Q24H IV Last administered on 08/12/18at 12:42; Start 08/07/18 at 12:00 Vancomycin HCl 2 gm/Sodium Chloride 500 ml @ 250 mls/hr Q24H IV Last administered on 08/08/18at 16:35; Start 08/07/18 at 16:30; Stop 08/09/18 at 07:57; Status DC Vancomycin HCl (Vancomycin Trough Level) 1 each 1X ONCE MC ; Start 08/09/18 at 16:00; Stop 08/09/18 at 16:00; Status DC Furosemide (Lasix) 40 mg 1X ONCE IVP Last administered on 08/07/18at 23:00; Start 08/07/18 at 23:00; Stop 08/07/18 at 23:01; Status DC Hydralazine HCl (Apresoline Inj) 10 mg PRN Q4HRS PRN IVP ELEVATED BP, SEE COMMENTS Last administered on 08/10/18at 23:47; Start 08/07/18 at 22:45 Albuterol Sulfate (Ventolin Neb Soln) 2.5 mg TID IH Last administered on 08/13/18at 07:54; Start 08/08/18 at 09:00 Albuterol Sulfate (Ventolin Neb Soln) 2.5 mg PRN Q3HRS PRN IH WHEEZING Last administered on 08/13/18at 03:02; Start 08/08/18 at 05:15 Lidocaine/Sodium Bicarbonate (Buffered Lidocaine 1%) 3 ml STK-MED ONCE .ROUTE ; Start 08/08/18 at 08:42; Stop 08/08/18 at 08:43; Status DC Lidocaine/Sodium Bicarbonate (Buffered Lidocaine 1%) 3 ml STK-MED ONCE .ROUTE ; Start 08/08/18 at 08:47; Stop 08/08/18 at 08:48; Status DC Lidocaine/Sodium Bicarbonate (Buffered Lidocaine 1%) 3 ml STK-MED ONCE .ROUTE ; Start 08/08/18 at 08:47; Stop 08/08/18 at 08:48; Status DC Midazolam HCl (Versed) 2 mg STK-MED ONCE .ROUTE ; Start 08/08/18 at 08:49; Stop 08/08/18 at 08:50; Status DC Fentanyl Citrate (Fentanyl 2ml Vial) 100 mcg STK-MED ONCE .ROUTE ; Start 08/08/18 at 08:49; Stop 08/08/18 at 08:50; Status DC Fentanyl Citrate (Fentanyl 2ml Vial) 25 mcg PRN Q5MIN PRN IV MILD PAIN; Start 08/09/18 at 07:00; Stop 08/10/18 at 07:00; Status DC Fentanyl Citrate (Fentanyl 2ml Vial) 50 mcg PRN Q5MIN PRN IV MODERATE TO SEVERE PAIN; Start 08/09/18 at 07:00; Stop 08/10/18 at 07:00; Status DC Morphine Sulfate (Morphine Sulfate) 1 mg PRN Q10MIN PRN IV SEVERE PAIN; Start 08/09/18 at 07:00; Stop 08/10/18 at 07:00; Status DC Ringer's Solution 1,000 ml @ 30 mls/hr Q24H IV ; Start 08/09/18 at 07:00; Stop 08/09/18 at 18:59; Status DC Lidocaine HCl (Xylocaine-Mpf 1% 2ml Vial) 2 ml PRN 1X PRN ID PRIOR TO IV START; Start 08/09/18 at 07:00; Stop 08/10/18 at 07:00; Status DC Hydromorphone HCl (Dilaudid) 0.5 mg PRN Q10MIN PRN IV SEV PAIN, Second choice; Start 08/09/18 at 07:00; Stop 08/10/18 at 07:00; Status DC Prochlorperazine Edisylate (Compazine) 5 mg PACU PRN PRN IV NAUSEA, MRX1; Start 08/09/18 at 07:00; Stop 08/10/18 at 07:00; Status DC Multivitamins/ Minerals (I-Burak) 1 tab DAILY PO Last administered on 08/13/18at 08:20; Start 08/08/18 at 15:00 Ascorbic Acid (Vitamin C) 500 mg DAILY PO Last administered on 08/13/18at 08:18; Start 08/08/18 at 15:00 Furosemide (Lasix) 40 mg 1X ONCE IVP Last administered on 08/08/18at 16:34; Start 08/08/18 at 16:30; Stop 08/08/18 at 16:31; Status DC Doxycycline Hyclate (Vibra-Tab) 100 mg BID PO Last administered on 08/10/18at 08:01; Start 08/09/18 at 09:00; Stop 08/10/18 at 09:22; Status DC Linagliptin (Tradjenta) 5 mg DAILY PO Last administered on 08/13/18at 08:20; Start 08/09/18 at 09:00 Potassium Chloride (Klor-Con) 10 meq BID PO Last administered on 08/10/18 07:59; Start 08/09/18 at 09:00; Stop 08/10/18 at 08:47; Status DC Propofol 40 ml @ As Directed STK-MED ONCE IV ; Start 08/09/18 at 12:09; Stop 08/09/18 at 12:10; Status DC Lidocaine/Sodium Bicarbonate (Buffered Lidocaine 1%) 3 ml STK-MED ONCE .ROUTE ; Start 08/09/18 at 12:25; Stop 08/09/18 at 12:26; Status DC Lidocaine/Sodium Bicarbonate (Buffered Lidocaine 1%) 12 ml 1X ONCE INJ Last administered on 08/09/18at 12:43; Start 08/09/18 at 12:45; Stop 08/09/18 at 12:46; Status DC Albuterol Sulfate (Ventolin Neb Soln) 2.5 mg 1X ONCE IH Last administered on 08/10/18 02:32; Start 08/10/18 at 03:00; Stop 08/10/18 at 03:01; Status DC Lisinopril (Prinivil) 20 mg DAILY PO Last administered on 08/13/18 11:39; Start 08/10/18 at 09:30 Potassium Chloride (Klor-Con) 20 meq TIDWMEALS PO Last administered on 08/13/18 08:19; Start 08/10/18 at 12:00 Glipizide (Glucotrol) 5 mg BIDBFRMEAL PO Last administered on 08/13/18 08:19; Start 08/10/18 at 09:30 Loperamide HCl (Imodium) 2 mg PRN Q15MIN PRN PO DIARRHEA Last administered on 08/10/18at 23:46; Start 08/10/18 at 09:15 Vitamin A/Vitamin D (Vitamin A & D Ointment) 1 dayne PRN Q1HR PRN TP SKIN PROTECTION Last administered on 08/11/18 08:58; Start 08/10/18 at 09:45 Furosemide (Lasix) 40 mg 1X ONCE IVP Last administered on 08/10/18 13:25; S tart 08/10/18 at 11:30; Stop 08/10/18 at 11:38; Status DC Potassium Chloride/Water 100 ml @ 100 mls/hr Q1H IV Last administered on 08/11/18at 12:45; Start 08/11/18 at 09:00; Stop 08/11/18 at 12:59; Status DC Insulin Glargine (Lantus) 5 units QHS SQ Last administered on 08/12/18at 00:07; Start 08/11/18 at 21:00; Stop 08/12/18 at 09:05; Status DC Budesonide (Pulmicort) 0.5 mg RTBID NEB Last administered on 08/13/18at 07:54; Start 08/11/18 at 09:00 Insulin Glargine (Lantus) 10 units QHS SQ Last administered on 08/12/18at 21:27; Start 08/12/18 at 21:00 Acetaminophen/ Hydrocodone Bitart (Lortab 5/325) 1 tab PRN Q6HRS PRN PO PAIN Last administered on 08/13/18at 01:03; Start 08/13/18 at 01:00 Active Scripts Active Omeprazole 40 Mg Capsule.dr 40 Mg PO DAILY Aspirin 81 Mg Tab.chew 81 Mg PO DAILY Pioglitazone Hcl 30 Mg Tablet 30 Mg PO DAILY Atorvastatin Calcium 80 Mg Tablet 80 Mg PO HS Reported Metoprolol Tartrate 100 Mg Tablet 2 Tab PO DAILY Glipizide 5 Mg Tablet 2 Tab PO DAILY [place] 3 Fish Oil Softgel ([place]-3 Fatty Acids/Fish Oil) 1 Each Capsule.dr 2 Each PO DAILY Calcium Carbonate 500 Mg Tablet 1,000 Mg PO DAILY Januvia (Sitagliptin Phosphate) 50 Mg Tablet 1 Tab PO DAILY Lisinopril 5 Mg Tablet 1 Tab PO DAILY Vitals/I & O Vital Sign - Last 24 Hours 08/12/18 08/12/18 08/12/18 08/12/18 12:29 14:52 19:10 20:00 Temp 97.5 97.9 97.5 97.9 Pulse 88 83 Resp 30 32 B/P (MAP) 145/81 (102) 131/64 (86) Pulse Ox 94 91 O2 Delivery Nasal Cannula Nasal Cannula Nasal Cannula Nasal Cannula O2 Flow Rate 3.0 3.0 3.0 3.0 08/12/18 08/12/18 08/13/18 08/13/18 20:46 23:00 03:02 03:45 Temp 98.0 97.7 98.0 97.7 Pulse 79 76 Resp 30 34 B/P (MAP) 127/68 (87) 101/55 (70) Pulse Ox 94 92 94 98 O2 Delivery Nasal Cannula Nasal Cannula BiPAP/CPAP BiPAP/CPAP O2 Flow Rate 3.0 3.0 08/13/18 08/13/18 08/13/18 08/13/18 07:00 07:56 07:57 08:21 Temp 98.0 98.0 Pulse 65 80 Resp 30 B/P (MAP) 107/60 (76) 107/60 Pulse Ox 94 97 97 O2 Delivery Nasal Cannula Nasal Cannula O2 Flow Rate 3.0 3.0 08/13/18 08/13/18 11:00 11:39 Temp 98.3 98.3 Pulse 71 71 Resp 30 B/P (MAP) 119/61 (80) 119/61 Pulse Ox 95 Intake and Output 08/12/18 08/12/18 08/13/18 15:00 23:00 07:00 Intake Total 740 ml 480 ml 600 ml Output Total 1 ml 200 ml Balance 740 ml 479 ml 400 ml KEVON FUENTES MD August 13, 2018 12:17
--- NOTE | 2018-08-13 12:22 | PDOC ---
Infectious Disease Note Subjective Subjective Comfortable Denies pain/F/C/aches Denies cough/SOA 2L O2 ROS ROS per HPI Vital Sign Vital Signs Vital Signs Date Time Temp Pulse Resp B/P (MAP) Pulse Ox O2 Delivery O2 Flow Rate FiO2 08/13/18 11:39 71 119/61 08/13/18 11:00 98.3 30 95 98.3 08/13/18 07:57 Nasal Cannula 3.0 Physical Exam PHYSICAL EXAM GENERAL: up in chair, alert, coop, NAD HEENT: Pupils equally round, reactive. Normal conjunctivae. Oropharynx pink and dry, edentulous NECK: Supple. LUNGS: Diminished aeration. HEART: S1 and S2. ABDOMEN: Obese, soft, nontender with bowel sounds present. No rebound or guarding. Loose stool : Purewick EXTREMITIES: Trace edema lower extremities bilat, no cyanosis SKIN: Warm without generalized rash. 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 Hep/HIV/Parvo - neg IgM. SRINIVASAN 1:80 ? UTI, POA UC neg TYLER on CKD, improving Elevated LFTs/ possible cholecystitis on US -asymptomatic. Lfts better today Diabetes with hypoglycemia Morbid obesity, BMI 43 CAD Diarrhea, c.dff neg 08/08 LUE - neg for DVT Plan Plan of Care Cont empiric Zosyn (08/06) and micafungin (08/07) for now Discontinued empiric vanc 08/09 as Cr increasing cults neg. added doxy 08/09 but pills were being excreted in stools so d/c'd Doxy 08/10 loose stools better Cultures neg Reverse isolation Supportive care DNR Palliative care nurse following D/w Nursing D/w Dr. Long Patient seen, examined, I agree with above KAREN AKERS APRN August 13, 2018 12:22 ELIZA MONTES MD August 13, 2018 15:36
[2018-08-13] MEDS: MICAFUNGIN 100 MG in IV DEXTROSE 5% 100ML 100 ML IV SCH (12:42)
[2018-08-13 15:00] VITALS: BP 133/62
[2018-08-13 19:05] VITALS: BP 147/64
[2018-08-13] MEDS: ACETAMINOPHEN 325 MG TABLET. PO PRN (22:05)
[2018-08-13] MEDS: INSULIN GLARGINE 300 UNITS/3 ML INSULN.PEN. SQ SCH (22:10)
[2018-08-13 23:30] VITALS: BP 120/60
[2018-08-14] VITALS (7 sets, daily range): BP systolic 105–147; BP diastolic 55–71
[2018-08-14] MEDS: PIPERACILLIN/TAZOBACTAM 3.375 GM in IV NORMAL SALINE 50ML 50 ML IV SCH ×4 (00:46→17:50)
--- NOTE | 2018-08-14 01:05 | NUR ---
CALLED SON. PT DALE SHE CANT BREATHE, BUT WHEN CANNULA IS PUT ON HER SHE PULLS OFF EVEN WITH MITTS WHICH SHE PULLS OFF, BIPAP IS PULLED OFF. WHEN IN CIRCLES WITH SAME STUFF. AND TRY TO EXPALIN SHE IS GETTING OXYGEN. SATS ARE 96% WHEN SHE LEAVES CANNULA OR BIPAP ON HER FACE. SHE ALSO PULLS OFF O2 PROBES X 5. PT WANTED TO STAND UP. REJI PAT AND I STOOD HER UP WITH MAX ASSIST. ASSESSED BUTTUCKS, PLACED CREAM ON CALAZIME ON BUTTUCKS. NO BM. PT SAT DOWN AND THEN RESTED CALMLY. LCRN
--- NOTE | 2018-08-14 01:58 | NUR ---
SON ARRIVED AT 0130. TO BE WITH HIS MOM. LCRN
--- NOTE | 2018-08-14 02:00 | NUR ---
SON LEAVING. HE WENT OVER WHAT HE SPOKE TO HIS MOM ABOUT WHICH WAS KEEPING HER OXYGEN ON. SHE IS CURRENTLY IN HER ROOM REPEATING....... DONT TOUCH THE OXYGEN....... SONS ASKED IF SHE COULD BE PUT IN RESTRAINTS. EXPLAINED THE MITTS ALTHOUGH SHE PULLS THOSE OFF. IT SEEMS LIKE SHE IS MORE ANXIOUS, SHE CALMS WHEN SHE KNOWS SOMEONE IS IN THE ROOM. ENCOURAGED SON TO CONTACT LORRI Arreaga ON WEDNESDAY TO DISCUSS PLAN OF CARE. MAEGAN
[2018-08-14 05:57] LABS: CALCIUM 9.2 mg/dL (8.5-10.1); CREATININE 1.3 mg/dL (0.6-1.0); GFR 40.4; POTASSIUM 3.8 mmol/L (3.5-5.1)
--- NOTE | 2018-08-14 07:27 | PDOC ---
PULMONARY PROGRESS NOTES Subjective on 02, sob better, has occ cough, used bipap hesitantly last night, no pain s/p BM bx Vitals Vital Signs Date Time Temp Pulse Resp B/P (MAP) Pulse Ox O2 Delivery O2 Flow Rate FiO2 08/14/18 03:15 97.1 94 24 105/59 (74) 97 Nasal Cannula 3.0 97.1 ROS: No Nausea, No Chest Pain, No Abdominal Pain, No Increase Cough General: Alert HEENT: Other (nc at perrl) Lungs: Crackles Cardiovascular: S1, S2 Abdomen: Soft Neuro Exam: Alert Extremities: Other (EDEMA) Skin: Warm Labs Laboratory Tests Test 08/12/18 07:40 08/12/18 11:35 08/12/18 16:24 08/12/18 20:43 Glucose (Fingerstick) 228 mg/dL (70-99) 259 mg/dL (70-99) 248 mg/dL (70-99) 228 mg/dL (70-99) Test 08/13/18 07:45 08/13/18 11:59 08/13/18 17:00 08/13/18 21:04 Glucose (Fingerstick) 235 mg/dL (70-99) 272 mg/dL (70-99) 258 mg/dL (70-99) 218 mg/dL (70-99) Test 08/14/18 04:05 Sodium Level 141 mmol/L (136-145) Potassium Level 3.8 mmol/L (3.5-5.1) Chloride Level 105 mmol/L (98-107) Carbon Dioxide Level 26 mmol/L (21-32) Anion Gap 10 (6-14) Blood Urea Nitrogen 28 mg/dL (7-20) Creatinine 1.3 mg/dL (0.6-1.0) Estimated GFR (Cockcroft-Gault) 40.4 Glucose Level 192 mg/dL (70-99) Calcium Level 9.2 mg/dL (8.5-10.1) Laboratory Tests Test 08/13/18 07:45 08/13/18 11:59 08/13/18 17:00 08/13/18 21:04 Glucose (Fingerstick) 235 mg/dL (70-99) 272 mg/dL (70-99) 258 mg/dL (70-99) 218 mg/dL (70-99) Test 08/14/18 04:05 Sodium Level 141 mmol/L (136-145) Potassium Level 3.8 mmol/L (3.5-5.1) Chloride Level 105 mmol/L (98-107) Carbon Dioxide Level 26 mmol/L (21-32) Anion Gap 10 (6-14) Blood Urea Nitrogen 28 mg/dL (7-20) Creatinine 1.3 mg/dL (0.6-1.0) Estimated GFR (Cockcroft-Gault) 40.4 Glucose Level 192 mg/dL (70-99) Calcium Level 9.2 mg/dL (8.5-10.1) Medications Active Scripts Medications Dose Route/Sig Max Daily Dose Days Date Category Metoprolol Tartrate 100 Mg Tablet 2 Tab PO DAILY 08/05/18 Reported Glipizide 5 Mg Tablet 2 Tab PO DAILY 08/05/18 Reported [place] 3 Fish Oil Softgel ([place]-3 Fatty Acids/Fish Oil) 1 Each Capsule.dr 2 Each PO DAILY 08/05/18 Reported Calcium Carbonate 500 Mg Tablet 1,000 Mg PO DAILY 08/05/18 Reported Januvia (Sitagliptin Phosphate) 50 Mg Tablet 1 Tab PO DAILY 08/05/18 Reported Lisinopril 5 Mg Tablet 1 Tab PO DAILY 08/05/18 Reported Omeprazole 40 Mg Capsule.dr 40 Mg PO DAILY 07/03/13 Rx Aspirin 81 Mg Tab.chew 81 Mg PO DAILY 07/03/13 Rx Pioglitazone Hcl 30 Mg Tablet 30 Mg PO DAILY 07/03/13 Rx Atorvastatin Calcium 80 Mg Tablet 80 Mg PO HS 07/03/13 Rx Comments Diagnosis: Peripheral smear: - Marked leukopenia and absolute neutropenia with a few circulating blasts. - Normocytic normochromic anemia, moderate. - Thrombocytopenia, moderate. . 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 SEE COMMENT. - Increased reticuloendothelial iron stores. QMS/08/12/2018 Impression . 1. Acute hypoxemic respiratory failure. 2. Abnormal x-ray compatible with pulmonary edema, Diastolic HF vs right heart failure, cor-pulmonale, ? pneumonia. 3. Metabolic toxic encephalopathy, present upon admission.resolved 4. Morbid obesity./likely yusuf/ohs 5. Coronary artery disease with previous coronary artery bypass grafting. 6. Hypertension. 7. Acute pancytopenia, s/p BM BX, AML 8. Sepsis Plan . BIPAP PRN during day, cont at night, setting reviewed CXR NO CHANGE 08/11, clinically better IV LASIX PRN, monitor k, cr RESULTS OF BM bx reviewed. AML, follow hematology rec abx per id dnr, palliative care following discussed w pt , LAUREN Espinal MD August 14, 2018 07:27
[2018-08-14] MEDS: BUDESONIDE 0.5 MG/2 ML NEBU. NEB SCH ×2 (07:37→20:17)
[2018-08-14] MEDS: ALBUTEROL SULFATE 2.5 MG/3 ML NEBU. IH SCH ×3 (07:37→20:17)
[2018-08-14] MEDS: INSULIN LISPRO 300 UNITS/3 ML INSULN.PEN. SQ SCH ×3 (08:00→18:00)
[2018-08-14] MEDS: glipiZIDE 5 MG TABLET PO SCH ×2 (09:43→17:12)
[2018-08-14] MEDS: ASPIRIN CHEWABLE 81 MG TABLET. PO SCH (09:43)
[2018-08-14] MEDS: POTASSIUM CHLORIDE 20 MEQ TABLET.ER. PO SCH (09:43)
[2018-08-14] MEDS: LINAGLIPTIN 5 MG TABLET PO SCH (09:43)
[2018-08-14] MEDS: OMEGA-3 FATTY ACIDS/FISH OIL 1,000 MG CAPSULE. PO SCH (09:44)
[2018-08-14] MEDS: BENZONATATE 100 MG CAPSULE. PO SCH ×3 (09:44→21:23)
[2018-08-14] MEDS: ASCORBIC ACID 500 MG TABLET PO SCH (09:44)
[2018-08-14] MEDS: CALCIUM CARBONATE 500 MG TABLET PO SCH (09:44)
[2018-08-14] MEDS: MULTIVITAMIN I-VITE TABLET. PO SCH (09:44)
[2018-08-14] MEDS: PANTOPRAZOLE 40 MG TABLET.DR. PO SCH (09:44)
[2018-08-14] MEDS: METOPROLOL SUCC 24HR ER 100 MG TAB.ER.24H. PO SCH (09:48)
[2018-08-14] MEDS: LISINOPRIL 20 MG TABLET PO SCH (09:49)
--- NOTE | 2018-08-14 11:12 | PDOC ---
Infectious Disease Note Subjective Subjective Comfortable, denies pain No c/o fevers/chills/SOA Family visiting ROS ROS per HPI Vital Sign Vital Signs Vital Signs Date Time Temp Pulse Resp B/P (MAP) Pulse Ox O2 Delivery O2 Flow Rate FiO2 08/14/18 09:49 72 134/68 08/14/18 08:00 Nasal Cannula 3.5 08/14/18 07:40 93 08/14/18 07:00 97.4 20 97.4 Physical Exam PHYSICAL EXAM GENERAL: up in chair, alert, coop, NAD HEENT: Pupils equally round, reactive. Normal conjunctivae. Oropharynx pink and dry, edentulous NECK: Supple. LUNGS: Diminished aeration. HEART: S1 and S2. ABDOMEN: Obese, soft, nontender with bowel sounds present. EXTREMITIES: Trace edema lower extremities bilat, no cyanosis SKIN: Warm without generalized rash. NEUROLOGIC: Alert and responding appropriately PIV Labs Lab Laboratory Tests Test 08/13/18 11:59 08/13/18 17:00 08/13/18 21:04 08/14/18 04:05 Glucose (Fingerstick) 272 mg/dL (70-99) 258 mg/dL (70-99) 218 mg/dL (70-99) Sodium Level 141 mmol/L (136-145) Potassium Level 3.8 mmol/L (3.5-5.1) Chloride Level 105 mmol/L (98-107) Carbon Dioxide Level 26 mmol/L (21-32) Anion Gap 10 (6-14) Blood Urea Nitrogen 28 mg/dL (7-20) Creatinine 1.3 mg/dL (0.6-1.0) Estimated GFR (Cockcroft-Gault) 40.4 Glucose Level 192 mg/dL (70-99) Calcium Level 9.2 mg/dL (8.5-10.1) Test 08/14/18 07:46 Glucose (Fingerstick) 184 mg/dL (70-99) Micro Objective Assessment Newly diagnosed AML, 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 Hep/HIV/Parvo - neg IgM. SRINIVASAN 1:80 ? UTI, POA UC neg TYLER on CKD, improving Elevated LFTs/ possible cholecystitis on US -asymptomatic. Lfts better Diabetes with hypoglycemia Morbid obesity, BMI 43 CAD Diarrhea, c.dff neg 08/08 LUE - neg for DVT Plan Plan of Care Cont empiric Zosyn (08/06) and micafungin (08/07) for now Discontinued empiric vanc 08/09 as Cr increasing cults neg. added doxy 08/09 but pills were being excreted in stools so d/c'd Doxy 08/10 loose stools better Cultures neg Reverse isolation D/w family Supportive care DNR Palliative care nurse following D/w Nursing KAREN [employer]ERS [employer] August 14, 2018 11:12
--- NOTE | 2018-08-14 11:35 | PDOC ---
PROGRESS NOTES Subjective Subjective Patient denies pain. Comfortable in recliner. Objective Objective Vital Signs Date Time Temp Pulse Resp B/P (MAP) Pulse Ox O2 Delivery O2 Flow Rate FiO2 08/14/18 11:05 97.4 70 18 146/67 (93) 95 Nasal Cannula 3.0 97.4 Intake and Output 08/14/18 07:00 Intake Total 0 ml Output Total 475 ml Balance -475 ml Intake Oral 0 ml Output Urine Total 475 ml Physical Exam Abdomen: Normal bowel sounds, Soft, No tenderness Heart: Regular rate Extremities: Other (mild diffuse edema) General: Alert, No acute distress Lungs: Clear to auscultation (anteriorly) Assessment Assessment Problems Medical Problems: (1) Pneumonia Status: Acute (2) Severe sepsis Status: Acute (3) Urinary tract infection Status: Acute Plan Plan of Care 1. Sepsis - appears resolved. Cultures negative, afebrile. Decrease abx per ID. 2. acute respiratory failure with pneumonia - stable, continue O2 and nebs. 3. AML with pancytopenia - recheck lab in AM. Dr Tannre following. Hope to have family meeting with Palliative Care soon to discuss options. \ 4. bradycardia - improved with decrease in Toprol. 5. DM2 - fairly well controlled, continue present medication. 6. debility - continue therapies, transfer to when ready for discharge. 7. metabolic encephalopathy - patient becomes somewhat confused at times. Haldol prn available. Continue supportive care. Comment Review of Relevant I have reviewed the following items ld (where applicable) has been applied. Labs Laboratory Tests Test 08/12/18 11:35 08/12/18 16:24 08/12/18 20:43 08/13/18 07:45 Glucose (Fingerstick) 259 mg/dL (70-99) 248 mg/dL (70-99) 228 mg/dL (70-99) 235 mg/dL (70-99) Test 08/13/18 11:59 08/13/18 17:00 08/13/18 21:04 08/14/18 04:05 Glucose (Fingerstick) 272 mg/dL (70-99) 258 mg/dL (70-99) 218 mg/dL (70-99) Sodium Level 141 mmol/L (136-145) Potassium Level 3.8 mmol/L (3.5-5.1) Chloride Level 105 mmol/L (98-107) Carbon Dioxide Level 26 mmol/L (21-32) Anion Gap 10 (6-14) Blood Urea Nitrogen 28 mg/dL (7-20) Creatinine 1.3 mg/dL (0.6-1.0) Estimated GFR (Cockcroft-Gault) 40.4 Glucose Level 192 mg/dL (70-99) Calcium Level 9.2 mg/dL (8.5-10.1) Test 08/14/18 07:46 Glucose (Fingerstick) 184 mg/dL (70-99) Laboratory Tests Test 08/13/18 11:59 08/13/18 17:00 08/13/18 21:04 08/14/18 04:05 Glucose (Fingerstick) 272 mg/dL (70-99) 258 mg/dL (70-99) 218 mg/dL (70-99) Sodium Level 141 mmol/L (136-145) Potassium Level 3.8 mmol/L (3.5-5.1) Chloride Level 105 mmol/L (98-107) Carbon Dioxide Level 26 mmol/L (21-32) Anion Gap 10 (6-14) Blood Urea Nitrogen 28 mg/dL (7-20) Creatinine 1.3 mg/dL (0.6-1.0) Estimated GFR (Cockcroft-Gault) 40.4 Glucose Level 192 mg/dL (70-99) Calcium Level 9.2 mg/dL (8.5-10.1) Test 08/14/18 07:46 Glucose (Fingerstick) 184 mg/dL (70-99) Microbiology 08/05/18 Blood Culture - Final, Complete NO GROWTH AFTER 5 DAYS 08/05/18 Urine Culture - Final, Complete 08/05/18 Urine Culture Result 1 (TINO) - Final, Complete Medications Current Medications Piperacillin Sod/ Tazobactam Sod (Zosyn Per Pharmacy) 1 each PRN DAILY PRN MC SEE COMMENTS; Start 08/05/18 at 15:00 Piperacillin Sod/ Tazobactam Sod 4.5 gm/Sodium Chloride 100 ml @ 200 mls/hr ONCE ONCE IV Last administered on 08/05/18at 15:00; Start 08/05/18 at 15:00; Stop 08/05/18 at 15:29; Status DC Vancomycin HCl (Vanco Per Pharmacy) 1 each PRN DAILY PRN MC SEE COMMENTS Last administered on 08/08/18at 10:48; Start 08/05/18 at 16:15; Stop 08/09/18 at 07:57; Status DC Vancomycin HCl 2 gm/Sodium Chloride 500 ml @ 250 mls/hr 1X ONCE IV Last administered on 08/05/18at 16:17; Start 08/05/18 at 16:15; Stop 08/05/18 at 18:14; Status DC Ondansetron HCl (Zofran) 4 mg PRN Q8HRS PRN IV NAUSEA/VOMITING; Start 08/05/18 at 16:45; Stop 08/06/18 at 16:44; Status DC Morphine Sulfate (Morphine Sulfate) 2 mg PRN Q2HR PRN IV PAIN; Start 08/05/18 at 16:45; Stop 08/06/18 at 16:44; Status DC Sodium Chloride 1,000 ml @ 100 mls/hr Q10H IV Last administered on 08/06/18at 00:12; Start 08/05/18 at 16:43; Stop 08/05/18 at 20:42; Status DC Piperacillin Sod/ Tazobactam Sod 3.375 gm/Sodium Chloride 50 ml @ 100 mls/hr Q6HRS IV Last administered on 08/14/18at 06:00; Start 08/06/18 at 00:00 Vancomycin HCl 1.5 gm/Sodium Chloride 500 ml @ 250 mls/hr Q24H IV Last administered on 08/06/18at 16:41; Start 08/06/18 at 16:00; Stop 08/07/18 at 16:18; Status DC Vancomycin HCl (Vancomycin Trough Level) 1 each 1X ONCE MC Last administered on 08/07/18at 15:30; Start 08/07/18 at 15:30; Stop 08/07/18 at 15:31; Status DC Sodium Chloride 1,000 ml @ 166.667 mls/hr Q6H IV Last administered on 08/06/18at 05:42; Start 08/05/18 at 17:24; Stop 08/06/18 at 05:48; Status DC Aspirin (Children'S Aspirin) 81 mg DAILY PO Last administered on 08/14/18at 09:43; Start 08/06/18 at 09:00 Calcium Carbonate/ Glycine (Oscal) 1,000 mg DAILY PO Last administered on 08/14/18 09:44; Start 08/06/18 at 09:00 Glipizide (Glucotrol) 10 mg DAILY PO ; Start 08/06/18 at 09:00; Stop 08/06/18 at 10:27; Status DC Atorvastatin Calcium (Lipitor) 80 mg QHS PO Last administered on 08/06/18at 00:15; Start 08/05/18 at 21:00; Stop 08/06/18 at 10:27; Status DC Lisinopril (Prinivil) 5 mg DAILY PO Last administered on 08/10/18at 08:02; Start 08/06/18 at 09:00; Stop 08/10/18 at 08:47; Status DC Metoprolol Succinate (Toprol Xl) 200 mg DAILY PO Last administered on 08/13/18 08:21; Start 08/06/18 at 09:00; Stop 08/13/18 at 12:03; Status DC Fish Oil (Fish Oil) 2,000 mg DAILY PO Last administered on 08/14/18at 09:44; Start 08/06/18 at 09:00 Pantoprazole Sodium (Protonix) 40 mg DAILYAC PO Last administered on 08/14/18 09:44; Start 08/06/18 at 07:30 Pioglitazone HCl (Actos) 30 mg DAILY PO ; Start 08/06/18 at 09:00; Stop 08/06/18 at 18:11; Status DC Linagliptin (Tradjenta) 5 mg DAILY PO ; Start 08/06/18 at 09:00; Stop 08/06/18 at 18:11; Status DC Haloperidol Lactate (Haldol Inj) 5 mg PRN Q6HRS PRN IVP AGITATION; Start 08/05/18 at 19:30 Dextrose (Dextrose 50%-Water Syringe) 12.5 gm PRN Q15MIN PRN IV SEE COMMENTS Last administered on 08/05/18at 21:43; Start 08/05/18 at 19:45 Acetaminophen (Tylenol) 650 mg PRN Q6HRS PRN PO FEVER Last administered on 08/13/18at 22:05; Start 08/06/18 at 04:15 Potassium Chloride (Klor-Con) 10 meq [id number] PO Last administered on 08/08/18at 12:49; Start 08/06/18 at 10:30; Stop 08/09/18 at 08:20; Status DC Insulin Human Lispro (HumaLOG) 0-5 UNITS TIDWMEALS SQ Last administered on 08/13/18at 18:23; Start 08/06/18 at 12:00 Dextrose (Dextrose 50%-Water Syringe) 12.5 gm PRN Q15MIN PRN IV SEE COMMENTS; Start 08/06/18 at 10:30; Status UNV Lactobacillus Rhamnosus (Culturelle) 1 cap BID PO Last administered on 08/07/18at 21:26; Start 08/06/18 at 21:00; Stop 08/08/18 at 10:39; Status DC Sodium Chloride 1,000 ml @ 100 mls/hr Q10H IV Last administered on 08/07/18at 11:46; Start 08/06/18 at 18:15; Stop 08/07/18 at 22:35; Status DC Nystatin (Nystop) 1 dayne BID TP Last administered on 08/13/18at 22:06; Start 08/06/18 at 21:00 Benzonatate (Tessalon Perle) 100 mg [id number] PO Last administered on 08/14/18at 09:44; Start 08/07/18 at 12:00 Guaifenesin (Robitussin Dm) 10 ml PRN Q6HRS PRN PO COUGH Last administered on at 22:06; Start 08/07/18 at 10:30 Micafungin Sodium 100 mg/Dextrose 100 ml @ 100 mls/hr Q24H IV Last administered on 08/13/18at 12:42; Start 08/07/18 at 12:00 Vancomycin HCl 2 gm/Sodium Chloride 500 ml @ 250 mls/hr Q24H IV Last administered on 08/08/18at 16:35; Start 08/07/18 at 16:30; Stop 08/09/18 at 07:57; Status DC Vancomycin HCl (Vancomycin Trough Level) 1 each 1X ONCE MC ; Start 08/09/18 at 16:00; Stop 08/09/18 at 16:00; Status DC Furosemide (Lasix) 40 mg 1X ONCE IVP Last administered on 08/07/18at 23:00; Start 08/07/18 at 23:00; Stop 08/07/18 at 23:01; Status DC Hydralazine HCl (Apresoline Inj) 10 mg PRN Q4HRS PRN IVP ELEVATED BP, SEE COMMENTS Last administered on 08/10/18at 23:47; Start 08/07/18 at 22:45 Albuterol Sulfate (Ventolin Neb Soln) 2.5 mg TID IH Last administered on 08/14/18at 07:37; Start 08/08/18 at 09:00 Albuterol Sulfate (Ventolin Neb Soln) 2.5 mg PRN Q3HRS PRN IH WHEEZING Last administered on 08/13/18at 03:02; Start 08/08/18 at 05:15 Lidocaine/Sodium Bicarbonate (Buffered Lidocaine 1%) 3 ml STK-MED ONCE .ROUTE ; Start 08/08/18 at 08:42; Stop 08/08/18 at 08:43; Status DC Lidocaine/Sodium Bicarbonate (Buffered Lidocaine 1%) 3 ml STK-MED ONCE .ROUTE ; Start 08/08/18 at 08:47; Stop 08/08/18 at 08:48; Status DC Lidocaine/Sodium Bicarbonate (Buffered Lidocaine 1%) 3 ml STK-MED ONCE .ROUTE ; Start 08/08/18 at 08:47; Stop 08/08/18 at 08:48; Status DC Midazolam HCl (Versed) 2 mg STK-MED ONCE .ROUTE ; Start 08/08/18 at 08:49; Stop 08/08/18 at 08:50; Status DC Fentanyl Citrate (Fentanyl 2ml Vial) 100 mcg STK-MED ONCE .ROUTE ; Start 08/08/18 at 08:49; Stop 08/08/18 at 08:50; Status DC Fentanyl Citrate (Fentanyl 2ml Vial) 25 mcg PRN Q5MIN PRN IV MILD PAIN; Start 08/09/18 at 07:00; Stop 08/10/18 at 07:00; Status DC Fentanyl Citrate (Fentanyl 2ml Vial) 50 mcg PRN Q5MIN PRN IV MODERATE TO SEVERE PAIN; Start 08/09/18 at 07:00; Stop 08/10/18 at 07:00; Status DC Morphine Sulfate (Morphine Sulfate) 1 mg PRN Q10MIN PRN IV SEVERE PAIN; Start 08/09/18 at 07:00; Stop 08/10/18 at 07:00; Status DC Ringer's Solution 1,000 ml @ 30 mls/hr Q24H IV ; Start 08/09/18 at 07:00; Stop 08/09/18 at 18:59; Status DC Lidocaine HCl (Xylocaine-Mpf 1% 2ml Vial) 2 ml PRN 1X PRN ID PRIOR TO IV START; Start 08/09/18 at 07:00; Stop 08/10/18 at 07:00; Status DC Hydromorphone HCl (Dilaudid) 0.5 mg PRN Q10MIN PRN IV SEV PAIN, Second choice; Start 08/09/18 at 07:00; Stop 08/10/18 at 07:00; Status DC Prochlorperazine Edisylate (Compazine) 5 mg PACU PRN PRN IV NAUSEA, MRX1; Start 08/09/18 at 07:00; Stop 08/10/18 at 07:00; Status DC Multivitamins/ Minerals (I-Burak) 1 tab DAILY PO Last administered on 08/14/18at 09:44; Start 08/08/18 at 15:00 Ascorbic Acid (Vitamin C) 500 mg DAILY PO Last administered on 08/14/18at 09:44; Start 08/08/18 at 15:00 Furosemide (Lasix) 40 mg 1X ONCE IVP Last administered on 08/08/18at 16:34; Start 08/08/18 at 16:30; Stop 08/08/18 at 16:31; Status DC Doxycycline Hyclate (Vibra-Tab) 100 mg BID PO Last administered on 08/10/18at 08:01; Start 08/09/18 at 09:00; Stop 08/10/18 at 09:22; Status DC Linagliptin (Tradjenta) 5 mg DAILY PO Last administered on 08/14/18at 09:43; Start 08/09/18 at 09:00 Potassium Chloride (Klor-Con) 10 meq BID PO Last administered on 08/10/18at 07:59; Start 08/09/18 at 09:00; Stop 08/10/18 at 08:47; Status DC Propofol 40 ml @ As Directed STK-MED ONCE IV ; Start 08/09/18 at 12:09; Stop 08/09/18 at 12:10; Status DC Lidocaine/Sodium Bicarbonate (Buffered Lidocaine 1%) 3 ml STK-MED ONCE .ROUTE ; Start 08/09/18 at 12:25; Stop 08/09/18 at 12:26; Status DC Lidocaine/Sodium Bicarbonate (Buffered Lidocaine 1%) 12 ml 1X ONCE INJ Last administered on 08/09/18at 12:43; Start 08/09/18 at 12:45; Stop 08/09/18 at 12:46; Status DC Albuterol Sulfate (Ventolin Neb Soln) 2.5 mg 1X ONCE IH Last administered on 08/10/18at 02:32; Start 08/10/18 at 03:00; Stop 08/10/18 at 03:01; Status DC Lisinopril (Prinivil) 20 mg DAILY PO Last administered on 08/14/18 09:49; Start 08/10/18 at 09:30 Potassium Chloride (Klor-Con) 20 meq TIDWMEALS PO Last administered on 08/13/18 08:19; Start 08/10/18 at 12:00; Stop 08/13/18 at 12:03; Status DC Glipizide (Glucotrol) 5 mg BIDBFRMEAL PO Last administered on 08/14/18 09:43; Start 08/10/18 at 09:30 Loperamide HCl (Imodium) 2 mg PRN Q15MIN PRN PO DIARRHEA Last administered on 08/10/18 23:46; Start 08/10/18 at 09:15 Vitamin A/Vitamin D (Vitamin A & D Ointment) 1 dayne PRN Q1HR PRN TP SKIN PROTECTION Last administered on 08/11/18at 08:58; Start 08/10/18 at 09:45 Furosemide (Lasix) 40 mg 1X ONCE IVP Last administered on 08/10/18at 13:25; Start 08/10/18 at 11:30; Stop 08/10/18 at 11:38; Status DC Potassium Chloride/Water 100 ml @ 100 mls/hr Q1H IV Last administered on 08/11/18at 12:45; Start 08/11/18 at 09:00; Stop 08/11/18 at 12:59; Status DC Insulin Glargine (Lantus) 5 units QHS SQ Last administered on 08/12/18at 00:07; Start 08/11/18 at 21:00; Stop 08/12/18 at 09:05; Status DC Budesonide (Pulmicort) 0.5 mg RTBID NEB Last administered on 08/14/18 07:37; Start 08/11/18 at 09:00 Insulin Glargine (Lantus) 10 units QHS SQ Last administered on 08/12/18at 21:27; Start 08/12/18 at 21:00; Stop 08/13/18 at 12:04; Status DC Acetaminophen/ Hydrocodone Bitart (Lortab 5/325) 1 tab PRN Q6HRS PRN PO PAIN Last administered on 08/13/18 01:03; Start 08/13/18 at 01:00 Potassium Chloride (Klor-Con) 20 meq DAILY08 PO Last administered on 08/14/18 09:43; Start 08/14/18 at 08:00 Metoprolol Succinate (Toprol Xl) 100 mg DAILY PO Last administered on 08/14/18 09:48; Start 08/14/18 at 09:00 Insulin Glargine (Lantus) 15 units QHS SQ Last administered on 08/13/18at 22:10; Start 08/13/18 at 21:00 Active Scripts Active Omeprazole 40 Mg Capsule.dr 40 Mg PO DAILY Aspirin 81 Mg Tab.chew 81 Mg PO DAILY Pioglitazone Hcl 30 Mg Tablet 30 Mg PO DAILY Atorvastatin Calcium 80 Mg Tablet 80 Mg PO HS Reported Metoprolol Tartrate 100 Mg Tablet 2 Tab PO DAILY Glipizide 5 Mg Tablet 2 Tab PO DAILY [place] 3 Fish Oil Softgel ([place]-3 Fatty Acids/Fish Oil) 1 Each Capsule.dr 2 Each PO DAILY Calcium Carbonate 500 Mg Tablet 1,000 Mg PO DAILY Januvia (Sitagliptin Phosphate) 50 Mg Tablet 1 Tab PO DAILY Lisinopril 5 Mg Tablet 1 Tab PO DAILY Vitals/I & O Vital Sign - Last 24 Hours 08/13/18 08/13/18 08/13/18 08/13/18 11:39 15:00 19:05 19:45 Temp 97.6 97.7 97.6 97.7 Pulse 71 76 76 Resp 20 28 B/P (MAP) 119/61 133/62 (85) 147/64 (91) Pulse Ox 97 100 98 O2 Delivery Nasal Cannula Nasal Cannula O2 Flow Rate 3.0 3.0 5/08/13/18 08/13/18 08/13/18 19:45 20:00 22:30 23:30 Temp 97.4 97.4 Pulse 83 Resp 30 B/P (MAP) 120/60 (80) Pulse Ox 98 94 97 O2 Delivery Nasal Cannula Nasal Cannula BiPAP/CPAP BiPAP/CPAP O2 Flow Rate 3.0 3.0 08/14/18 08/14/18 08/14/18 08/14/18 03:15 07:00 07:40 08:00 Temp 97.1 97.4 97.1 97.4 Pulse 94 65 Resp 24 20 B/P (MAP) 105/59 (74) 130/71 (90) Pulse Ox 97 98 93 O2 Delivery Nasal Cannula Nasal Cannula Nasal Cannula Nasal Cannula O2 Flow Rate 3.0 3.0 3.5 3.5 08/14/18 08/14/18 08/14/18 09:48 09:49 11:05 Temp 97.4 97.4 Pulse 77 72 70 Resp 18 B/P (MAP) 134/68 134/68 146/67 (93) Pulse Ox 95 O2 Delivery Nasal Cannula O2 Flow Rate 3.0 Intake and Output 08/13/18 08/13/18 08/14/18 15:00 23:00 07:00 Intake Total 0 ml 0 ml Output Total 300 ml 175 ml Balance -300 ml -175 ml KEVON FUENTES MD August 14, 2018 11:35
[2018-08-14] MEDS: MICAFUNGIN 100 MG in IV DEXTROSE 5% 100ML 100 ML IV SCH (13:28)
[2018-08-14] MEDS: NYSTATIN TOPICAL POWDER 15GM BOTTLE. TP SCH ×2 (13:33→21:22)
[2018-08-14] MEDS: INSULIN GLARGINE 300 UNITS/3 ML INSULN.PEN. SQ SCH (21:29)
[2018-08-15] MEDS: PIPERACILLIN/TAZOBACTAM 3.375 GM in IV NORMAL SALINE 50ML 50 ML IV SCH ×2 (00:30→06:09)
[2018-08-15 03:00] VITALS: BP 153/71
[2018-08-15 04:49] LABS: HEMATOCRIT 26.8 % (36.0-47.0); HEMOGLOBIN 9.1 g/dL (12.0-15.5); RED BLOOD COUNT 2.84 x10^6/uL (3.50-5.40); RED CELL DISTRIBUTION WIDTH 16.5 % (11.5-14.5)
[2018-08-15 05:32] LABS: CALCIUM 9.1 mg/dL (8.5-10.1); CREATININE 1.3 mg/dL (0.6-1.0); GFR 40.4; POTASSIUM 3.9 mmol/L (3.5-5.1)
[2018-08-15 05:44] LABS: WHITE BLOOD COUNT 1.2 x10^3/uL (4.0-11.0)
[2018-08-15 07:29] VITALS: BP 176/63
[2018-08-15] MEDS: BUDESONIDE 0.5 MG/2 ML NEBU. NEB SCH ×2 (07:43→19:50)
[2018-08-15] MEDS: ALBUTEROL SULFATE 2.5 MG/3 ML NEBU. IH SCH ×3 (07:43→19:50)
--- NOTE | 2018-08-15 08:18 | PDOC ---
PROGRESS NOTES Subjective Subjective Patient without complaint except doesn't like being back in the bed. Objective Objective Vital Signs Date Time Temp Pulse Resp B/P (MAP) Pulse Ox O2 Delivery O2 Flow Rate FiO2 08/15/18 07:47 96 Nasal Cannula 3.5 08/15/18 07:29 97.4 69 24 176/63 (100) 97.4 Intake and Output 08/15/18 07:00 Intake Total 320 ml Output Total 950 ml Balance -630 ml Intake Oral 270 ml IV Total 50 ml Output Urine Total 950 ml Physical Exam Abdomen: Normal bowel sounds, Soft, No tenderness Heart: Regular rate Extremities: Other (mild diffuse edema) General: Alert, Oriented X3, No acute distress Lungs: Clear to auscultation (anteriorly) Assessment Assessment Problems Medical Problems: (1) Pneumonia Status: Acute (2) Severe sepsis Status: Acute (3) Urinary tract infection Status: Acute Plan Plan of Care 1. Sepsis - appears resolved, cultures negative. 2. acute respiratory failure with pneumonia - stable on O2, nebs, etc. Should be able to d/c abx soon. 3. AML with pancytopenia - lab stable. Trying to arrange Palliative Care meeting with patient and family to discuss tx options. 4. DM2 - glucose remains elevated, increase insulin, continue po meds also. 5. debility - continue therapies, to senior care soon. Comment Review of Relevant I have reviewed the following items ld (where applicable) has been applied. Labs Laboratory Tests Test 08/13/18 11:59 08/13/18 17:00 08/13/18 21:04 08/14/18 04:05 Glucose (Fingerstick) 272 mg/dL (70-99) 258 mg/dL (70-99) 218 mg/dL (70-99) Sodium Level 141 mmol/L (136-145) Potassium Level 3.8 mmol/L (3.5-5.1) Chloride Level 105 mmol/L (98-107) Carbon Dioxide Level 26 mmol/L (21-32) Anion Gap 10 (6-14) Blood Urea Nitrogen 28 mg/dL (7-20) Creatinine 1.3 mg/dL (0.6-1.0) Estimated GFR (Cockcroft-Gault) 40.4 Glucose Level 192 mg/dL (70-99) Calcium Level 9.2 mg/dL (8.5-10.1) Test 08/14/18 07:46 08/14/18 12:11 08/14/18 16:56 08/14/18 21:06 Glucose (Fingerstick) 184 mg/dL (70-99) 216 mg/dL (70-99) 259 mg/dL (70-99) 231 mg/dL (70-99) Test 08/15/18 04:15 08/15/18 07:02 White Blood Count 1.2 x10^3/uL (4.0-11.0) Red Blood Count 2.84 x10^6/uL (3.50-5.40) Hemoglobin 9.1 g/dL (12.0-15.5) Hematocrit 26.8 % (36.0-47.0) Mean Corpuscular Volume 95 fL (79-100) Mean Corpuscular Hemoglobin 32 pg (25-35) Mean Corpuscular Hemoglobin Concent 34 g/dL (31-37) Red Cell Distribution Width 16.5 % (11.5-14.5) Platelet Count 83 x10^3/uL (140-400) Sodium Level 139 mmol/L (136-145) Potassium Level 3.9 mmol/L (3.5-5.1) Chloride Level 105 mmol/L (98-107) Carbon Dioxide Level 27 mmol/L (21-32) Anion Gap 7 (6-14) Blood Urea Nitrogen 29 mg/dL (7-20) Creatinine 1.3 mg/dL (0.6-1.0) Estimated GFR (Cockcroft-Gault) 40.4 Glucose Level 236 mg/dL (70-99) Calcium Level 9.1 mg/dL (8.5-10.1) Glucose (Fingerstick) 224 mg/dL (70-99) Laboratory Tests Test 08/14/18 12:11 08/14/18 16:56 08/14/18 21:06 08/15/18 04:15 Glucose (Fingerstick) 216 mg/dL (70-99) 259 mg/dL (70-99) 231 mg/dL (70-99) White Blood Count 1.2 x10^3/uL (4.0-11.0) Red Blood Count 2.84 x10^6/uL (3.50-5.40) Hemoglobin 9.1 g/dL (12.0-15.5) Hematocrit 26.8 % (36.0-47.0) Mean Corpuscular Volume 95 fL (79-100) Mean Corpuscular Hemoglobin 32 pg (25-35) Mean Corpuscular Hemoglobin Concent 34 g/dL (31-37) Red Cell Distribution Width 16.5 % (11.5-14.5) Platelet Count 83 x10^3/uL (140-400) Sodium Level 139 mmol/L (136-145) Potassium Level 3.9 mmol/L (3.5-5.1) Chloride Level 105 mmol/L (98-107) Carbon Dioxide Level 27 mmol/L (21-32) Anion Gap 7 (6-14) Blood Urea Nitrogen 29 mg/dL (7-20) Creatinine 1.3 mg/dL (0.6-1.0) Estimated GFR (Cockcroft-Gault) 40.4 Glucose Level 236 mg/dL (70-99) Calcium Level 9.1 mg/dL (8.5-10.1) Test 08/15/18 07:02 Glucose (Fingerstick) 224 mg/dL (70-99) Microbiology 08/05/18 Blood Culture - Final, Complete NO GROWTH AFTER 5 DAYS 08/05/18 Urine Culture - Final, Complete 08/05/18 Urine Culture Result 1 (TINO) - Final, Complete Medications Current Medications Piperacillin Sod/ Tazobactam Sod (Zosyn Per Pharmacy) 1 each PRN DAILY PRN MC SEE COMMENTS; Start 08/05/18 at 15:00 Piperacillin Sod/ Tazobactam Sod 4.5 gm/Sodium Chloride 100 ml @ 200 mls/hr ONCE ONCE IV Last administered on 08/05/18at 15:00; Start 08/05/18 at 15:00; Stop 08/05/18 at 15:29; Status DC Vancomycin HCl (Vanco Per Pharmacy) 1 each PRN DAILY PRN MC SEE COMMENTS Last administered on 08/08/18at 10:48; Start 08/05/18 at 16:15; Stop 08/09/18 at 07:57; Status DC Vancomycin HCl 2 gm/Sodium Chloride 500 ml @ 250 mls/hr 1X ONCE IV Last administered on 08/05/18at 16:17; Start 08/05/18 at 16:15; Stop 08/05/18 at 18:14; Status DC Ondansetron HCl (Zofran) 4 mg PRN Q8HRS PRN IV NAUSEA/VOMITING; Start 08/05/18 at 16:45; Stop 08/06/18 at 16:44; Status DC Morphine Sulfate (Morphine Sulfate) 2 mg PRN Q2HR PRN IV PAIN; Start 08/05/18 at 16:45; Stop 08/06/18 at 16:44; Status DC Sodium Chloride 1,000 ml @ 100 mls/hr Q10H IV Last administered on 08/06/18at 00:12; Start 08/05/18 at 16:43; Stop 08/05/18 at 20:42; Status DC Piperacillin Sod/ Tazobactam Sod 3.375 gm/Sodium Chloride 50 ml @ 100 mls/hr Q6HRS IV Last administered on 08/15/18at 06:09; Start 08/06/18 at 00:00 Vancomycin HCl 1.5 gm/Sodium Chloride 500 ml @ 250 mls/hr Q24H IV Last administered on 08/06/18at 16:41; Start 08/06/18 at 16:00; Stop 08/07/18 at 16:18; Status DC Vancomycin HCl (Vancomycin Trough Level) 1 each 1X ONCE MC Last administered on 08/07/18at 15:30; Start 08/07/18 at 15:30; Stop 08/07/18 at 15:31; Status DC Sodium Chloride 1,000 ml @ 166.667 mls/hr Q6H IV Last administered on 08/06/18at 05:42; Start 08/05/18 at 17:24; Stop 08/06/18 at 05:48; Status DC Aspirin (Children'S Aspirin) 81 mg DAILY PO Last administered on 08/14/18at 09:43; Start 08/06/18 at 09:00 Calcium Carbonate/ Glycine (Oscal) 1,000 mg DAILY PO Last administered on 08/14/18at 09:44; Start 08/06/18 at 09:00 Glipizide (Glucotrol) 10 mg DAILY PO ; Start 08/06/18 at 09:00; Stop 08/06/18 at 10:27; Status DC Atorvastatin Calcium (Lipitor) 80 mg QHS PO Last administered on 08/06/18at 00:15; Start 08/05/18 at 21:00; Stop 08/06/18 at 10:27; Status DC Lisinopril (Prinivil) 5 mg DAILY PO Last administered on 08/10/18at 08:02; Start 08/06/18 at 09:00; Stop 08/10/18 at 08:47; Status DC Metoprolol Succinate (Toprol Xl) 200 mg DAILY PO Last administered on 08/13/18at 08:21; Start 08/06/18 at 09:00; Stop 08/13/18 at 12:03; Status DC Fish Oil (Fish Oil) 2,000 mg DAILY PO Last administered on 08/14/18at 09:44; Start 08/06/18 at 09:00 Pantoprazole Sodium (Protonix) 40 mg DAILYAC PO Last administered on 08/14/18at 09:44; Start 08/06/18 at 07:30 Pioglitazone HCl (Actos) 30 mg DAILY PO ; Start 08/06/18 at 09:00; Stop 08/06/18 at 18:11; Status DC Linagliptin (Tradjenta) 5 mg DAILY PO ; Start 08/06/18 at 09:00; Stop 08/06/18 at 18:11; Status DC Haloperidol Lactate (Haldol Inj) 5 mg PRN Q6HRS PRN IVP AGITATION; Start 08/05/18 at 19:30 Dextrose (Dextrose 50%-Water Syringe) 12.5 gm PRN Q15MIN PRN IV SEE COMMENTS Last administered on 08/05/18at 21:43; Start 08/05/18 at 19:45 Acetaminophen (Tylenol) 650 mg PRN Q6HRS PRN PO FEVER Last administered on 08/13/18at 22:05; Start 08/06/18 at 04:15 Potassium Chloride (Klor-Con) 10 meq [id number] PO Last administered on 08/08/18at 12:49; Start 08/06/18 at 10:30; Stop 08/09/18 at 08:20; Status DC Insulin Human Lispro (HumaLOG) 0-5 UNITS TIDWMEALS SQ Last administered on 08/14/18at 18:00; Start 08/06/18 at 12:00 Dextrose (Dextrose 50%-Water Syringe) 12.5 gm PRN Q15MIN PRN IV SEE COMMENTS; Start 08/06/18 at 10:30; Status UNV Lactobacillus Rhamnosus (Culturelle) 1 cap BID PO Last administered on 08/07/18at 21:26; Start 08/06/18 at 21:00; Stop 08/08/18 at 10:39; Status DC Sodium Chloride 1,000 ml @ 100 mls/hr Q10H IV Last administered on 08/07/18at 11:46; Start 08/06/18 at 18:15; Stop 08/07/18 at 22:35; Status DC Nystatin (Nystop) 1 dayne BID TP Last administered on 08/14/18 21:22; Start 08/06/18 at 21:00 Benzonatate (Tessalon Perle) 100 mg [id number] PO Last administered on 08/14/18 21:23; Start 08/07/18 at 12:00 Guaifenesin (Robitussin Dm) 10 ml PRN Q6HRS PRN PO COUGH Last administered on 08/13/18at 22:06; Start 08/07/18 at 10:30 Micafungin Sodium 100 mg/Dextrose 100 ml @ 100 mls/hr Q24H IV Last administered on 08/14/18at 13:28; Start 08/07/18 at 12:00 Vancomycin HCl 2 gm/Sodium Chloride 500 ml @ 250 mls/hr Q24H IV Last administered on 08/08/18at 16:35; Start 08/07/18 at 16:30; Stop 08/09/18 at 07:57; Status DC Vancomycin HCl (Vancomycin Trough Level) 1 each 1X ONCE MC ; Start 08/09/18 at 16:00; Stop 08/09/18 at 16:00; Status DC Furosemide (Lasix) 40 mg 1X ONCE IVP Last administered on 08/07/18at 23:00; Start 08/07/18 at 23:00; Stop 08/07/18 at 23:01; Status DC Hydralazine HCl (Apresoline Inj) 10 mg PRN Q4HRS PRN IVP ELEVATED BP, SEE COMMENTS Last administered on 08/10/18at 23:47; Start 08/07/18 at 22:45 Albuterol Sulfate (Ventolin Neb Soln) 2.5 mg TID IH Last administered on 08/15/18at 07:43; Start 08/08/18 at 09:00 Albuterol Sulfate (Ventolin Neb Soln) 2.5 mg PRN Q3HRS PRN IH WHEEZING Last administered on 08/13/18at 03:02; Start 08/08/18 at 05:15 Lidocaine/Sodium Bicarbonate (Buffered Lidocaine 1%) 3 ml STK-MED ONCE .ROUTE ; Start 08/08/18 at 08:42; Stop 08/08/18 at 08:43; Status DC Lidocaine/Sodium Bicarbonate (Buffered Lidocaine 1%) 3 ml STK-MED ONCE .ROUTE ; Start 08/08/18 at 08:47; Stop 08/08/18 at 08:48; Status DC Lidocaine/Sodium Bicarbonate (Buffered Lidocaine 1%) 3 ml STK-MED ONCE .ROUTE ; Start 08/08/18 at 08:47; Stop 08/08/18 at 08:48; Status DC Midazolam HCl (Versed) 2 mg STK-MED ONCE .ROUTE ; Start 08/08/18 at 08:49; Stop 08/08/18 at 08:50; Status DC Fentanyl Citrate (Fentanyl 2ml Vial) 100 mcg STK-MED ONCE .ROUTE ; Start 08/08/18 at 08:49; Stop 08/08/18 at 08:50; Status DC Fentanyl Citrate (Fentanyl 2ml Vial) 25 mcg PRN Q5MIN PRN IV MILD PAIN; Start 08/09/18 at 07:00; Stop 08/10/18 at 07:00; Status DC Fentanyl Citrate (Fentanyl 2ml Vial) 50 mcg PRN Q5MIN PRN IV MODERATE TO SEVERE PAIN; Start 08/09/18 at 07:00; Stop 08/10/18 at 07:00; Status DC Morphine Sulfate (Morphine Sulfate) 1 mg PRN Q10MIN PRN IV SEVERE PAIN; Start 08/09/18 at 07:00; Stop 08/10/18 at 07:00; Status DC Ringer's Solution 1,000 ml @ 30 mls/hr Q24H IV ; Start 08/09/18 at 07:00; Stop 08/09/18 at 18:59; Status DC Lidocaine HCl (Xylocaine-Mpf 1% 2ml Vial) 2 ml PRN 1X PRN ID PRIOR TO IV START; Start 08/09/18 at 07:00; Stop 08/10/18 at 07:00; Status DC Hydromorphone HCl (Dilaudid) 0.5 mg PRN Q10MIN PRN IV SEV PAIN, Second choice; Start 08/09/18 at 07:00; Stop 08/10/18 at 07:00; Status DC Prochlorperazine Edisylate (Compazine) 5 mg PACU PRN PRN IV NAUSEA, MRX1; Start 08/09/18 at 07:00; Stop 08/10/18 at 07:00; Status DC Multivitamins/ Minerals (I-Burak) 1 tab DAILY PO Last administered on 08/14/18at 09:44; Start 08/08/18 at 15:00 Ascorbic Acid (Vitamin C) 500 mg DAILY PO Last administered on 08/14/18at 09:44; Start 08/08/18 at 15:00 Furosemide (Lasix) 40 mg 1X ONCE IVP Last administered on 08/08/18at 16:34; Start 08/08/18 at 16:30; Stop 08/08/18 at 16:31; Status DC Doxycycline Hyclate (Vibra-Tab) 100 mg BID PO Last administered on 08/10/18at 08:01; Start 08/09/18 at 09:00; Stop 08/10/18 at 09:22; Status DC Linagliptin (Tradjenta) 5 mg DAILY PO Last administered on 08/14/18at 09:43; S tart 08/09/18 at 09:00 Potassium Chloride (Klor-Con) 10 meq BID PO Last administered on 08/10/18at 07:59; Start 08/09/18 at 09:00; Stop 08/10/18 at 08:47; Status DC Propofol 40 ml @ As Directed STK-MED ONCE IV ; Start 08/09/18 at 12:09; Stop 08/09/18 at 12:10; Status DC Lidocaine/Sodium Bicarbonate (Buffered Lidocaine 1%) 3 ml STK-MED ONCE .ROUTE ; Start 08/09/18 at 12:25; Stop 08/09/18 at 12:26; Status DC Lidocaine/Sodium Bicarbonate (Buffered Lidocaine 1%) 12 ml 1X ONCE INJ Last administered on 08/09/18at 12:43; Start 08/09/18 at 12:45; Stop 08/09/18 at 12:46; Status DC Albuterol Sulfate (Ventolin Neb Soln) 2.5 mg 1X ONCE IH Last administered on 08/10/18at 02:32; Start 08/10/18 at 03:00; Stop 08/10/18 at 03:01; Status DC Lisinopril (Prinivil) 20 mg DAILY PO Last administered on 08/14/18 09:49; Start 08/10/18 at 09:30 Potassium Chloride (Klor-Con) 20 meq TIDWMEALS PO Last administered on 08/13/18at 08:19; Start 08/10/18 at 12:00; Stop 08/13/18 at 12:03; Status DC Glipizide (Glucotrol) 5 mg BIDBFRMEAL PO Last administered on 08/14/18 17:12; Start 08/10/18 at 09:30 Loperamide HCl (Imodium) 2 mg PRN Q15MIN PRN PO DIARRHEA Last administered on 08/10/18at 23:46; Start 08/10/18 at 09:15 Vitamin A/Vitamin D (Vitamin A & D Ointment) 1 dayne PRN Q1HR PRN TP SKIN PROTECTION Last administered on 08/11/18 08:58; Start 08/10/18 at 09:45 Furosemide (Lasix) 40 mg 1X ONCE IVP Last administered on 08/10/18at 13:25; Start 08/10/18 at 11:30; Stop 08/10/18 at 11:38; Status DC Potassium Chloride/Water 100 ml @ 100 mls/hr Q1H IV Last administered on 08/11/18at 12:45; Start 08/11/18 at 09:00; Stop 08/11/18 at 12:59; Status DC Insulin Glargine (Lantus) 5 units QHS SQ Last administered on 08/12/18at 00:07; Start 08/11/18 at 21:00; Stop 08/12/18 at 09:05; Status DC Budesonide (Pulmicort) 0.5 mg RTBID NEB Last administered on 08/15/18at 07:43; Start 08/11/18 at 09:00 Insulin Glargine (Lantus) 10 units QHS SQ Last administered on 08/12/18at 21:27; Start 08/12/18 at 21:00; Stop 08/13/18 at 12:04; Status DC Acetaminophen/ Hydrocodone Bitart (Lortab 5/325) 1 tab PRN Q6HRS PRN PO PAIN Last administered on 08/13/18at 01:03; Start 08/13/18 at 01:00 Potassium Chloride (Klor-Con) 20 meq DAILY08 PO Last administered on 08/14/18 09:43; Start 08/14/18 at 08:00 Metoprolol Succinate (Toprol Xl) 100 mg DAILY PO Last administered on 08/14/18 09:48; Start 08/14/18 at 09:00 Insulin Glargine (Lantus) 15 units QHS SQ Last administered on 08/14/18 21:29; Start 08/13/18 at 21:00 Active Scripts Active Omeprazole 40 Mg Capsule.dr 40 Mg PO DAILY Aspirin 81 Mg Tab.chew 81 Mg PO DAILY Pioglitazone Hcl 30 Mg Tablet 30 Mg PO DAILY Atorvastatin Calcium 80 Mg Tablet 80 Mg PO HS Reported Metoprolol Tartrate 100 Mg Tablet 2 Tab PO DAILY Glipizide 5 Mg Tablet 2 Tab PO DAILY [place] 3 Fish Oil Softgel ([place]-3 Fatty Acids/Fish Oil) 1 Each Capsule.dr 2 Each PO DAILY Calcium Carbonate 500 Mg Tablet 1,000 Mg PO DAILY Januvia (Sitagliptin Phosphate) 50 Mg Tablet 1 Tab PO DAILY Lisinopril 5 Mg Tablet 1 Tab PO DAILY Vitals/I & O Vital Sign - Last 24 Hours 08/14/18 08/14/18 08/14/18 08/14/18 09:48 09:49 11:05 12:18 Temp 97.4 97.4 Pulse 77 72 70 Resp 18 B/P (MAP) 134/68 134/68 146/67 (93) Pulse Ox 95 93 O2 Delivery Nasal Cannula Nasal Cannula O2 Flow Rate 3.0 3.5 08/14/18 08/14/18 08/14/18 08/14/18 15:08 19:52 19:55 20:19 Temp 98.4 98.0 98.4 98.0 Pulse 80 79 Resp 24 24 B/P (MAP) 126/55 (78) 118/55 (76) Pulse Ox 94 91 92 O2 Delivery Nasal Cannula Nasal Cannula Nasal Cannula Nasal Cannula O2 Flow Rate 3.0 3.5 3.5 3.5 08/14/18 08/14/18 08/15/18 08/15/18 20:20 23:20 03:00 07:29 Temp 97.7 97.8 97.4 97.7 97.8 97.4 Pulse 76 70 69 Resp 24 24 24 B/P (MAP) 147/60 (89) 153/71 (98) 176/63 (100) Pulse Ox 92 96 96 96 O2 Delivery Nasal Cannula Nasal Cannula Nasal Cannula Nasal Cannula O2 Flow Rate 3.5 3.5 3.5 3.5 08/15/18 08/15/18 07:46 07:47 Pulse Ox 96 96 O2 Delivery Nasal Cannula Nasal Cannula O2 Flow Rate 3.5 3.5 Intake and Output 08/14/18 08/14/18 08/15/18 15:00 23:00 07:00 Intake Total 210 ml 60 ml 50 ml Output Total 750 ml 200 ml Balance 210 ml -690 ml -150 ml KEVON FUENTES MD August 15, 2018 08:18
[2018-08-15] MEDS: MULTIVITAMIN I-VITE TABLET. PO SCH (08:44)
[2018-08-15] MEDS: ASCORBIC ACID 500 MG TABLET PO SCH (08:44)
[2018-08-15] MEDS: CALCIUM CARBONATE 500 MG TABLET PO SCH (08:44)
[2018-08-15] MEDS: glipiZIDE 5 MG TABLET PO SCH ×2 (08:44→17:40)
[2018-08-15] MEDS: PANTOPRAZOLE 40 MG TABLET.DR. PO SCH (08:44)
[2018-08-15] MEDS: POTASSIUM CHLORIDE 20 MEQ TABLET.ER. PO SCH (08:45)
[2018-08-15] MEDS: METOPROLOL SUCC 24HR ER 100 MG TAB.ER.24H. PO SCH (08:45)
[2018-08-15] MEDS: ASPIRIN CHEWABLE 81 MG TABLET. PO SCH (08:45)
[2018-08-15] MEDS: LINAGLIPTIN 5 MG TABLET PO SCH (08:46)
[2018-08-15] MEDS: BENZONATATE 100 MG CAPSULE. PO SCH ×3 (08:46→22:34)
[2018-08-15] MEDS: OMEGA-3 FATTY ACIDS/FISH OIL 1,000 MG CAPSULE. PO SCH (08:46)
[2018-08-15] MEDS: LISINOPRIL 20 MG TABLET PO SCH (08:47)
--- NOTE | 2018-08-15 08:52 | PDOC ---
PULMONARY PROGRESS NOTES Subjective PT NOT MORE SOA MOANS BUT NOT IN PAIN Vitals Vital Signs Date Time Temp Pulse Resp B/P (MAP) Pulse Ox O2 Delivery O2 Flow Rate FiO2 08/15/18 08:47 69 176/63 08/15/18 07:47 96 Nasal Cannula 3.5 08/15/18 07:29 97.4 24 97.4 ROS: No Nausea, No Chest Pain, No Abdominal Pain, No Increase Cough General: Alert HEENT: Other Lungs: Crackles Cardiovascular: S1, S2 Abdomen: Soft Neuro Exam: Alert Extremities: Other (EDEMA) Skin: Warm Labs Laboratory Tests Test 08/13/18 11:59 08/13/18 17:00 08/13/18 21:04 08/14/18 04:05 Glucose (Fingerstick) 272 mg/dL (70-99) 258 mg/dL (70-99) 218 mg/dL (70-99) Sodium Level 141 mmol/L (136-145) Potassium Level 3.8 mmol/L (3.5-5.1) Chloride Level 105 mmol/L (98-107) Carbon Dioxide Level 26 mmol/L (21-32) Anion Gap 10 (6-14) Blood Urea Nitrogen 28 mg/dL (7-20) Creatinine 1.3 mg/dL (0.6-1.0) Estimated GFR (Cockcroft-Gault) 40.4 Glucose Level 192 mg/dL (70-99) Calcium Level 9.2 mg/dL (8.5-10.1) Test 08/14/18 07:46 08/14/18 12:11 08/14/18 16:56 08/14/18 21:06 Glucose (Fingerstick) 184 mg/dL (70-99) 216 mg/dL (70-99) 259 mg/dL (70-99) 231 mg/dL (70-99) Test 08/15/18 04:15 08/15/18 07:02 White Blood Count 1.2 x10^3/uL (4.0-11.0) Red Blood Count 2.84 x10^6/uL (3.50-5.40) Hemoglobin 9.1 g/dL (12.0-15.5) Hematocrit 26.8 % (36.0-47.0) Mean Corpuscular Volume 95 fL (79-100) Mean Corpuscular Hemoglobin 32 pg (25-35) Mean Corpuscular Hemoglobin Concent 34 g/dL (31-37) Red Cell Distribution Width 16.5 % (11.5-14.5) Platelet Count 83 x10^3/uL (140-400) Sodium Level 139 mmol/L (136-145) Potassium Level 3.9 mmol/L (3.5-5.1) Chloride Level 105 mmol/L (98-107) Carbon Dioxide Level 27 mmol/L (21-32) Anion Gap 7 (6-14) Blood Urea Nitrogen 29 mg/dL (7-20) Creatinine 1.3 mg/dL (0.6-1.0) Estimated GFR (Cockcroft-Gault) 40.4 Glucose Level 236 mg/dL (70-99) Calcium Level 9.1 mg/dL (8.5-10.1) Glucose (Fingerstick) 224 mg/dL (70-99) Laboratory Tests Test 08/14/18 12:11 08/14/18 16:56 08/14/18 21:06 08/15/18 04:15 Glucose (Fingerstick) 216 mg/dL (70-99) 259 mg/dL (70-99) 231 mg/dL (70-99) White Blood Count 1.2 x10^3/uL (4.0-11.0) Red Blood Count 2.84 x10^6/uL (3.50-5.40) Hemoglobin 9.1 g/dL (12.0-15.5) Hematocrit 26.8 % (36.0-47.0) Mean Corpuscular Volume 95 fL (79-100) Mean Corpuscular Hemoglobin 32 pg (25-35) Mean Corpuscular Hemoglobin Concent 34 g/dL (31-37) Red Cell Distribution Width 16.5 % (11.5-14.5) Platelet Count 83 x10^3/uL (140-400) Sodium Level 139 mmol/L (136-145) Potassium Level 3.9 mmol/L (3.5-5.1) Chloride Level 105 mmol/L (98-107) Carbon Dioxide Level 27 mmol/L (21-32) Anion Gap 7 (6-14) Blood Urea Nitrogen 29 mg/dL (7-20) Creatinine 1.3 mg/dL (0.6-1.0) Estimated GFR (Cockcroft-Gault) 40.4 Glucose Level 236 mg/dL (70-99) Calcium Level 9.1 mg/dL (8.5-10.1) Test 08/15/18 07:02 Glucose (Fingerstick) 224 mg/dL (70-99) Medications Active Scripts Medications Dose Route/Sig Max Daily Dose Days Date Category Metoprolol Tartrate 100 Mg Tablet 2 Tab PO DAILY 08/05/18 Reported Glipizide 5 Mg Tablet 2 Tab PO DAILY 08/05/18 Reported [place] 3 Fish Oil Softgel ([place]-3 Fatty Acids/Fish Oil) 1 Each Capsule.dr 2 Each PO DAILY 08/05/18 Reported Calcium Carbonate 500 Mg Tablet 1,000 Mg PO DAILY 08/05/18 Reported Januvia (Sitagliptin Phosphate) 50 Mg Tablet 1 Tab PO DAILY 08/05/18 Reported Lisinopril 5 Mg Tablet 1 Tab PO DAILY 08/05/18 Reported Omeprazole 40 Mg Capsule.dr 40 Mg PO DAILY 07/03/13 Rx Aspirin 81 Mg Tab.chew 81 Mg PO DAILY 07/03/13 Rx Pioglitazone Hcl 30 Mg Tablet 30 Mg PO DAILY 07/03/13 Rx Atorvastatin Calcium 80 Mg Tablet 80 Mg PO HS 07/03/13 Rx Impression . 1. Acute hypoxemic respiratory failure. 2. Abnormal x-ray compatible with pulmonary edema, Diastolic HF vs right heart failure, cor-pulmonale, ? pneumonia. 3. Metabolic toxic encephalopathy, present upon admission.resolved 4. Morbid obesity./likely yusuf/ohs 5. Coronary artery disease with previous coronary artery bypass grafting. 6. Hypertension. 7. Acute pancytopenia, s/p BM BX, AML 8. Sepsis Diagnosis: Peripheral smear: - Marked leukopenia and absolute neutropenia with a few circulating blasts. - Normocytic normochromic anemia, moderate. - Thrombocytopenia, moderate. . 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 SEE COMMENT. - Increased reticuloendothelial iron stores. QMS/08/12/2018 Plan . BIPAP PRN ANTIBX PER ID CXR NO CHANGE IV LASIX PRN PROGNOSIS IS POOR PT DNR ADRIANA SALINAS MD August 15, 2018 08:52
[2018-08-15] MEDS: INSULIN LISPRO 300 UNITS/3 ML INSULN.PEN. SQ SCH ×3 (09:17→17:46)
--- NOTE | 2018-08-15 09:47 | PDOC ---
Infectious Disease Note Subjective Subjective Comfortable, denies pain No c/o fevers/chills/SOA Family visiting ROS ROS no n/v/d/ Vital Sign Vital Signs Vital Signs Date Time Temp Pulse Resp B/P (MAP) Pulse Ox O2 Delivery O2 Flow Rate FiO2 08/15/18 08:47 69 176/63 08/15/18 07:47 96 Nasal Cannula 3.5 08/15/18 07:29 97.4 24 97.4 Physical Exam PHYSICAL EXAM GENERAL: up in chair, alert, coop, NAD HEENT: Pupils equally round, reactive. Normal conjunctivae. Oropharynx pink and dry, edentulous NECK: Supple. LUNGS: Diminished aeration. HEART: S1 and S2. ABDOMEN: Obese, soft, nontender with bowel sounds present. EXTREMITIES: Trace edema lower extremities bilat, no cyanosis SKIN: Warm without generalized rash. NEUROLOGIC: Alert and responding appropriately PIV Labs Lab Laboratory Tests Test 08/14/18 12:11 08/14/18 16:56 08/14/18 21:06 08/15/18 04:15 Glucose (Fingerstick) 216 mg/dL (70-99) 259 mg/dL (70-99) 231 mg/dL (70-99) White Blood Count 1.2 x10^3/uL (4.0-11.0) Red Blood Count 2.84 x10^6/uL (3.50-5.40) Hemoglobin 9.1 g/dL (12.0-15.5) Hematocrit 26.8 % (36.0-47.0) Mean Corpuscular Volume 95 fL (79-100) Mean Corpuscular Hemoglobin 32 pg (25-35) Mean Corpuscular Hemoglobin Concent 34 g/dL (31-37) Red Cell Distribution Width 16.5 % (11.5-14.5) Platelet Count 83 x10^3/uL (140-400) Sodium Level 139 mmol/L (136-145) Potassium Level 3.9 mmol/L (3.5-5.1) Chloride Level 105 mmol/L (98-107) Carbon Dioxide Level 27 mmol/L (21-32) Anion Gap 7 (6-14) Blood Urea Nitrogen 29 mg/dL (7-20) Creatinine 1.3 mg/dL (0.6-1.0) Estimated GFR (Cockcroft-Gault) 40.4 Glucose Level 236 mg/dL (70-99) Calcium Level 9.1 mg/dL (8.5-10.1) Test 08/15/18 07:02 Glucose (Fingerstick) 224 mg/dL (70-99) Micro Microbiology 08/05/18 Blood Culture - Final, Complete NO GROWTH AFTER 5 DAYS 08/05/18 Urine Culture - Final, Complete 08/05/18 Urine Culture Result 1 (TION) - Final, Complete Objective Assessment Newly diagnosed AML, 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 Hep/HIV/Parvo - neg IgM. SRINIVASAN 1:80 ? UTI, POA UC neg TYLER on CKD, improving Elevated LFTs/ possible cholecystitis on US -asymptomatic. Lfts better Diabetes with hypoglycemia Morbid obesity, BMI 43 CAD Diarrhea, c.dff neg 08/08 LUE - neg for DVT Plan Plan of Care Cultures neg Reverse isolation D/w family Supportive care DNR Palliative care nurse following D/w Nursing d/c nazia, change zosyn to po augmentin d/w son and sister in detail prognosis poor CARLITOS MONTES MD August 15, 2018 09:47
[2018-08-15 10:42] VITALS: BP 105/46
--- NOTE | 2018-08-15 11:10 | NUR ---
SS following up with discharge planning. Pt accepted at [facility]. SS phoned and faxed clinical updates to [facility], ; fax [phone]. [facility] submitting for new insurance authorization. SS will continue to follow for discharge planning.
--- NOTE | 2018-08-15 12:12 | PDOC2 ---
PALLIATIVE CARE Palliative Care Note Palliative Care Patient alert. Sitting up in bed. Dr. Chan visiting with patient and family. Medical information was reviewed. Discussed option of PP for strengthening. Family and patient in agreement. Understand that patient will need to be stronger to consider option of chemotherapy. Per family patient was not active at home. If patient does not progress in therapy, Hospice would be an option. Family requesting to speak to Dr. Tanner. Answered family questions about going to [facility]. Informed physicians are from [facility]. Confirmed Code Status'; DNR/DNI. Outside the Hospital form signed by son. Spoke with Paz MATT . Will need to have re-authorization by insurance before go ing to PP. Plan: PP tomorrow. DNR/DNI LORRI SOTO August 15, 2018 12:12
[2018-08-15] MEDS: AMOXICILLIN/K CLAV 875/125MG TABLET. PO SCH ×2 (12:56→22:34)
[2018-08-15 14:49] VITALS: BP 94/64
[2018-08-15] MEDS: NYSTATIN TOPICAL POWDER 15GM BOTTLE. TP SCH ×2 (14:58→22:35)
--- NOTE | 2018-08-15 15:15 | NUR ---
Wound Care Wound care follow up for bilateral buttock wounds. Cleansed buttocks, only one small area on right buttock is still open, redness is resolving. Applied A&D ointment. Pt left on right side with heels floated. POC discussed with Sergo RIVERA and family. No other wounds noted on full skin inspection. WC will continue to follow for possible changes.
--- NOTE | 2018-08-15 16:24 | NUR ---
Dr. De La Rosa would like the patient transferred to for acute leukemia. family would also like a second opinion at . Addendum: 08/15/18 at 1647 by KATY MARISCAL RN Spoke with Dr. Duran at the office and he will leave a message for Dr. Long
[2018-08-15 19:20] VITALS: BP 142/71
[2018-08-15] MEDS ORDERED: INSULIN GLARGINE 300 UNITS/3 ML INSULN.PEN. SQ SCH (21:00)
[2018-08-15 23:00] VITALS: BP 141/83
--- NOTE | 2018-08-15 23:48 | NUR ---
Assumed care of this patient from NICOLE Mednia.
[2018-08-16 03:06] VITALS: BP 176/65
--- NOTE | 2018-08-16 03:46 | NUR ---
Cheri care done and Pure Wick cath changed.
--- NOTE | 2018-08-16 06:28 | NUR ---
Bathed, shampooed and linens changed. 100cc urine output per PureWick cath. Medigrip stockings left off, heels not red but floated on pillows. Son,Jimmie, is here. Asking about transferring patient to for 2nd opinion "about everything"
[2018-08-16 07:00] VITALS: BP 165/62
[2018-08-16] MEDS: BUDESONIDE 0.5 MG/2 ML NEBU. NEB SCH (08:13)
[2018-08-16] MEDS: ALBUTEROL SULFATE 2.5 MG/3 ML NEBU. IH SCH ×2 (08:13→12:36)
--- NOTE | 2018-08-16 08:40 | PDOC ---
PROGRESS NOTES Subjective Subjective Patient without complaint, denies pain or SOA. Objective Objective Vital Signs Date Time Temp Pulse Resp B/P (MAP) Pulse Ox O2 Delivery O2 Flow Rate FiO2 08/16/18 08:16 96 Nasal Cannula 3.5 08/16/18 07:00 97.3 75 22 165/62 (96) 97.3 Intake and Output 08/16/18 07:00 Intake Total 1690 ml Output Total 100 ml Balance 1590 ml Intake Oral 1690 ml Output Urine Total 100 ml Stool Total 0 ml Physical Exam Abdomen: Normal bowel sounds, Soft, No tenderness Heart: Regular rate Extremities: Other (mild diffuse edema bilateral LE's) General: Alert, Oriented X3, No acute distress Lungs: Other (BS mildly decreased throughout otherwise CTA) Assessment Assessment Problems Medical Problems: (1) Pneumonia Status: Acute (2) Severe sepsis Status: Acute (3) Urinary tract infection Status: Acute Plan Plan of Care 1. Sepsis - resolved, cultures negative. Now on Augmentin per ID. 2. acute hypoxic respiratory failure with pneumonia - stable, continue O2 and nebs. 3. AML - Discussed with son. He requests transfer to today for inpatient care if possible. [facility] called, awaiting their decision. Advised him that patient [facility] when she is on fci. Consideration of treatment presently on hold due to patient's debility, he seems to understand this. 4. DM2 - control improving, increase insulins and continue po meds also. 5. HTN - controlled with present medications. 6. CKD III - at baseline. 7. debility - continue therapies, anticipate transfer to today if [facility] does not accept her in transfer to their inpatient service. Comment Review of Relevant I have reviewed the following items ld (where applicable) has been applied. Labs Laboratory Tests Test 08/14/18 12:11 08/14/18 16:56 08/14/18 21:06 08/15/18 04:15 Glucose (Fingerstick) 216 mg/dL (70-99) 259 mg/dL (70-99) 231 mg/dL (70-99) White Blood Count 1.2 x10^3/uL (4.0-11.0) Red Blood Count 2.84 x10^6/uL (3.50-5.40) Hemoglobin 9.1 g/dL (12.0-15.5) Hematocrit 26.8 % (36.0-47.0) Mean Corpuscular Volume 95 fL (79-100) Mean Corpuscular Hemoglobin 32 pg (25-35) Mean Corpuscular Hemoglobin Concent 34 g/dL (31-37) Red Cell Distribution Width 16.5 % (11.5-14.5) Platelet Count 83 x10^3/uL (140-400) Sodium Level 139 mmol/L (136-145) Potassium Level 3.9 mmol/L (3.5-5.1) Chloride Level 105 mmol/L (98-107) Carbon Dioxide Level 27 mmol/L (21-32) Anion Gap 7 (6-14) Blood Urea Nitrogen 29 mg/dL (7-20) Creatinine 1.3 mg/dL (0.6-1.0) Estimated GFR (Cockcroft-Gault) 40.4 Glucose Level 236 mg/dL (70-99) Calcium Level 9.1 mg/dL (8.5-10.1) Test 08/15/18 07:02 08/15/18 11:33 08/15/18 16:07 08/15/18 20:45 Glucose (Fingerstick) 224 mg/dL (70-99) 254 mg/dL (70-99) 231 mg/dL (70-99) 230 mg/dL (70-99) Test 08/16/18 07:30 Glucose (Fingerstick) 194 mg/dL (70-99) Laboratory Tests Test 08/15/18 11:33 08/15/18 16:07 08/15/18 20:45 08/16/18 07:30 Glucose (Fingerstick) 254 mg/dL (70-99) 231 mg/dL (70-99) 230 mg/dL (70-99) 194 mg/dL (70-99) Microbiology 08/05/18 Blood Culture - Final, Complete NO GROWTH AFTER 5 DAYS 08/05/18 Urine Culture - Final, Complete 08/05/18 Urine Culture Result 1 (TINO) - Final, Complete Medications Current Medications Piperacillin Sod/ Tazobactam Sod (Zosyn Per Pharmacy) 1 each PRN DAILY PRN MC SEE COMMENTS; Start 08/05/18 at 15:00; Stop 08/15/18 at 09:49; Status DC Piperacillin Sod/ Tazobactam Sod 4.5 gm/Sodium Chloride 100 ml @ 200 mls/hr ONCE ONCE IV Last administered on 08/05/18at 15:00; Start 08/05/18 at 15:00; Stop 08/05/18 at 15:29; Status DC Vancomycin HCl (Vanco Per Pharmacy) 1 each PRN DAILY PRN MC SEE COMMENTS Last administered on 08/08/18at 10:48; Start 08/05/18 at 16:15; Stop 08/09/18 at 07:57; Status DC Vancomycin HCl 2 gm/Sodium Chloride 500 ml @ 250 mls/hr 1X ONCE IV Last administered on 08/05/18at 16:17; Start 08/05/18 at 16:15; Stop 08/05/18 at 18:14; Status DC Ondansetron HCl (Zofran) 4 mg PRN Q8HRS PRN IV NAUSEA/VOMITING; Start 08/05/18 at 16:45; Stop 08/06/18 at 16:44; Status DC Morphine Sulfate (Morphine Sulfate) 2 mg PRN Q2HR PRN IV PAIN; Start 08/05/18 at 16:45; Stop 08/06/18 at 16:44; Status DC Sodium Chloride 1,000 ml @ 100 mls/hr Q10H IV Last administered on 08/06/18at 00:12; Start 08/05/18 at 16:43; Stop 08/05/18 at 20:42; Status DC Piperacillin Sod/ Tazobactam Sod 3.375 gm/Sodium Chloride 50 ml @ 100 mls/hr Q6HRS IV Last administered on 08/15/18at 06:09; Start 08/06/18 at 00:00; Stop 08/15/18 at 09:48; Status DC Vancomycin HCl 1.5 gm/Sodium Chloride 500 ml @ 250 mls/hr Q24H IV Last administered on 08/06/18at 16:41; Start 08/06/18 at 16:00; Stop 08/07/18 at 16:18; Status DC Vancomycin HCl (Vancomycin Trough Level) 1 each 1X ONCE MC Last administered on 08/07/18at 15:30; Start 08/07/18 at 15:30; Stop 08/07/18 at 15:31; Status DC Sodium Chloride 1,000 ml @ 166.667 mls/hr Q6H IV Last administered on 08/06/18at 05:42; Start 08/05/18 at 17:24; Stop 08/06/18 at 05:48; Status DC Aspirin (Children'S Aspirin) 81 mg DAILY PO Last administered on 08/15/18at 08:45; Start 08/06/18 at 09:00 Calcium Carbonate/ Glycine (Oscal) 1,000 mg DAILY PO Last administered on 08/15/18at 08:44; Start 08/06/18 at 09:00 Glipizide (Glucotrol) 10 mg DAILY PO ; Start 08/06/18 at 09:00; Stop 08/06/18 at 10:27; Status DC Atorvastatin Calcium (Lipitor) 80 mg QHS PO Last administered on 08/06/18at 00: 15; Start 08/05/18 at 21:00; Stop 08/06/18 at 10:27; Status DC Lisinopril (Prinivil) 5 mg DAILY PO Last administered on 08/10/18at 08:02; Start 08/06/18 at 09:00; Stop 08/10/18 at 08:47; Status DC Metoprolol Succinate (Toprol Xl) 200 mg DAILY PO Last administered on 08/13/18at 08:21; Start 08/06/18 at 09:00; Stop 08/13/18 at 12:03; Status DC Fish Oil (Fish Oil) 2,000 mg DAILY PO Last administered on 08/15/18at 08:46; Start 08/06/18 at 09:00 Pantoprazole Sodium (Protonix) 40 mg DAILYAC PO Last administered on 08/15/18at 08:44; Start 08/06/18 at 07:30 Pioglitazone HCl (Actos) 30 mg DAILY PO ; Start 08/06/18 at 09:00; Stop 08/06/18 at 18:11; Status DC Linagliptin (Tradjenta) 5 mg DAILY PO ; Start 08/06/18 at 09:00; Stop 08/06/18 at 18:11; Status DC Haloperidol Lactate (Haldol Inj) 5 mg PRN Q6HRS PRN IVP AGITATION; Start 08/05/18 at 19:30 Dextrose (Dextrose 50%-Water Syringe) 12.5 gm PRN Q15MIN PRN IV SEE COMMENTS Last administered on 08/05/18at 21:43; Start 08/05/18 at 19:45 Acetaminophen (Tylenol) 650 mg PRN Q6HRS PRN PO FEVER Last administered on 08/13/18 22:05; Start 08/06/18 at 04:15 Potassium Chloride (Klor-Con) 10 meq DAILYWBKFT PO Last administered on 08/08/18 12:49; Start 08/06/18 at 10:30; Stop 08/09/18 at 08:20; Status DC Insulin Human Lispro (HumaLOG) 0-5 UNITS TIDWMEALS SQ Last administered on 08/15/18 17:46; Start 08/06/18 at 12:00 Dextrose (Dextrose 50%-Water Syringe) 12.5 gm PRN Q15MIN PRN IV SEE COMMENTS; Start 08/06/18 at 10:30; Status UNV Lactobacillus Rhamnosus (Culturelle) 1 cap BID PO Last administered on 08/07/18 21:26; Start 08/06/18 at 21:00; Stop 08/08/18 at 10:39; Status DC Sodium Chloride 1,000 ml @ 100 mls/hr Q10H IV Last administered on 08/07/18 11:46; Start 08/06/18 at 18:15; Stop 08/07/18 at 22:35; Status DC Nystatin (Nystop) 1 dayne BID TP Last administered on 08/15/18at 22:35; Start 08/06/18 at 21:00 Benzonatate (Tessalon Perle) 100 mg OFB450 PO Last administered on 08/15/18at 22:34; Start 08/07/18 at 12:00 Guaifenesin (Robitussin Dm) 10 ml PRN Q6HRS PRN PO COUGH Last administered on 08/13/18 22:06; Start 08/07/18 at 10:30 Micafungin Sodium 100 mg/Dextrose 100 ml @ 100 mls/hr Q24H IV Last administered on 08/14/18at 13:28; Start 08/07/18 at 12:00; Stop 08/15/18 at 09:36; Status DC Vancomycin HCl 2 gm/Sodium Chloride 500 ml @ 250 mls/hr Q24H IV Last administered on 08/08/18at 16:35; Start 08/07/18 at 16:30; Stop 08/09/18 at 07:57; Status DC Vancomycin HCl (Vancomycin Trough Level) 1 each 1X ONCE MC ; Start 08/09/18 at 16:00; Stop 08/09/18 at 16:00; Status DC Furosemide (Lasix) 40 mg 1X ONCE IVP Last administered on 08/07/18at 23:00; Start 08/07/18 at 23:00; Stop 08/07/18 at 23:01; Status DC Hydralazine HCl (Apresoline Inj) 10 mg PRN Q4HRS PRN IVP ELEVATED BP, SEE COMMENTS Last administered on 08/10/18at 23:47; Start 08/07/18 at 22:45 Albuterol Sulfate (Ventolin Neb Soln) 2.5 mg TID IH Last administered on 08/16/18at 08:13; Start 08/08/18 at 09:00 Albuterol Sulfate (Ventolin Neb Soln) 2.5 mg PRN Q3HRS PRN IH WHEEZING Last administered on 08/13/18at 03:02; Start 08/08/18 at 05:15 Lidocaine/Sodium Bicarbonate (Buffered Lidocaine 1%) 3 ml STK-MED ONCE .ROUTE ; Start 08/08/18 at 08:42; Stop 08/08/18 at 08:43; Status DC Lidocaine/Sodium Bicarbonate (Buffered Lidocaine 1%) 3 ml STK-MED ONCE .ROUTE ; Start 08/08/18 at 08:47; Stop 08/08/18 at 08:48; Status DC Lidocaine/Sodium Bicarbonate (Buffered Lidocaine 1%) 3 ml STK-MED ONCE .ROUTE ; Start 08/08/18 at 08:47; Stop 08/08/18 at 08:48; Status DC Midazolam HCl (Versed) 2 mg STK-MED ONCE .ROUTE ; Start 08/08/18 at 08:49; Stop 08/08/18 at 08:50; Status DC Fentanyl Citrate (Fentanyl 2ml Vial) 100 mcg STK-MED ONCE .ROUTE ; Start 08/08/18 at 08:49; Stop 08/08/18 at 08:50; Status DC Fentanyl Citrate (Fentanyl 2ml Vial) 25 mcg PRN Q5MIN PRN IV MILD PAIN; Start 08/09/18 at 07:00; Stop 08/10/18 at 07:00; Status DC Fentanyl Citrate (Fentanyl 2ml Vial) 50 mcg PRN Q5MIN PRN IV MODERATE TO SEVERE PAIN; Start 08/09/18 at 07:00; Stop 08/10/18 at 07:00; Status DC Morphine Sulfate (Morphine Sulfate) 1 mg PRN Q10MIN PRN IV SEVERE PAIN; Start 08/09/18 at 07:00; Stop 08/10/18 at 07:00; Status DC Ringer's Solution 1,000 ml @ 30 mls/hr Q24H IV ; Start 08/09/18 at 07:00; Stop 08/09/18 at 18:59; Status DC Lidocaine HCl (Xylocaine-Mpf 1% 2ml Vial) 2 ml PRN 1X PRN ID PRIOR TO IV START; Start 08/09/18 at 07:00; Stop 08/10/18 at 07:00; Status DC Hydromorphone HCl (Dilaudid) 0.5 mg PRN Q10MIN PRN IV SEV PAIN, Second choice; Start 08/09/18 at 07:00; Stop 08/10/18 at 07:00; Status DC Prochlorperazine Edisylate (Compazine) 5 mg PACU PRN PRN IV NAUSEA, MRX1; Start 08/09/18 at 07:00; Stop 08/10/18 at 07:00; Status DC Multivitamins/ Minerals (I-Burak) 1 tab DAILY PO Last administered on 08/15/18at 08:44; Start 08/08/18 at 15:00 Ascorbic Acid (Vitamin C) 500 mg DAILY PO Last administered on 08/15/18at 08:44; Start 08/08/18 at 15:00 Furosemide (Lasix) 40 mg 1X ONCE IVP Last administered on 08/08/18at 16:34; Start 08/08/18 at 16:30; Stop 08/08/18 at 16:31; Status DC Doxycycline Hyclate (Vibra-Tab) 100 mg BID PO Last administered on 08/10/18at 08 :01; Start 08/09/18 at 09:00; Stop 08/10/18 at 09:22; Status DC Linagliptin (Tradjenta) 5 mg DAILY PO Last administered on 08/15/18at 08:46; Start 08/09/18 at 09:00 Potassium Chloride (Klor-Con) 10 meq BID PO Last administered on 08/10/18at 07:59; Start 08/09/18 at 09:00; Stop 08/10/18 at 08:47; Status DC Propofol 40 ml @ As Directed STK-MED ONCE IV ; Start 08/09/18 at 12:09; Stop 08/09/18 at 12:10; Status DC Lidocaine/Sodium Bicarbonate (Buffered Lidocaine 1%) 3 ml STK-MED ONCE .ROUTE ; Start 08/09/18 at 12:25; Stop 08/09/18 at 12:26; Status DC Lidocaine/Sodium Bicarbonate (Buffered Lidocaine 1%) 12 ml 1X ONCE INJ Last administered on 08/09/18at 12:43; Start 08/09/18 at 12:45; Stop 08/09/18 at 12:46; Status DC Albuterol Sulfate (Ventolin Neb Soln) 2.5 mg 1X ONCE IH Last administered on 08/10/18at 02:32; Start 08/10/18 at 03:00; Stop 08/10/18 at 03:01; Status DC Lisinopril (Prinivil) 20 mg DAILY PO Last administered on 08/15/18at 08:47; Start 08/10/18 at 09:30 Potassium Chloride (Klor-Con) 20 meq TIDWMEALS PO Last administered on 08/13/18at 08:19; Start 08/10/18 at 12:00; Stop 08/13/18 at 12:03; Status DC Glipizide (Glucotrol) 5 mg BIDBFRMEAL PO Last administered on 08/15/18at 17:40; Start 08/10/18 at 09:30 Loperamide HCl (Imodium) 2 mg PRN Q15MIN PRN PO DIARRHEA Last administered on 08/10/18at 23:46; Start 08/10/18 at 09:15 Vitamin A/Vitamin D (Vitamin A & D Ointment) 1 dayne PRN Q1HR PRN TP SKIN PROTECTION Last administered on 08/11/18at 08:58; Start 08/10/18 at 09:45 Furosemide (Lasix) 40 mg 1X ONCE IVP Last administered on 08/10/18at 13:25; Start 08/10/18 at 11:30; Stop 08/10/18 at 11:38; Status DC Potassium Chloride/Water 100 ml @ 100 mls/hr Q1H IV Last administered on 08/11/18at 12:45; Start 08/11/18 at 09:00; Stop 08/11/18 at 12:59; Status DC Insulin Glargine (Lantus) 5 units QHS SQ Last administered on 08/12/18at 00:07; Start 08/11/18 at 21:00; Stop 08/12/18 at 09:05; Status DC Budesonide (Pulmicort) 0.5 mg RTBID NEB Last administered on 08/16/18at 08:13; Start 08/11/18 at 09:00 Insulin Glargine (Lantus) 10 units QHS SQ Last administered on 08/12/18at 21:27; Start 08/12/18 at 21:00; Stop 08/13/18 at 12:04; Status DC Acetaminophen/ Hydrocodone Bitart (Lortab 5/325) 1 tab PRN Q6HRS PRN PO PAIN Last administered on 08/13/18at 01:03; Start 08/13/18 at 01:00 Potassium Chloride (Klor-Con) 20 meq DAILY08 PO Last administered on 08/15/18at 08:45; Start 08/14/18 at 08:00 Metoprolol Succinate (Toprol Xl) 100 mg DAILY PO Last administered on 08/15/18at 08:45; Start 08/14/18 at 09:00 Insulin Glargine (Lantus) 15 units QHS SQ Last administered on 08/14/18at 21:29; Start 08/13/18 at 21:00; Stop 08/15/18 at 08:19; Status DC Insulin Glargine (Lantus) 20 units QHS SQ Last administered on 08/15/18at 22:39; Start 08/15/18 at 21:00 Amoxicillin/ Clavulanate Potassium (Augmentin 875/ 125mg) 1 tab BID PO Last administered on 08/15/18at 22:34; Start 08/15/18 at 13:00 Active Scripts Active Omeprazole 40 Mg Capsule.dr 40 Mg PO DAILY Aspirin 81 Mg Tab.chew 81 Mg PO DAILY Pioglitazone Hcl 30 Mg Tablet 30 Mg PO DAILY Atorvastatin Calcium 80 Mg Tablet 80 Mg PO HS Reported Metoprolol Tartrate 100 Mg Tablet 2 Tab PO DAILY Glipizide 5 Mg Tablet 2 Tab PO DAILY [place] 3 Fish Oil Softgel ([place]-3 Fatty Acids/Fish Oil) 1 Each Capsule.dr 2 Each PO DAILY Calcium Carbonate 500 Mg Tablet 1,000 Mg PO DAILY Januvia (Sitagliptin Phosphate) 50 Mg Tablet 1 Tab PO DAILY Lisinopril 5 Mg Tablet 1 Tab PO DAILY Vitals/I & O Vital Sign - Last 24 Hours 08/15/18 08/15/18 08/15/18 08/15/18 08:45 08:47 10:42 12:28 Temp 97.4 97.4 Pulse 69 69 77 Resp 24 B/P (MAP) 176/63 176/63 105/46 (65) Pulse Ox 94 95 O2 Delivery Nasal Cannula Nasal Cannula O2 Flow Rate 3.5 3.5 08/15/18 08/15/18 08/15/18 08/15/18 14:49 19:20 19:54 20:00 Temp 97.6 97.8 97.6 97.8 Pulse 80 83 Resp 22 B/P (MAP) 94/64 (74) 142/71 (94) Pulse Ox 90 96 95 O2 Delivery Nasal Cannula Nasal Cannula Nasal Cannula Nasal Cannula O2 Flow Rate 3.5 3.5 3.5 3.5 08/15/18 08/16/18 08/16/18 08/16/18 23:00 03:06 07:00 08:15 Temp 97.5 97.7 97.3 97.5 97.7 97.3 Pulse 75 78 75 Resp 22 22 B/P (MAP) 141/83 (102) 176/65 (102) 165/62 (96) Pulse Ox 94 94 96 96 O2 Delivery Nasal Cannula Nasal Cannula Nasal Cannula Nasal Cannula O2 Flow Rate 3.5 3.5 3.5 3.5 08/16/18 08:16 Pulse Ox 96 O2 Delivery Nasal Cannula O2 Flow Rate 3.5 Intake and Output 08/15/18 08/15/18 08/16/18 15:00 23:00 07:00 Intake Total 730 ml 300 ml 660 ml Output Total 100 ml Balance 730 ml 300 ml 560 ml KEVON FUENTES MD August 16, 2018 08:40
[2018-08-16] MEDS ORDERED: INSU100I13 SQ (08:46)
[2018-08-16] MEDS ORDERED: VITS56.7 TP (08:46)
[2018-08-16] MEDS ORDERED: ACET325T9 PO (08:46)
[2018-08-16] MEDS ORDERED: NYST60PO TP (08:46)
[2018-08-16] MEDS ORDERED: LISI-130 PO (08:46)
[2018-08-16] MEDS ORDERED: POTA20TA4 PO (08:46)
[2018-08-16] MEDS ORDERED: AMOX1TAB11 PO (08:46)
[2018-08-16] MEDS ORDERED: METO-247 PO (08:46)
[2018-08-16] MEDS ORDERED: BUDE0.5A NEB (08:46)
[2018-08-16] MEDS ORDERED: ALBU2.5V8 IH (08:46)
[2018-08-16] MEDS ORDERED: GLIP5TAB10 PO (08:46)
[2018-08-16] MEDS ORDERED: INSU100I11 SQ (08:46)
--- NOTE | 2018-08-16 08:50 | NUR ---
[facility] following up with discharge planning. Pt's RN contacted [facility] and reported that request for transfer to has been made and requested that [facility] fax chart to transfer team, fax [phone]. SS faxed chart and requested that radiology cloud images to . SS will await acceptance decision and will proceed accordingly. Pt is accepted at [facility] as well.
[2018-08-16] MEDS: BENZONATATE 100 MG CAPSULE. PO SCH ×2 (09:03→13:56)
[2018-08-16] MEDS: LISINOPRIL 20 MG TABLET PO SCH (09:03)
[2018-08-16] MEDS: LINAGLIPTIN 5 MG TABLET PO SCH (09:03)
[2018-08-16] MEDS: OMEGA-3 FATTY ACIDS/FISH OIL 1,000 MG CAPSULE. PO SCH (09:04)
[2018-08-16] MEDS: glipiZIDE 5 MG TABLET PO SCH ×2 (09:04→16:56)
[2018-08-16] MEDS: ASPIRIN CHEWABLE 81 MG TABLET. PO SCH (09:04)
[2018-08-16] MEDS: POTASSIUM CHLORIDE 20 MEQ TABLET.ER. PO SCH (09:04)
[2018-08-16] MEDS: AMOXICILLIN/K CLAV 875/125MG TABLET. PO SCH (09:04)
[2018-08-16] MEDS: MULTIVITAMIN I-VITE TABLET. PO SCH (09:05)
[2018-08-16] MEDS: ASCORBIC ACID 500 MG TABLET PO SCH (09:05)
[2018-08-16] MEDS: CALCIUM CARBONATE 500 MG TABLET PO SCH (09:05)
[2018-08-16] MEDS: METOPROLOL SUCC 24HR ER 100 MG TAB.ER.24H. PO SCH (09:05)
[2018-08-16] MEDS: NYSTATIN TOPICAL POWDER 15GM BOTTLE. TP SCH (09:06)
--- NOTE | 2018-08-16 09:06 | PDOC ---
PULMONARY PROGRESS NOTES Subjective PT NOT MORE SOA MOANS BUT NOT IN PAIN Vitals Vital Signs Date Time Temp Pulse Resp B/P (MAP) Pulse Ox O2 Delivery O2 Flow Rate FiO2 08/16/18 08:16 96 Nasal Cannula 3.5 08/16/18 07:00 97.3 75 22 165/62 (96) 97.3 ROS: No Nausea, No Chest Pain, No Abdominal Pain, No Increase Cough General: Alert HEENT: Other Lungs: Crackles Cardiovascular: S1, S2 Abdomen: Soft Neuro Exam: Alert Extremities: Other (EDEMA) Skin: Warm Labs Laboratory Tests Test 08/14/18 12:11 08/14/18 16:56 08/14/18 21:06 08/15/18 04:15 Glucose (Fingerstick) 216 mg/dL (70-99) 259 mg/dL (70-99) 231 mg/dL (70-99) White Blood Count 1.2 x10^3/uL (4.0-11.0) Red Blood Count 2.84 x10^6/uL (3.50-5.40) Hemoglobin 9.1 g/dL (12.0-15.5) Hematocrit 26.8 % (36.0-47.0) Mean Corpuscular Volume 95 fL (79-100) Mean Corpuscular Hemoglobin 32 pg (25-35) Mean Corpuscular Hemoglobin Concent 34 g/dL (31-37) Red Cell Distribution Width 16.5 % (11.5-14.5) Platelet Count 83 x10^3/uL (140-400) Sodium Level 139 mmol/L (136-145) Potassium Level 3.9 mmol/L (3.5-5.1) Chloride Level 105 mmol/L (98-107) Carbon Dioxide Level 27 mmol/L (21-32) Anion Gap 7 (6-14) Blood Urea Nitrogen 29 mg/dL (7-20) Creatinine 1.3 mg/dL (0.6-1.0) Estimated GFR (Cockcroft-Gault) 40.4 Glucose Level 236 mg/dL (70-99) Calcium Level 9.1 mg/dL (8.5-10.1) Test 08/15/18 07:02 08/15/18 11:33 08/15/18 16:07 08/15/18 20:45 Glucose (Fingerstick) 224 mg/dL (70-99) 254 mg/dL (70-99) 231 mg/dL (70-99) 230 mg/dL (70-99) Test 08/16/18 07:30 Glucose (Fingerstick) 194 mg/dL (70-99) Laboratory Tests Test 08/15/18 11:33 08/15/18 16:07 08/15/18 20:45 08/16/18 07:30 Glucose (Fingerstick) 254 mg/dL (70-99) 231 mg/dL (70-99) 230 mg/dL (70-99) 194 mg/dL (70-99) Medications Active Scripts Medications Dose Route/Sig Max Daily Dose Days Date Category Metoprolol Tartrate 100 Mg Tablet 2 Tab PO DAILY 08/05/18 Reported Glipizide 5 Mg Tablet 2 Tab PO DAILY 08/05/18 Reported [place] 3 Fish Oil Softgel ([place]-3 Fatty Acids/Fish Oil) 1 Each Capsule.dr 2 Each PO DAILY 08/05/18 Reported Calcium Carbonate 500 Mg Tablet 1,000 Mg PO DAILY 08/05/18 Reported Januvia (Sitagliptin Phosphate) 50 Mg Tablet 1 Tab PO DAILY 08/05/18 Reported Lisinopril 5 Mg Tablet 1 Tab PO DAILY 08/05/18 Reported Omeprazole 40 Mg Capsule.dr 40 Mg PO DAILY 07/03/13 Rx Aspirin 81 Mg Tab.chew 81 Mg PO DAILY 07/03/13 Rx Pioglitazone Hcl 30 Mg Tablet 30 Mg PO DAILY 07/03/13 Rx Atorvastatin Calcium 80 Mg Tablet 80 Mg PO HS 07/03/13 Rx Impression . 1. Acute hypoxemic respiratory failure. 2. Abnormal x-ray compatible with pulmonary edema, Diastolic HF vs right heart failure, cor-pulmonale, ? pneumonia. 3. Metabolic toxic encephalopathy, present upon admission.resolved 4. Morbid obesity./likely yusuf/ohs 5. Coronary artery disease with previous coronary artery bypass grafting. 6. Hypertension. 7. Acute pancytopenia, s/p BM BX, AML 8. Sepsis Diagnosis: Peripheral smear: - Marked leukopenia and absolute neutropenia with a few circulating blasts. - Normocytic normochromic anemia, moderate. - Thrombocytopenia, moderate. . 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 SEE COMMENT. - Increased reticuloendothelial iron stores. S/08/12/2018 Plan . TRANSFER TODAY SIGNED OUT OF HOSPITAL DNR ADRIANA SALINAS MD August 16, 2018 09:06
[2018-08-16] MEDS: INSULIN LISPRO 300 UNITS/3 ML INSULN.PEN. SQ SCH ×2 (09:22→12:09)
[2018-08-16] MEDS: PANTOPRAZOLE 40 MG TABLET.DR. PO SCH (09:22)
--- NOTE | 2018-08-16 09:40 | NUR ---
Dr. De La Rosa here seeing patient and ordered to cancel the [facility] transfer process.
[2018-08-16 10:48] VITALS: BP 139/67
--- NOTE | 2018-08-16 11:44 | PDOC ---
PROGRESS NOTES Subjective Subjective HPI -f/u of AML ROS - no fever Objective Objective Vital Signs Date Time Temp Pulse Resp B/P (MAP) Pulse Ox O2 Delivery O2 Flow Rate FiO2 08/16/18 10:48 98.2 75 22 139/67 (91) 95 Nasal Cannula 3.5 98.2 Intake and Output 08/16/18 06:59 Intake Total 1690 ml Output Total 100 ml Balance 1590 ml Intake Oral 1690 ml Output Urine Total 100 ml Stool Total 0 ml Physical Exam General: Alert, Oriented X3, No acute distress Neck: No JVD Neuro: Normal speech Psych/Mental Status: Mental status NL Assessment Assessment Problems Medical Problems: (1) Pneumonia Status: Acute (2) Severe sepsis Status: Acute (3) Urinary tract infection Status: Acute Impression/Plan: 1. AML - I had a detailed discussion today with the patient and her son Jimmie who is the DURABLE POWER OF [employer] SUPERVISOR for healthcare and with the patient's sister. I explained the diagnosis prognosis and treatment options for acute myeloid leukemia. I also discussed in detail with the registered nurse who mentioned that the patient is essentially bedbound and she is able to transfer to the chair with great difficulty. Her ECOG performance status score is 4. I discussed the poor prognosis of AML in the elderly patients and I also discussed the risks and benefits of chemotherapy. Considering the patient's poor functional status I recommended best supportive care/palliative care with the help of hospice. I also mentioned to them that this was the opinion of Dr. Tanner too and I agree with the recommendation to focus on supportive care and quality of life. The patient agrees and her son also agrees with the plan for supportive care with the help of hospice. Hence I will cancel transfer to [facility] and proceed with transfer to [facility] and consult hospice to be on board. Appreciate palliative care consultation. I also discussed the case with the patient's registered nurse Oliver. 2. Acute hypoxemic respiratory failure. Appreciate pul management. 3. Coronary artery disease with previous coronary artery bypass grafting. 4. Hypertension. 5. Sepsis Diagnosis: Peripheral smear: - Marked leukopenia and absolute neutropenia with a few circulating blasts. - Normocytic normochromic anemia, moderate. - Thrombocytopenia, moderate. . 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 SEE COMMENT. - Increased reticuloendothelial iron stores. S/08/12/2018 Comment Review of Relevant I have reviewed the following items ld (where applicable) has been applied. Labs Laboratory Tests Test 08/14/18 12:11 08/14/18 16:56 08/14/18 21:06 08/15/18 04:15 Glucose (Fingerstick) 216 mg/dL (70-99) 259 mg/dL (70-99) 231 mg/dL (70-99) White Blood Count 1.2 x10^3/uL (4.0-11.0) Red Blood Count 2.84 x10^6/uL (3.50-5.40) Hemoglobin 9.1 g/dL (12.0-15.5) Hematocrit 26.8 % (36.0-47.0) Mean Corpuscular Volume 95 fL (79-100) Mean Corpuscular Hemoglobin 32 pg (25-35) Mean Corpuscular Hemoglobin Concent 34 g/dL (31-37) Red Cell Distribution Width 16.5 % (11.5-14.5) Platelet Count 83 x10^3/uL (140-400) Sodium Level 139 mmol/L (136-145) Potassium Level 3.9 mmol/L (3.5-5.1) Chloride Level 105 mmol/L (98-107) Carbon Dioxide Level 27 mmol/L (21-32) Anion Gap 7 (6-14) Blood Urea Nitrogen 29 mg/dL (7-20) Creatinine 1.3 mg/dL (0.6-1.0) Estimated GFR (Cockcroft-Gault) 40.4 Glucose Level 236 mg/dL (70-99) Calcium Level 9.1 mg/dL (8.5-10.1) Test 08/15/18 07:02 08/15/18 11:33 08/15/18 16:07 08/15/18 20:45 Glucose (Fingerstick) 224 mg/dL (70-99) 254 mg/dL (70-99) 231 mg/dL (70-99) 230 mg/dL (70-99) Test 08/16/18 07:30 08/16/18 11:31 Glucose (Fingerstick) 194 mg/dL (70-99) 238 mg/dL (70-99) Laboratory Tests Test 08/15/18 16:07 08/15/18 20:45 08/16/18 07:30 08/16/18 11:31 Glucose (Fingerstick) 231 mg/dL (70-99) 230 mg/dL (70-99) 194 mg/dL (70-99) 238 mg/dL (70-99) Microbiology 08/05/18 Blood Culture - Final, Complete NO GROWTH AFTER 5 DAYS 08/05/18 Urine Culture - Final, Complete 08/05/18 Urine Culture Result 1 (TION) - Final, Complete Medications Current Medications Piperacillin Sod/ Tazobactam Sod (Zosyn Per Pharmacy) 1 each PRN DAILY PRN MC SEE COMMENTS; Start 08/05/18 at 15:00; Stop 08/15/18 at 09:49; Status DC Piperacillin Sod/ Tazobactam Sod 4.5 gm/Sodium Chloride 100 ml @ 200 mls/hr ONCE ONCE IV Last administered on 08/05/18at 15:00; Start 08/05/18 at 15:00; Stop 08/05/18 at 15:29; Status DC Vancomycin HCl (Vanco Per Pharmacy) 1 each PRN DAILY PRN MC SEE COMMENTS Last a dministered on 08/08/18at 10:48; Start 08/05/18 at 16:15; Stop 08/09/18 at 07:57; Status DC Vancomycin HCl 2 gm/Sodium Chloride 500 ml @ 250 mls/hr 1X ONCE IV Last administered on 08/05/18at 16:17; Start 08/05/18 at 16:15; Stop 08/05/18 at 18:14; Status DC Ondansetron HCl (Zofran) 4 mg PRN Q8HRS PRN IV NAUSEA/VOMITING; Start 08/05/18 at 16:45; Stop 08/06/18 at 16:44; Status DC Morphine Sulfate (Morphine Sulfate) 2 mg PRN Q2HR PRN IV PAIN; Start 08/05/18 at 16:45; Stop 08/06/18 at 16:44; Status DC Sodium Chloride 1,000 ml @ 100 mls/hr Q10H IV Last administered on 08/06/18at 00:12; Start 08/05/18 at 16:43; Stop 08/05/18 at 20:42; Status DC Piperacillin Sod/ Tazobactam Sod 3.375 gm/Sodium Chloride 50 ml @ 100 mls/hr Q6HRS IV Last administered on 08/15/18at 06:09; Start 08/06/18 at 00:00; Stop 08/15/18 at 09:48; Status DC Vancomycin HCl 1.5 gm/Sodium Chloride 500 ml @ 250 mls/hr Q24H IV Last administered on 08/06/18at 16:41; Start 08/06/18 at 16:00; Stop 08/07/18 at 16:18; Status DC Vancomycin HCl (Vancomycin Trough Level) 1 each 1X ONCE MC Last administered on 08/07/18at 15:30; Start 08/07/18 at 15:30; Stop 08/07/18 at 15:31; Status DC Sodium Chloride 1,000 ml @ 166.667 mls/hr Q6H IV Last administered on 08/06/18at 05:42; Start 08/05/18 at 17:24; Stop 08/06/18 at 05:48; Status DC Aspirin (Children'S Aspirin) 81 mg DAILY PO Last administered on 08/16/18at 09:04; Start 08/06/18 at 09:00 Calcium Carbonate/ Glycine (Oscal) 1,000 mg DAILY PO Last administered on 08/16/18at 09:05; Start 08/06/18 at 09:00 Glipizide (Glucotrol) 10 mg DAILY PO ; Start 08/06/18 at 09:00; Stop 08/06/18 at 10:27; Status DC Atorvastatin Calcium (Lipitor) 80 mg QHS PO Last administered on 08/06/18at 00:15; Start 08/05/18 at 21:00; Stop 08/06/18 at 10:27; Status DC Lisinopril (Prinivil) 5 mg DAILY PO Last administered on 08/10/18at 08:02; Start 08/06/18 at 09:00; Stop 08/10/18 at 08:47; Status DC Metoprolol Succinate (Toprol Xl) 200 mg DAILY PO Last administered on 08/13/18at 08:21; Start 08/06/18 at 09:00; Stop 08/13/18 at 12:03; Status DC Fish Oil (Fish Oil) 2,000 mg DAILY PO Last administered on 08/16/18at 09:04; Start 08/06/18 at 09:00 Pantoprazole Sodium (Protonix) 40 mg DAILYAC PO Last administered on 08/16/18at 09:22; Start 08/06/18 at 07:30 Pioglitazone HCl (Actos) 30 mg DAILY PO ; Start 08/06/18 at 09:00; Stop 08/06/18 at 18:11; Status DC Linagliptin (Tradjenta) 5 mg DAILY PO ; Start 08/06/18 at 09:00; Stop 08/06/18 at 18:11; Status DC Haloperidol Lactate (Haldol Inj) 5 mg PRN Q6HRS PRN IVP AGITATION; Start 08/05/18 at 19:30; Stop 08/16/18 at 08:35; Status DC Dextrose (Dextrose 50%-Water Syringe) 12.5 gm PRN Q15MIN PRN IV SEE COMMENTS Last administered on 08/05/18at 21:43; Start 08/05/18 at 19:45 Acetaminophen (Tylenol) 650 mg PRN Q6HRS PRN PO FEVER Last administered on 08/13/18at 22:05; Start 08/06/18 at 04:15 Potassium Chloride (Klor-Con) 10 meq DAILYWBKFT PO Last administered on 08/08/18at 12:49; Start 08/06/18 at 10:30; Stop 08/09/18 at 08:20; Status DC Insulin Human Lispro (HumaLOG) 0-5 UNITS TIDWMEALS SQ Last administered on 08/16/18at 09:22; Start 08/06/18 at 12:00 Dextrose (Dextrose 50%-Water Syringe) 12.5 gm PRN Q15MIN PRN IV SEE COMMENTS; Start 08/06/18 at 10:30; Status UNV Lactobacillus Rhamnosus (Culturelle) 1 cap BID PO Last administered on 08/07/18at 21:26; Start 08/06/18 at 21:00; Stop 08/08/18 at 10:39; Status DC Sodium Chloride 1,000 ml @ 100 mls/hr Q10H IV Last administered on 08/07/18at 11:46; Start 08/06/18 at 18:15; Stop 08/07/18 at 22:35; Status DC Nystatin (Nystop) 1 dayne BID TP Last administered on 08/16/18at 09:06; Start 08/06/18 at 21:00 Benzonatate (Tessalon Perle) 100 mg [id number] PO Last administered on 08/16/18at 09:03; Start 08/07/18 at 12:00 Guaifenesin (Robitussin Dm) 10 ml PRN Q6HRS PRN PO COUGH Last administered on 08/13/18at 22:06; Start 08/07/18 at 10:30 Micafungin Sodium 100 mg/Dextrose 100 ml @ 100 mls/hr Q24H IV Last administered on 08/14/18at 13:28; Start 08/07/18 at 12:00; Stop 08/15/18 at 09:36; Status DC Vancomycin HCl 2 gm/Sodium Chloride 500 ml @ 250 mls/hr Q24H IV Last administered on 08/08/18at 16:35; Start 08/07/18 at 16:30; Stop 08/09/18 at 07:57; Status DC Vancomycin HCl (Vancomycin Trough Level) 1 each 1X ONCE MC ; Start 08/09/18 at 16:00; Stop 08/09/18 at 16:00; Status DC Furosemide (Lasix) 40 mg 1X ONCE IVP Last administered on 08/07/18at 23:00; Start 08/07/18 at 23:00; Stop 08/07/18 at 23:01; Status DC Hydralazine HCl (Apresoline Inj) 10 mg PRN Q4HRS PRN IVP ELEVATED BP, SEE COMMENTS Last administered on 08/10/18at 23:47; Start 08/07/18 at 22:45; Stop 08/16/18 at 08:35; Status DC Albuterol Sulfate (Ventolin Neb Soln) 2.5 mg TID IH Last administered on 08/16/18at 08:13; Start 08/08/18 at 09:00 Albuterol Sulfate (Ventolin Neb Soln) 2.5 mg PRN Q3HRS PRN IH WHEEZING Last administered on 08/13/18at 03:02; Start 08/08/18 at 05:15 Lidocaine/Sodium Bicarbonate (Buffered Lidocaine 1%) 3 ml STK-MED ONCE .ROUTE ; Start 08/08/18 at 08:42; Stop 08/08/18 at 08:43; Status DC Lidocaine/Sodium Bicarbonate (Buffered Lidocaine 1%) 3 ml STK-MED ONCE .ROUTE ; Start 08/08/18 at 08:47; Stop 08/08/18 at 08:48; Status DC Lidocaine/Sodium Bicarbonate (Buffered Lidocaine 1%) 3 ml STK-MED ONCE .ROUTE ; Start 08/08/18 at 08:47; Stop 08/08/18 at 08:48; Status DC Midazolam HCl (Versed) 2 mg STK-MED ONCE .ROUTE ; Start 08/08/18 at 08:49; Stop 08/08/18 at 08:50; Status DC Fentanyl Citrate (Fentanyl 2ml Vial) 100 mcg STK-MED ONCE .ROUTE ; Start 08/08/18 at 08:49; Stop 08/08/18 at 08:50; Status DC Fentanyl Citrate (Fentanyl 2ml Vial) 25 mcg PRN Q5MIN PRN IV MILD PAIN; Start 08/09/18 at 07:00; Stop 08/10/18 at 07:00; Status DC Fentanyl Citrate (Fentanyl 2ml Vial) 50 mcg PRN Q5MIN PRN IV MODERATE TO SEVERE PAIN; Start 08/09/18 at 07:00; Stop 08/10/18 at 07:00; Status DC Morphine Sulfate (Morphine Sulfate) 1 mg PRN Q10MIN PRN IV SEVERE PAIN; Start 08/09/18 at 07:00; Stop 08/10/18 at 07:00; Status DC Ringer's Solution 1,000 ml @ 30 mls/hr Q24H IV ; Start 08/09/18 at 07:00; Stop 08/09/18 at 18:59; Status DC Lidocaine HCl (Xylocaine-Mpf 1% 2ml Vial) 2 ml PRN 1X PRN ID PRIOR TO IV START; Start 08/09/18 at 07:00; Stop 08/10/18 at 07:00; Status DC Hydromorphone HCl (Dilaudid) 0.5 mg PRN Q10MIN PRN IV SEV PAIN, Second choice; Start 08/09/18 at 07:00; Stop 08/10/18 at 07:00; Status DC Prochlorperazine Edisylate (Compazine) 5 mg PACU PRN PRN IV NAUSEA, MRX1; Start 08/09/18 at 07:00; Stop 08/10/18 at 07:00; Status DC Multivitamins/ Minerals (I-Burak) 1 tab DAILY PO Last administered on 08/16/18at 09:05; Start 08/08/18 at 15:00 Ascorbic Acid (Vitamin C) 500 mg DAILY PO Last administered on 08/16/18at 09:05; Start 08/08/18 at 15:00 Furosemide (Lasix) 40 mg 1X ONCE IVP Last administered on 08/08/18at 16:34; Start 08/08/18 at 16:30; Stop 08/08/18 at 16:31; Status DC Doxycycline Hyclate (Vibra-Tab) 100 mg BID PO Last administered on 08/10/18at 08:01; Start 08/09/18 at 09:00; Stop 08/10/18 at 09:22; Status DC Linagliptin (Tradjenta) 5 mg DAILY PO Last administered on 08/16/18at 09:03; Start 08/09/18 at 09:00 Potassium Chloride (Klor-Con) 10 meq BID PO Last administered on 08/10/18at 07:59; Start 08/09/18 at 09:00; Stop 08/10/18 at 08:47; Status DC Propofol 40 ml @ As Directed STK-MED ONCE IV ; Start 08/09/18 at 12:09; Stop at 12:10; Status DC Lidocaine/Sodium Bicarbonate (Buffered Lidocaine 1%) 3 ml STK-MED ONCE .ROUTE ; Start 08/09/18 at 12:25; Stop 08/09/18 at 12:26; Status DC Lidocaine/Sodium Bicarbonate (Buffered Lidocaine 1%) 12 ml 1X ONCE INJ Last administered on 08/09/18at 12:43; Start 08/09/18 at 12:45; Stop 08/09/18 at 12:46; Status DC Albuterol Sulfate (Ventolin Neb Soln) 2.5 mg 1X ONCE IH Last administered on 08/10/18at 02:32; Start 08/10/18 at 03:00; Stop 08/10/18 at 03:01; Status DC Lisinopril (Prinivil) 20 mg DAILY PO Last administered on 08/16/18at 09:03; Start 08/10/18 at 09:30 Potassium Chloride (Klor-Con) 20 meq TIDWMEALS PO Last administered on 08/13/18at 08:19; Start 08/10/18 at 12:00; Stop 08/13/18 at 12:03; Status DC Glipizide (Glucotrol) 5 mg BIDBFRMEAL PO Last administered on 08/16/18at 09:04; Start 08/10/18 at 09:30 Loperamide HCl (Imodium) 2 mg PRN Q15MIN PRN PO DIARRHEA Last administered on 08/10/18at 23:46; Start 08/10/18 at 09:15; Stop 08/16/18 at 08:35; Status DC Vitamin A/Vitamin D (Vitamin A & D Ointment) 1 dayne PRN Q1HR PRN TP SKIN PROTECTION Last administered on 08/11/18at 08:58; Start 08/10/18 at 09:45 Furosemide (Lasix) 40 mg 1X ONCE IVP Last administered on 08/10/18at 13:25; Start 08/10/18 at 11:30; Stop 08/10/18 at 11:38; Status DC Potassium Chloride/Water 100 ml @ 100 mls/hr Q1H IV Last administered on 08/11/18at 12:45; Start 08/11/18 at 09:00; Stop 08/11/18 at 12:59; Status DC Insulin Glargine (Lantus) 5 units QHS SQ Last administered on 08/12/18at 00:07; Start 08/11/18 at 21:00; Stop 08/12/18 at 09:05; Status DC Budesonide (Pulmicort) 0.5 mg RTBID NEB Last administered on 08/16/18at 08:13; Start 08/11/18 at 09:00 Insulin Glargine (Lantus) 10 units QHS SQ Last administered on 08/12/18at 21:27; Start 08/12/18 at 21:00; Stop 08/13/18 at 12:04; Status DC Acetaminophen/ Hydrocodone Bitart (Lortab 5/325) 1 tab PRN Q6HRS PRN PO PAIN Last administered on 08/13/18at 01:03; Start 08/13/18 at 01:00; Stop 08/16/18 at 08:35; Status DC Potassium Chloride (Klor-Con) 20 meq DAILY08 PO Last administered on 08/16/18at 09:04; Start 08/14/18 at 08:00 Metoprolol Succinate (Toprol Xl) 100 mg DAILY PO Last administered on 08/16/18at 09:05; Start 08/14/18 at 09:00 Insulin Glargine (Lantus) 15 units QHS SQ Last administered on 08/14/18at 21:29; Start 08/13/18 at 21:00; Stop 08/15/18 at 08:19; Status DC Insulin Glargine (Lantus) 20 units QHS SQ Last administered on 08/15/18at 22:39; Start 08/15/18 at 21:00; Stop 08/16/18 at 08:30; Status DC Amoxicillin/ Clavulanate Potassium (Augmentin 875/ 125mg) 1 tab BID PO Last administered on 08/16/18at 09:04; Start 08/15/18 at 13:00 Insulin Glargine (Lantus) 25 units QHS SQ ; Start 08/16/18 at 21:00 Lactobacillus Rhamnosus (Culturelle) 1 cap BID PO ; Start 08/16/18 at 21:00 Active Scripts Active Omeprazole 40 Mg Capsule.dr 40 Mg PO DAILY Aspirin 81 Mg Tab.chew 81 Mg PO DAILY Pioglitazone Hcl 30 Mg Tablet 30 Mg PO DAILY Atorvastatin Calcium 80 Mg Tablet 80 Mg PO HS Reported Metoprolol Tartrate 100 Mg Tablet 2 Tab PO DAILY Glipizide 5 Mg Tablet 2 Tab PO DAILY [place] 3 Fish Oil Softgel ([place]-3 Fatty Acids/Fish Oil) 1 Each Capsule.dr 2 Each PO DAILY Calcium Carbonate 500 Mg Tablet 1,000 Mg PO DAILY Januvia (Sitagliptin Phosphate) 50 Mg Tablet 1 Tab PO DAILY Lisinopril 5 Mg Tablet 1 Tab PO DAILY Vitals/I & O Vital Sign - Last 24 Hours 08/15/18 08/15/18 08/15/18 08/15/18 12:28 14:49 19:20 19:54 Temp 97.6 97.8 97.6 97.8 Pulse 80 83 Resp B/P (MAP) 94/64 (74) 142/71 (94) Pulse Ox 95 90 96 95 O2 Delivery Nasal Cannula Nasal Cannula Nasal Cannula Nasal Cannula O2 Flow Rate 3.5 3.5 3.5 3.5 08/15/18 08/15/18 08/16/18 08/16/18 20:00 23:00 03:06 07:00 Temp 97.5 97.7 97.3 97.5 97.7 97.3 Pulse 75 78 75 Resp B/P (MAP) 141/83 (102) 176/65 (102) 165/62 (96) Pulse Ox 94 94 96 O2 Delivery Nasal Cannula Nasal Cannula Nasal Cannula Nasal Cannula O2 Flow Rate 3.5 3.5 3.5 3.5 08/16/18 08/16/18 08/16/18 08/16/18 08:00 08:15 08:16 09:03 Pulse 75 B/P (MAP) 165/62 Pulse Ox 96 96 O2 Delivery Nasal Cannula Nasal Cannula Nasal Cannula O2 Flow Rate 3.5 3.5 3.5 08/16/18 08/16/18 09:05 10:48 Temp 98.2 98.2 Pulse 75 75 Resp 22 B/P (MAP) 165/62 139/67 (91) Pulse Ox 95 O2 Delivery Nasal Cannula O2 Flow Rate 3.5 Intake and Output 08/15/18 08/15/18 08/16/18 14:59 22:59 06:59 Intake Total 730 ml 300 ml 660 ml Output Total 100 ml Balance 730 ml 300 ml 560 ml DON MUNOZ MD August 16, 2018 11:44
--- NOTE | 2018-08-16 12:02 | NUR ---
SS following up with discharge planning. SS met with pt and pt's family in room. Pt and pt's family reported that they no longer wish to go to and would like to transfer to [facility], ; fax [phone]. Pt and pt's family reported that they are not ready for hospice at this time and would like to focus on quality of life which to them is to transfer to [facility] and pursue rehabilitation. Pt's RN notified. SS left message for physician as well. SS faxed updated therapy notes to [facility].
--- NOTE | 2018-08-16 12:15 | SNU/HH DC ---
DISCHARGE ORDERS DISCHARGE INFORMATION: FINAL DIAGNOSIS Problems Medical Problems: (1) Pneumonia Status: Acute (2) Severe sepsis Status: Acute (3) Urinary tract infection Status: Acute CONDITION ON DISCHARGE: Stable CODE STATUS: Code Status: DNR/DNI SENIOR LIVING: SNF STAY <30 DAYS: Yes POST DISCHARGE ORDERS: ACTIVITY ORDERS: Activity as tolerated DIET AFTER DISCHARGE: ADA TREATMENT/EQUIPMENT ORDERS: Physical Therapy For: Evalulation/Treatment Occupational Therapy For: Evaluation/Treatment DISCHARGE MEDICATIONS: Home Meds Active Scripts Vits A & D/White Pet/Lanolin (VITAMIN A & D OINTMENT) 56.7 Gm Oint...g., 1 TWILA TP PRN Q1HR PRN for SKIN PROTECTION for 30 Days, MISC Prov:KEVON FUENTES MD 08/16/18 Nystatin (NYSTOP) 60 Gm Powder, 1 TWILA TP BID for rash MDD 30 for 30 Days, MISC Prov:KEVON FUENTES MD 08/16/18 Glipizide (GLIPIZIDE) 5 Mg Tablet, 5 MG PO BIDBFRMEAL for dm for 30 Days, #60 TAB Prov:KEVON FUENTES MD 08/16/18 Insulin Lispro (HUMALOG) 100 Unit/1 Ml Insuln.pen, 0 UNITS SQ TIDWMEALS for dm for 30 Days, EACH Prov:KEVON FUENTES MD 08/16/18 Insulin Glargine,Hum.rec.anlog (LANTUS SOLOSTAR) 100 Unit/1 Ml Insuln.pen, 25 UNITS SQ QHS for dm for 30 Days, EACH Prov:KEVON FUENTES MD 08/16/18 Budesonide (BUDESONIDE) 0.5 Mg/2 Ml Ampul.neb, 0.5 MG NEB RTBID for pneumonia for 30 Days, EACH Prov:KEVON FUENTES MD 08/16/18 Potassium Chloride (KLOR-CON M20) 20 Meq Tab.er.prt, 20 MEQ PO DAILY08 for potassium for 30 Days, #30 TAB.SR Prov:KEVON FUENTES MD 08/16/18 Acetaminophen (TYLENOL) 325 Mg Tablet, 650 MG PO PRN Q6HRS PRN for PAIN for 30 Days, TAB Prov:KEVON FUENTES MD 08/16/18 Lisinopril (LISINOPRIL) 40 Mg Tablet, 20 MG PO DAILY for htn for 30 Days, #15 TAB Prov:KEVON FUENTES MD 08/16/18 Metoprolol Succinate (METOPROLOL SUCCINATE ( XL )) 100 Mg Tab.er.24h, 100 MG PO DAILY for htn for 30 Days, #30 TAB.SR Prov:KEVON FUENTES MD 08/16/18 Albuterol Sulfate (Proair Hfa) 8.5 Gm Hfa.aer.ad, 2.5 MG IH PRN Q3HRS PRN for WHEEZING for 30 Days, INHALER Prov:KEVON FUENTES MD 08/16/18 Amoxicillin/Potassium Clav (AMOX TR-K CLV 875-125 MG TAB) 1 Each Tablet, 1 TAB PO BID for sepsis for 7 Days, #14 TAB Prov:KEVON FUENTES MD 08/16/18 Omeprazole (OMEPRAZOLE) 40 Mg Capsule.dr, 40 MG PO DAILY, #1 Prov:MANNY MACIEL MD 07/03/13 Aspirin (ASPIRIN) 81 Mg Tab.chew, 81 MG PO DAILY, #1 TAB.CHEW Prov:MANNY MACIEL MD 07/03/13 Atorvastatin Calcium (ATORVASTATIN CALCIUM) 80 Mg Tablet, 80 MG PO HS, #1 Prov:MANNY MACIEL MD 07/03/13 Reported Medications Calcium Carbonate (CALCIUM CARBONATE) 500 Mg Tablet, 1000 MG PO DAILY for supplement, TAB 08/05/18 Sitagliptin Phosphate (JANUVIA) 50 Mg Tablet, 1 TAB PO DAILY for DIABETES, #30 TAB 5 Refills 08/05/18 Discontinued Reported Medications Metoprolol Tartrate (METOPROLOL TARTRATE) 100 Mg Tablet, 2 TAB PO DAILY for HTN, #60 TAB 5 Refills 08/05/18 Glipizide (GLIPIZIDE) 5 Mg Tablet, 2 TAB PO DAILY for DM, #90 TAB 3 Refills 08/05/18 [place]-3 Fatty Acids/Fish Oil (OMEGA 3 FISH OIL SOFTGEL) 1 Each Capsule.dr, 2 EACH PO DAILY for supplement, CAP 08/05/18 Lisinopril (LISINOPRIL) 5 Mg Tablet, 1 TAB PO DAILY for HTN, #30 TAB 5 Refills 08/05/18 Discontinued Scripts Pioglitazone Hcl (PIOGLITAZONE HCL) 30 Mg Tablet, 30 MG PO DAILY, #1 Prov:MANNY MACIEL MD 07/03/13 KEVON FUENTES MD August 16, 2018 12:15
--- NOTE | 2018-08-16 12:44 | DS ---
DATE OF DISCHARGE: 08/16/2018 CHIEF COMPLAINT: Weakness and malaise. HISTORY OF PRESENT ILLNESS: The patient is a 72-year-old female who presented to the Emergency Room with the above complaint. She reported a several-day history of increasing weakness and malaise. There was also a cough present and some shortness of breath. Initial evaluation in the Emergency Room showed the patient to be hypoxic with a significant leukopenia. Treatment was started for sepsis and the patient was admitted for further care. HOSPITAL COURSE: The patient was seen in consultation by Cardiology, Hematology/Oncology and Infectious Disease. She was started on broad-spectrum antibiotics for presumed sepsis. Blood and urine cultures were negative, but the patient was continued on empiric antibiotics. Chest x-ray at admission showed bilateral infiltrates. The patient's acute hypoxic respiratory failure was treated with antibiotics, oxygen and nebulized breathing treatments. The patient has had some improvement in her pulmonary status with these treatments, but remains hypoxic on room air. The patient was seen by Hematology due to her significant neutropenia of 1.3 at admission. Multiple lab studies were done, which failed to show an acute abnormality as the cause of this. Eventually, a bone marrow biopsy was done, which showed acute myelogenous leukemia. The patient remained pancytopenic through her hospital stay, but her blood counts did not significantly worsen. The possibility of chemotherapy treatment for AML was discussed with the patient and her family by Dr. De La Rosa. The patient is very debilitated presently and would not be able to tolerate chemotherapy. If her condition improves in the future, chemotherapy can be considered. The patient has diabetes and her medications were adjusted for better control of her blood sugars. Insulin was added as her blood sugar remained too elevated on oral medication only. Her blood pressure medications were also adjusted. She had some bradycardia on her usual Toprol-XL 200 daily, but this was much improved when the dose was decreased to 100 mg daily and this will be continued. The patient has chronic kidney disease stage 3, which has been basically stable. She does have significant debility and is unable to return home at this time. Options were discussed with the patient and her family and they were in agreement to having her transferred to [facility] for ongoing therapies. The patient will be transferred to [facility] today. FINAL DIAGNOSES: 1. Severe sepsis. 2. Acute hypoxic respiratory failure with pneumonia. 3. Acute myelogenous leukemia. 4. Diabetes mellitus type 2. 5. Hypertension. 6. Chronic kidney disease stage 3. 7. Debility. DISCHARGE MEDICATIONS: Augmentin 875 one p.o. b.i.d. x 7 days, then discontinue; Tylenol p.r.n.; albuterol nebulized treatments p.r.n.; Pulmicort nebulized treatments b.i.d.; glipizide 5 mg b.i.d.; Lantus insulin 25 units at bedtime; Humalog insulin sliding scale; lisinopril 20 mg daily; Toprol-XL 100 mg daily; potassium chloride 20 mEq daily; aspirin 81 mg daily; atorvastatin 80 mg daily; calcium carbonate 500 mg daily; omeprazole 40 mg daily and Januvia 50 mg daily. FOLLOWUP: Followup is with Dr. Long after discharge from [facility]. Follow up with consultants as advised. KEVON LONG MD DR: DAVID/nts JOB#: [id number] / [id number] YOANNA
--- NOTE | 2018-08-16 13:48 | NUR ---
SS following up with discharge planning. Discharge orders received for [facility]. SS phoned and faxed discharge orders to [facility], ; fax [phone]. Pt will discharge today and go to [facility] between 1600 and 1630 via [employer] [facility], . Pt, pt's RN, and pt's family notified.
[2018-08-16 14:46] VITALS: BP 121/56
--- NOTE | 2018-08-16 14:51 | NUR ---
REPORT GIVEN TO [facility] NURSE.
--- NOTE | 2018-08-16 17:30 | NUR ---
PATIENT DISCHARGED TO [facility] PER [facility]EL[facility].
[2018-08-16] MEDS ORDERED: LACTOBACILLUS RHAMNOSUS GG 1 CAPSULE. PO SCH (21:00)
[2018-08-16] MEDS ORDERED: INSULIN GLARGINE 300 UNITS/3 ML INSULN.PEN. SQ SCH (21:00)
== END 2018-08-16 17:30 | DRG 871 ==
LOC: ER 12:23 → 2 SOUTH 16:39
PROVIDERS: ADMIT Family Medicine; ATTEND Family Medicine
PROC: 5A09357 Assistance with Respiratory Ventilation, Less than 24 Consecutive Hours, Continuous Positive Airway Pressure (ICD-10-PCS; 2018-08-08)
PROC: 5A09357 Assistance with Respiratory Ventilation, Less than 24 Consecutive Hours, Continuous Positive Airway Pressure (ICD-10-PCS; 2018-08-09)
PROC: 07DR3ZX Extraction of Iliac Bone Marrow, Percutaneous Approach, Diagnostic (ICD-10-PCS; principal; 2018-08-09 12:15)
PROC: 5A09357 Assistance with Respiratory Ventilation, Less than 24 Consecutive Hours, Continuous Positive Airway Pressure (ICD-10-PCS; 2018-08-10)
PROC: 5A09357 Assistance with Respiratory Ventilation, Less than 24 Consecutive Hours, Continuous Positive Airway Pressure (ICD-10-PCS; 2018-08-11)
PROC: 5A09357 Assistance with Respiratory Ventilation, Less than 24 Consecutive Hours, Continuous Positive Airway Pressure (ICD-10-PCS; 2018-08-13)
DX: A41.9 Sepsis, unspecified organism (principal); J96.01 Acute respiratory failure with hypoxia; G92 Toxic encephalopathy; J18.9 Pneumonia, unspecified organism; C92.00 Acute myeloblastic leukemia, not having achieved remission; N39.0 Urinary tract infection, site not specified; D61.818 Other pancytopenia; B17.9 Acute viral hepatitis, unspecified; I13.0 Hypertensive heart and chronic kidney disease with heart failure and stage 1 through stage 4 chronic kidney disease, or unspecified chronic kidney disease; N17.9 Acute kidney failure, unspecified; Z68.41 Body mass index [BMI] 40.0-44.9, adult; K80.10 Calculus of gallbladder with chronic cholecystitis without obstruction; R65.20 Severe sepsis without septic shock; E66.01 Morbid (severe) obesity due to excess calories; E78.00 Pure hypercholesterolemia, unspecified; E11.22 Type 2 diabetes mellitus with diabetic chronic kidney disease; N18.3 Chronic kidney disease, stage 3 (moderate); I50.9 Heart failure, unspecified; E11.649 Type 2 diabetes mellitus with hypoglycemia without coma; K21.9 Gastro-esophageal reflux disease without esophagitis; E78.5 Hyperlipidemia, unspecified; I25.10 Atherosclerotic heart disease of native coronary artery without angina pectoris; Y95 Nosocomial condition; Z66 Do not resuscitate; Z51.5 Encounter for palliative care; Z95.1 Presence of aortocoronary bypass graft; Z98.51 Tubal ligation status; Z98.49 Cataract extraction status, unspecified eye; Z83.3 Family history of diabetes mellitus; Z82.49 Family history of ischemic heart disease and other diseases of the circulatory system; Z87.891 Personal history of nicotine dependence; Z74.01 Bed confinement status
CPT/HCPCS: 36415; 36600; 38222; 70450; 71045; 76700; 77012; 80048; 80053; 80076; 80202; 81001; 82550; 82565; 82728; 82805; 82962; 83010; 83520; 83540; 83550; 83605; 83615; 83690; 83880; 84145; 84165; 84484; 84550; 85007; 85025; 85027; 85384; 85610; 85730; 86038; 86703; 86705; 86709; 86747; 86803; 87040; 87086; 87340; 87493; 87804; 88184; 88185; 88237; 88280; 88305; 88311; 88313; 93005; 93306; 93971; 94640; 94660; 94760; 96365; 96367; A7015; J0360; J1815; J1940; J2248; J2543; J2704; J3370; J3480; J7030; J7040; J7042; J7613; J7626; 83516; 97110; 97530; 97535; 99285-25